=== PATIENT | female | born 1935 | race Hispanic/Latino ===

== ENCOUNTER → 2016-08-27 | Outpatient (CLI) | payer MEDICAID ==
[~2016-08-27] MED LIST: ACYC30OI TP; AML5T; ASP325TEC PO; ASP81CT PO; CEFD300C3 PO; CLCX100C; CLCX200C; CLPD75T PO; FRS325T; FURO20TA4 PO; HYDR-3812 PO; LISI10TA PO; METO50TA7 PO; MTP25TSR; NF-ESOM40C; POTA10CA43 PO; PROP1TAB77; SIMV40TA2; SIMV40TA4 PO; SOLIFENACIN; TRAM50TA2 PO; VALA10004 PO
--- OUTSIDE RECORDS SUMMARY | 2016-08-27 06:00 | XMS REPORT | CCD ---
Author Author STEVIE JACOB Unknown Address [address] [facility] [address] [place], [place] [id number] Care Team Providers Care Instructional Design Consultant Name Role Phone MATTEO VALENZUELA, M Attphys F., SAIRA NASST G., JAYSON NASST S., BENOIT NASST S., TAY NASST B., RICARDO NASST L., H NASST S., CRYSTAL NASST V., A NASST K., Donal NASST D., S NASST B., PIPPA NASST Vital Signs Vital Sign Value Unit Date/Time Recent/Initial? Weight Measured 160 lbs 04/06/2016 11:05 Initial VS Height 64 in 04/06/2016 11:05 Initial VS BMI (Body Mass Index) 27.46 kg/m^2 04/06/2016 11:05 Initial VS BSA (Body Surface Area) 1.81 m^2 04/06/2016 11:05 Initial VS BP Systolic 147 mmHg 04/06/2016 11:05 Initial VS BP Diastolic 71 mmHg 04/06/2016 11:05 Initial VS Respiratory Rate 20 bpm 04/06/2016 11:05 Initial VS Heart Rate 68 bpm 04/06/2016 11:05 Initial VS O2 % BldC Oximetry 100 % 04/06/2016 11:05 Initial VS Body Temperature 96.4 degrees 04/14/2016 15:05 Initial VS Body Temperature 96 degrees 04/16/2016 11:00 Most Recent VS BP Systolic 150 mmHg 04/16/2016 14:48 Most Recent VS BP Diastolic 78 mmHg 04/16/2016 14:48 Most Recent VS Respiratory Rate 16 bpm 04/16/2016 14:48 Most Recent VS Heart Rate 54 bpm 04/16/2016 14:48 Most Recent VS O2 % BldC Oximetry 100 % 04/16/2016 14:48 Most Recent VS Allergies Allergy Code Allergy Type Reaction Status No Known Drug Allergies 0 No known drug allergies Active Procedures Procedure Code Procedure Type Date Replacement of Right Knee Joint with Synthetic Substitute, Cemented, Open [id number] ICD-10 PCS 04/14/2016 PT GROUP THERAPY 097618047 SNOMED CT 04/16/2016 PT GAIT TRAINING/STAIRS EA [address] 04/16 PT GROUP THERAPY 502928343 SNOMED CT 04/15/2016 PT EVALUATION 102961289 SNOMED CT 04/15/2016 PT GROUP THERAPY 225858538 SNOMED CT 04/15/2016 OT ADL TRAINING/POSITIONING EA 15MIN 513593530 SNOMED CT 04/15/2016 OT EVALUATION 547342456 SNOMED CT 04/15/2016 KNEE 1V OR [address]V 052527[address] SN[address] 04/14/[address]GLOBIN [address]C 27[address]195 SNOM[address] CT 04/16/2016 .BB COMPATIBILITY 816043857 SNOMED CT 04/16/2016 .BB COMPATIBILITY 784606904 SNOMED CT 04/16/2016 BEDSIDE GLUCOSE 93522279 SNOMED CT 04/15/2016 BASIC METABOLIC PANEL 725607089 SNOMED CT 04/16/2016 BASIC METABOLIC PANEL 817612592 SNOMED CT 04/15/2016 CBC W/ AUTO DIFF (RFLX MAN DIFF IF IND) 7255766 SNOMED CT 04/16/2016 CBC W/ AUTO DIFF (RFLX MAN DIFF IF IND) 8474509 SNOMED CT 04/15/2016 BEDSIDE GLUCOSE 62593420 SNOMED CT 04/14/2016 INCENTIVE SPIROMETRY EA [address] .BB COMPAT GEL CHARGE ONLY 893476541 SNOMED CT 04/16/2016 .BB COMPAT EXM CHARGE ONLY 839091470 SNOMED CT 2015 .BB PRC 361748605 SNOMED CT 04/16/2016 .BB COMPAT EXM CHARGE ONLY 710081272 SNOMED CT 2015 .BB PRC 703931527 SNOMED CT 04/16/2016 ^CBC W/AUTO DIFF 0704759 SNOMED CT 04/16/2016 ^CBC W/AUTO DIFF 1782248 SNOMED CT 04/15/2016 BAN AERO ECLIPSE TREATMENT 88698970 SNOMED CT 04/16/2016 BAN AERO ECLIPSE TREATMENT 00205243 SNOMED CT 04/16/2016 BAN AERO ECLIPSE TREATMENT 40004517 SNOMED CT 04/15/2016 BAN AERO ECLIPSE TREATMENT 74871627 SNOMED CT 04/15/2016 BAN AERO ECLIPSE TREATMENT 68242683 SNOMED CT 04/14/2016 BAN AERO ECLIPSE TREATMENT 96724192 SNOMED CT 04/14/2016 OXYGEN/HOUR 423717774 SNOMED CT 04/14/2016 History of Immunizations Immunization Code Date influenza, unspecified formulation 88 04/18/2015 pneumococcal, unspecified formulation 109 04/18/2015 influenza, injectable, quadrivalent, preservative free 150 2015 Problems Problem Code Start Date Resolved Date Status Primary osteoarthritis of right knee 224815339 Active Post op pain 034916517 04/14/2016 Active Status post knee replacement 0259824297440 04/14/2016 Active Results BASIC METABOLIC PANEL - Collect Date/Time: 04/16/2016 06:05 Test Name Code Test Result Test Units Test Ref Range GLUCOSE 2345-7 102 MG/DL L=70 H=100 SODIUM 2951-2 136 MEQ/L L=135 H=148 POTASSIUM 2823-3 4.7 MEQ/L L=3.5 H=5.3 CHLORIDE 2075-0 106 MEQ/L L=96 H=110 CO2 2028-9 24 MEQ/L L=22 H=29 BUN 3094-0 27 MG/DL L=8 H=22 CREATININE 2160-0 1.2 MG/DL L=0.6 H=1.6 CALCIUM 24835-4 8.8 MG/DL L=8.2 H=10.6 AGE 80 yrs GFR NonAA 43 GFR AA 52 eGFR 43 mL/min/1.7 eGFR AA* 52 mL/min/1.7 BASIC METABOLIC PANEL - Collect Date/Time: 04/15/2016 06:10 Test Name Code Test Result Test Units Test Ref Range GLUCOSE 2345-7 166 MG/DL L=70 H=100 SODIUM 2951-2 136 MEQ/L L=135 H=148 POTASSIUM 2823-3 4.3 MEQ/L L=3.5 H=5.3 CHLORIDE 2075-0 105 MEQ/L L=96 H=110 CO2 2028-9 23 MEQ/L L=22 H=29 BUN 3094-0 14 MG/DL L=8 H=22 CREATININE 2160-0 1.0 MG/DL L=0.6 H=1.6 CALCIUM 54519-3 8.7 MG/DL L=8.2 H=10.6 AGE 80 yrs GFR NonAA 53 GFR AA 64 eGFR 53 mL/min/1.7 eGFR AA* >60 N/A BEDSIDE GLUCOSE - Collect Date/Time: 04/15/2016 20:58 Test Name Code Test Result Test Units Test Ref Range GLUCOSE POCT 182 MG/DL L=70 H=100 BEDSIDE GLUCOSE - Collect Date/Time: 04/14/2016 10:46 Test Name Code Test Result Test Units Test Ref Range GLUCOSE POCT 108 MG/DL L=70 H=100 CBC W/ AUTO DIFF (RFLX MAN DIFF IF IND) - Collect Date/Time: 04/16/2016 06:05 Test Name Code Test Result Test Units Test Ref Range WBC 25520-3 9.6 TH/CMM L=4.5 H=10.8 RBC 789-8 2.57 ML/CMM L=4.20 H=5.40 HGB 718-7 7.7 G/DL L=12.0 H=16.0 HCT 4544-3 24.6 % L=37.0 H=47.0 MCV 96 FL L=81 H=99 MCH 30.0 PG L=27.0 H=33.0 MCHC 31.3 G/DL L=31.0 H=36.0 RDW SD 48 FL L=36 H=50 RDW CV 13.6 % L=0.0 H=14.8 MPV 10.2 FL L=9.3 H=12.5 PLT 777-3 118 TH/CMM L=130 H=440 NRBC# 0.00 TH/CMM L=0.00 H=0.00 NRBC% 0.0 /100WBC L=0.0 H=2.0 %NEUT 79.9 % %LYMP 11.1 % %MONO 5.6 % %EOS 2.8 % %BASO 0.3 % #NEUT 7.64 TH/CMM L=2.10 H=8.20 #LYMP 1.06 TH/CMM L=0.90 H=5.20 #MONO 0.54 TH/CMM L=0.16 H=1.00 #EOS 0.27 TH/CMM L=0.00 H=0.80 #BASO 0.03 TH/CMM L=0.00 H=0.20 MANUAL DIFF NOT IND N/A CBC W/ AUTO DIFF (RFLX MAN DIFF IF IND) - Collect Date/Time: 04/15/2016 06:10 Test Name Code Test Result Test Units Test Ref Range WBC 53174-6 12.6 TH/CMM L=4.5 H=10.8 RBC 789-8 2.91 ML/CMM L=4.20 H=5.40 HGB 718-7 8.9 G/DL L=12.0 H=16.0 HCT 4544-3 28.3 % L=37.0 H=47.0 MCV 97 FL L=81 H=99 MCH 30.6 PG L=27.0 H=33.0 MCHC 31.4 G/DL L=31.0 H=36.0 RDW SD 48 FL L=36 H=50 RDW CV 13.3 % L=0.0 H=14.8 MPV 9.7 FL L=9.3 H=12.5 PLT 777-3 151 TH/CMM L=130 H=440 NRBC# 0.00 TH/CMM L=0.00 H=0.00 NRBC% 0.0 /100WBC L=0.0 H=2.0 %NEUT 86.3 % %LYMP 8.7 % %MONO 4.5 % %EOS 0.0 % %BASO 0.1 % #NEUT 10.90 TH/CMM L=2.10 H=8.20 #LYMP 1.10 TH/CMM L=0.90 H=5.20 #MONO 0.57 TH/CMM L=0.16 H=1.00 #EOS 0.00 TH/CMM L=0.00 H=0.80 #BASO 0.01 TH/CMM L=0.00 H=0.20 MANUAL DIFF NOT IND N/A .BB COMPATIBILITY - Collect Date/Time: 04/16/2016 07:59 Test Name Code Test Result Test Units Test Ref Range Cross Match Result Compatible N/A Unit Blood Type O Pos N/A Unit Number [id number] RBC -1 LR N/A Status Information Ready N/A Product Identification Red Blood Cells N/A .BB COMPATIBILITY - Collect Date/Time: 04/16/2016 07:51 Test Name Code Test Result Test Units Test Ref Range Cross Match Result Compatible N/A Unit Blood Type O Pos N/A Unit Number [id number] RBC -1 LR N/A Status Information Ready N/A Product Identification Red Blood Cells N/A HEMOGLOBIN A1C - Collect Date/Time: 04/16/2016 06:05 Test Name Code Test Result Test Units Test Ref Range HGB A1C 90657-9 5.6 % L=4.0 H=6.4 Est Avg Glucose 78935-1 114.0 mg/dL Active Medications Medications Administered During Visit Medication Dose Units Frequency Route Date/ Time of Last Dose DUONEB [IPRATROPIUM/ALBUTEROL] 0.5/3 MG 1 UD TID (RT ONLY ) INHALE 04/16/2016 14:00 NS 1000 ML IV [PREDEFINED] (7983) CONT IV 04/14/2016 17:30 CEFAZOLIN [ANCEF] 2 GM IV PREMIX BAG Q6H 04/14/2016 21:28 TRANEXAMIC ACID 1000MG/100ML [PREDEFINED X1 04/14/2016 16:20 ASPIRIN ENTERIC COATED TAB : 325MG 325 MG BID PO 04/16/2016 08:55 VITAMIN (LH SUB FOR ALL MULTIVITAMINS) 1 TAB DAILY PO 04/16/2016 08:55 DOCUSATE SODIUM 100 MG [COLACE] CAPSULE 100 MG BID PO 04/16/2016 08:55 PANTOPRAZOLE [PROTONIX] TABLET : 40 MG 40 MG DAILY PO 04/16/2016 08:55 OFIRMEV [ACETAMINOPHEN] 10MG/ML 100ML VL Q6H 04/16/2016 04:48 KETOROLAC (TORADOL) VIAL: 30 MG/ML 1 ML 30 MG Q6H IVP 04/16/2016 11:27 OXYCODONE 5 MG IMMEDIATE RELEASE TAB 1 TAB PRN PO 04/16/2016 08:11 LISINOPRIL 10MG TAB 10 MG DAILY PO 2015 08:55 CLOPIDOGREL [PLAVIX] TABLET: 75 MG 75 MG DAILY PO 04/15/2016 08:09 SIMVASTATIN [ZOCOR] TABLET: 20 MG 40 MG HS PO 04/15/2016 20:08 CEFAZOLIN [ANCEF] 2 GM IV PREMIX BAG Q6H 04/15/2016 01:59 CEFAZOLIN [ANCEF] 2 GM IV PREMIX BAG X1 04/15/2016 08:11 EPOETIN GURU 40,000 UNIT VIAL 67926 UNITS DAILY SUB Q 04/15/2016 16:16 FLUARIX (INFLUENZA) VACCINE: 0.5ML SYR 0.5 EA X1 IM 04/15/2016 16:16 FUROSEMIDE (LASIX): 20 MG/2 ML INJ 20 MG X1 IVP 04/16/2016 11:27 Encounters Encounter Diagnosis Diagnosis Code Start Date Unilateral primary osteoarthritis, right knee [id number] 04/14/2016 Social History Smoking Status Code Start Date End Date Never smoker [id number] Patient Decision Aids Patient Decision Aid Joint Replacement Surgery Narcotic Pain Management Non-pharmacological Pain Management Therapies for Adults PATIENT PORTAL ACCESS Pain Management After Surgery Pain Management After Surgery Discharge Instructions You were admitted to [facility] on 04/14/2016 10:12 with a principal diagnosis of Unilateral primary osteoarthritis, right knee You had the following procedures done: Replacement of Right Knee Joint with Synthetic Substitute, Cemented, Open You had the following tests done: .BB COMPATIBILITY .BB COMPATIBILITY BASIC METABOLIC PANEL BASIC METABOLIC PANEL BEDSIDE GLUCOSE BEDSIDE GLUCOSE CBC W/ AUTO DIFF ( RFLX MAN DIFF IF IND) CBC W/ AUTO DIFF (RFLX MAN DIFF IF IND) HEMOGLOBIN A1C You were discharged from [facility] on 04/16/2016 16:25 Should you have any questions prior to discharge, please contact a member of your healthcare team. If you have left the hospital and have any questions, please contact your primary care physician. PATIENT PORTAL/OTHER INSTRUCTIONS: Assisted on to Patient Portal. HOME DIET: Regular. ACTIVITY INSTRUCTIONS(list limitations): Activity as Tolerated , User walker when wallking. SPECIAL INSTRUCTIONS: Apply Ice to right knee for 20 minutes., continue home exercise program. May rinse incision off in shower, but do not soak. SCRIPTS WRITTEN BY DOCTOR GIVEN TO PATIENT? Physical Therapy, Aspirin 325mg, Oxycodone 5mg. PERSONAL ITEMS RETURNED: Yes. INSTRUCTIONS GIVEN AND DISCHARGE TO: Daughter VOICES UNDERSTANDING OF INSTRUCTIONS: Yes. INSTRUCTIONS GIVEN BY (TYPE IN NAME AND DATE) Ricardo Cornell RN 04/16/16 PRIMARY CARE PHYSICIAN OR PRACTITIONER: Jovany Noriega MD, [phone]. FOLLOW UP CARE - SEE YOUR PHYSICIAN: Dr Noriega 04/27/16 at 1140am FOLLOW-UP OUTPATIENT SERVICES: Physical Therapy, [facility] 8.15am CONDITION AT DISMISSAL Stable. HOME MEDICATION INSTRUCTIONS: Recommend Miralax or stool softener while on pain meds CHIEF COMPLAINT: RT KNEE PAIN Chief Complaint and Reason For Visit Chief Complaint Date of Onset ORT TOTAL KNEE RIGHT Function Status Unknown or Not Available. Plan of Care Unknown or Not Available. Referral/Transition of Care Unknown or Not Available.
== END ==
LOC: PREOP 05:56
PROVIDERS: ATTEND Surgery
DX: Z01.818 Encounter for other preprocedural examination (principal); R13.10 Dysphagia, unspecified; R19.5 Other fecal abnormalities

== ENCOUNTER → 2017-11-02 | Outpatient (CLI) | payer MEDICAID ==
[~2017-11-02] MED LIST changes: +ACHD5005 PO; +APIX5TAB PO; +ASPI-983 PO; +CALC-6 PO; +FURO40TA4 PO; -HYDR-3812 PO; +IBUP-30 PO; +LISI10TA2 PO; +METO100T12 PO; +NITR-65 PO; +NITR100C10 PO; +PHEN-640 PO; +PHEN-827 PO; +REGADENOSON 0.4 MG/5 ML SYR (LEXISCAN) IV ONE
[2017-11-02] MEDS: CATHETER FLUSH 10 ML SYR IV PRN ×2 (11:44→13:01)
[2017-11-02 12:48] VITALS: BP 127/82
--- NOTE | 2017-11-02 17:21 | STRESS TEST ---
DATE OF SERVICE: 11/02/2017 RESTING AND POST REGADENOSON TECHNETIUM-99M TETROFOSMIN SPECT CT IMAGING ORDERING PHYSICIAN: Barbara Hernandez APRN. PRIMARY PHYSICIAN: Dr. Alvarez. CLINICAL DIAGNOSIS: Coronary artery disease. Baseline images were carried out after injection of 10.36 mCi of technetium-99m tetrofosmin. This was followed by 0.4 mg regadenoson and 29.6 mCi of technetium-99m tetrofosmin for stress imaging. The electrocardiogram showed atrial fibrillation throughout the study. Ventricular rate was somewhat rapid and averaging around 100 and 105 beats per minute. The patient tolerated the procedure well and did not report any significant symptoms. Review of images at rest and following stress indicates a lateral perfusion defect that is predominantly fixed. Gated images show lateral wall akinesis. Left ventricular ejection fraction is calculated to be 42%. Left ventricular end diastolic volume is 94 mL. TID is absent (1.01). CONCLUSIONS: 1. Lateral wall myocardial infarction with a small amount of hill-infarct ischemia. 2. Lateral wall akinesis. 3. Impairment of global left ventricular systolic function with an ejection fraction of 42%. Job ID: [id number] DocumentID: [id number] Dictated Date: 11/02/2017 17:03:47 Associate Genetics Professor Date: 11/02/2017 17:21:03 Dictated By: SAHIL HAWLEY MD, MA, FACP, FACC,
== END ==
LOC: CARD 10:08
PROVIDERS: ATTEND Nurse Practitioner Family
DX: I48.0 Paroxysmal atrial fibrillation (principal); I25.10 Atherosclerotic heart disease of native coronary artery without angina pectoris; R06.09 Other forms of dyspnea; I10 Essential (primary) hypertension; E78.5 Hyperlipidemia, unspecified
CPT/HCPCS: 78452; 93017

== ENCOUNTER → 2018-02-01 | Outpatient (CLI) | payer MEDICAID ==
[~2018-02-01] MED LIST changes: -REGADENOSON 0.4 MG/5 ML SYR (LEXISCAN) IV ONE
== END ==
LOC: PREOP 05:39
PROVIDERS: ATTEND Urology
DX: Z01.818 Encounter for other preprocedural examination (principal)

== ENCOUNTER 2018-02-08 06:03 | Day surgery (SDC) | payer MEDICAID ==
[~2018-02-08] VITALS: Ht 165.1 cm; Wt 72.1 kg
[~2018-02-08 06:03] MED LIST changes: -APIX5TAB PO; -ASPI-983 PO; -CALC-6 PO; -FURO40TA4 PO; -IBUP-30 PO; -LISI10TA2 PO; -METO100T12 PO; -NITR-65 PO; -NITR100C10 PO; -PHEN-640 PO; -PHEN-827 PO
[2018-02-08 06:35] VITALS: BP 107/92
[2018-02-08] MEDS ORDERED: SEVOFLURANE (ULTANE) 15 ML INHAL SOLN ONE (06:55)
[2018-02-08] MEDS ORDERED: DEXAMETHASONE 10 MG/ML (DECADRON) 1 ML VIAL ONE (06:55)
[2018-02-08] MEDS ORDERED: LIDOCAINE PF 2% 5 ML (XYLOCAINE) VIAL ONE (06:55)
[2018-02-08] MEDS ORDERED: ONDANSETRON 4 MG/2 ML (SDV) Z0FRAN ONE (06:55)
[2018-02-08] MEDS ORDERED: proPOfol 200 MG/20 ML (DIPRIVAN) VIAL IV ONE (06:55)
[2018-02-08] MEDS ORDERED: fentaNYL INJECTION 100 MCG/2 ML AMP ONE (06:56)
[2018-02-08] MEDS ORDERED: MIDAZOLAM 2 MG/2 ML (VERSED) VIAL ONE (06:56)
--- NOTE | 2018-02-08 07:00 | Progress Note-Pre Operative ---
Pre-Operative Progress Note H&P Reviewed The H&P was reviewed, patient examined and no changes noted. Date Seen by Provider: Feb 08, 2018 Time Seen by Provider: 07:00 Date H&P Reviewed: Feb 08, 2018 Time H&P Reviewed: 07:00 Pre-Operative Diagnosis: MIXED INCONTINENCE, OAB AND ISD SIM EISENBERG MD Feb 08, 2018 7:00 am
--- NOTE | 2018-02-08 07:01 | Progress Note-Post Operative ---
Post-Operative Progess Note Surgeon (s)/Representative Personal Service (s) Surgeon SIM EISENBERG MD Representative Personal Service: N/A Pre-Operative Diagnosis MIXED INCONTINENCE, OAB AND ISD Post-Operative Diagnosis SAME Procedure & Operative Findings Date of Procedure 02/08/18 Procedure Performed/Findings MACROPLASTIQUE IMPLANT Anesthesia Type GENERAL Estimated Blood Loss Estimated blood loss (mL): NEGLIGIBLE Specimens/Packing Specimens Removed N/A Packing: N/A SIM EISENBERG MD Feb 08, 2018 7:01 am
--- NOTE | 2018-02-08 07:03 | Discharge Inst-Urology ---
Discharge Inst-Urology Discharge Medications New, Converted, or Re-newed RX: RX on Chart Patient Instructions/Follow Up Plan Please make appointment to been seen in office in 4 weeks. In 48 hours, if no bleeding, resume ASA and Plavix Showers, no bath Keep bowels soft and moving Increase oral fluids for 48 hours and then as needed. Diet and Activity as tolerated. If questions or concerns contact your physician Or seek help at emergency department. SIM EISENBERG MD Feb 08, 2018 7:03 am
[2018-02-08] MEDS ORDERED: LACTATED RINGERS 1,000 ML IV PRN (07:07)
[2018-02-08] MEDS ORDERED: NS (IVPB) 50 ML ONE (07:15)
[2018-02-08] MEDS ORDERED: cefTRIAXone 1 GM (ROCEPHIN) VIAL ONE (07:15)
[2018-02-08] MEDS ORDERED: cefTRIAXone 1 GM/NS 50 ML IVPB IV ONE ×2 (07:30)
[2018-02-08] MEDS ORDERED: PHENYLEPHRINE 100 MCG/ML 10 ML (ANESTHESIA) SYR ONE (07:36)
[2018-02-08] MEDS ORDERED: PHEN-640 PO (08:12)
[2018-02-08] MEDS ORDERED: NITR-65 PO (08:12)
[2018-02-08 08:30] VITALS: BP 104/72
[2018-02-08 09:00] VITALS: BP 113/81
[2018-02-08 09:20] VITALS: BP 113/74
[2018-02-08 09:30] VITALS: BP 113/74
--- NOTE | 2018-02-08 11:22 | Anesthesia-General Post-Op ---
General Patient Condition Mental Status/LOC: Same as Preop Cardiovascular: Satisfactory Nausea/Vomiting: Absent Respiratory: Satisfactory Pain: Controlled Complications: Absent Post Op Complications Complications None Follow Up Care/Instructions Patient Instructions None needed. Anesthesia/Patient Condition Patient Condition Patient is doing well, no complaints, stable vital signs, no apparent adverse anesthesia problems. No complications reported per nursing. MARY JAMES CRNA Feb 08, 2018 11:22
--- NOTE | 2018-02-08 13:38 | OPERATIVE REPORT ---
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 OPERATION PERFORMED: Cystoscopy with Macroplastique implant. SURGEON: Zion Eisenberg MD. ANESTHESIA: General. COMPLICATIONS: None. DESCRIPTION OF PROCEDURE: Under satisfactory general anesthesia, the patient in lithotomy position, genitalia were prepped and draped in the usual sterile fashion. Cystoscope was introduced in the bladder. Macroplastique implant was injected first at the 6 o'clock position, a full syringe using the described technique. Then, half a syringe at each of the 2 o'clock and 10 o'clock position. There was good coaptation of the mid urethra and the negative Valsalva manual maneuver. I emptied the bladder with the cystoscope, removed it. The patient tolerated the procedure and anesthesia well and was sent to the recovery room in stable condition. ESTIMATED BLOOD LOSS: Negligible. If this procedure fails, then her only alternative would be a sling. Job ID: [id number] DocumentID: [id number] Dictated Date: 02/08/2018 07:55:50 Post Graduate Intern Date: 02/08/2018 13:37:13 Dictated By: ZION EISENBERG MD
[2018-02-13] MEDS ORDERED: TRAM50TA2 PO ×2 (11:02→11:05)
== END 2018-02-08 09:48 | disposition home or self-care (01) ==
LOC: SDC 06:03
PROVIDERS: ATTEND Urology
DX: N36.42 Intrinsic sphincter deficiency (ISD) (principal); N39.46 Mixed incontinence; N32.81 Overactive bladder; I25.10 Atherosclerotic heart disease of native coronary artery without angina pectoris; I48.91 Unspecified atrial fibrillation; Z79.02 Long term (current) use of antithrombotics/antiplatelets; Z79.82 Long term (current) use of aspirin
CPT/HCPCS: 87081

== ENCOUNTER 2018-02-11 08:20 | Inpatient (IN) | payer MEDICAID ==
[~2018-02-11] VITALS: Ht 157.5 cm; Wt 72.1 kg
[~2018-02-11 08:20] MED LIST changes: +NITR-65 PO; +PHEN-640 PO
[2018-02-11] MEDS ORDERED: ONDANSETRON 4 MG/2 ML (SDV) Z0FRAN IVP ONE (09:00)
[2018-02-11 09:02] LABS: BASOPHILS % (AUTO) 0 % (0-10); EOSINOPHILS % (AUTO) 0 % (0-10); HEMATOCRIT 36 % (35-52); HEMOGLOBIN 11.5 G/DL (11.5-16.0); LYMPHOCYTES # (AUTO) 1.3 X 10^3 (1.0-4.0); LYMPHOCYTES % (AUTO) 19 % (12-44); MEAN CORPUSCULAR HEMOGLOBIN 31 PG (25-34); MEAN CORPUSCULAR HGB CONC 32 G/DL (32-36); MEAN CORPUSCULAR VOLUME 95 FL (80-99); MEAN PLATELET VOLUME 11.5 FL (7.4-10.4); MONOCYTES # (AUTO) 0.5 X 10^3 (0.0-1.0); MONOCYTES % (AUTO) 7 % (0-12); NEUTROPHILS # (AUTO) 5.3 X 10^3 (1.8-7.8); NEUTROPHILS % (AUTO) 74 % (42-75); PLATELET COUNT 124 10^3/uL (130-400); RED BLOOD COUNT 3.75 10^6/uL (4.35-5.85); WHITE BLOOD COUNT 7.1 10^3/uL (4.3-11.0)
[2018-02-11 09:09] LABS: INR 1.5 (0.8-1.4)
[2018-02-11 09:15] LABS: ALANINE AMINOTRANSFERASE 35 U/L (0-55); ALBUMIN 3.4 GM/DL (3.2-4.5); ALKALINE PHOSPHATASE 71 U/L (40-136); BILIRUBIN,TOTAL 1.3 MG/DL (0.1-1.0); BUN/CREATININE RATIO 18; CALCIUM 9.5 MG/DL (8.5-10.1); CARBON DIOXIDE 23 MMOL/L (21-32); CHLORIDE 100 MMOL/L (98-107); CREATININE SERUM 1.25 MG/DL (0.60-1.30); GFR ESTIMATED 41; GLUCOSE 178 MG/DL (70-105); LIPASE 8 U/L (8-78); MAGNESIUM 1.9 MG/DL (1.8-2.4); POTASSIUM 4.6 MMOL/L (3.6-5.0); SODIUM 131 MMOL/L (135-145); TOTAL PROTEIN 6.7 GM/DL (6.4-8.2)
[2018-02-11 09:22] LABS: MYOGLOBIN SERUM 80.3 NG/ML (10.0-92.0)
[2018-02-11] MEDS ORDERED: NS 250 ML (IVPB) BAG IV ONE (10:15)
[2018-02-11] MEDS ORDERED: IOHEXOL 350 MG/ML 100 ML (OMNIPAQUE 350) VIAL IV ONE (10:15)
--- NOTE | 2018-02-11 10:26 | Diagnostic Imaging Report ---
INDICATION: Shortness of air COMPARISON: 07/04/2016 FINDINGS: Single frontal view of the chest demonstrates moderate to marked enlargement of the cardiac silhouette. Pulmonary vasculature is within normal limits. The lungs are well aerated and clear. No large pleural effusion or pneumothorax is seen. The visualized osseous structures show no acute abnormalities. IMPRESSION: 1. Moderate to marked prominence of the cardiac silhouette. Findings could be on the basis of interval progression of cardiomegaly. Underlying pericardial effusion, however, should also be considered. 2. No evidence of failure or focal infiltrate. Dictated by: Dictated on workstation # [id number]
[2018-02-11] MEDS ORDERED: RECEIVED CONTRAST (Hold Metformin) IV SCH (10:30)
--- NOTE | 2018-02-11 11:21 | Diagnostic Imaging Report ---
PROCEDURE: CT abdomen and pelvis with contrast. TECHNIQUE: Multiple contiguous axial images were obtained through the abdomen and pelvis after administration of intravenous contrast. INDICATION: Recent bladder surgery. Now with abdominal pain and nausea. Shortness of air. COMPARISON: 02/03/2011 FINDINGS: The included portions of the lung bases show moderate cardiomegaly. Additionally, there is calcified coronary atherosclerosis. Partially visualized small effusion is noted on the left. Mild to moderate effusion is also noted on the right. CT ABDOMEN: There is significant gallbladder wall thickening. Debris is noted within the lumen of the gallbladder. Additionally, there is small amount of free fluid within the right upper abdominal quadrant. Findings are concerning for acute cholecystitis. Benign-appearing bilateral renal cysts are noted. Otherwise, the kidneys, adrenal glands, spleen, and pancreas have a normal appearance. Note is made of reflux of contrast into the hepatic veins suggestive of right heart disorder. Otherwise, liver is unremarkable as well. Small bowel loops are nondistended. Normal appendix is identified. There is colonic diverticulosis, but no CT evidence of acute diverticulitis. No abnormal mesenteric or retroperitoneal adenopathy is seen. There is diffuse calcified aortic and arterial atherosclerosis. 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 Osseous structures show no acute abnormalities. CT PELVIS: Urinary bladder is grossly unremarkable. Small amount of free fluid is also noted within the pelvis. There is no loculated air-fluid collection or free air. Metallic foreign body is noted within the uterus. No abnormal lymph nodes are identified. Bony structures show no acute abnormalities. IMPRESSION: 1. CT findings concerning for acute cholecystitis as described above. May want to consider further characterization with dedicated right upper abdominal quadrant sonogram or HIDA scan. 2. Small amount of free fluid within the abdomen and pelvis, but no loculated air-fluid collection. 3. Colonic diverticulosis, but no CT evidence of acute diverticulitis. 4. Cardiomegaly with reflux of contrast into the hepatic veins suggestive of right heart failure. 5. Significant calcified aortic and coronary atherosclerosis. 6. Bilateral pleural effusions, right greater than left. 7. Metallic foreign body centrally within the uterus. Patient reportedly has clinical history of indwelling IUD. Dictated by: Dictated on workstation # [id number]
--- NOTE | 2018-02-11 13:04 | Diagnostic Imaging Report ---
PROCEDURE: US Gallbladder. TECHNIQUE: Multiple real-time grayscale images were obtained over the right upper quadrant in various projections. INDICATION: Right upper quadrant pain. COMPARISON: Exam interpreted in correlation with CT performed earlier this same date. FINDINGS: There is markedly irregular presumed edematous thickening of the gallbladder with perihepatic and pericholecystic fluid. Gallbladder wall thickening measures at least 14 mm. There is ectasia of the extrahepatic common duct measuring 8 mm. Its distal portion is obscured by gas. No intrahepatic biliary dilatation. The pancreas is largely obscured from visualization. The unobstructed right kidney contains a 4.3 cm simple-appearing cyst. IMPRESSION: No visualized shadowing or echogenic stones, however the gallbladder is markedly edematous with perihepatic and pericholecystic free fluid and mild dilatation of the common bile duct. Cholecystitis is suspected. Cystic duct patency could be confirmed or refuted with nuclear medicine hepatobiliary scanning, if clinically indicated. Benign right renal cyst. No hydronephrosis or obscuration of the pancreas. No demonstrated loculated fluid collection and no appreciable abnormal dilatation of the intrahepatic bile ducts. Dictated by: Dictated on workstation # [id number]
--- NOTE | 2018-02-11 14:11 | ED General ---
General Chief Complaint: Respiratory Problems Stated Complaint: SOB Nursing Triage Note: PT TO ROOM#9 VIA WC BY ED STAFF. FAMILY AT SIDE. A&OX4. PT SPEAKS PALAU[place] AND UNDERSTANDS PARTIAL YORUBA. [facility] INTERPRETING INFORMATION. CO SOA ON EXERTION AND EPIGASTRIC ABD PAIN THAT BEGAN YESTERDAY. REPORTS BLADDER SURGERY PERFORMED ON WEDNESDAY BY PT ALSO CO N/V THAT BEGAN YESTERDAY. DENIES CHEST PAIN. DENIES DIZZINESS. DENIES INJURY. Nursing Sepsis Screen: No Definite Risk Source of Information: Patient Exam Limitations: No Limitations History of Present Illness Date Seen by Provider: Feb 11, 2018 Time Seen by Provider: 08:40 Initial Comments This 82-year-old woman presents to the emergency room with complaints of shortness of breath on exertion, nausea, and epigastric pain. She had a cystoscopy with macroplastique implant performed by Dr. Dee on February 08. Patient presently takes Eliquis for atrial fibrillation. Her last dose was yesterday. Patient speaks Armenian and understands some Arabic. 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 Allergies and Home Medications Allergies Coded Allergies: Van Known Allergies (Verified Allergy, Unknown, 02/07/07) Home Medications Acyclovir 30 Gm Oint, 30 GM TP Q4H Prescribed by: RONNA MAYORGA on 07/04/162307 Cefdinir 300 Mg Capsule, 300 MG PO BID Prescribed by: RONNA MAYORGA on 07/04/162307 Hydrocodone Bit/Acetaminophen 1 Each Tablet, 1 EACH PO Q4H Prescribed by: RONNA MAYORGA on 07/04/162307 Lisinopril 10 Mg Tablet, 10 MG PO DAILY, (Reported) Nitrofurantoin Monohyd/M-Cryst 100 Mg Capsule, 1 TAB PO BID WITH MEALS Prescribed by: ISAIAH ENRIQUEZ on 02/08/18811 Phenazopyridine HCl 200 Mg Tablet, 1 TAB PO TID Prescribed by: ISAIAH ENRIQUEZ on 02/08/18811 Simvastatin 40 Mg Tablet, 40 MG PO HS, (Reported) Valacyclovir HCl 1,000 Mg Tablet, 1,000 MG PO TID Prescribed by: RONNA MAYORGA on 07/04/162307 Patient Home Medication List Home Medication List Reviewed: Yes Review of Systems Constitutional: no symptoms reported EENTM: no symptoms reported Respiratory: see HPI Cardiovascular: see HPI Gastrointestinal: see HPI, nausea Genitourinary: see HPI : No Musculoskeletal: no symptoms reported Skin: no symptoms reported Psychiatric/Neurological: No Symptoms Reported Hematologic/Lymphatic: See HPI (anticoagulated) Past Sbiasgx-Vmudei-Zgeuak Hx Patient Social History Alcohol Use: Denies Use Recreational Drug Use: No Smoking Status: Never a Smoker 2nd Hand Smoke Exposure: No Recent Foreign Travel: No Contact w/Someone Who Travel: No Recent Infectious Disease Expo: No Recent Hopitalizations: No Physical Abuse: No Sexual Abuse: No Seasonal Allergies Seasonal Allergies: No Past Medical History Surgeries: Yes Bladder Surgery (Cystoscopy with Macroplastique implant), Cardiac, Coronary Stent, Eye Surgery, Orthopedic, Pacemaker Respiratory: No Cardiac: Yes (DVT LEFT LEG 2007) Atrial Fibrillation, Coronary Artery Disease, Deep Vein Thrombosis, High Cholesterol, Hypertension Neurological: Yes (NEUROPATHY RIGHT FOOT POST ANKLE SURGERY) Neuropathy 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 Sexually Transmitted Disease: No Gastrointestinal: No Musculoskeletal: Yes (RIGHT ANKLE; BILATERAL KNEE REPLACEMENTS) Degenerate Disk Disease, Arthritis, Chronic Back Pain Endocrine: Yes (INSULIN RESISTANCE; OBESITY) HEENT: Yes Cataract Cancer: No Psychosocial: No Nursing Suicide Risk Score: 0 Integumentary: Yes (ABSCESS; CELLULLITIS) Blood Disorders: Yes (ANEMIA) Physical Exam Vital Signs Vital Signs - First Documented 02/11/18 08:23 Temp 96.0 Pulse 97 Resp 18 B/P (MAP) 109/81 (90) Pulse Ox 96 O2 Delivery Room Air Capillary Refill : Less Than 3 Seconds Height, Weight, BMI Height: 5'2.00" Weight: 159lbs. 0.9oz. [id number]; 26.5 BMI Method:Stated General Appearance: No Apparent Distress, WD/WN HEENT: PERRL/EOMI, Normal ENT Inspection Neck: Normal Inspection Respiratory: Lungs Clear, Normal Breath Sounds, No Accessory Muscle Use, No Respiratory Distress Cardiovascular: No Edema, No Murmur, Irregularly Irregular Gastrointestinal: Normal Bowel Sounds, Soft, Tenderness (epigastrium) Extremity: Normal Capillary Refill, Normal Inspection, No Pedal Edema, Other ( dusky-appearing toes with normal capillary refill) Neurologic/Psychiatric: Alert, Oriented x3, No Motor/Sensory Deficits, Normal Mood/Affect, garment folder II-XII Norm as Tested Skin: Normal Color, Warm/Dry Progress/Results/Core Measures Suspected Sepsis Recent Fever Within 48 Hours: No Infection Criteria Present: None New/Unexplained Altered Menta: No Sepsis Screen: No Definite Risk SIRS Temperature:96.0 Pulse: 97 Respiratory Rate: 18 Laboratory Tests 02/11/18 08:46: White Blood Count 7.1 Blood Pressure 109 /81 Mean: 90 Laboratory Tests 02/11/18 08:46: Creatinine 1.25, INR Comment 1.5H, Platelet Count 124L, Total Bilirubin 1.3H Results/Orders Lab Results Laboratory Tests Test 02/11/18 08:46 Range/Units White Blood Count 7.1 4.3-11.0 10^3/uL Red Blood Count 3.75 L 4.35-5.85 10^6/uL Hemoglobin 11.5 11.5-16.0 G/DL Hematocrit 36 35-52 % Mean Corpuscular Volume 95 80-99 FL Mean Corpuscular Hemoglobin 31 25-34 PG Mean Corpuscular Hemoglobin Concent 32 32-36 G/DL Red Cell Distribution Width 14.0 10.0-14.5 % Platelet Count 124 L 130-400 10^3/uL Mean Platelet Volume 11.5 H 7.4-10.4 FL Neutrophils (%) (Auto) 74 42-75 % Lymphocytes (%) (Auto) 19 12-44 % Monocytes (%) (Auto) 7 0-12 % Eosinophils (%) (Auto) 0 0-10 % Basophils (%) (Auto) 0 0-10 % Neutrophils # (Auto) 5.3 1.8-7.8 X 10^3 Lymphocytes # (Auto) 1.3 1.0-4.0 X 10^3 Monocytes # (Auto) 0.5 0.0-1.0 X 10^3 Eosinophils # (Auto) 0.0 0.0-0.3 10^3/uL Basophils # (Auto) 0.0 0.0-0.1 10^3/uL Prothrombin Time 18.0 H 12.2-14.7 SEC INR Comment 1.5 H 0.8-1.4 Activated Partial Thromboplast Time 38 H 24-35 SEC Sodium Level 131 L 135-145 MMOL/L Potassium Level 4.6 3.6-5.0 MMOL/L Chloride Level 100 98-107 MMOL/L Carbon Dioxide Level 23 21-32 MMOL/L Anion Gap 8 5-14 MMOL/L Blood Urea Nitrogen 22 H 7-18 MG/DL Creatinine 1.25 0.60-1.30 MG/DL Estimat Glomerular Filtration Rate 41 BUN/Creatinine Ratio 18 Glucose Level 178 H 70-105 MG/DL Calcium Level 9.5 8.5-10.1 MG/DL Magnesium Level 1.9 1.8-2.4 MG/DL Total Bilirubin 1.3 H 0.1-1.0 MG/DL Aspartate Amino Transf (AST/SGOT) 58 H 5-34 U/L Alanine Aminotransferase (ALT/SGPT) 35 0-55 U/L Alkaline Phosphatase 71 40-136 U/L Myoglobin 80.3 10.0-92.0 NG/ML Troponin I < 0.30 <0.30 NG/ML B-Type Natriuretic Peptide 2611.0 H <100.0 PG/ML Total Protein 6.7 6.4-8.2 GM/DL Albumin 3.4 3.2-4.5 GM/DL Lipase 8 8-78 U/L My Orders Orders - BRITTA OBREGON MD Cbc With Automated Diff (02/11/18 08:55) Magnesium (02/11/18 08:55) Chest 1 View, Ap/Pa Only (02/11/18 08:55) Ekg Tracing (02/11/18 08:55) Cardiac Profile 1 (02/11/18 08:55) Comprehensive Metabolic Panel (02/11/18 08:55) Myoglobin Serum (02/11/18 08:55) Protime With Inr (02/11/18 08:55) Partial Thromboplastin Time (02/11/18 08:55) O2 (02/11/18 08:55) Monitor-Rhythm Ecg Trace Only (02/11/18 08:55) Lipid Panel (02/12/18 06:00) Saline Lock/Iv-Start (02/11/18 08:55) Lipase (02/11/18 08:55) BNP (02/11/18 08:55) Ondansetron Injection (Zofran Injectio (02/11/18 09:00) Ct Abdomen/Pelvis W (02/11/18 09:40) Iohexol Injection (Omnipaque 350 Mg/Ml 1 (02/11/18 10:15) Ns (Ivpb) (Sodium Chloride 0.9%) (02/11/18 10:15) Pharmacy Communication (Pharmacy Communi (02/11/18 10:08) Us Gallbladder 8[address] (02/11/18 11:48) Piperacillin/Tazobactam (Zosyn Vial) (02/11/18 14:15) Medications Given in ED Current Medications Medications Dose Ordered Sig/Phan Route Start Time Stop Time Status Last Admin Dose Admin Iohexol 50 ml ONCE ONCE IV 02/11/18 10:15 02/11/18 10:16 DC 02/11/18 10:25 50 ML Ondansetron HCl 8 mg ONCE ONCE IVP 02/11/18 09:00 02/11/18 09:01 DC 02/11/18 10:07 8 MG Piperacillin Sod/ Tazobactam Sod 3.375 gm/Dextrose 100 ml @ 200 mls/hr ONCE ONCE IV 02/11/18 14:15 02/11/18 14:44 DC 02/11/18 14:34 200 MLS/HR Sodium Chloride 250 ml ONCE ONCE IV 02/11/18 10:15 02/11/18 10:16 DC 02/11/18 10:25 80 ML Vital Signs/I&O 02/11/18 08:23 Temp 96.0 Pulse 97 Resp 18 B/P (MAP) 109/81 (90) Pulse Ox 96 O2 Delivery Room Air Capillary Refill : Less Than 3 Seconds Blood Pressure Mean: 90 ECG Initial ECG Impression Date: Feb 11, 2018 Initial ECG Impression Time: 09:08 Initial ECG Rate: 92 Initial ECG Rhythm: A Fib/Flutter Comment Atrial fibrillation with no ST elevation or depression. Rate controlled. Diagnostic Imaging Diagonstic Imaging: Xray Plain Films/CT/US/NM/MRI: chest Comments Chest x-ray viewed by me and report reviewed. See report below: NAME: [facility] REC#: [id number] PT STATUS: REG ER : 1935 PHYSICIAN: BRITTA OBREGON MD ADMIT DATE: 02/11/18/ER Draft Date of Exam:02/11/18 CHEST 1 VIEW, AP/PA ONLY INDICATION: Shortness of air COMPARISON: 07/04/2016 FINDINGS: Single frontal view of the chest demonstrates moderate to marked enlargement of the cardiac silhouette. Pulmonary vasculature is within normal limits. The lungs are well aerated and clear. No large pleural effusion or pneumothorax is seen. The visualized osseous structures show no acute abnormalities. IMPRESSION: 1. Moderate to marked prominence of the cardiac silhouette. Findings could be on the basis of interval progression of cardiomegaly. Underlying pericardial effusion, however, should also be considered. 2. No evidence of failure or focal infiltrate. Dictated on workstation # [id number] Dict: 02/11/18 1020 Trans: 02/11/18 1026 ANNEMARIE [id number] Interpreted by: KALE CASTANO MD Diagonstic Imaging: CT Plain Films/CT/US/NM/MRI: abdomen, pelvis Comments NAME: [facility] REC#: [id number] PT STATUS: REG ER : 1935 PHYSICIAN: BRITTA OBREGON MD ADMIT DATE: 02/11/18/ER Draft Date of Exam:02/11/18 CT ABDOMEN/PELVIS W PROCEDURE: CT abdomen and pelvis with contrast. TECHNIQUE: Multiple contiguous axial images were obtained through the abdomen and pelvis after administration of intravenous contrast. INDICATION: Recent bladder surgery. Now with abdominal pain and nausea. Shortness of air. COMPARISON: 02/03/2011 FINDINGS: The included portions of the lung bases show moderate cardiomegaly. Additionally, there is calcified coronary atherosclerosis. Partially visualized small effusion is noted on the left. Mild to moderate effusion is also noted on the right. CT ABDOMEN: There is significant gallbladder wall thickening. Debris is noted within the lumen of the gallbladder. Additionally, there is small amount of free fluid within the right upper abdominal quadrant. Findings are concerning for acute cholecystitis. Benign-appearing bilateral renal cysts are noted. Otherwise, the kidneys, adrenal glands, spleen, and pancreas have a normal appearance. Note is made of reflux of contrast into the hepatic veins suggestive of right heart disorder. Otherwise, liver is unremarkable as well. Small bowel loops are nondistended. Normal appendix is identified. There is colonic diverticulosis, but no CT evidence of acute diverticulitis. No abnormal mesenteric or retroperitoneal adenopathy is seen. There is diffuse calcified aortic and arterial atherosclerosis. 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 Osseous structures show no acute abnormalities. CT PELVIS: Urinary bladder is grossly unremarkable. Small amount of free fluid is also noted within the pelvis. There is no loculated air-fluid collection or free air. Metallic foreign body is noted within the uterus. No abnormal lymph nodes are identified. Bony structures show no acute abnormalities. IMPRESSION: 1. CT findings concerning for acute cholecystitis as described above. May want to consider further characterization with dedicated right upper abdominal quadrant sonogram or HIDA scan. 2. Small amount of free fluid within the abdomen and pelvis, but no loculated air-fluid collection. 3. Colonic diverticulosis, but no CT evidence of acute diverticulitis. 4. Cardiomegaly with reflux of contrast into the hepatic veins suggestive of right heart failure. 5. Significant calcified aortic and coronary atherosclerosis. 6. Bilateral pleural effusions, right greater than left. 7. Metallic foreign body centrally within the uterus. Patient reportedly has clinical history of indwelling IUD. Dictated on workstation # [id number] Dict: 02/11/18 1107 Trans: 02/11/18 1121 [id number] Interpreted by: KALE CASTANO MD Reviewed: Reviewed by Me Diagonstic Imaging: Ultrasound Plain Films/CT/US/NM/MRI: abdomen Comments NAME: [facility] REC#: [id number] PT STATUS: REG ER : 1935 PHYSICIAN: BRITTA OBREGON MD ADMIT DATE: 02/11/18/ER Draft Date of Exam:02/11/18 US GALLBLADDER [id number] PROCEDURE: US Gallbladder. TECHNIQUE: Multiple real-time grayscale images were obtained over the right upper quadrant in various projections. INDICATION: Right upper quadrant pain. COMPARISON: Exam interpreted in correlation with CT performed earlier this same date. FINDINGS: There is markedly irregular presumed edematous thickening of the gallbladder with perihepatic and pericholecystic fluid. Gallbladder wall thickening measures at least 14 mm. There is ectasia of the extrahepatic common duct measuring 8 mm. Its distal portion is obscured by gas. No intrahepatic biliary dilatation. The pancreas is largely obscured from visualization. The unobstructed right kidney contains a 4.3 cm simple-appearing cyst. IMPRESSION: No visualized shadowing or echogenic stones, however the gallbladder is markedly edematous with perihepatic and pericholecystic free fluid and mild dilatation of the common bile duct. Cholecystitis is suspected. Cystic duct patency could be confirmed or refuted with nuclear medicine hepatobiliary scanning, if clinically indicated. Benign right renal cyst. No hydronephrosis or obscuration of the pancreas. No demonstrated loculated fluid collection and no appreciable abnormal dilatation of the intrahepatic bile ducts. Dictated on workstation # [id number] Dict: 02/11/18 1247 Trans: 02/11/18 1303 [id number] Interpreted by: ESTHER MÉNDEZ Reviewed: Reviewed by Me Departure Communication (Admissions) Time/Spoke to Admitting Phy: 13:[address] Dawson. He requests patient be admitted and anticoagulation held in preparation for surgery. He requested antibiotics be initiated. Zosyn was selected for initial antibiotic therapy. Time/Spoke to Consulting Phy: 13:45 Dr. Motley Family Conversation Dr. Motley graciously accepts consult. Impression Primary Impression: Acute cholecystitis Additional Impressions: Atrial fibrillation Qualified Codes: I48.91 - Unspecified atrial fibrillation Shortness of breath Disposition: ADMITTED INPATIENT Condition: Improved Admissions Decision to Admit Reason: Admit from ER (General) Decision to Admit/Date: Feb 11, 2018 Time/Decision to Admit Time: 13:45 Departure-Patient Inst. Referrals: RONNA UMNOZ MD (PCP/Family) Primary Care Physician BRITTA OBREGON MD Feb 11, 2018 14:11
[2018-02-11] MEDS ORDERED: PIPERACILLIN/TAZOBACTAM 3.375 GM in D5W 100 ML IVPB 100 ML IV ONE (14:15)
[2018-02-11] MEDS ORDERED: NS IV 1000 ML 1,000 ML IV SCH (15:30)
[2018-02-11] MEDS ORDERED: ONDANSETRON 4 MG/2 ML (SDV) Z0FRAN IV PRN (15:30)
[2018-02-11] MEDS ORDERED: fentaNYL INJECTION 100 MCG/2 ML AMP IV PRN (15:30)
[2018-02-11] MEDS ORDERED: METO100T12 PO (16:05)
[2018-02-11] MEDS ORDERED: FURO40TA4 PO (16:05)
[2018-02-11] MEDS ORDERED: LISI10TA2 PO (16:05)
[2018-02-11] MEDS ORDERED: ASPI-983 PO (16:05)
[2018-02-11] MEDS ORDERED: APIX5TAB PO (16:05)
[2018-02-11] MEDS ORDERED: SIMV40TA4 PO (16:05)
[2018-02-11] MEDS ORDERED: PHEN-827 PO (16:05)
[2018-02-11] MEDS ORDERED: NITR100C10 PO (16:05)
[2018-02-11] MEDS ORDERED: CALC-6 PO (16:06)
[2018-02-11] MEDS ORDERED: IBUP-30 PO (16:06)
[2018-02-11] MEDS ORDERED: FUROSEMIDE 40 MG/4 ML INJ (LASIX) IVP NR (16:15)
--- NOTE | 2018-02-11 17:41 | Consultation ---
History of Present Illness History of Present Illness Patient Consulted On(kurt/time) 02/11/18 17:37 Date Seen by Provider: Feb 11, 2018 Time Seen by Provider: 17:37 Reason for Visit: Shortness of breath History of Present Illness This lady presented to the emergency room with shortness of breath leading to the revelation of acute cholecystitis based on a CT scan, followed by formal gallbladder ultrasound. She has multiple comorbidities including coronary artery disease, cardiac failure and atrial fibrillation. Allergies and Home Medications Allergies Coded Allergies: NKANo Known Allergies (Verified Allergy, Unknown, 02/07/07) Home Medications Apixaban 5 Mg Tablet, 5 MG PO BID, (Reported) Aspirin 81 Mg Tablet.dr, 81 MG PO DAILY, (Reported) Calcium Carbonate/Vitamin D3 1 Each Tablet, 1 TAB PO DAILY, (Reported) Furosemide 40 Mg Tablet, 40 MG PO DAILY, (Reported) Ibuprofen 200 Mg Tablet, 200-400 MG PO TID PRN for PAIN-MILD, (Reported) Lisinopril 10 Mg Tablet, 10 MG PO DAILY, (Reported) Metoprolol Tartrate 100 Mg Tablet, 100 MG PO BID, (Reported) Nitrofurantoin Monohyd/M-Cryst 100 Mg Capsule, 100 MG PO BID, (Reported) 7 DAY THERAPY FILLED 02-08-18 Phenazopyridine HCl 200 Mg Tablet, 200 MG PO TID PRN for URINARY PAIN, (Reported ) #15 FILLED 02-08-18 Simvastatin 40 Mg Tablet, 40 MG PO HS, (Reported) Patient Home Medication List Home Medication List Reviewed: Yes Past Oifspot-Dismuk-Gzgmkf Hx Patient Social History Alcohol Use: Denies Use Recreational Drug Use: No Smoking Status: Never a Smoker 2nd Hand Smoke Exposure: No Recent Foreign Travel: No Contact w/Someone Who Travel: No Recent Infectious Disease Expo: No Recent Hopitalizations: No Physical Abuse: No Sexual Abuse: No Seasonal Allergies Seasonal Allergies: No Past Medical History Surgeries: Yes Bladder Surgery (Cystoscopy with Macroplastique implant), Cardiac, Coronary Stent, Eye Surgery, Orthopedic, Pacemaker Respiratory: No Cardiac: Yes (DVT LEFT LEG 2007) Atrial Fibrillation, Coronary Artery Disease, Deep Vein Thrombosis, High Cholesterol, Hypertension Neurological: Yes (NEUROPATHY RIGHT FOOT POST ANKLE SURGERY) Neuropathy 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 Sexually Transmitted Disease: No Genitourinary: No Gastrointestinal: No Musculoskeletal: Yes (RIGHT ANKLE; BILATERAL KNEE REPLACEMENTS) Degenerate Disk Disease, Arthritis, Chronic Back Pain Endocrine: No HEENT: Yes Cataract Cancer: No Psychosocial: No Nursing Suicide Risk Score: 0 Integumentary: Yes Blood Disorders: Yes (ANEMIA) Review of Systems-General Constitutional: malaise, weakness EENTM: no symptoms reported Respiratory: short of breath Cardiovascular: see HPI Gastrointestinal: see HPI Genitourinary: no symptoms reported Musculoskeletal: no symptoms reported Skin: no symptoms reported Psychiatric/Neurological: No Symptoms Reported Physical Exam-General Problems Physical Exam Vital Signs Vital Signs - First Documented 02/11/18 08:23 Temp 96.0 Pulse 97 Resp 18 B/P (MAP) 109/81 (90) Pulse Ox 96 O2 Delivery Room Air Capillary Refill : Less Than 3 Seconds General Appearance: no apparent distress Neck: full range of motion Respiratory: lungs clear Cardiovascular: irregularly irregular Gastrointestinal: non tender, soft Neurologic/Psychiatric: alert, oriented x 3 Skin: warm/dry Comments Lady with acute, acalculous cholecystitis. Elevated bilirubin. Sludge in the gallbladder with choledocholithiasis to be considered. Due to Eliquis therapy, reasonable to withhold for 48 hours and proceed with cholecystectomy. Cholangiogram would be attempted and if choledocholithiasis is confirmed, she will require postoperative ERCP. Operative details have been reviewed thoroughly with the help of her daughter for interpretation and all her questions have been answered. Assessment/Plan Assessment/Plan Admission Diagnosis/Plan Acute cholecystitis. Coronary artery disease. Cardiac failure. Atrial fibrillation. Admission Status: Inpatient Order (span 2 midnights) Clinical Quality Measures DVT/VTE Risk/Contraindication: Risk Factor Score Per Nursin RFS Level Per Nursing on Admit: 2=Moderate MESFIN MANCINI MD Feb 11, 2018 5:41 pm
[2018-02-11] MEDS ORDERED: metroNIDAZOLE 500MG/100ML IVPB 100 ML IV NR (17:45)
[2018-02-11] MEDS ORDERED: ceFAZolin INJECTION 1,000 MG in NS (IVPB) 50 ML IV NR (17:45)
--- NOTE | 2018-02-11 18:00 | Consultation-Cardiology ---
HPI-Cardiology Cardiology Consultation: Date of Consultation 02/11/18 Date of Admission Attending Physician Donaldo Dawson MD Admitting Physician Ligia Alvarez MD Consulting Physician Leland MIGUEL MD HPI: Time Seen by Provider: 17:00 Chief Complaint: Shortness of breath. This is a 82-year-old lady who follows with Dr. Flowers. She has history of atrial fibrillation. She also has history of stents in 2017. Recently her Plavix was discontinued and she was started on Eliquis. She also has history of chronic kidney disease. She presented with shortness of breath. She was found to have significant gallbladder disease and is going to undergo gallbladder surgery. Review of Systems-Cardiology Review of Systems Constitutional: As described under HPI; No As described under HPI, No no symptoms reported, No chills, No fever, No lightheadedness Eyes: No As described under HPI, No no symptoms reported, No blindness, No blurred vision, No contact lenses, No drainage, No decreased acuity, No foreign body sensation, No pain, No vision change Ears/Nose/Throat: No As described under HPI, No no symptoms reported, No chronic hearing loss, No ear discharge, No ear pain, No nasal drainage, No ulcerations Respiratory: No no symptoms reported; As described under HPI; No As described under HPI, No cough, No orthopnea, No shortness of breath, No SOB with excertion Cardiovascular: No no symptoms reported; As described under HPI; No As described under HPI; chest pain; No edema, No irregular heart rate, No lightheadedness, No palpitations Gastrointestinal: No no symptoms reported, No As described under HPI, No abdomen distended, No abdominal pain, No blood streaked bowels, No constipation , No diarrhea, No nausea, No vomiting, No stool coloration changes Genitourinary: No As described under HPI, No burning, No dysuria, No discharge , No frequency, No flank pain, No hematuria, No urgency : No Musculoskeletal: No no symptoms reported, No As describe under HPI, No back pain, No gout, No joint pain, No joint swelling, No muscle pain, No muscle stiffness, No neck pain, No other Skin: No no symptoms reported, No As described under HPI, No change in color, No change in hair/nails, No dryness, No lesions, No lumps, No rash, No other, No skin related problems, No ulcerations, No rash on exposed areas, No ulcerations on exposed areas Psychiatric/Neurological: No anxiety, No depression, No seizure, No focal weakness, No syncope Hematologic: No bleeding abnormalities CNM-Gwlrzf-Olwkzn Hx Patient Social History Alcohol Use: Denies Use Recreational Drug Use: No Smoking Status: Never a Smoker 2nd Hand Smoke Exposure: No Recent Foreign Travel: No Recent Infectious Disease Expo: No Hospitalization with Isolation: Denies Physical Abuse Screen: No Sexual Abuse: No Past Medical History PMH As described under Assessment. Allergies and Home Medications Allergies Coded Allergies: NKANo Known Allergies (Verified Allergy, Unknown, 02/07/07) Home Medications Apixaban 5 Mg Tablet, 5 MG PO BID, (Reported) Aspirin 81 Mg Tablet.dr, 81 MG PO DAILY, (Reported) Calcium Carbonate/Vitamin D3 1 Each Tablet, 1 TAB PO DAILY, (Reported) Furosemide 40 Mg Tablet, 40 MG PO DAILY, (Reported) Ibuprofen 200 Mg Tablet, 200-400 MG PO TID PRN for PAIN-MILD, (Reported) Lisinopril 10 Mg Tablet, 10 MG PO DAILY, (Reported) Metoprolol Tartrate 100 Mg Tablet, 100 MG PO BID, (Reported) Nitrofurantoin Monohyd/M-Cryst 100 Mg Capsule, 100 MG PO BID, (Reported) 7 DAY THERAPY FILLED 02-08-18 Phenazopyridine HCl 200 Mg Tablet, 200 MG PO TID PRN for URINARY PAIN, (Reported ) #15 FILLED 02-08-18 Simvastatin 40 Mg Tablet, 40 MG PO HS, (Reported) Patient Home Medication List Home Medication List Reviewed: Yes Physical Exam-Cardiology Physical Exam Vital Signs/I&O 02/12/18 02/12/18 02/12/18 02/12/18 03:48 07:00 07:57 12:00 Temp 97.5 97.0 97.0 Pulse 78 71 95 76 Resp 18 18 16 B/P (MAP) 96/61 (73) 117/74 (88) 92/61 (71) Pulse Ox 94 95 97 O2 Delivery Room Air Room Air Room Air 02/12/18 13:00 Pulse 70 02/12/18 00:00 Intake Total 390 ml Output Total 700 ml Balance -310 ml Capillary Refill : Less Than 3 Seconds Constitutional: No appears stated age; AAO x 3; No apparent distress, No PERRL , No well-developed, No well-nourished, No other HEENT: No PERRL, No normal ENT inspection, No TMs normal, No pharynx normal, No scleral icterus (R), No scleral icterus (L), No pale conjunctivae (R), No pale conjunctivae (L), No photophobia, No TM abnormal (R), No TM abnormal (L), No pharyngeal erythema, No tonsillar exudate, No other, No discharge, No EOMI, No hearing is well preserved, No hard of hearing, No oral hygience is good, No ulceration, No xanthelasmas are seen Neck: No non-tender, No full range of motion, No supple, No normal inspection, No carotid bruit, No limited range of motion, No lymphadenopathy (R), No lymphadenopathy (L), No tender lateral, No tender midline, No thyromegaly, No other, No carotid pulses are 2 + bilaterally, No with good upstrokes Respiratory: chest is bilaterally symmetric, lungs clear to auscultation Cardiovascular: No extra beats, No parasternal heave is noted, No JVD, No edema , No bradycardia, No tachycardia, No point of maximal impulse, No cardiac thrills are palpable; S1 and S2; No gallop/S3, No gallop/S4, No diastolic murmur , No systolic murmur, No friction rub, No click, No other Gastrointestinal: No tender, No soft, No round, No distended, No pulsatile mass , No organomegaly, No guarding, No rebound, No tenderness, No hernia, No mass, No audible bowel sounds, No abnormal bowel sounds, No abdominal bruits, No spleenomegaly, No other Rectal: deferred Extremities: No normal range of motion, No non-tender, No normal inspection, No pedal edema, No calf tenderness, No normal capillary refill, No pelvis stable , No calf tenderness, No inflammation, No pedal edema, No slow capillary refill , No swelling, No other, No abrasion, No clubbing, No cyanosis, No ecchymosis, No laceration, No no lower extremity edema bilateral, No significant edema, No tenderness, No wound Neurologic/Psychiatric: no motor/sensory deficits, alert, normal mood/affect, oriented x 3 Skin: No normal color, No warm/dry, No cyanosis, No cool, No diaphoresis, No damp, No ecchymosis, No jaundice, No mottled, No pallor, No rash, No tattoos/ piercings, No ulcerations, No rash on exposed areas, No ulcerations on exposed areas, No other Data Review Labs Laboratory Tests 02/11/18 16:27: Troponin I < 0.30 02/12/18 07:14: White Blood Count 4.9, Red Blood Count 3.25L, Hemoglobin 10.4L, Hematocrit 31L, Mean Corpuscular Volume 94, Mean Corpuscular Hemoglobin 32, Mean Corpuscular Hemoglobin Concent 34, Red Cell Distribution Width 13.8, Platelet Count 103L, Mean Platelet Volume 11.3H, Neutrophils (%) (Auto) 56, Lymphocytes (%) (Auto) 30 , Monocytes (%) (Auto) 11, Eosinophils (%) (Auto) 2, Basophils (%) (Auto) 1, Neutrophils # (Auto) 2.8, Lymphocytes # (Auto) 1.5, Monocytes # (Auto) 0.6, Eosinophils # (Auto) 0.1, Basophils # (Auto) 0.0, Sodium Level 134L, Potassium Level 3.5L, Chloride Level 100, Carbon Dioxide Level 25, Anion Gap 9, Blood Urea Nitrogen 31H, Creatinine 1.56H, Estimat Glomerular Filtration Rate 32, BUN/ Creatinine Ratio 20, Glucose Level 117H, Calcium Level 8.9, Total Bilirubin 0.9 , Aspartate Amino Transf (AST/SGOT) 45H, Alanine Aminotransferase (ALT/SGPT) 34 , Alkaline Phosphatase 60, Total Protein 5.5L, Albumin 3.1L, Triglycerides Level 64, Cholesterol Level 128, LDL Cholesterol Direct 82, VLDL Cholesterol 13 , HDL Cholesterol 32L A/P-Cardiology Assessment/Admission Diagnosis Shortness of breath, Preoperative cardiovascular risk assessment, Atrial fibrillation, History of PCI, Mild acute on chronic systolic congestive heart failure, Chronic kidney disease Plan Shortness of breath, euvolemic. Continue Lasix. Echocardiogram shows moderate LV dysfunction. Preoperative cardiovascular risk assessment, patient is considered at moderate risk for major adverse perioperative cardiac events undergoing a moderate risk surgery. Atrial fibrillation, Eliquis for 48 hours. Restart after surgery. History of PCI, Mild acute on chronic systolic congestive heart failure, continue Lasix. No florid congestive heart failure on examination. Chronic kidney disease, likely require renal follow-up as an outpatient. Thank you for your consultation. Please call me if you have any questions. Harvey Miguel MD, FACP, FACC, FSCAI, FHRS, CCDS Interventional Cardiology Cardiac Electrophysiology Vascular Medicine and Endovascular Interventions Clinical Quality Measures DVT/VTE Risk/Contraindication: Risk Factor Score Per Nursin RFS Level Per Nursing on Admit: 2=Moderate Leland MIGUEL MD Feb 11, 2018 18:00
[2018-02-11] MEDS: PIPERACILLIN/TAZO 3.375 GM/D5W 100 ML IV SCH ×2 (20:14)
[2018-02-11 20:30] VITALS: BP 129/75
[2018-02-11 23:43] VITALS: BP 110/68
[2018-02-12] MEDS: NS IV 1000 ML 1,000 ML IV SCH ×2 (00:22→13:25)
[2018-02-12 03:48] VITALS: BP 96/61
[2018-02-12] MEDS: PIPERACILLIN/TAZO 3.375 GM/D5W 100 ML IV SCH ×6 (05:07→20:48)
[2018-02-12 07:43] LABS: BASOPHILS % (AUTO) 1 % (0-10); EOSINOPHILS # (AUTO) 0.1 10^3/uL (0.0-0.3); EOSINOPHILS % (AUTO) 2 % (0-10); HEMATOCRIT 31 % (35-52); HEMOGLOBIN 10.4 G/DL (11.5-16.0); LYMPHOCYTES # (AUTO) 1.5 X 10^3 (1.0-4.0); LYMPHOCYTES % (AUTO) 30 % (12-44); MEAN CORPUSCULAR HEMOGLOBIN 32 PG (25-34); MEAN CORPUSCULAR HGB CONC 34 G/DL (32-36); MEAN CORPUSCULAR VOLUME 94 FL (80-99); MEAN PLATELET VOLUME 11.3 FL (7.4-10.4); MONOCYTES # (AUTO) 0.6 X 10^3 (0.0-1.0); MONOCYTES % (AUTO) 11 % (0-12); NEUTROPHILS # (AUTO) 2.8 X 10^3 (1.8-7.8); NEUTROPHILS % (AUTO) 56 % (42-75); PLATELET COUNT 103 10^3/uL (130-400); RED BLOOD COUNT 3.25 10^6/uL (4.35-5.85); RED CELL DISTRIBUTION WIDTH 13.8 % (10.0-14.5); WHITE BLOOD COUNT 4.9 10^3/uL (4.3-11.0)
[2018-02-12 07:57] VITALS: BP 117/74
[2018-02-12 08:03] LABS: ALBUMIN 3.1 GM/DL (3.2-4.5); BILIRUBIN,TOTAL 0.9 MG/DL (0.1-1.0); CALCIUM 8.9 MG/DL (8.5-10.1); CREATININE SERUM 1.56 MG/DL (0.60-1.30); POTASSIUM 3.5 MMOL/L (3.6-5.0); TOTAL PROTEIN 5.5 GM/DL (6.4-8.2)
[2018-02-12 08:17] LABS: CHOLESTEROL 128 MG/DL (< 200); HDL CHOLESTEROL 32 MG/DL (40-60); TRIGLYCERIDES 64 MG/DL (<150); VLDL CHOLESTEROL 13 MG/DL (5-40)
[2018-02-12] MEDS: FUROSEMIDE 40 MG (LASIX) TAB PO SCH (09:42)
[2018-02-12] MEDS: meTOprolol TARTRATE 50 MG (LOPRESSOR) TAB PO SCH ×2 (09:42→20:47)
[2018-02-12] MEDS: lisINopril 10 MG (PRINIVIL) TABLET PO SCH (09:42)
[2018-02-12 12:00] VITALS: BP 92/61
--- NOTE | 2018-02-12 12:39 | Progress Note-Pre Operative ---
Pre-Operative Progress Note H&P Reviewed The H&P was reviewed, patient examined and no changes noted. Date Seen by Provider: Feb 11, 2018 Time Seen by Provider: 17:20 Date H&P Reviewed: Feb 12, 2018 Time H&P Reviewed: 12:39 Pre-Operative Diagnosis: Acute cholecystitis MESFIN MANCINI MD Feb 12, 2018 12:39 pm
--- NOTE | 2018-02-12 12:40 | Progress Note (SOAP) ---
Subjective Date Seen by Provider: Feb 12, 2018 Time Seen by Provider: 12:39 Subjective/Events-last exam Shortness of breath improved. No specific symptoms. Hypokalemia Review of Systems General: No Chills, No Night Sweats, No Fatigue, No Malaise HEENT: No Head Aches, No Eye Pain, No Ear Pain, No Dysphasia, No Sinus Congestion, No Post Nasal Drip, No Sore Throat Pulmonary: No Dyspnea, No Cough, No Pleuritic Chest Pain Cardiovascular: No: Chest Pain, Palpitations, Orthopnea, Paroxysmal Noc. Dyspnea, Edema, Lt Headedness Gastrointestinal: No: Nausea, Vomiting, Abdominal Pain, Diarrhea, Constipation , Melena, Hematochezia Genitourinary: No Dysuria, No Frequency, No Incontinence, No Hematuria, No Retention Musculoskeletal: No: other, neck pain, shoulder pain, arm pain, back pain, hand pain, leg pain, foot pain Neurological: No: Weakness, Numbness, Incoordination, Change in speech, Confusion, Seizures, Other Objective Exam Vital Signs Date Time Temp Pulse Resp B/P (MAP) Pulse Ox O2 Delivery O2 Flow Rate FiO2 02/12/18 12:00 97.0 76 16 92/61 (71) 97 Room Air 02/12/18 07:57 97.0 95 18 117/74 (88) 95 Room Air 02/12/18 07:00 71 02/12/18 03:48 97.5 78 18 96/61 (73) 94 Room Air 02/12/18 01:00 69 02/11/18 23:43 98.2 53 16 110/68 (82) 97 Room Air 02/11/18 20:30 97.5 76 16 129/75 (93) 92 Room Air 02/11/18 19:00 67 02/11/18 15:50 98.1 77 15 122/82 95 Room Air 02/11/18 15:10 95 Room Air I & O 02/12/18 07:00 Intake Total 640 ml Output Total 700 ml Balance -60 ml Capillary Refill : Less Than 3 Seconds General Appearance: No Apparent Distress HEENT: Normal ENT Inspection Neck: Normal Inspection Respiratory: Lungs Clear Cardiovascular: Irregularly Irregular Gastrointestinal: non tender, soft Neurologic/Psychiatric: Alert, Oriented x3 Skin: Warm/Dry Results Lab Laboratory Tests 02/11/18 16:27: Troponin I < 0.30 7/28/18 07:14: White Blood Count 4.9, Red Blood Count 3.25L, Hemoglobin 10.4L, Hematocrit 31L, Mean Corpuscular Volume 94, Mean Corpuscular Hemoglobin 32, Mean Corpuscular Hemoglobin Concent 34, Red Cell Distribution Width 13.8, Platelet Count 103L, Mean Platelet Volume 11.3H, Neutrophils (%) (Auto) 56, Lymphocytes (%) (Auto) 30 , Monocytes (%) (Auto) 11, Eosinophils (%) (Auto) 2, Basophils (%) (Auto) 1, Neutrophils # (Auto) 2.8, Lymphocytes # (Auto) 1.5, Monocytes # (Auto) 0.6, Eosinophils # (Auto) 0.1, Basophils # (Auto) 0.0, Sodium Level 134L, Potassium Level 3.5L, Chloride Level 100, Carbon Dioxide Level 25, Anion Gap 9, Blood Urea Nitrogen 31H, Creatinine 1.56H, Estimat Glomerular Filtration Rate 32, BUN/ Creatinine Ratio 20, Glucose Level 117H, Calcium Level 8.9, Total Bilirubin 0.9 , Aspartate Amino Transf (AST/SGOT) 45H, Alanine Aminotransferase (ALT/SGPT) 34 , Alkaline Phosphatase 60, Total Protein 5.5L, Albumin 3.1L, Triglycerides Level 64, Cholesterol Level 128, LDL Cholesterol Direct 82, VLDL Cholesterol 13 , HDL Cholesterol 32L Assessment/Plan Assessment/Plan Assess & Plan/Chief Complaint Acute cholecystitis. Coronary artery disease. Cardiac failure. Atrial fibrillation. Acute cystitis. Coronary artery disease. Atrial fibrillation. 4 surgery tomorrow Final Diagnosis Acute cholecystitis. Coronary artery disease. Atrial fibrillation. Clinical Quality Measures DVT/VTE Risk/Contraindication: Risk Factor Score Per Nursin RFS Level Per Nursing on Admit: 2=Moderate MESFIN MANCINI MD Feb 12, 2018 12:40 pm
[2018-02-12] MEDS ORDERED: KCL 20 MEQ TAB (K-DUR) PO NR (12:45)
--- NOTE | 2018-02-12 14:31 | Cardiology Progress Note ---
Cardiology SOAP Progress Note Subjective: No significant cardiac complaints. When I examined her she was lying comfortably in bed sleeping. Objective: I&O/Vital Signs 02/12/18 02/12/18 02/12/18 02/12/18 03:48 07:00 07:57 12:00 Temp 97.5 97.0 97.0 Pulse 78 71 95 76 Resp 18 18 16 B/P (MAP) 96/61 (73) 117/74 (88) 92/61 (71) Pulse Ox 94 95 97 O2 Delivery Room Air Room Air Room Air 02/12/18 13:00 Pulse 70 02/12/18 00:00 Intake Total 390 ml Output Total 700 ml Balance -310 ml Weight (Pounds): 159 Weight (Ounces): 0.0 Weight (Calculated Kilograms): [id number] Constitutional: No appears stated age; AAO x 3; No apparent distress, No PERRL , No well-developed, No well-nourished, No other Respiratory: chest is bilaterally symmetric, lungs clear to auscultation Cardiovascular: No extra beats, No parasternal heave is noted, No JVD, No edema , No bradycardia, No tachycardia, No point of maximal impulse, No cardiac thrills are palpable; S1 and S2; No gallop/S3, No gallop/S4, No diastolic murmur , No systolic murmur, No friction rub, No click, No other Gastrointestional: No tender, No soft, No round, No distended, No pulsatile mass, No organomegaly, No guarding, No rebound, No tenderness, No hernia, No mass, No audible bowel sounds, No abnormal bowel sounds, No abdominal bruits, No spleenomegaly, No other Extremities: No normal range of motion, No non-tender, No normal inspection, No pedal edema, No calf tenderness, No normal capillary refill, No pelvis stable , No calf tenderness, No inflammation, No pedal edema, No slow capillary refill , No swelling, No other, No abrasion, No clubbing, No cyanosis, No ecchymosis, No laceration, No no lower extremity edema bilateral, No significant edema, No tenderness, No wound Neurologic/Psychiatric: no motor/sensory deficits, alert, normal mood/affect, oriented x 3 Skin: No normal color, No warm/dry, No cyanosis, No cool, No diaphoresis, No damp, No ecchymosis, No jaundice, No mottled, No pallor, No rash, No tattoos/ piercings, No ulcerations, No rash on exposed areas, No ulcerations on exposed areas, No other Results/Procedures: Labs Laboratory Tests 02/11/18 16:27: Troponin I < 0.30 02/12/18 07:14: White Blood Count 4.9, Red Blood Count 3.25L, Hemoglobin 10.4L, Hematocrit 31L, Mean Corpuscular Volume 94, Mean Corpuscular Hemoglobin 32, Mean Corpuscular Hemoglobin Concent 34, Red Cell Distribution Width 13.8, Platelet Count 103L, Mean Platelet Volume 11.3H, Neutrophils (%) (Auto) 56, Lymphocytes (%) (Auto) 30 , Monocytes (%) (Auto) 11, Eosinophils (%) (Auto) 2, Basophils (%) (Auto) 1, Neutrophils # (Auto) 2.8, Lymphocytes # (Auto) 1.5, Monocytes # (Auto) 0.6, Eosinophils # (Auto) 0.1, Basophils # (Auto) 0.0, Sodium Level 134L, Potassium Level 3.5L, Chloride Level 100, Carbon Dioxide Level 25, Anion Gap 9, Blood Urea Nitrogen 31H, Creatinine 1.56H, Estimat Glomerular Filtration Rate 32, BUN/ Creatinine Ratio 20, Glucose Level 117H, Calcium Level 8.9, Total Bilirubin 0.9 , Aspartate Amino Transf (AST/SGOT) 45H, Alanine Aminotransferase (ALT/SGPT) 34 , Alkaline Phosphatase 60, Total Protein 5.5L, Albumin 3.1L, Triglycerides Level 64, Cholesterol Level 128, LDL Cholesterol Direct 82, VLDL Cholesterol 13 , HDL Cholesterol 32L A/P: Assessment/Dx: Shortness of breath, Preoperative cardiovascular risk assessment, Atrial fibrillation, History of PCI, Mild acute on chronic systolic congestive heart failure, Chronic kidney disease Plan: Shortness of breath, euvolemic. Continue Lasix. Echocardiogram shows moderate LV dysfunction. Preoperative cardiovascular risk assessment, patient is considered at moderate risk for major adverse perioperative cardiac events undergoing a moderate risk surgery. Atrial fibrillation, Hold Eliquis. Restart after surgery. History of PCI, Mild acute on chronic systolic congestive heart failure, continue Lasix. No florid congestive heart failure on examination. Chronic kidney disease, likely require renal follow-up as an outpatient. Moderate to severe mitral regurgitation. Thank you for your consultation. Please call me if you have any questions. Harvey Motley MD, FACP, FACC, FSCAI, FHRS, CCDS Interventional Cardiology Cardiac Electrophysiology Vascular Medicine and Endovascular Interventions Leland MOTLEY MD Feb 12, 2018 14:31
[2018-02-12 16:00] VITALS: BP 100/58
[2018-02-12 20:01] VITALS: BP 113/68
[2018-02-12] MEDS: SIMvastatin 40 MG (ZOCOR) TAB PO SCH (20:47)
[2018-02-13] VITALS: BP 101/58
[2018-02-13] MEDS: NS IV 1000 ML 1,000 ML IV SCH ×2 (00:06→16:22)
[2018-02-13 04:25] VITALS: BP 118/59
[2018-02-13] MEDS: PIPERACILLIN/TAZO 3.375 GM/D5W 100 ML IV SCH ×2 (05:11)
[2018-02-13 08:00] VITALS: BP 112/74
[2018-02-13] MEDS ORDERED: LACTATED RINGERS 1,000 ML IV PRN (08:00)
[2018-02-13] MEDS ORDERED: fentaNYL INJECTION 100 MCG/2 ML AMP ONE (08:12)
[2018-02-13] MEDS ORDERED: LIDOCAINE PF 2% 5 ML (XYLOCAINE) VIAL ONE (08:12)
[2018-02-13] MEDS ORDERED: proPOfol 200 MG/20 ML (DIPRIVAN) VIAL IV ONE (08:12)
[2018-02-13] MEDS ORDERED: DEXAMETHASONE 10 MG/ML (DECADRON) 1 ML VIAL ONE (08:12)
[2018-02-13] MEDS ORDERED: ONDANSETRON 4 MG/2 ML (SDV) Z0FRAN ONE (08:12)
[2018-02-13] MEDS ORDERED: MIDAZOLAM 2 MG/2 ML (VERSED) VIAL ONE (08:13)
[2018-02-13] MEDS ORDERED: ROCURONIUM 10 MG/ML 5 ML SYRINGE IV ONE (08:13)
[2018-02-13] MEDS: meTOprolol TARTRATE 50 MG (LOPRESSOR) TAB PO SCH ×2 (08:24→20:41)
[2018-02-13] MEDS: lisINopril 10 MG (PRINIVIL) TABLET PO SCH (08:25)
[2018-02-13] MEDS ORDERED: BUP/EPI 0.5% 1:200,000 (SENSORCAINE) 30 ML VIAL ONE (08:33)
[2018-02-13] MEDS ORDERED: NS (IVPB) 50 ML ONE (08:46)
[2018-02-13] MEDS ORDERED: metroNIDAZOLE 500MG/100ML IVPB 100 ML ONE (08:46)
[2018-02-13] MEDS ORDERED: ceFAZolin 1,000 MG (ANCEF) VIAL ONE (08:46)
[2018-02-13] MEDS: FUROSEMIDE 40 MG (LASIX) TAB PO SCH (09:00)
[2018-02-13] MEDS ORDERED: SEVOFLURANE (ULTANE) 15 ML INHAL SOLN ONE ×2 (10:05→10:10)
[2018-02-13] MEDS ORDERED: NEOSTIGMINE 1 MG/ML 5 ML SYRINGE ONE (10:05)
[2018-02-13] MEDS ORDERED: GLYCOPYRROLATE 0.2 MG/ML (ROBINUL) 2 ML VIAL ONE (10:05)
[2018-02-13] MEDS ORDERED: HYDROmorphone 1 MG/ML (DILAUDID) 1 ML SYRINGE ONE (10:07)
--- NOTE | 2018-02-13 10:25 | Diagnostic Imaging Report ---
EXAM: FLUOROSCOPY INDICATION: LAP JUSTINE WITH POSSIBLE GRAMS COMPARISON: CT abdomen and pelvis with IV contrast 02/11/2018. FINDINGS/IMPRESSION: Single intraoperative fluoroscopic image demonstrates moderately dilated common bile duct without filling defects. No intrahepatic biliary ductal dilatation is seen. Fluoroscopy time 23.8 seconds. Dictated by: Dictated on workstation # [id number]
[2018-02-13] MEDS ORDERED: HYDROcodone/APAP 5 MG/325 MG (LORTAB) TAB PO NR (10:30)
[2018-02-13] MEDS: fentaNYL INJECTION 100 MCG/2 ML AMP IVP PRN ×2 (10:44→10:55)
[2018-02-13] MEDS ORDERED: ONDANSETRON 4 MG/2 ML (SDV) Z0FRAN IVP PRN (10:45)
[2018-02-13] MEDS ORDERED: HYDROmorphone 1 MG/ML (DILAUDID) 1 ML SYRINGE IV PRN (10:45)
[2018-02-13] MEDS ORDERED: TRAM50TA2 PO ×2 (11:02→11:05)
--- NOTE | 2018-02-13 11:03 | Discharge Inst-Simple/Standard ---
Discharge Inst-Standard Discharge Medications New, Converted or Re-Newed RX: RX on Chart Patient Instructions/Follow Up Plan of Care/Instructions/FU: Band-Aids off. Incentive spirometry. Follow-up in 3 weeks Activity as Tolerated: Yes Discharge Diet: No Restrictions Planned Outpatient Orders/Ref. Pneu Vac Indicated: Yes MESFIN MANCINI MD Feb 13, 2018 11:03 am
--- NOTE | 2018-02-13 11:11 | Operative Report ---
Operative Report Date of Procedure/Surgery Feb 13, 2018 Surgeon (s) MESFIN MANCINI MD Senior Industrial Engineer (s): N/A Post-Operative Diagnosis Acute cholecystitis. Dilated common bile duct with no filling defects. No obstruction Procedure Performed Laparoscopic cholecystectomy Intraoperative cholangiogram Description of Procedure Anesthesia Type: General Estimated blood loss (mL): Minimal Specimen(s) collected/removed Gallbladder Description of the Procedure Indication for the procedure: This lady has been admitted with acute cholecystitis and elevated bilirubin. She was offered laparoscopic cholecystectomy with cholangiogram. Should stones be found in the common bile duct, the requirement for postoperative ERCP was highlighted. With regard to the procedure itself, complications of wound infection, increased bleeding due to anticoagulant therapy, bile leak and cardiorespiratory dysfunction were discussed with her and her family. Informed consent was obtained. Description of the procedure: She was placed supine on the operative table and general anesthesia induced. A gram of Ancef and 500 mg of Flagyl were administered intravenously as prophylaxis against sequential compression devices were placed around her legs, to minimize the risk of venous thrombosis. Abdomen was prepared and draped in the usual sterile manner. A supraumbilical incision was made and the linea alba incised vertically. A Nuno cannula was placed and carbon dioxide insufflated, to an intra-abdominal pressure of 15 mmHg. Anatomy was visualized using the conventional, 30 laparoscope. Gallbladder was rather elongated and acutely inflamed. Under direct view, I placed a 5 mm trocar over the epigastric region, followed by 2 additional 5 mm trocars along the right side of the abdomen. The patient was then turned into reverse Trendelenburg position. The fundus of the gallbladder was retracted cephalad and the infundibulum grasped with another pair of forceps. Peritoneum overlying Calot's triangle was incised using the Harmonic scalpel, delineating the cystic duct and the artery. Cholangiogram was obtained using taut catheter. It revealed a dilated common bile duct with no filling defects within it. The contrast flowed easily into the duodenum. The catheter was then removed and the cystic duct controlled using a Ligaclip, reinforced with a PDS Endoloop. Cystic artery was then divided between ligaclips. Cholecystectomy was completed using the Harmonic scalpel. Intra-abdominal pressure was reduced to 11 mmHg, looking for any bleeding from the gallbladder fossa that wasn't any. It was then placed in an Endo Catch bag and removed via the supraumbilical trocar site. The linea alba was closed using #1 Vicryl and skin using 4-0 Vicryl, in a subcuticular fashion. 0.5 percent Marcaine with epinephrine was infiltrated along the incisions, both preemptively and at the conclusion of the operation. She tolerated the procedure well, was extubated in the operating room and taken to the recovery room in a stable condition. Findings of the Procedure See op report Allergies and Home Medications Allergies Coded Allergies: NKANo Known Allergies (Verified Allergy, Unknown, 02/07/07) Home Medications Apixaban 5 Mg Tablet, 5 MG PO BID, (Reported) Aspirin 81 Mg Tablet.dr, 81 MG PO DAILY, (Reported) Calcium Carbonate/Vitamin D3 1 Each Tablet, 1 TAB PO DAILY, (Reported) Furosemide 40 Mg Tablet, 40 MG PO DAILY, (Reported) Ibuprofen 200 Mg Tablet, 200-400 MG PO TID PRN for PAIN-MILD, (Reported) Lisinopril 10 Mg Tablet, 10 MG PO DAILY, (Reported) Metoprolol Tartrate 100 Mg Tablet, 100 MG PO BID, (Reported) Nitrofurantoin Monohyd/M-Cryst 100 Mg Capsule, 100 MG PO BID, (Reported) 7 DAY THERAPY FILLED 02-08-18 Phenazopyridine HCl 200 Mg Tablet, 200 MG PO TID PRN for URINARY PAIN, (Reported ) #15 FILLED 18 Simvastatin 40 Mg Tablet, 40 MG PO HS, (Reported) Tramadol HCl 50 Mg Tablet, 50 MG PO Q12H PRN for ABDOMINAL PAIN Prescribed by: MESFIN MANCINI on 02/13/18 1105 Patient Home Medication List Home Medication List Reviewed: Yes MESFIN MANCINI MD Feb 13, 2018 11:11 am
[2018-02-13 11:32] VITALS: BP 124/83
--- NOTE | 2018-02-13 13:05 | History & Physical-Hospitalist ---
History of Present Illness HPI/Chief Complaint Pt is an 82yoF with a PMH of HTN, CAD, CKD, and a-fib who presented to the ER for SOb and was found to have acute cholecystitis. She was originally admitted to surgical service but due to complex medical history Dr Dawson requested transfer to medical service. At time of my exam she has already undergone lap cholecystectomy and denies any complaints. She states her SOB is completely resolved and she is not having any abdominal discomfort. She has been sleeping soundly since her surgery. Pt is able to answer most questions but daughter is at bedside to assist. Source: patient, family Exam Limitations: language barrier Date Seen 02/13/18 Time Seen by Provider: 13:00 Attending Physician Donaldo Dawson MD PCP Ligia Alvarez MD Referring Physician Date of Admission Feb 11, 2018 at 2:18 pm Home Medications & Allergies Home Medications Reviewed patient Home Medication Reconciliation performed by pharmacy medication reconciliations industrial engineering technician and/or nursing. Patients Allergies have been reviewed. Allergies Allergies Coded Allergies NKANo Known Allergies (Verified Allergy, Unknown, 02/07/07) Past Unaqvlh-Goheji-Wrzeyz Hx Past Med/Social Hx: Reviewed and Corrections made Patient Social History Alcohol Use: Denies Use Recreational Drug Use: No Smoking Status: Never a Smoker 2nd Hand Smoke Exposure: No Physical Abuse Screen: No Sexual Abuse: No Recent Foreign Travel: No Contact w/other who traveled: No Recent Hopitalizations: No Recent Infectious Disease Expo: No Seasonal Allergies Seasonal Allergies: No Past Medical History Surgeries: Bladder Surgery (Cystoscopy with Macroplastique implant), Cardiac, Coronary Stent, Eye Surgery, Orthopedic, Pacemaker Cardiac: Atrial Fibrillation, Coronary Artery Disease, Deep Vein Thrombosis ( lower extremity 2007), High Cholesterol, Hypertension Neurological: Neuropathy Reproductive: No Sexually Transmitted Disease: No Menopausal Genitourinary: Renal Failure (CKD) Musculoskeletal: Degenerate Disk Disease, Arthritis, Chronic Back Pain HEENT: Cataract History of Blood Disorders: Yes (ANEMIA) Family History No Pertinent Family Hx Review of Systems ROS-Unable to Obtain: limited by language barrier Constitutional: no symptoms reported EENTM: no symptoms reported Respiratory: no symptoms reported; No short of breath Cardiovascular: no symptoms reported Gastrointestinal: no symptoms reported; No abdominal pain, No nausea Genitourinary: no symptoms reported Musculoskeletal: no symptoms reported Skin: no symptoms reported Psychiatric/Neurological: No Symptoms Reported Physical Exam Physical Exam Vital Signs Vital Signs - First Documented 02/11/18 08:23 Temp 96.0 Pulse 97 Resp 18 B/P (MAP) 109/81 (90) Pulse Ox 96 O2 Delivery Room Air Capillary Refill : Less Than 3 Seconds Height, Weight, BMI Height: 5'2.00" Weight: 159lbs. 0.0oz. [id number]; 29.1 BMI Method:Stated General Appearance: No Apparent Distress, WD/WN HEENT: PERRL/EOMI, Moist Mucous Membranes Neck: Non Tender, Supple Respiratory: Lungs Clear, No Respiratory Distress Cardiovascular: Regular Rate, Rhythm, No Murmur Gastrointestinal: Soft, Abnormal Bowel Sounds (quiet), Tenderness ( appropriately so) Extremity: Normal Capillary Refill, No Calf Tenderness Neurologic/Psychiatric: Alert, Oriented x3, Normal Mood/Affect Skin: Normal Color, Warm/Dry Results Results/Procedures Labs Laboratory Tests 02/12/18 07:14 Patient resulted labs reviewed. Imaging: Reviewed Imaging Report Assessment/Plan Admission Diagnosis Acute cholecystitis Admission Status: Inpatient Order (span 2 midnights) Reason for Inpatient Admission: medical optimization prior to OR Diagnosis/Problems Diagnosis/Problems (1) Acute cholecystitis Status: Acute Assessment & Plan: POD #0 Continue current pain regimen Management per Dr Dawson Discussed with him and barring any complications will likely be able to DC tomorrow (2) History of DVT (deep vein thrombosis) Assessment & Plan: High risk for DVT postoperatively Discussed with Dr Dawson- can start Lovenox this evening (3) CKD (chronic kidney disease) Status: Chronic Assessment & Plan: Trend Slightly up from baseline Qualifiers: Chronic kidney disease stage: stage 3 (moderate) Qualified Codes: N18.3 - Chronic kidney disease, stage 3 (moderate) (4) Atrial fibrillation Status: Acute Assessment & Plan: On xarelto as an outpatient- held for surgery Continue Metoprolol Qualifiers: Atrial fibrillation type: unspecified Qualified Codes: I48.91 - Unspecified atrial fibrillation Clinical Quality Measures DVT/VTE Risk/Contraindication: Risk Factor Score Per Nursin RFS Level Per Nursing on Admit: 2=Moderate IGNACIA BOYCE MD Feb 13, 2018 1:05 pm
--- NOTE | 2018-02-13 13:26 | Cardiology Progress Note ---
Cardiology SOAP Progress Note Subjective: Post gallbladder surgery. No complains. Objective: I&O/Vital Signs 02/13/18 02/13/18 02/13/18 04:25 08:00 11:32 Temp 97.5 97.8 96.8 Pulse 76 82 72 Resp 16 18 20 B/P (MAP) 118/59 (78) 112/74 (87) 124/83 (97) Pulse Ox 97 96 97 O2 Delivery Room Air Room Air Room Air 02/13/18 00:00 Intake Total 1040 ml Balance 1040 ml Weight (Pounds): 159 Weight (Ounces): 0.0 Weight (Calculated Kilograms): [id number] Constitutional: No appears stated age; AAO x 3; No apparent distress, No PERRL , No well-developed, No well-nourished, No other Respiratory: chest is bilaterally symmetric, lungs clear to auscultation Cardiovascular: No extra beats, No parasternal heave is noted, No JVD, No edema , No bradycardia, No tachycardia, No point of maximal impulse, No cardiac thrills are palpable; S1 and S2; No gallop/S3, No gallop/S4, No diastolic murmur , No systolic murmur, No friction rub, No click, No other Gastrointestional: No tender, No soft, No round, No distended, No pulsatile mass, No organomegaly, No guarding, No rebound, No tenderness, No hernia, No mass, No audible bowel sounds, No abnormal bowel sounds, No abdominal bruits, No spleenomegaly, No other Extremities: No normal range of motion, No non-tender, No normal inspection, No pedal edema, No calf tenderness, No normal capillary refill, No pelvis stable , No calf tenderness, No inflammation, No pedal edema, No slow capillary refill , No swelling, No other, No abrasion, No clubbing, No cyanosis, No ecchymosis, No laceration, No no lower extremity edema bilateral, No significant edema, No tenderness, No wound Neurologic/Psychiatric: no motor/sensory deficits, alert, normal mood/affect, oriented x 3 Skin: No normal color, No warm/dry, No cyanosis, No cool, No diaphoresis, No damp, No ecchymosis, No jaundice, No mottled, No pallor, No rash, No tattoos/ piercings, No ulcerations, No rash on exposed areas, No ulcerations on exposed areas, No other A/P: Assessment/Dx: Shortness of breath, Atrial fibrillation, History of PCI, Mild acute on chronic systolic congestive heart failure, Chronic kidney disease Plan: Shortness of breath, euvolemic. Continue Lasix. Echocardiogram shows moderate LV dysfunction. Atrial fibrillation, restart Eliquis. History of PCI, Mild acute on chronic systolic congestive heart failure, continue Lasix. No florid congestive heart failure on examination. Chronic kidney disease, likely require renal follow-up as an outpatient. Moderate to severe mitral regurgitation. Thank you for your consultation. Please call me if you have any questions. Harvey Motley MD, FACP, FACC, FSCAI, FHRS, CCDS Interventional Cardiology Cardiac Electrophysiology Vascular Medicine and Endovascular Interventions Leland MOTLEY MD Feb 13, 2018 1:26 pm
[2018-02-13 15:28] VITALS: BP 125/64
[2018-02-13 19:05] VITALS: BP 129/63
[2018-02-13] MEDS: SIMvastatin 40 MG (ZOCOR) TAB PO SCH (20:41)
[2018-02-13] MEDS ORDERED: ENOXAPARIN 30 MG/0.3 ML (LOVENOX) SYR SC SCH (22:00)
[2018-02-14 00:49] VITALS: BP 128/76
[2018-02-14 04:00] VITALS: BP 122/69
[2018-02-14 05:16] LABS: BASOPHILS % (AUTO) 0 % (0-10); EOSINOPHILS % (AUTO) 0 % (0-10); HEMATOCRIT 31 % (35-52); HEMOGLOBIN 10.4 G/DL (11.5-16.0); LYMPHOCYTES % (AUTO) 12 % (12-44); MEAN CORPUSCULAR HEMOGLOBIN 32 PG (25-34); MEAN CORPUSCULAR HGB CONC 33 G/DL (32-36); MEAN CORPUSCULAR VOLUME 95 FL (80-99); MEAN PLATELET VOLUME 10.6 FL (7.4-10.4); MONOCYTES # (AUTO) 0.5 X 10^3 (0.0-1.0); MONOCYTES % (AUTO) 6 % (0-12); NEUTROPHILS # (AUTO) 7.3 X 10^3 (1.8-7.8); NEUTROPHILS % (AUTO) 83 % (42-75); PLATELET COUNT 137 10^3/uL (130-400); RED BLOOD COUNT 3.27 10^6/uL (4.35-5.85); RED CELL DISTRIBUTION WIDTH 13.9 % (10.0-14.5); WHITE BLOOD COUNT 8.8 10^3/uL (4.3-11.0)
[2018-02-14 05:37] LABS: CALCIUM 8.9 MG/DL (8.5-10.1); CREATININE SERUM 1.28 MG/DL (0.60-1.30)
[2018-02-14 08:03] VITALS: BP 124/81
[2018-02-14] MEDS ORDERED: ACETAMINOPHEN 325 MG TABLET PO PRN (09:30)
[2018-02-14] MEDS: meTOprolol TARTRATE 50 MG (LOPRESSOR) TAB PO SCH (09:41)
[2018-02-14] MEDS: lisINopril 10 MG (PRINIVIL) TABLET PO SCH (09:43)
[2018-02-14] MEDS: FUROSEMIDE 40 MG (LASIX) TAB PO SCH (09:43)
[2018-02-14 10:55] VITALS: BP 124/81
--- NOTE | 2018-02-14 13:07 | Anesthesia-General Post-Op ---
General Patient Condition Mental Status/LOC: Same as Preop Cardiovascular: Satisfactory Nausea/Vomiting: Absent Respiratory: Satisfactory Pain: Controlled Complications: Absent Post Op Complications Complications None Follow Up Care/Instructions Patient Instructions None needed. Anesthesia/Patient Condition Patient Condition Patient is doing well, no complaints, stable vital signs, no apparent adverse anesthesia problems. No complications reported per nursing. BART SON CRNA Feb 14, 2018 13:07
--- NOTE | 2018-02-14 13:51 | Cardiology Progress Note ---
Cardiology SOAP Progress Note Subjective: No cardiac complaints. Objective: I&O/Vital Signs 02/14/18 02/14/18 02/14/18 04:00 07:00 08:03 Temp 97.7 97.7 Pulse 65 71 84 Resp 16 16 B/P (MAP) 122/69 (86) 124/81 (95) Pulse Ox 94 99 O2 Delivery Room Air Room Air 02/14/18 00:00 Intake Total 2410 ml Output Total 400 ml Balance 2010 ml Weight (Pounds): 159 Weight (Ounces): 0.0 Weight (Calculated Kilograms): 72.648864 Constitutional: No appears stated age; AAO x 3; No apparent distress, No PERRL , No well-developed, No well-nourished, No other Respiratory: chest is bilaterally symmetric, lungs clear to auscultation Cardiovascular: No extra beats, No parasternal heave is noted, No JVD, No edema , No bradycardia, No tachycardia, No point of maximal impulse, No cardiac thrills are palpable; S1 and S2; No gallop/S3, No gallop/S4, No diastolic murmur , No systolic murmur, No friction rub, No click, No other Gastrointestional: No tender, No soft, No round, No distended, No pulsatile mass, No organomegaly, No guarding, No rebound, No tenderness, No hernia, No mass, No audible bowel sounds, No abnormal bowel sounds, No abdominal bruits, No spleenomegaly, No other Extremities: No normal range of motion, No non-tender, No normal inspection; pedal edema; No calf tenderness, No normal capillary refill, No pelvis stable, No calf tenderness, No inflammation, No pedal edema, No slow capillary refill, No swelling, No other, No abrasion, No clubbing, No cyanosis, No ecchymosis, No laceration, No no lower extremity edema bilateral, No significant edema, No tenderness, No wound Neurologic/Psychiatric: no motor/sensory deficits, alert, normal mood/affect, oriented x 3 Skin: No normal color, No warm/dry, No cyanosis, No cool, No diaphoresis, No damp, No ecchymosis, No jaundice, No mottled, No pallor, No rash, No tattoos/ piercings, No ulcerations, No rash on exposed areas, No ulcerations on exposed areas, No other Results/Procedures: Labs Laboratory Tests 02/14/18 04:40: White Blood Count 8.8, Red Blood Count 3.27L, Hemoglobin 10.4L, Hematocrit 31L, Mean Corpuscular Volume 95, Mean Corpuscular Hemoglobin 32, Mean Corpuscular Hemoglobin Concent 33, Red Cell Distribution Width 13.9, Platelet Count 137, Mean Platelet Volume 10.6H, Neutrophils (%) (Auto) 83H, Lymphocytes (%) (Auto) 12, Monocytes (%) (Auto) 6, Eosinophils (%) (Auto) 0, Basophils (%) (Auto) 0, Neutrophils # (Auto) 7.3, Lymphocytes # (Auto) 1.0, Monocytes # (Auto) 0.5, Eosinophils # (Auto) 0.0, Basophils # (Auto) 0.0, Sodium Level 134L, Potassium Level 4.0, Chloride Level 102, Carbon Dioxide Level 23, Anion Gap 9, Blood Urea Nitrogen 26H, Creatinine 1.28, Estimat Glomerular Filtration Rate 40, BUN/ Creatinine Ratio 20, Glucose Level 169H, Calcium Level 8.9 A/P: Assessment/Dx: Shortness of breath, Atrial fibrillation, History of PCI, Mild acute on chronic systolic congestive heart failure, Chronic kidney disease Plan: Shortness of breath, euvolemic. Continue Lasix. Echocardiogram shows moderate LV dysfunction. Atrial fibrillation, restart Eliquis. History of PCI, Mild acute on chronic systolic congestive heart failure, continue Lasix. No florid congestive heart failure on examination. Chronic kidney disease, likely require renal follow-up as an outpatient. Moderate to severe mitral regurgitation. Follow-up with Dr. Flowers as an outpatient. Thank you for your consultation. Please call me if you have any questions. Harvey Motley MD, FACP, FACC, FSCAI, FHRS, CCDS Interventional Cardiology Cardiac Electrophysiology Vascular Medicine and Endovascular Interventions Leland MOTLEY MD Feb 14, 2018 1:51 pm
--- NOTE | 2018-03-04 13:14 | Discharge Summary ---
Diagnosis/Chief Complaint Date of Admission Feb 11, 2018 at 14:18 Date of Discharge Feb 14, 2018 at 10:55 Discharge Date: Feb 14, 2018 Discharge Time: 1000 Admission Diagnosis Admission Diagnosis Acute cholecystitis Discharge Diagnosis Same Reason Hospital Visit This lady presented to the emergency room with shortness of breath leading to the revelation of acute cholecystitis based on a CT scan, followed by formal gallbladder ultrasound. She has multiple comorbidities including coronary artery disease, cardiac failure and atrial fibrillation. Discharge Summary Procedures Laparoscopic cholecystectomy with cholangiogram. Dilated common bile duct with no stones discovered. Consultations Cardiology Discharge Physical Examination Allergies: Coded Allergies: NKANo Known Allergies (Verified Allergy, Unknown, 02/07/07) Hospital Course Labs (last 24 hrs) Laboratory Tests 02/11/18 08:46: White Blood Count 7.1, Red Blood Count 3.75L, Hemoglobin 11.5, Hematocrit 36, Mean Corpuscular Volume 95, Mean Corpuscular Hemoglobin 31, Mean Corpuscular Hemoglobin Concent 32, Red Cell Distribution Width 14.0, Platelet Count 124L, Mean Platelet Volume 11.5H, Neutrophils (%) (Auto) 74, Lymphocytes (%) (Auto) 19 , Monocytes (%) (Auto) 7, Eosinophils (%) (Auto) 0, Basophils (%) (Auto) 0, Neutrophils # (Auto) 5.3, Lymphocytes # (Auto) 1.3, Monocytes # (Auto) 0.5, Eosinophils # (Auto) 0.0, Basophils # (Auto) 0.0, Prothrombin Time 18.0H, INR Comment 1.5H, Activated Partial Thromboplast Time 38H, Sodium Level 131L, Potassium Level 4.6, Chloride Level 100, Carbon Dioxide Level 23, Anion Gap 8, Blood Urea Nitrogen 22H, Creatinine 1.25, Estimat Glomerular Filtration Rate 41 , BUN/Creatinine Ratio 18, Glucose Level 178H, Calcium Level 9.5, Magnesium Level 1.9, Total Bilirubin 1.3H, Aspartate Amino Transf (AST/SGOT) 58H, Alanine Aminotransferase (ALT/SGPT) 35, Alkaline Phosphatase 71, Myoglobin 80.3, Troponin I < 0.30, B-Type Natriuretic Peptide 2611.0H, Total Protein 6.7, Albumin 3.4, Lipase 8 02/11/18 16:27: Troponin I < 0.30 02/12/18 07:14: White Blood Count 4.9, Red Blood Count 3.25L, Hemoglobin 10.4L, Hematocrit 31L, Mean Corpuscular Volume 94, Mean Corpuscular Hemoglobin 32, Mean Corpuscular Hemoglobin Concent 34, Red Cell Distribution Width 13.8, Platelet Count 103L, Mean Platelet Volume 11.3H, Neutrophils (%) (Auto) 56, Lymphocytes (%) (Auto) 30 , Monocytes (%) (Auto) 11, Eosinophils (%) (Auto) 2, Basophils (%) (Auto) 1, Neutrophils # (Auto) 2.8, Lymphocytes # (Auto) 1.5, Monocytes # (Auto) 0.6, Eosinophils # (Auto) 0.1, Basophils # (Auto) 0.0, Sodium Level 134L, Potassium Level 3.5L, Chloride Level 100, Carbon Dioxide Level 25, Anion Gap 9, Blood Urea Nitrogen 31H, Creatinine 1.56H, Estimat Glomerular Filtration Rate 32, BUN/ Creatinine Ratio 20, Glucose Level 117H, Calcium Level 8.9, Total Bilirubin 0.9 , Aspartate Amino Transf (AST/SGOT) 45H, Alanine Aminotransferase (ALT/SGPT) 34 , Alkaline Phosphatase 60, Total Protein 5.5L, Albumin 3.1L, Triglycerides Level 64, Cholesterol Level 128, LDL Cholesterol Direct 82, VLDL Cholesterol 13 , HDL Cholesterol 32L 02/14/18 04:40: White Blood Count 8.8, Red Blood Count 3.27L, Hemoglobin 10.4L, Hematocrit 31L, Mean Corpuscular Volume 95, Mean Corpuscular Hemoglobin 32, Mean Corpuscular Hemoglobin Concent 33, Red Cell Distribution Width 13.9, Platelet Count 137, Mean Platelet Volume 10.6H, Neutrophils (%) (Auto) 83H, Lymphocytes (%) (Auto) 12, Monocytes (%) (Auto) 6, Eosinophils (%) (Auto) 0, Basophils (%) (Auto) 0, Neutrophils # (Auto) 7.3, Lymphocytes # (Auto) 1.0, Monocytes # (Auto) 0.5, Eosinophils # (Auto) 0.0, Basophils # (Auto) 0.0, Sodium Level 134L, Potassium Level 4.0, Chloride Level 102, Carbon Dioxide Level 23, Anion Gap 9, Blood Urea Nitrogen 26H, Creatinine 1.28, Estimat Glomerular Filtration Rate 40, BUN/ Creatinine Ratio 20, Glucose Level 169H, Calcium Level 8.9 Pending Labs Laboratory Tests 02/11/18 08:46: White Blood Count 7.1, Red Blood Count 3.75, Hemoglobin 11.5, Hematocrit 36, Mean Corpuscular Volume 95, Mean Corpuscular Hemoglobin 31, Mean Corpuscular Hemoglobin Concent 32, Red Cell Distribution Width 14.0, Platelet Count 124, Mean Platelet Volume 11.5, Neutrophils (%) (Auto) 74, Lymphocytes (%) (Auto) 19 , Monocytes (%) (Auto) 7, Eosinophils (%) (Auto) 0, Basophils (%) (Auto) 0, Neutrophils # (Auto) 5.3, Lymphocytes # (Auto) 1.3, Monocytes # (Auto) 0.5, Eosinophils # (Auto) 0.0, Basophils # (Auto) 0.0, Prothrombin Time 18.0, INR Comment 1.5, Activated Partial Thromboplast Time 38, Sodium Level 131, Potassium Level 4.6, Chloride Level 100, Carbon Dioxide Level 23, Anion Gap 8, Blood Urea Nitrogen 22, Creatinine 1.25, Estimat Glomerular Filtration Rate 41, BUN/Creatinine Ratio 18, Glucose Level 178, Calcium Level 9.5, Magnesium Level 1.9, Total Bilirubin 1.3, Aspartate Amino Transf (AST/SGOT) 58, Alanine Aminotransferase (ALT/SGPT) 35, Alkaline Phosphatase 71, Myoglobin 80.3, Troponin I < 0.30, B-Type Natriuretic Peptide 2611.0, Total Protein 6.7, Albumin 3.4, Lipase 8 02/11/18 16:27: Troponin I < 0.30 02/12/18 07:14: White Blood Count 4.9, Red Blood Count 3.25, Hemoglobin 10.4, Hematocrit 31, Mean Corpuscular Volume 94, Mean Corpuscular Hemoglobin 32, Mean Corpuscular Hemoglobin Concent 34, Red Cell Distribution Width 13.8, Platelet Count 103, Mean Platelet Volume 11.3, Neutrophils (%) (Auto) 56, Lymphocytes (%) (Auto) 30 , Monocytes (%) (Auto) 11, Eosinophils (%) (Auto) 2, Basophils (%) (Auto) 1, Neutrophils # (Auto) 2.8, Lymphocytes # (Auto) 1.5, Monocytes # (Auto) 0.6, Eosinophils # (Auto) 0.1, Basophils # (Auto) 0.0, Sodium Level 134, Potassium Level 3.5, Chloride Level 100, Carbon Dioxide Level 25, Anion Gap 9, Blood Urea Nitrogen 31, Creatinine 1.56, Estimat Glomerular Filtration Rate 32, BUN/ Creatinine Ratio 20, Glucose Level 117, Calcium Level 8.9, Total Bilirubin 0.9, Aspartate Amino Transf (AST/SGOT) 45, Alanine Aminotransferase (ALT/SGPT) 34, Alkaline Phosphatase 60, Total Protein 5.5, Albumin 3.1, Triglycerides Level 64 , Cholesterol Level 128, LDL Cholesterol Direct 82, VLDL Cholesterol 13, HDL Cholesterol 32 02/14/18 04:40: White Blood Count 8.8, Red Blood Count 3.27, Hemoglobin 10.4, Hematocrit 31, Mean Corpuscular Volume 95, Mean Corpuscular Hemoglobin 32, Mean Corpuscular Hemoglobin Concent 33, Red Cell Distribution Width 13.9, Platelet Count 137, Mean Platelet Volume 10.6, Neutrophils (%) (Auto) 83, Lymphocytes (%) (Auto) 12 , Monocytes (%) (Auto) 6, Eosinophils (%) (Auto) 0, Basophils (%) (Auto) 0, Neutrophils # (Auto) 7.3, Lymphocytes # (Auto) 1.0, Monocytes # (Auto) 0.5, Eosinophils # (Auto) 0.0, Basophils # (Auto) 0.0, Sodium Level 134, Potassium Level 4.0, Chloride Level 102, Carbon Dioxide Level 23, Anion Gap 9, Blood Urea Nitrogen 26, Creatinine 1.28, Estimat Glomerular Filtration Rate 40, BUN/ Creatinine Ratio 20, Glucose Level 169, Calcium Level 8.9 Discussion & Recommendations Uneventful postoperative recovery and her shortness of breath resolved. She has been given instructions regarding wound care with arrangements for a follow- up in 2 weeks. Discharge Home Medications: Active Scripts Active Tramadol HCl 50 Mg Tablet 50 Mg PO Q12H PRN Reported Calcium 600 + Vit D 200 Tablet (Calcium Carbonate/Vitamin D3) 1 Each Tablet 1 Tab PO DAILY Furosemide 40 Mg Tablet 40 Mg PO DAILY Aspirin EC (Aspirin) 81 Mg Tablet.dr 81 Mg PO DAILY Metoprolol Tartrate 100 Mg Tablet 100 Mg PO BID Nitrofurantoin [place]-Mcr 100 mg (Nitrofurantoin Monohyd/M-Cryst) 100 Mg Capsule 100 Mg PO BID 7 Days 7 DAY THERAPY FILLED 02-08-18 Phenazopyridine HCl 200 Mg Tablet 200 Mg PO TID PRN #15 FILLED 02-08-18 Eliquis (Apixaban) 5 Mg Tablet 5 Mg PO BID Lisinopril 10 Mg Tablet 10 Mg PO DAILY Simvastatin 40 Mg Tablet 40 Mg PO HS Instructions to patient/family Please see electronic discharge instructions given to patient. Clinical Quality Measures DVT/VTE Risk/Contraindication: Risk Factor Score Per Nursin RFS Level Per Nursing on Admit: 2=Moderate MESFIN MANCINI MD Mar 04, 2018 13:14
== END 2018-02-14 10:55 | disposition home or self-care (01) | DRG 417 ==
LOC: EDUNIT# 08:20 → ER 08:22 → 4TH 14:18 → 3RD 15:05 → 4TH 15:05
PROVIDERS: ADMIT Family Medicine; ATTEND Surgery
PROC: BF101ZZ Fluoroscopy of Bile Ducts using Low Osmolar Contrast (ICD-10-PCS; 2018-02-13)
PROC: 0FT44ZZ Resection of Gallbladder, Percutaneous Endoscopic Approach (ICD-10-PCS; principal; 2018-02-13 09:08)
DX: K81.0 Acute cholecystitis (principal); I13.0 Hypertensive heart and chronic kidney disease with heart failure and stage 1 through stage 4 chronic kidney disease, or unspecified chronic kidney disease; I50.23 Acute on chronic systolic (congestive) heart failure; N18.3 Chronic kidney disease, stage 3 (moderate); I48.91 Unspecified atrial fibrillation; I25.10 Atherosclerotic heart disease of native coronary artery without angina pectoris; I34.0 Nonrheumatic mitral (valve) insufficiency; E78.00 Pure hypercholesterolemia, unspecified; M19.91 Primary osteoarthritis, unspecified site; M54.9 Dorsalgia, unspecified; E87.6 Hypokalemia; G62.9 Polyneuropathy, unspecified; E88.81 Metabolic syndrome and other insulin resistance; Y84.8 Other medical procedures as the cause of abnormal reaction of the patient, or of later complication, without mention of misadventure at the time of the procedure; Z96.653 Presence of artificial knee joint, bilateral; Z79.01 Long term (current) use of anticoagulants; Z86.718 Personal history of other venous thrombosis and embolism; Z95.5 Presence of coronary angioplasty implant and graft; Z95.0 Presence of cardiac pacemaker; Z98.890 Other specified postprocedural states
CPT/HCPCS: 36415; 71045; 74177; 76705; 80048; 80053; 80061; 83690; 83735; 83874; 83880; 84484; 85025; 85610; 85730; 93005; 93041; 93306; 94664; 96365; 96375

== ENCOUNTER 2018-05-24 07:01 | Day surgery (SDC) | payer MEDICAID ==
[2018-05-24] VITALS (14 sets, daily range): BP systolic 106–132; BP diastolic 57–99
[~2018-05-24] VITALS: Ht 149.9 cm; Wt 69.4 kg
[~2018-05-24 07:01] MED LIST changes: +APIX5TAB PO; +ASPI-983 PO; +CALC-6 PO; +FURO40TA4 PO; +IBUP-30 PO; +LISI10TA2 PO; +METO100T12 PO; +NITR100C10 PO; +PHEN-827 PO
[2018-05-24] MEDS ORDERED: NS IV 1000 ML 1,000 ML ONE (07:07)
[2018-05-24] MEDS ORDERED: HEParin (CATH LAB) 2,000 ML IV ONE (07:07)
[2018-05-24] MEDS ORDERED: LIDOCAINE 1% INJ 20 ML 20 ML VIAL ONE (07:07)
[2018-05-24] MEDS ORDERED: NS IV 1000 ML 1,000 ML IV SCH (07:15)
[2018-05-24] MEDS ORDERED: fentaNYL INJECTION 100 MCG/2 ML AMP ONE (07:25)
[2018-05-24] MEDS ORDERED: HEParin 1000 UNIT/ML (10ML VIAL) FOR BOLUS ONE (07:25)
[2018-05-24] MEDS ORDERED: MIDAZOLAM 5 MG/5 ML (VERSED) VIAL ONE (07:25)
[2018-05-24 07:28] LABS: HEMOGLOBIN 11.7 G/DL (11.5-16.0); MEAN PLATELET VOLUME 9.9 FL (7.4-10.4); RED BLOOD COUNT 3.7 10^6/uL (4.35-5.85); RED CELL DISTRIBUTION WIDTH 13.5 % (10.0-14.5); WHITE BLOOD COUNT 7.4 10^3/uL (4.3-11.0)
[2018-05-24 07:43] LABS: PROTHROMBIN TIME PATIENT 13.6 SEC (12.2-14.7)
[2018-05-24 07:48] LABS: ALBUMIN 3.9 GM/DL (3.2-4.5); BILIRUBIN,TOTAL 0.5 MG/DL (0.1-1.0); CALCIUM 9.7 MG/DL (8.5-10.1); CREATININE SERUM 1.49 MG/DL (0.60-1.30); POTASSIUM 3.4 MMOL/L (3.6-5.0); TOTAL PROTEIN 7.8 GM/DL (6.4-8.2)
[2018-05-24] MEDS ORDERED: EPTIFIBATIDE DRIP 100 ML IV ONE (09:14)
[2018-05-24] MEDS ORDERED: EPTIFIBATIDE BOLUS 20 ML IV ONE (09:14)
[2018-05-24] MEDS ORDERED: NITRO DRIP 25000 MCG/D5W 250 ML IV ONE (09:14)
[2018-05-24] MEDS ORDERED: CLOPIDOGREL 300 MG (PLAVIX) TABLET PO ONE (09:52)
--- NOTE | 2018-05-24 10:28 | Cardiac Procedure Note-CS/ASA ---
Pre-Procedure Note Pre-Op Procedure Note H&P Reviewed The H&P was reviewed, patient examined and no changes noted. Date H&P Reviewed: May 24, 2018 Time H&P Reviewed: 08:30 Conscious Sedation Pre-Proced Time 08:30 ASA Score 3 For ASA 3 and 4: Consider anesthesia and medical clearance. Also, for patients with a history of failed moderate sedation consider anesthesia. Airway Lungs Heart ASA score ASA 1: a normal healthy patient ASA 2: a patient with a mild systemic disease (mid diabetes, controlled hypertension, obesity ASA 3: a patient with a severe systemic disease that limits activity (angina , COPD, prior Myocardial infarction) ASA 4: a patient with an incapacitating disease that is a constant threat to life (CHF, renal failure) ASA 5: a moribund patient not expected to survive 24 hrs. (ruptured aneurysm) ASA 6: a declared brain patient whose organs are being harvested. For emergent operations, add the letter E after the classification Mallampati Classification Grade 2 Sedation Plan Analgesia, Amnesia, Plan communicated to team members, Discussed options with patient/fam, Discussed risks with patient/fam The patient is an appropriate candidate to undergo the planned procedure, sedation, and anesthesia. The patient immediately re-assessed prior to indication. SAHIL HAWLEY MD FACP FAC CCDS May 24, 2018 10:28
[2018-05-24] MEDS ORDERED: meTOproloL SUCCINATE 50 MG (TOPROL XL) TAB PO NR (10:45)
[2018-05-24] MEDS ORDERED: ACETAMINOPHEN 325 MG TABLET PO PRN (10:45)
[2018-05-24] MEDS ORDERED: PATIENT MAY USE OWN MEDS, ALL PO SCH (10:45)
[2018-05-24] MEDS: NS IV 1000 ML 1,000 ML IV SCH ×2 (11:09→20:34)
--- NOTE | 2018-05-24 12:48 | CARDIAC CATHETERIZATION ---
DATE OF SERVICE: 05/24/2018 CARDIAC CATHETERIZATION AND CORONARY INTERVENTION REPORT HISTORY: The patient is an 82-year-old lady with known coronary artery disease who has been experiencing progressive exertional shortness of breath, consistent with an angina equivalent. Because of progressive symptoms, cardiac catheterization was carried out today after having obtained an informed consent for cardiac catheterization and possible Ad hoc coronary intervention. The procedure, risks, benefits, potential complications, alternatives were explained to her in detail, including the additional risk of contrast nephropathy, given her baseline renal insufficiency. She provided informed consent. Vigorous perioperative hydration was carried out before, during, and after the procedure. PROCEDURE: She was brought to the cardiac catheterization laboratory. Right groin was prepared and draped in the usual sterile fashion. Lidocaine 1% with local anesthesia. Modified Seldinger technique was used to advance a 5-Lithuanian sheath in the right femoral artery. Catheter exchanges were carried out over an exchange length wire. We used 5-Lithuanian JR4 catheter for right coronary angiography and 5-Lithuanian JL3.5 catheter for left coronary angiography. We used a pigtail catheter for left heart catheterization. Left heart catheterization was performed with a pigtail following coronary intervention that is described below. We did not perform left ventricular angiography. This was to conserve contrast, given the patient's renal insufficiency. PERCUTANEOUS INTERVENTION TO THE LEFT ANTERIOR DESCENDING ARTERY: Following completion of the diagnostic coronary angiography, we carried out percutaneous intervention to the mid right coronary artery, which was exhibiting 90% stenosis, proximal to the proximal edge of the standard portion of this artery. We exchanged the sheath over a wire for a 6-Lithuanian sheath. We used a 6-Lithuanian JL3.5 guide catheter to engage the left coronary artery. We advanced a choice extra support wire across the lesion and the tip was placed in the distal vessel. We advanced a Xience Laverne 2.5 x 8 mm stent to the stenosis and this was carefully positioned to cover the entire lesion and the stent was deployed at 16 atmospheres. Subsequent angiography revealed 0% residual stenosis at the previous site with 90% stenosis in the mid left anterior descending artery. The patient tolerated the procedure well. Angioplasty equipment was removed. Angiography of the right femoral artery was carried out through the sheath. Mynx was used to achieve hemostasis. She tolerated the procedure well. HEMODYNAMICS: Left ventricular end-diastolic pressure following coronary angiography was 21 mmHg. There was no significant pressure gradient on pullback across the aortic valve. Ascending aortic pressure was 123/67 with a mean of 87 mmHg. CORONARY ANGIOGRAPHY: Diffuse coronary calcification and moderate diffuse coronary plaque is seen involving the entire extent of all coronary vessels. Left main coronary artery has approximately 40% to 50% proximal and mid vessel stenoses. The left circumflex artery has approximately 60% ostial stenosis. The first obtuse marginal branch exhibits a widely patent stent in its proximal portion and the stent is known to be Promus 2.5 x 16 mm stent. The left anterior descending artery exhibited 90% mid vessel stenosis to which successful stenting was carried out with the Xience Laverne 2.5 x 8 mm stent today. The mid to distal left anterior descending artery exhibits a long stented segment, which is widely patent. These are known to be overlapping Taxus stents (2.75 x 20, 2.5 x 24, and 2.5 x 12, proximal to distal). The right coronary artery is dominant. It has a 70 to 80% proximal vessel stenoses that were not intervened on today. CONCLUSIONS: 1. Coronary artery disease as detailed above. A 90% mid vessel stenosis of the left anterior descending artery was stented with Xience Laverne 2.5 x 8 mm stent. The mid left anterior descending artery has patent Taxus stents (2.75 x 20, 2.5 x 24, 2.5 x 12, proximal to distal). The left circumflex artery has 60% ostial stenosis and its first obtuse marginal branch has a widely patent stent known to be Promus 2.5 x 16 mm. The right coronary artery has 70% to 80% proximal stenosis. Right coronary artery is dominant. 2. Elevated left ventricular end-diastolic pressure. DISCUSSION AND RECOMMENDATIONS: We intervened on the most prominent lesion today. She would probably need right coronary artery stenting, as well. We will do this at a later date. This is to allow her renal function to recover after today's contrast load. Job ID: [id number] DocumentID: [id number] Dictated Date: 05/24/2018 10:44:12 [employer] Date: 05/24/2018 12:47:42 Dictated By: SAHIL HAWLEY MD, MA, FACP, FACC, MTDD
[2018-05-24] MEDS: APIXABAN 2.5 MG (ELIQUIS) TABLET PO SCH (20:17)
[2018-05-24] MEDS ORDERED: ATORVASTATIN 40 MG (LIPITOR) TABLET PO SCH (21:00)
[2018-05-25] VITALS: BP 119/77
[2018-05-25 04:00] VITALS: BP_SYST 117; BP_SYST 132; BP_DIAS 69; BP_DIAS 83
[2018-05-25 04:54] LABS: HEMOGLOBIN 10.5 G/DL (11.5-16.0); MEAN PLATELET VOLUME 10.1 FL (7.4-10.4); RED BLOOD COUNT 3.41 10^6/uL (4.35-5.85); WHITE BLOOD COUNT 6.9 10^3/uL (4.3-11.0)
[2018-05-25 05:10] LABS: CALCIUM 9.3 MG/DL (8.5-10.1); CREATININE SERUM 1.07 MG/DL (0.60-1.30); POTASSIUM 3.5 MMOL/L (3.6-5.0)
[2018-05-25] MEDS: NS IV 1000 ML 1,000 ML IV SCH (07:55)
--- NOTE | 2018-05-25 07:57 | Progress Note-Cardiology ---
Cardiology SOAP Progress Note Subjective: In bed. Family x 1 at the bedside. She reports she did not sleep well last noc. C/O mod right groin pain. Feels her breathing is better. No c/o CP or palpitations. Objective: I&O/Vital Signs 05/25/18 05/25/18 05/25/18 05/25/18 00:00 00:00 01:00 04:00 Temp 97.6 97.9 Pulse 91 89 80 90 Resp 18 17 16 B/P (MAP) 119/77 (91) 119/77 (91) 132/83 (99) Pulse Ox 97 96 O2 Delivery Room Air Room Air Room Air 05/25/18 05/25/18 05/25/18 07:00 08:00 08:00 Temp 97.0 Pulse 77 Pulse Ox 98 O2 Delivery Room Air 05/25/18 00:00 Intake Total 1390 ml Balance 1390 ml Weight (Pounds): 153 Weight (Ounces): 0.0 Weight (Calculated Kilograms): 69.495317 Side: right Groin site without hematoma: No Condition: DP/PT pulses palpable, extremity w/d/p Bruising: moderated bruising Constitutional: AAO x 3, well-developed, well-nourished Respiratory: No accessory muscle use, No respiratory distress; chest expansion is symmetric, chest is bilaterally symmetric, lungs clear to auscultation Cardiovascular: irregularly irregular; No JVD; S1 and S2 Gastrointestional: No tender; soft, audible bowel sounds Extremities: no lower extremity edema bilateral Neurologic/Psychiatric: grossly intact Skin: No rash, No ulcerations Results/Procedures: Labs Laboratory Tests 05/25/18 04:20: White Blood Count 6.9, Red Blood Count 3.41L, Hemoglobin 10.5L, Hematocrit 33L, Mean Corpuscular Volume 97, Mean Corpuscular Hemoglobin 31, Mean Corpuscular Hemoglobin Concent 32, Red Cell Distribution Width 14.0, Platelet Count 150, Mean Platelet Volume 10.1, Sodium Level 139, Potassium Level 3.5L, Chloride Level 105, Carbon Dioxide Level 26, Anion Gap 8, Blood Urea Nitrogen 26H, Creatinine 1.07, Estimat Glomerular Filtration Rate 49, BUN/Creatinine Ratio 24 , Glucose Level 114H, Calcium Level 9.3 Procedures S/P cardiac cath with intervention. Please refer to Dr. Flowers's cardiac cath report of 05-25-18 for details. A/P: Assessment: Coronary artery disease - Cardiac cath of 05-24-18 showed a 90% mid vessel stenosis of the left anterior descending artery was stented with Xience Laverne 2.5 x 8 mm stent. The mid left anterior descending artery has patent Taxus stents (2.75 x 20, 2.5 x 24, 2.5 x 12, proximal to distal). The left circumflex artery has 60% ostial stenosis and its first obtuse marginal branch has a widely patent stent known to be Promus 2.5 x 16 mm. The right coronary artery has 70% to 80% proximal stenosis. Right coronary artery is dominant. Elevated left ventricular end-diastolic pressure. Mod right groin hematoma - post cardiac cath. No pseudoaneurysm on groin u/s today Chronic systolic/diastolic CHF - clinically compensated A-fib/flutter - first seen on EKG tracings at time of MPI on November 02, 2017 24 Hour Holter of October 2017 showed atrial fib throughout the study with aver HR of 100 bpm. PVC's vs aberrantly conducted beats: isolated, coupled and runs up to 4 beats at rates up to approx 150 bpm. No signif bradycardia MPI of November 02, 2017 showed lateral wall myocardial infarction with a small amt of hill-infarct ischemia. Lateral wall akinesis. LVEF 42%. Med management Echocardiogram of October 2017 showed concentric hypertrophy. LVEF 50-55%. Hypokinesis of the lateral myocardium. The LA is mod to severly dilated. Mod calcified mitral valve annulus with mod regurg. Mild to mod TR. PASP approx 40 -45mmHg History of infra-mammary herpes zoster in the past. She is currently not experiencing any symptoms from it. Degenerative joint disease. Hyperlipidemia being treated with simvastatin and followed by her PCP History of urinary incontinence, which has been followed by Dr. Dee. Carotid u/s of April 2018 showed approx 40% R ICA stenosis and approx 50% L ICA stenosis Plan: Right groin site hematoma with reported discomfort - groin u/s today to eval Likely discharge home today if groin u/s is ok Cr improved following pre and post procedure hydration Continue current medication regimen including Plavix and Eliquis - no ASA since this will increase her risk of bleeding F/U appt in one week Physician Assessment Physician Assessment Shortness of breath improved. No cp or palp or syncope Lungs: fair bilat air entry, prolonged exp phase Cor: reg Ext: no c/c/e. Mod bruising at site access in the R groin A&R * As documented in our note above that I updated (italics) and as noted below * I discussed in detail with her her CV issues and the procedures and interventions undertaken * Rationale, pros and cons of meds reviewed and questions answered * Compliance with meds advised * Outpt f/u advised JESSICA ONEIL LOAN OPERATIONS MANAGER May 25, 2018 07:57 SAHIL FLOWERS MD FACP FAC CCDS May 25, 2018 09:48
[2018-05-25] MEDS ORDERED: ATOR40TA PO (08:36)
[2018-05-25] MEDS ORDERED: CLOP75TA28 PO (08:36)
[2018-05-25] MEDS ORDERED: APIX2.5T PO (08:57)
--- NOTE | 2018-05-25 08:58 | Discharge Inst-Cardiology ---
Discharge Inst-Cardiac Discharge Medications New Medications: Apixaban (Eliquis) 2.5 Mg Tablet 2.5 MG PO BID, #60 TAB 5 Refills Atorvastatin Calcium (Lipitor) 40 Mg Tablet 40 MG PO HS, #30 TAB 5 Refills Clopidogrel Bisulfate (Clopidogrel) 75 Mg Tablet 75 MG PO DAILY, #30 TAB 5 Refills Continued Medications: Furosemide (Furosemide) 40 Mg Tablet 40 MG PO DAILY, TAB Lisinopril (Lisinopril) 10 Mg Tablet 10 MG PO DAILY, TAB Discontinued Medications: Apixaban (Eliquis) 5 Mg Tablet 5 MG PO BID, TAB Aspirin (Aspirin EC) 81 Mg Tablet. 81 MG PO DAILY, TAB New, Converted or Re-Newed RX: Transmitted to Pharmacy Patient Instructions Patient Instructions: Please schedule follow up appointment to see Dr. Flowers in one week Orders-Post D/C & Referrals Pneu Vac Indicated: Yes JESSICA ONEIL May 25, 2018 08:57
[2018-05-25] MEDS ORDERED: ASPIRIN 81 MG CHEW (CHILDREN'S ASA) PO SCH (09:00)
[2018-05-25] MEDS ORDERED: meTOproloL SUCCINATE 50 MG (TOPROL XL) TAB PO SCH (09:00)
[2018-05-25] MEDS ORDERED: CLOPIDOGREL 75 MG (PLAVIX) TABLET PO SCH (09:00)
--- NOTE | 2018-05-25 09:48 | Diagnostic Imaging Report ---
INDICATION: Status post cardiac cath with pain in the right groin as well as hematoma. FINDINGS: Sonographic interrogation of the groin was performed. There is a small hematoma in the right groin measuring 2.0 x 0.7 cm. No pseudoaneurysm is identified. The common femoral artery and vein are patent. No AV fistula is identified. IMPRESSION: Small right right groin hematoma. There is no evidence of pseudoaneurysm or AV fistula. Dictated by: Dictated on workstation # [id number]
[2018-05-25 10:00] VITALS: BP 117/94
[2018-05-25] MEDS: APIXABAN 2.5 MG (ELIQUIS) TABLET PO SCH (10:26)
[2018-05-25 11:00] VITALS: BP 117/94
== END 2018-05-25 11:50 | disposition home or self-care (01) ==
LOC: CATH 07:01 → ICU 10:10 → CATH 05-25 11:50
PROVIDERS: ATTEND Internal Medicine Cardiovascular Disease
DX: I25.10 Atherosclerotic heart disease of native coronary artery without angina pectoris (principal); I11.0 Hypertensive heart disease with heart failure; I50.40 Unspecified combined systolic (congestive) and diastolic (congestive) heart failure; E78.5 Hyperlipidemia, unspecified; I48.0 Paroxysmal atrial fibrillation; I65.23 Occlusion and stenosis of bilateral carotid arteries; Z79.01 Long term (current) use of anticoagulants; Z79.82 Long term (current) use of aspirin; Z79.899 Other long term (current) drug therapy
CPT/HCPCS: 36415; 80048; 80053; 80061; 85027; 85610; 85730; 87081; 93005; 93458; 93926

== ENCOUNTER 2018-06-21 07:08 | Day surgery (SDC) | payer MEDICAID ==
[~2018-06-21] VITALS: Ht 149.9 cm; Wt 69.4 kg
[2018-06-21] VITALS (18 sets, daily range): BP systolic 104–134; BP diastolic 6–105
[~2018-06-21 07:08] MED LIST changes: +APIX2.5T PO; +ATOR40TA PO; +CLOP75TA28 PO
[2018-06-21] MEDS ORDERED: LIDOCAINE 1% INJ 20 ML 20 ML VIAL ONE (07:09)
[2018-06-21] MEDS ORDERED: HEParin (CATH LAB) 2,000 ML IV ONE (07:09)
[2018-06-21] MEDS ORDERED: NS IV 1000 ML 1,000 ML ONE (07:09)
--- OUTSIDE RECORDS SUMMARY | 2018-06-21 07:13 | XMS REPORT ---
Author Author CHARO MULLIGAN Organization [facility] Address [address] [place] [address] Care Team Providers Care Die Maintenance Technician Name Role Phone HECTOR MULLIGANTA Unavailable PROBLEMS Unknown Problems ALLERGIES No Known Allergies ENCOUNTERS Encounter Location Date Diagnosis [facility] [id number] [place] [phone] Apr, Impacted cerumen of left ear H61.22 ; Encounter for immunization Z23 and History of myopia Z86.69 [facility] [address] [id number] Dec, Dental examination V72.2 [facility] [id number] [place] [id number] Dec, Dental examination V72.2 [facility] [id number] [place] [id number] Dec, Dental examination V72.2 IMMUNIZATIONS Vaccine Route Administration Date Status FLULAVAL QUAD 0.5ML (6 MO & UP) 2018 IM Intramuscular May 18, 2018 Administered SOCIAL HISTORY Never Assessed REASON FOR VISIT Establish Care David Ruffin MA, Patient is on some medications but is unsure of the names and dosages., Verified medication list with Kody at [facility] in [place]- Jeremiah Quevedo RN PLAN OF CARE Activity Details Follow Up 3 months or as indicated by lab Reason:CHM VITAL SIGNS Weight 157.7 lbs 2018-05-18 Temperature 97.3 degrees Fahrenheit 2018-05-18 Heart Rate 63 bpm 2018-05-18 Respiratory Rate 18 2018-05-18 Blood pressure systolic 118 mmHg 2018-05-18 Blood pressure diastolic 60 mmHg 2018-05-18 MEDICATIONS Medication Instructions Dosage Frequency Start Date End Date Duration Status Tramadol HCl 50 MG Orally every 6 hrs 1 tablet as needed 6h Active Metoprolol Tartrate 100 MG Orally Twice a day 1 tablet with food 12h 30 day(s) Active Simvastatin 40 MG Orally Once a day 1 tablet in the evening 24h 30 day(s) Active Eliquis 5 mg Orally 2 times a day 1 tablet 12h Active Furosemide 40 MG Orally Once a day 1 tablet 24h 30 day(s) Active Lisinopril 10 MG Orally Once a day 1 tablet 24h 30 day(s) Active RESULTS No Results PROCEDURES Procedure Date Ordered Result Body Site FLULAVAL QUAD 0.5ML (6 MO AND UP) 2017May 18, 2018 SINGLE IMMUNIZATION ADMIN May 18, 2018 INSTRUCTIONS MEDICATIONS ADMINISTERED No Known Medications MEDICAL (GENERAL) HISTORY Type Description Date Medical History Hypertension Surgical History knee surgery 2009 Surgical History has had 3 stents placed 2006 Surgical History cataract surgery 2007 Surgical History gall bladder removed 2018 Hospitalization History surgery
--- OUTSIDE RECORDS SUMMARY | 2018-06-21 07:15 | XMS REPORT | Continuity of Care Document ---
Author Author [facility] Address Unknown Phone Unavailable Allergies Active Description Code Type Severity Reaction Onset Reported/Identified Relationship to Patient Clinical Status Yes NKANo Known Allergies NKA Miscellaneous Allergy Unknown N/A 02/07/2007 Medications There is no data. Problems Date Dx Coded Attending Type Code Diagnosis Diagnosed By MATTEO VALENZUELA, SUSI Ha Ot Z47.1 AFTERCARE FOLLOWING JOINT REPLACEMENT GILES MATTEO VALENZUELA, SUSI Ha Ot Z96.651 PRESENCE OF RIGHT ARTIFICIAL KNEE JOINT 09/06/2009 Ot 401.9 09/06/2009 Ot V43.65 09/06/2009 Ot V45.82 09/06/2009 Ot V54.81 09/06/2009 Ot V57.1 02/05/2010 Ot 599.82 02/05/2010 Ot 625.6 02/04/2011 Ot 272.4 HYPERLIPIDEMIA NEC/NOS 02/04/2011 Ot 414.01 CORONARY ATHEROSCLEROSIS OF [place] CORON 02/04/2011 Ot 416.8 CHR PULMON HEART DIS NEC 02/04/2011 Ot 424.0 MITRAL VALVE DISORDER 02/04/2011 Ot 428.1 LEFT HEART FAILURE 02/04/2011 Ot 715.90 OSTEOARTHROS NOS-UNSPEC 02/04/2011 Ot 786.09 RESPIRATORY ABNORM NEC 02/04/2011 Ot 788.30 UNSPECIFIED URINARY INCONTINENCE 02/04/2011 Ot V45.82 PERCUTANEOUS TRANSLUM CORON ANGIOPLASTY 02/04/2011 Ot V58.63 LONG-TERM( CURRENT)USE OF ANTIPLATELET/AN 02/04/2011 Ot V58.69 OTH MED,LT, CURRENT USE 11/01/2012 Ot 272.4 HYPERLIPIDEMIA NEC/NOS 11/01/2012 Ot 414.01 CORONARY ATHEROSCLEROSIS OF [place] CORON 11/01/2012 Ot 414.4 CORONARY ATHEROSCLEROSIS DUE TO [place] 11/01/2012 Ot 416.8 CHR PULMON HEART DIS NEC 11/01/2012 Ot 424.0 MITRAL VALVE DISORDER 11/01/2012 Ot 715.90 OSTEOARTHROS NOS-UNSPEC 11/01/2012 Ot 788.30 UNSPECIFIED URINARY INCONTINENCE 11/01/2012 Ot 794.30 ABN CARDIOVASC STUDY NOS 11/01/2012 Ot V45.82 PERCUTANEOUS TRANSLUM CORON ANGIOPLASTY 11/01/2012 Ot V58.63 LONG-TERM( CURRENT)USE OF ANTIPLATELET/AN 11/01/2012 Ot V58.66 LONG-TERM ( CURRENT) USE OF ASPIRIN 11/01/2012 Ot V58.69 OTH MED,LT, CURRENT USE 12/03/2014 Ot 719.01 12/03/2014 Ot 727.61 12/03/2014 Ot 272.4 12/03/2014 Ot 410.50 12/03/2014 Ot 414.01 12/03/2014 Ot V58.69 12/03/2014 Ot 429.3 12/03/2014 Ot 599.82 12/03/2014 Ot 791.9 12/03/2014 Ot V58.63 12/03/2014 Ot V58.66 12/03/2014 Ot V72.63 12/03/2014 Ot V72.81 12/03/2014 Ot V74.8 12/03/2014 Ot 401.9 12/03/2014 Ot 433.10 12/03/2014 Ot 429.3 12/03/2014 Ot 562.10 12/03/2014 Ot 599.70 12/03/2014 Ot 753.10 12/03/2014 Ot 410.50 12/03/2014 Ot 414.01 12/03/2014 Ot 429.3 12/03/2014 Ot V45.82 12/06/2014 Ot 719.01 12/06/2014 Ot 727.61 12/06/2014 Ot 272.4 12/06/2014 Ot 410.50 12/06/2014 Ot 414.01 12/06/2014 Ot V58.69 12/06/2014 Ot 429.3 12/06/2014 Ot 599.82 12/06/2014 Ot 791.9 12/06/2014 Ot V58.63 12/06/2014 Ot V58.66 12/06/2014 Ot V72.63 12/06/2014 Ot V72.81 12/06/2014 Ot V74.8 12/06/2014 Ot 401.9 12/06/2014 Ot 433.10 12/06/2014 Ot 429.3 12/06/2014 Ot 562.10 12/06/2014 Ot 599.70 12/06/2014 Ot 753.10 12/06/2014 Ot 410.50 12/06/2014 Ot 414.01 12/06/2014 Ot 429.3 12/06/2014 Ot V45.82 12/11/2014 Ot 719.01 12/11/2014 Ot 727.61 12/11/2014 Ot 272.4 12/11/2014 Ot 410.50 12/11/2014 Ot 414.01 12/11/2014 Ot V58.69 12/11/2014 Ot 429.3 12/11/2014 Ot 599.82 12/11/2014 Ot 791.9 12/11/2014 Ot V58.63 12/11/2014 Ot V58.66 12/11/2014 Ot V72.63 12/11/2014 Ot V72.81 12/11/2014 Ot V74.8 12/11/2014 Ot 401.9 12/11/2014 Ot 433.10 12/11/2014 Ot 429.3 12/11/2014 Ot 562.10 12/11/2014 Ot 599.70 12/11/2014 Ot 753.10 12/11/2014 Ot 410.50 12/11/2014 Ot 414.01 12/11/2014 Ot 429.3 12/11/2014 Ot V45.82 12/11/2014 BAIMA, JESSICA L KNITTING MACHINE MECHANIC Ot 272.4 12/11/2014 BAIMA, JESSICA L KNITTING MACHINE MECHANIC Ot 401.9 12/11/2014 BAIMA, JESSICA L KNITTING MACHINE MECHANIC Ot 414.9 12/11/2014 BAIMA, JESSICA L KNITTING MACHINE MECHANIC Ot 782.3 12/14/2014 BAIMA, JESSICA L KNITTING MACHINE MECHANIC Ot 272.4 12/14/2014 BAIMA, JESSICA L KNITTING MACHINE MECHANIC Ot 401.9 12/14/2014 BAIMA, JESSICA L KNITTING MACHINE MECHANIC Ot 414.9 12/14/2014 BAIMA, JESSICA L KNITTING MACHINE MECHANIC Ot 782.3 12/19/2014 BAIMA, JESSICA L KNITTING MACHINE MECHANIC Ot 272.4 12/19/2014 BAIMA, JESSICA L KNITTING MACHINE MECHANIC Ot 401.9 12/19/2014 BAIMA, JESSICA L KNITTING MACHINE MECHANIC Ot 414.9 12/19/2014 BAIMA, JESSICA L KNITTING MACHINE MECHANIC Ot 782.3 01/07/2015 BAIMA, JESSICA L KNITTING MACHINE MECHANIC Ot 272.4 01/07/2015 BAIMA, JESSICA L KNITTING MACHINE MECHANIC Ot 401.9 01/07/2015 BAIMA, JESSICA L KNITTING MACHINE MECHANIC Ot 414.9 01/07/2015 BAIMA, JESSICA L KNITTING MACHINE MECHANIC Ot 782.3 01/10/2015 BAIMA, JESSICA L KNITTING MACHINE MECHANIC Ot 272.4 01/10/2015 BAIMA, JESSICA L KNITTING MACHINE MECHANIC Ot 401.9 01/10/2015 BAIMA, JESSICA L KNITTING MACHINE MECHANIC Ot 414.9 01/10/2015 BAIMA, JESSICA L KNITTING MACHINE MECHANIC Ot 782.3 02/17/2016 Ot 272.4 02/17/2016 Ot 285.9 02/17/2016 Ot 414.00 04/16/2016 Ot 429.3 CARDIOMEGALY 04/16/2016 Ot 562.10 DIVERTICULOSIS COLON (W/O MENT OF HEMORR 04/16/2016 Ot 599.70 HEMATURIA, UNSPECIFIED 04/16/2016 Ot 753.10 CYSTIC KIDNEY DISEASE, UNSPECIFIED 04/16/2016 Ot 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,OTH LATERAL WALL,EPIS 04/16/2016 Ot 414.01 CORONARY ATHEROSCLEROSIS OF [place] CORON 04/16/2016 Ot 429.3 CARDIOMEGALY 04/16/2016 Ot V45.82 PERCUTANEOUS TRANSLUM CORON ANGIOPLASTY 04/16/2016 BAIMA, JESSICA L KNITTING MACHINE MECHANIC Ot 272.4 HYPERLIPIDEMIA NEC/NOS 04/16/2016 BAIMA, JESSICA L KNITTING MACHINE MECHANIC Ot 401.9 HYPERTENSION NOS 04/16/2016 BAIMA, JESSICA L KNITTING MACHINE MECHANIC Ot 414.9 CHR ISCHEMIC HRT DIS NOS 04/16/2016 BAIMA, JESSICA L KNITTING MACHINE MECHANIC Ot 782.3 EDEMA 04/16/2016 BAIMA, JESSICA L KNITTING MACHINE MECHANIC Ot 272.4 HYPERLIPIDEMIA NEC/NOS 04/16/2016 BAIMA, JESSICA L KNITTING MACHINE MECHANIC Ot 401.9 HYPERTENSION NOS 04/16/2016 BAIMA, JESSICA L KNITTING MACHINE MECHANIC Ot 414.9 CHR ISCHEMIC HRT DIS NOS 04/16/2016 BAIMA, JESSICA L KNITTING MACHINE MECHANIC Ot 782.3 EDEMA 04/16/2016 BAIMA, JESSICA L KNITTING MACHINE MECHANIC Ot 272.4 HYPERLIPIDEMIA NEC/NOS 04/16/2016 BAIMA, JESSICA L KNITTING MACHINE MECHANIC Ot 401.9 HYPERTENSION NOS 04/16/2016 BAIMA, JESSICA L KNITTING MACHINE MECHANIC Ot 414.9 CHR ISCHEMIC HRT DIS NOS 04/16/2016 BAIMA, JESSICA L KNITTING MACHINE MECHANIC Ot 782.3 EDEMA 05/12/2016 MATTEO VALENZUELA, SUSI Ha Ot Z47.1 AFTERCARE FOLLOWING JOINT REPLACEMENT GILES 05/12/2016 MATTEO VALENZUELA, SUSI Ha Ot Z96.651 PRESENCE OF RIGHT ARTIFICIAL KNEE JOINT 06/01/2016 MATTEO VALENZUELA, SUSI Ha Ot Z47.1 AFTERCARE FOLLOWING JOINT REPLACEMENT GILES 06/01/2016 MATTEO VALENZUELA, SUSI Ha Ot Z96.651 PRESENCE OF RIGHT ARTIFICIAL KNEE JOINT 06/01/2016 MATTEO VALENZUELA, SUSI Ha Ot Z47.1 AFTERCARE FOLLOWING JOINT REPLACEMENT GILES 06/01/2016 MATTEO VALENZUELA, SUSI Ha Ot Z96.651 PRESENCE OF RIGHT ARTIFICIAL KNEE JOINT 06/04/2016 MATTEO VALENZUELA, SUSI Ha Ot Z47.1 AFTERCARE FOLLOWING JOINT REPLACEMENT GILES 06/04/2016 MATTEO VALENZUELA, SUSI Ha Ot Z96.651 PRESENCE OF RIGHT ARTIFICIAL KNEE JOINT 06/09/2016 Ot 429.3 CARDIOMEGALY 06/09/2016 Ot 562.10 DIVERTICULOSIS COLON (W/O MENT OF HEMORR 06/09/2016 Ot 599.70 HEMATURIA, UNSPECIFIED 06/09/2016 Ot 753.10 CYSTIC KIDNEY DISEASE, UNSPECIFIED 06/09/2016 Ot 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,OTH LATERAL WALL,EPIS 06/09/2016 Ot 414.01 CORONARY ATHEROSCLEROSIS OF [place] CORON 06/09/2016 Ot 429.3 CARDIOMEGALY 06/09/2016 Ot V45.82 PERCUTANEOUS TRANSLUM CORON ANGIOPLASTY 06/09/2016 MACKMA, JESSICA L KNITTING MACHINE MECHANIC Ot 272.4 HYPERLIPIDEMIA NEC/NOS 06/09/2016 BAIMA, JESSICA L KNITTING MACHINE MECHANIC Ot 401.9 HYPERTENSION NOS 06/09/2016 BAIMA, JESSICA L KNITTING MACHINE MECHANIC Ot 414.9 CHR ISCHEMIC HRT DIS NOS 06/09/2016 BAIMA, JESSICA L KNITTING MACHINE MECHANIC Ot 782.3 EDEMA 06/09/2016 BAIMA, JESSICA L KNITTING MACHINE MECHANIC Ot 272.4 HYPERLIPIDEMIA NEC/NOS 06/09/2016 BAIMA, JESSICA L KNITTING MACHINE MECHANIC Ot 401.9 HYPERTENSION NOS 06/09/2016 BAIMA, JESSICA L KNITTING MACHINE MECHANIC Ot 414.9 CHR ISCHEMIC HRT DIS NOS 06/09/2016 BAIMA, JESSICA L KNITTING MACHINE MECHANIC Ot 782.3 EDEMA 06/09/2016 BAIMA, JESSICA L KNITTING MACHINE MECHANIC Ot 272.4 HYPERLIPIDEMIA NEC/NOS 06/09/2016 BAIMA, JESSICA L KNITTING MACHINE MECHANIC Ot 401.9 HYPERTENSION NOS 06/09/2016 BAIMA, JESSICA L KNITTING MACHINE MECHANIC Ot 414.9 CHR ISCHEMIC HRT DIS NOS 06/09/2016 BAIMA, JESSICA L KNITTING MACHINE MECHANIC Ot 782.3 EDEMA 06/09/2016 MATTEO VALENZUELA, SUSI Ha Ot Z47.1 AFTERCARE FOLLOWING JOINT REPLACEMENT GILES 06/09/2016 MATTEO VALENZUELA, SUSI Ha Ot Z96.651 PRESENCE OF RIGHT ARTIFICIAL KNEE JOINT 06/10/2016 MATTEO VALENZUELA, SUSI Ha Ot Z47.1 AFTERCARE FOLLOWING JOINT REPLACEMENT GILES 06/10/2016 MATTEO VALENZUELA, SUSI Ha Ot Z96.651 PRESENCE OF RIGHT ARTIFICIAL KNEE JOINT 06/18/2016 Ot 272.4 06/18/2016 Ot 401.9 06/18/2016 Ot 414.01 06/18/2016 Ot 715.90 06/18/2016 Ot V17.3 06/18/2016 Ot V58.69 06/18/2016 Ot V72.83 07/04/2016 Ot 429.3 CARDIOMEGALY 07/04/2016 Ot 562.10 DIVERTICULOSIS COLON (W/O MENT OF HEMORR 07/04/2016 Ot 599.70 HEMATURIA, UNSPECIFIED 07/04/2016 Ot 753.10 CYSTIC KIDNEY DISEASE, UNSPECIFIED 07/04/2016 Ot 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,OTH LATERAL WALL,EPIS 07/04/2016 Ot 414.01 CORONARY ATHEROSCLEROSIS OF [place] CORON 07/04/2016 Ot 429.3 CARDIOMEGALY 07/04/2016 Ot V45.82 PERCUTANEOUS TRANSLUM CORON ANGIOPLASTY 07/04/2016 BAIMA, JESSICA L KNITTING MACHINE MECHANIC Ot 272.4 HYPERLIPIDEMIA NEC/NOS 07/04/2016 BAIMA, JESSICA L KNITTING MACHINE MECHANIC Ot 401.9 HYPERTENSION NOS 07/04/2016 BAIMA, JESSICA L KNITTING MACHINE MECHANIC Ot 414.9 CHR ISCHEMIC HRT DIS NOS 07/04/2016 BAIMA, JESSICA L KNITTING MACHINE MECHANIC Ot 782.3 EDEMA 07/04/2016 BAIMA, JESSICA L KNITTING MACHINE MECHANIC Ot 272.4 HYPERLIPIDEMIA NEC/NOS 07/04/2016 BAIMA, JESSICA L KNITTING MACHINE MECHANIC Ot 401.9 HYPERTENSION NOS 07/04/2016 JESSICA ONEIL L KNITTING MACHINE MECHANIC Ot 414.9 CHR ISCHEMIC HRT DIS NOS 07/04/2016 JESSICA ONEIL L KNITTING MACHINE MECHANIC Ot 782.3 EDEMA 07/04/2016 BAIJESSICA MÁRQUEZ L KNITTING MACHINE MECHANIC Ot 272.4 HYPERLIPIDEMIA NEC/NOS 07/04/2016 BAIWILLI, JESSICA L KNITTING MACHINE MECHANIC Ot 401.9 HYPERTENSION NOS 07/04/2016 BAILAURO MÁRQUEZHER L KNITTING MACHINE MECHANIC Ot 414.9 CHR ISCHEMIC HRT DIS NOS 07/04/2016 JESSICA ONEIL L KNITTING MACHINE MECHANIC Ot 782.3 EDEMA 07/05/2016 MUKESH BEAUCHAMP RONNA David Ot B02.9 ZOSTER WITHOUT COMPLICATIONS 07/05/2016 MUKESH RONNA David Ot H92.02 OTALGIA, LEFT EAR 07/05/2016 MUKESH BEAUCHAMP RONNA K Ot I10 ESSENTIAL (PRIMARY) HYPERTENSION 07/05/2016 MUKESH BEAUCHAMP RONNA K Ot J40 BRONCHITIS, NOT SPECIFIED ACUTE OR CH 07/05/2016 RONNA MAYORGA DO Ot R63.4 ABNORMAL WEIGHT LOSS 07/05/2016 MUKESH BEAUCHAMP RONNA David Ot Z79.02 RETIREMENT (CURRENT) USE OF ANTITHROMBOTI 07/05/2016 MUKESH BEAUCHAMP RONNA K Ot Z79.82 RETIREMENT (CURRENT) USE OF ASPIRIN 07/05/2016 RONNA MAYORGA DO Ot Z79.899 OTHER PROJECTS MANAGER (CURRENT) DRUG THERAPY 07/05/2016 RONNA MAYORGA DO Ot Z95.5 PRESENCE OF CORONARY ANGIOPLASTY IMPLANT 08/28/2016 BHARTI BLACKWELL DO Ot R13.10 DYSPHAGIA, UNSPECIFIED 08/28/2016 BHARTI BLACKWELL DO Ot R19.5 OTHER FECAL ABNORMALITIES 08/28/2016 BHARTI BLACKWELL DO Ot Z01.818 ENCOUNTER FOR OTHER PREPROCEDURAL EXAMIN 11/02/2017 Ot 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,OTH LATERAL WALL,EPIS 11/02/2017 Ot 414.01 CORONARY ATHEROSCLEROSIS OF [place] CORON 11/02/2017 Ot 429.3 CARDIOMEGALY 11/02/2017 Ot V45.82 PERCUTANEOUS TRANSLUM CORON ANGIOPLASTY 11/02/2017 THADJESSICA L KNITTING MACHINE MECHANIC Ot 272.4 HYPERLIPIDEMIA NEC/NOS 11/02/2017 BAIWILLI, JESSICA L KNITTING MACHINE MECHANIC Ot 401.9 HYPERTENSION NOS 11/02/2017 BAIMA, JESSICA L KNITTING MACHINE MECHANIC Ot 414.9 CHR ISCHEMIC HRT DIS NOS 11/02/2017 BAIMA, JESSICA L KNITTING MACHINE MECHANIC Ot 782.3 EDEMA 11/02/2017 BAIMA, JESSICA L KNITTING MACHINE MECHANIC Ot 272.4 HYPERLIPIDEMIA NEC/NOS 11/02/2017 BAIMA, JESSICA L KNITTING MACHINE MECHANIC Ot 401.9 HYPERTENSION NOS 11/02/2017 BAIMA, JESSICA L KNITTING MACHINE MECHANIC Ot 414.9 CHR ISCHEMIC HRT DIS NOS 11/02/2017 BAIMA, JESSICA L KNITTING MACHINE MECHANIC Ot 782.3 EDEMA 11/02/2017 BAIMA, JESSICA L KNITTING MACHINE MECHANIC Ot 272.4 HYPERLIPIDEMIA NEC/NOS 11/02/2017 BAIMA, JESSICA L KNITTING MACHINE MECHANIC Ot 401.9 HYPERTENSION NOS 11/02/2017 BAIMA, JESSICA L KNITTING MACHINE MECHANIC Ot 414.9 CHR ISCHEMIC HRT DIS NOS 11/02/2017 BAIMA, JESSICA L KNITTING MACHINE MECHANIC Ot 782.3 EDEMA 11/02/2017 BHARTI BLACKWELL DO Ot R13.10 DYSPHAGIA, UNSPECIFIED 11/02/2017 BHARTI BLACKWELL DO Ot R19.5 OTHER FECAL ABNORMALITIES 11/02/2017 BLACKWELLBHARTI FU DO Ot Z01.818 ENCOUNTER FOR OTHER PREPROCEDURAL EXAMIN 11/03/2017 BAIMA, JESSICA L KNITTING MACHINE MECHANIC Ot E78.5 HYPERLIPIDEMIA, UNSPECIFIED 11/03/2017 BAIMA, JESSICA L KNITTING MACHINE MECHANIC Ot I10 ESSENTIAL (PRIMARY) HYPERTENSION 11/03/2017 BAIMA, JESSICA L KNITTING MACHINE MECHANIC Ot I25.10 ATHSCL HEART DISEASE OF [place] CORONARY 11/03/2017 BAIMA, JESSICA L KNITTING MACHINE MECHANIC Ot I48.0 PAROXYSMAL ATRIAL FIBRILLATION 11/03/2017 BAIMA, JESSICA L KNITTING MACHINE MECHANIC Ot R06.09 OTHER FORMS OF DYSPNEA 11/18/2017 BAIMA, JESSICA L KNITTING MACHINE MECHANIC Ot E78.5 HYPERLIPIDEMIA, UNSPECIFIED 11/18/2017 BAIMA, JESSICA L KNITTING MACHINE MECHANIC Ot I10 ESSENTIAL (PRIMARY) HYPERTENSION 11/18/2017 BAIMA, JESSICA L KNITTING MACHINE MECHANIC Ot I25.10 ATHSCL HEART DISEASE OF [place] CORONARY 11/18/2017 BAIMA, JESSICA L KNITTING MACHINE MECHANIC Ot I48.0 PAROXYSMAL ATRIAL FIBRILLATION 11/18/2017 BAIMA, JESSICA L KNITTING MACHINE MECHANIC Ot R06.09 OTHER FORMS OF DYSPNEA 01/24/2018 Ot 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,OTH LATERAL WALL,EPIS 01/24/2018 Ot 414.01 CORONARY ATHEROSCLEROSIS OF [place] CORON 01/24/2018 Ot 429.3 CARDIOMEGALY 01/24/2018 Ot V45.82 PERCUTANEOUS TRANSLUM CORON ANGIOPLASTY 01/24/2018 BAIMA, JESSICA L KNITTING MACHINE MECHANIC Ot 272.4 HYPERLIPIDEMIA NEC/NOS 01/24/2018 BAIMA, JESSICA L KNITTING MACHINE MECHANIC Ot 401.9 HYPERTENSION NOS 01/24/2018 BAIMA, JESSICA L KNITTING MACHINE MECHANIC Ot 414.9 CHR ISCHEMIC HRT DIS NOS 01/24/2018 BAIMA, JESSICA L KNITTING MACHINE MECHANIC Ot 782.3 EDEMA 01/24/2018 BAIMA, JESSICA L KNITTING MACHINE MECHANIC Ot 272.4 HYPERLIPIDEMIA NEC/NOS 01/24/2018 BAIMA, JESSICA L KNITTING MACHINE MECHANIC Ot 401.9 HYPERTENSION NOS 01/24/2018 BAIMA, JESSICA L KNITTING MACHINE MECHANIC Ot 414.9 CHR ISCHEMIC HRT DIS NOS 01/24/2018 BAIMA, JESSICA L KNITTING MACHINE MECHANIC Ot 782.3 EDEMA 01/24/2018 BAIMA, JESSICA L KNITTING MACHINE MECHANIC Ot 272.4 HYPERLIPIDEMIA NEC/NOS 01/24/2018 BAIMA, JESSICA L KNITTING MACHINE MECHANIC Ot 401.9 HYPERTENSION NOS 01/24/2018 BAIMA, JESSICA L KNITTING MACHINE MECHANIC Ot 414.9 CHR ISCHEMIC HRT DIS NOS 01/24/2018 BAIMA, JESSICA L KNITTING MACHINE MECHANIC Ot 782.3 EDEMA 01/24/2018 BHARTI BLACKWELL DO Ot R13.10 DYSPHAGIA, UNSPECIFIED 01/24/2018 BHARTI BLACKWELL DO Ot R19.5 OTHER FECAL ABNORMALITIES 01/24/2018 BHARTI BLACKWELL DO Ot Z01.818 ENCOUNTER FOR OTHER PREPROCEDURAL EXAMIN 01/24/2018 BAIMA, JESSICA L KNITTING MACHINE MECHANIC Ot E78.5 HYPERLIPIDEMIA, UNSPECIFIED 01/24/2018 BAIMA, JESSICA L KNITTING MACHINE MECHANIC Ot I10 ESSENTIAL (PRIMARY) HYPERTENSION 01/24/2018 BAIMA, JESSICA L KNITTING MACHINE MECHANIC Ot I25.10 ATHSCL HEART DISEASE OF [place] CORONARY 01/24/2018 BAIMA, JESSICA L KNITTING MACHINE MECHANIC Ot I48.0 PAROXYSMAL ATRIAL FIBRILLATION 01/24/2018 BAIMA, JESSICA L KNITTING MACHINE MECHANIC Ot R06.09 OTHER FORMS OF DYSPNEA 02/02/2018 SIM EISENBERG MD Ot Z01.818 ENCOUNTER FOR OTHER PREPROCEDURAL EXAMIN 02/08/2018 Ot 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,OTH LATERAL WALL,EPIS 02/08/2018 Ot 414.01 CORONARY ATHEROSCLEROSIS OF [place] CORON 02/08/2018 Ot 429.3 CARDIOMEGALY 02/08/2018 Ot V45.82 PERCUTANEOUS TRANSLUM CORON ANGIOPLASTY 02/08/2018 BAIMA, JESSICA L KNITTING MACHINE MECHANIC Ot 272.4 HYPERLIPIDEMIA NEC/NOS 02/08/2018 BAIMA, JESSICA L KNITTING MACHINE MECHANIC Ot 401.9 HYPERTENSION NOS 02/08/2018 BAIMA, JESSICA L KNITTING MACHINE MECHANIC Ot 414.9 CHR ISCHEMIC HRT DIS NOS 02/08/2018 BAIMA, JESSICA L KNITTING MACHINE MECHANIC Ot 782.3 EDEMA 02/08/2018 BAIMA, JESSICA L KNITTING MACHINE MECHANIC Ot 272.4 HYPERLIPIDEMIA NEC/NOS 02/08/2018 BAIMA, JESSICA L KNITTING MACHINE MECHANIC Ot 401.9 HYPERTENSION NOS 02/08/2018 BAIMA, JESSICA L KNITTING MACHINE MECHANIC Ot 414.9 CHR ISCHEMIC HRT DIS NOS 02/08/2018 BAIMA, JESSICA L KNITTING MACHINE MECHANIC Ot 782.3 EDEMA 02/08/2018 BAIMA, JESSICA L KNITTING MACHINE MECHANIC Ot 272.4 HYPERLIPIDEMIA NEC/NOS 02/08/2018 BAIMA, JESSICA L KNITTING MACHINE MECHANIC Ot 401.9 HYPERTENSION NOS 02/08/2018 BAIMA, JESSICA L KNITTING MACHINE MECHANIC Ot 414.9 CHR ISCHEMIC HRT DIS NOS 02/08/2018 BAIMA, JESSICA L KNITTING MACHINE MECHANIC Ot 782.3 EDEMA 02/08/2018 BHARTI BLACKWELL DO Ot R13.10 DYSPHAGIA, UNSPECIFIED 02/08/2018 BHARTI BLACKWELL DO Ot R19.5 OTHER FECAL ABNORMALITIES 02/08/2018 BHARTI BLACKWELL DO Ot Z01.818 ENCOUNTER FOR OTHER PREPROCEDURAL EXAMIN 02/08/2018 BAIMA, JESSICA L KNITTING MACHINE MECHANIC Ot E78.5 HYPERLIPIDEMIA, UNSPECIFIED 02/08/2018 BAIMA, JESSICA L KNITTING MACHINE MECHANIC Ot I10 ESSENTIAL (PRIMARY) HYPERTENSION 02/08/2018 BAIMA, JESSICA L KNITTING MACHINE MECHANIC Ot I25.10 ATHSCL HEART DISEASE OF [place] CORONARY 02/08/2018 BAIMA, JESSICA L KNITTING MACHINE MECHANIC Ot I48.0 PAROXYSMAL ATRIAL FIBRILLATION 02/08/2018 BAIMA, JESSICA L KNITTING MACHINE MECHANIC Ot R06.09 OTHER FORMS OF DYSPNEA 02/08/2018 FANIA VALENZUELA, SIM Galloway Ot Z01.818 ENCOUNTER FOR OTHER PREPROCEDURAL EXAMIN 02/08/2018 FAINA VALENZUELA, SIM Galloway Ot I25.10 ATHSCL HEART DISEASE OF [place] CORONARY 02/08/2018 SIM EISENBERG MD Ot I48.91 UNSPECIFIED ATRIAL FIBRILLATION 02/08/2018 SIM EISENBERG MD, Ot N32.81 OVERACTIVE BLADDER 02/08/2018 FAINA VALENZUELA, SIM Galloway Ot N36.42 INTRINSIC SPHINCTER DEFICIENCY (ISD) 02/08/2018 FAINA VALENZUELA, SIM Galloway Ot 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 02/08/2018 FAINA VALENZUELA, SIM Galloway Ot Z79.02 RETIREMENT (CURRENT) USE OF ANTITHROMBOTI 02/08/2018 SIM EISENBERG MD, Ot Z79.82 RETIREMENT (CURRENT) USE OF ASPIRIN 02/09/2018 SIM EISENBERG MD, Ot I25.10 ATHSCL HEART DISEASE OF [place] CORONARY 02/09/2018 SIM EISENBERG MD Ot I48.91 UNSPECIFIED ATRIAL FIBRILLATION 02/09/2018 SIM EISENBERG MD, Ot N32.81 OVERACTIVE BLADDER 02/09/2018 SIM EISENBERG MD, Ot N36.42 INTRINSIC SPHINCTER DEFICIENCY (ISD) 02/09/2018 SIM EISENBERG MD, Ot 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 02/09/2018 SIM EISENBERG MD, Ot Z79.02 RETIREMENT (CURRENT) USE OF ANTITHROMBOTI 02/09/2018 SIM EISENBERG MD, Ot Z79.82 PROJECTS MANAGER (CURRENT) USE OF ASPIRIN 02/14/2018 LIVE VALENZUELA, MESFIN Ha Ot E78.00 PURE HYPERCHOLESTEROLEMIA, UNSPECIFIED 02/14/2018 LIVE VALENZUELA, MESFIN Ha Ot E87.6 HYPOKALEMIA 02/14/2018 MESFIN MANCNII MD Ot E88.81 METABOLIC SYNDROME 02/14/2018 LIVE VALENZUELA, MESFIN Ha Ot G62.9 POLYNEUROPATHY, UNSPECIFIED 02/14/2018 LIVE VALENZUELA, MESFIN Ha Ot I13.0 HYP HRT CHR KDNY DIS W HRT FAIL AND ST 02/14/2018 LIVE VALENZUELA, MESFIN Ha Ot I25.10 ATHSCL HEART DISEASE OF [place] CORONARY 02/14/2018 MANCINI MD, MSEFIN M Ot I34.0 NONRHEUMATIC MITRAL (VALVE) INSUFFICIENC 02/14/2018 MESFIN MANCINI MD Ot I48.91 UNSPECIFIED ATRIAL FIBRILLATION 02/14/2018 MESFIN MANCINI MD Ot I50.23 ACUTE ON CHRONIC SYSTOLIC (CONGESTIVE) H 02/14/2018 MESFIN MANCINI MD Ot K81.0 ACUTE CHOLECYSTITIS 02/14/2018 MESFIN MANCINI MD Ot M19.91 PRIMARY OSTEOARTHRITIS, UNSPECIFIED SITE 02/14/2018 MESFIN MANCINI MD Ot M54.9 DORSALGIA, UNSPECIFIED 02/14/2018 MESFIN MANCINI MD Ot N18.3 CHRONIC KIDNEY DISEASE, STAGE 3 (MODERAT 02/14/2018 MESFIN MANCINI MD Ot N30.00 ACUTE CYSTITIS WITHOUT HEMATURIA 02/14/2018 MESFIN MANCINI MD Ot Y84.8 OT MEDICAL PROCEDURES CAUSE ABN REACT/C 02/14/2018 MESFIN MANCINI MD Ot Z79.01 PROJECTS MANAGER (CURRENT) USE OF ANTICOAGULANT 02/14/2018 MESFIN MANCINI MD Ot Z86.718 PERSONAL HISTORY OF OTHER VENOUS THROMBO 02/14/2018 MESFIN MANCINI MD Ot Z95.0 PRESENCE OF CARDIAC PACEMAKER 02/14/2018 MESFIN MANCINI MD Ot Z95.5 PRESENCE OF CORONARY ANGIOPLASTY IMPLANT 02/14/2018 MESFIN MANCINI MD Ot Z96.653 PRESENCE OF ARTIFICIAL KNEE JOINT, BILAT 02/14/2018 MESFIN MANCINI MD Ot Z98.890 OTHER SPECIFIED POSTPROCEDURAL STATES 05/24/2018 BAIMA, JESSICA L KNITTING MACHINE MECHANIC Ot 272.4 HYPERLIPIDEMIA NEC/NOS 05/24/2018 BAIMA, JESSICA L KNITTING MACHINE MECHANIC Ot 401.9 HYPERTENSION NOS 05/24/2018 BAIMA, JESSICA L KNITTING MACHINE MECHANIC Ot 414.9 CHR ISCHEMIC HRT DIS NOS 05/24/2018 BAIMA, JESSICA L KNITTING MACHINE MECHANIC Ot 782.3 EDEMA 05/24/2018 BAIMA, JESSICA L KNITTING MACHINE MECHANIC Ot 272.4 HYPERLIPIDEMIA NEC/NOS 05/24/2018 BAIMA, JESSICA L KNITTING MACHINE MECHANIC Ot 401.9 HYPERTENSION NOS 05/24/2018 BAIMA, JESSICA L KNITTING MACHINE MECHANIC Ot 414.9 CHR ISCHEMIC HRT DIS NOS 05/24/2018 BAIMA, JESSICA L KNITTING MACHINE MECHANIC Ot 782.3 EDEMA 05/24/2018 JESSICA ONEIL KNITTING MACHINE MECHANIC Ot 272.4 HYPERLIPIDEMIA NEC/NOS 05/24/2018 JESSICA ONEIL KNITTING MACHINE MECHANIC Ot 401.9 HYPERTENSION NOS 05/24/2018 JESSICA ONEIL KNITTING MACHINE MECHANIC Ot 414.9 CHR ISCHEMIC HRT DIS NOS 05/24/2018 JESSICA ONEIL KNITTING MACHINE MECHANIC Ot 782.3 EDEMA 05/24/2018 BLACKWELL DO, BHARTI D Ot R13.10 DYSPHAGIA, UNSPECIFIED 05/24/2018 BLACKWELL DO, BHARTI D Ot R19.5 OTHER FECAL ABNORMALITIES 05/24/2018 BROXTON DO, BHARTI D Ot Z01.818 ENCOUNTER FOR OTHER PREPROCEDURAL EXAMIN 05/24/2018 JESSICA ONEIL KNITTING MACHINE MECHANIC Ot E78.5 HYPERLIPIDEMIA, UNSPECIFIED 05/24/2018 JESSICA ONEIL KNITTING MACHINE MECHANIC Ot I10 ESSENTIAL (PRIMARY) HYPERTENSION 05/24/2018 JESSICA ONEIL KNITTING MACHINE MECHANIC Ot I25.10 ATHSCL HEART DISEASE OF [place] CORONARY 05/24/2018 JESSICA ONEIL KNITTING MACHINE MECHANIC Ot I48.0 PAROXYSMAL ATRIAL FIBRILLATION 05/24/2018 JESSICA ONEIL KNITTING MACHINE MECHANIC Ot R06.09 OTHER FORMS OF DYSPNEA 05/24/2018 FAINA VALENZUELA, SIM Galloway Ot Z01.818 ENCOUNTER FOR OTHER PREPROCEDURAL EXAMIN 05/25/2018 MARLEEN VALENZUELA FACC, SAHIL FACP CCDS Ot E78.5 HYPERLIPIDEMIA, UNSPECIFIED 05/25/2018 MARLEEN VALENZUELA FACC, SAHIL FACP CCDS Ot I11.0 HYPERTENSIVE HEART DISEASE WITH HEART FA 05/25/2018 MARLEEN VALENZUELA FACC, SAHIL FACP CCDS Ot I25.10 ATHSCL HEART DISEASE OF [place] CORONARY 05/25/2018 MARLEEN VALENZUELA FACC, SAHIL FACP CCDS Ot I48.0 PAROXYSMAL ATRIAL FIBRILLATION 05/25/2018 MARLEEN VALENZUELA FACC, SAHIL FACP CCDS Ot I50.40 UNSP COMBINED SYSTOLIC AND DIASTOLIC (CO 05/25/2018 MARLEEN VALENZUELA FACC, SAHIL FACP CCDS Ot I65.23 OCCLUSION AND STENOSIS OF [place] 05/25/2018 MARLEEN VALENZUELA FACC, SAHIL FACP CCDS Ot Z79.01 RETIREMENT (CURRENT) USE OF ANTICOAGULANT 05/25/2018 MARLEEN MD FACC, ALI FACP CCDS Ot Z79.82 RETIREMENT (CURRENT) USE OF ASPIRIN 05/25/2018 MARLEEN CHEC, ALI FACP CCDS Ot Z79.899 OTHER RETIREMENT (CURRENT) DRUG THERAPY 05/25/2018 MARLEEN VALENZUELA FACC, ALI FACP CCDS Ot E78.5 HYPERLIPIDEMIA, UNSPECIFIED 05/25/2018 MARLEEN VALENZUELA FACC, ALI FACP CCDS Ot I11.0 HYPERTENSIVE HEART DISEASE WITH HEART FA 05/25/2018 MARLEEN VALENZUELA FACC, ALI FACP CCDS Ot I25.10 ATHSCL HEART DISEASE OF [place] CORONARY 05/25/2018 MARLEEN VALENZUELA FACC, ALI FACP CCDS Ot I48.0 PAROXYSMAL ATRIAL FIBRILLATION 05/25/2018 MARLEEN CHEC, ALI FACP CCDS Ot I50.40 UNSP COMBINED SYSTOLIC AND DIASTOLIC ([place] 05/25/2018 MARLEEN VALENZUELA FACC, ALI FACP CCDS Ot I65.23 OCCLUSION AND STENOSIS OF [place] 05/25/2018 MARLEEN VALENZUELA FACC, ALI FACP CCDS Ot Z79.01 RETIREMENT (CURRENT) USE OF ANTICOAGULANT 05/25/2018 MARLEEN VALENZUELA FACC, ALI FACP CCDS Ot Z79.82 PROJECTS MANAGER (CURRENT) USE OF ASPIRIN 05/25/2018 MARLEEN VALENZUELA FACC, ALI FACP CCDS Ot Z79.899 OTHER RETIREMENT (CURRENT) DRUG THERAPY 05/31/2018 MARLEEN VALENZUELA FACC, ALI FACP CCDS Ot E78.5 HYPERLIPIDEMIA, UNSPECIFIED 05/31/2018 MARLEEN CHEC, ALI FACP CCDS Ot I11.0 HYPERTENSIVE HEART DISEASE WITH HEART FA 05/31/2018 MARLEEN VALENZUELA FACC, ALI FACP CCDS Ot I25.10 ATHSCL HEART DISEASE OF [place] CORONARY 05/31/2018 MARLEEN CHEC, ALI FACP CCDS Ot I48.0 PAROXYSMAL ATRIAL FIBRILLATION 05/31/2018 MARLEEN CHEC, ALI FACP CCDS Ot I50.40 UNSP COMBINED SYSTOLIC AND DIASTOLIC ([place] 05/31/2018 MARLEEN VALENZUELA FACC, ALI FACP CCDS Ot I65.23 OCCLUSION AND STENOSIS OF BILATERAL TANNER 05/31/2018 MARLEEN VALENZUELA FACC, ALI FACP CCDS Ot Z79.01 PROJECTS MANAGER (CURRENT) USE OF ANTICOAGULANT 05/31/2018 MARLEEN CHEC, ALI FACP CCDS Ot Z79.82 PROJECTS MANAGER (CURRENT) USE OF ASPIRIN 05/31/2018 MARLEEN VALENZUELA [facility] CCDS Ot Z79.899 OTHER PROJECTS MANAGER (CURRENT) DRUG THERAPY Procedures Code Description Performed By Performed On [id number] RESECTION OF GALLBLADDER, PERCUTANEOUS E 02/13/2018 [id number] RADIOGRAPHY OF GALLBLADDER BILE DUCT U 02/13/2018 [id number] FLUOROSCOPY OF BILE DUCTS USING LOW OSMO 02/13/2018 Results Test Result Range Complete blood count (CBC) with automated white blood cell (WBC) differential - 07/04/16 21:48 Blood leukocytes automated count (number/volume) 8.8 10*3/uL 4.3-11.0 Blood erythrocytes automated count (number/volume) 3.65 10*6/uL 4.35-5.85 Venous blood hemoglobin measurement (mass/volume) 10.5 g/dL 11.5-16.0 Blood hematocrit (volume fraction) 33 % 35-52 Automated erythrocyte mean corpuscular volume 91 [foz_us] 80-99 Automated erythrocyte mean corpuscular hemoglobin (mass per erythrocyte) 29 pg 25-34 Automated erythrocyte mean corpuscular hemoglobin concentration measurement ( mass/volume) 32 g/dL 32-36 Automated erythrocyte distribution width ratio 14.7 % 10.0-14.5 Automated blood platelet count (count/volume) 124 10*3/uL 130-400 Automated blood platelet mean volume measurement 10.2 [foz_us] 7.4-10.4 Automated blood neutrophils/100 leukocytes 85 % 42-75 Automated blood lymphocytes/100 leukocytes 11 % 12-44 Blood monocytes/100 leukocytes 4 % 0-12 Automated blood eosinophils/100 leukocytes 1 % 0-10 Automated blood basophils/100 leukocytes 0 % 0-10 Blood neutrophils automated count (number/volume) 7.4 10*3 1.8-7.8 Blood lymphocytes automated count (number/volume) 1.0 10*3 1.0-4.0 Blood monocytes automated count (number/volume) 0.4 10*3 0.0-1.0 Automated eosinophil count 0.1 10*3/uL 0.0-0.3 Automated blood basophil count (count/volume) 0.0 10*3/uL 0.0-0.1 Comprehensive metabolic panel - 07/04/16 21:48 Serum or plasma sodium measurement (moles/volume) 132 mmol/L 135-145 Serum or plasma potassium measurement (moles/volume) 4.2 mmol/L 3.6-5.0 Serum or plasma chloride measurement (moles/volume) 101 mmol/L 98-107 Carbon dioxide 22 mmol/L 21-32 Serum or plasma anion gap determination (moles/volume) 9 mmol/L 5-14 Serum or plasma urea nitrogen measurement (mass/volume) 24 mg/dL 7-18 Serum or plasma creatinine measurement (mass/volume) 1.15 mg/dL 0.60-1.30 Serum or plasma urea nitrogen/creatinine mass ratio 21 NRG Serum or plasma creatinine measurement with calculation of estimated glomerular filtration rate 45 NRG Serum or plasma glucose measurement (mass/volume) 134 mg/dL 70-105 Serum or plasma calcium measurement (mass/volume) 8.8 mg/dL 8.5-10.1 Serum or plasma total bilirubin measurement (mass/volume) 0.4 mg/dL 0.1-1.0 Serum or plasma alkaline phosphatase measurement (enzymatic activity/volume) 71 U/L 40-136 Serum or plasma aspartate aminotransferase measurement (enzymatic activity/ volume) 31 U/L 5-34 Serum or plasma alanine aminotransferase measurement (enzymatic activity/volume ) 12 U/L 0-55 Serum or plasma protein measurement (mass/volume) 7.3 g/dL 6.4-8.2 Serum or plasma albumin measurement (mass/volume) 3.8 g/dL 3.2-4.5 Magnesium - 07/04/16 21:48 Magnesium 1.9 mg/dL 1.8-2.4 Serum or plasma troponin i.cardiac measurement (mass/volume) - 07/04/16 21:48 Serum or plasma troponin i.cardiac measurement (mass/volume) < ng/ mL <0.30 Serum or plasma lithium measurement (moles/volume) - 07/04/16 21:48 BNP level 172.1 pg/mL <100.0 PT panel in platelet poor plasma by coagulation assay - 07/04/16 21:48 Prothrombin time (PT) in platelet poor plasma by coagulation assay 11.5 s 12.2-14.7 INR in platelet poor plasma or blood by coagulation assay 0.9 0.8-1.4 Activated partial thromboplastin time (aPTT) in platelet poor plasma bycoagulation assay - 07/04/16 21:48 Activated partial thromboplastin time (aPTT) in platelet poor plasma bycoagulation assay 32 s 24-35 Complete urinalysis with reflex to culture - 07/04/16 21:52 Urine color determination YELLOW NRG Urine clarity determination SLIGHTLY CLOUDY NRG Urine pH measurement by test strip 6 5-9 Specific gravity of urine by test strip 1.015 1.016- 1.022 Urine protein assay by test strip, semi-quantitative 2+ NEGATIVE Urine glucose detection by automated test strip NEGATIVE NEGATIVE Erythrocytes detection in urine sediment by light microscopy 5+ NEGATIVE Urine ketones detection by automated test strip NEGATIVE NEGATIVE Urine nitrite detection by test strip NEGATIVE NEGATIVE Urine total bilirubin detection by test strip NEGATIVE NEGATIVE Urine urobilinogen measurement by automated test strip (mass/volume) NORMAL NORMAL Urine leukocyte esterase detection by dipstick NEGATIVE NEGATIVE Automated urine sediment erythrocyte count by microscopy (number/high power field) [HPF] NRG Automated urine sediment leukocyte count by microscopy (number/high power field ) [HPF] NRG Bacteria detection in urine sediment by light microscopy NEGATIVE NRG Squamous epithelial cells detection in urine sediment by light microscopy 0-2 NRG Crystals detection in urine sediment by light microscopy NONE NRG Casts detection in urine sediment by light microscopy NONE NRG Mucus detection in urine sediment by light microscopy NEGATIVE NRG Complete urinalysis with reflex to culture NO NRG Influenza virus A and B antigen detection - 07/04/16 21:52 FLU RESULT NEGATIVE FOR INFLUENZA A AND B ANTIGENS BY IA NRG Methicillin resistant Staphylococcus aureus (MRSA) screening culture - 06:20 Methicillin resistant Staphylococcus aureus (MRSA) screening culture NEG NRG Complete blood count (CBC) with automated white blood cell (WBC) differential - 02/11/18 08:46 Blood leukocytes automated count (number/volume) 7.1 10*3/uL 4.3-11.0 Blood erythrocytes automated count (number/volume) 3.75 10*6/uL 4.35-5.85 Venous blood hemoglobin measurement (mass/volume) 11.5 g/dL 11.5-16.0 Blood hematocrit (volume fraction) 36 % 35-52 Automated erythrocyte mean corpuscular volume 95 [foz_us] 80-99 Automated erythrocyte mean corpuscular hemoglobin (mass per erythrocyte) 31 pg 25-34 Automated erythrocyte mean corpuscular hemoglobin concentration measurement ( mass/volume) 32 g/dL 32-36 Automated erythrocyte distribution width ratio 14.0 % 10.0-14.5 Automated blood platelet count (count/volume) 124 10*3/uL 130-400 Automated blood platelet mean volume measurement 11.5 [foz_us] 7.4-10.4 Automated blood neutrophils/100 leukocytes 74 % 42-75 Automated blood lymphocytes/100 leukocytes 19 % 12-44 Blood monocytes/100 leukocytes 7 % 0-12 Automated blood eosinophils/100 leukocytes 0 % 0-10 Automated blood basophils/100 leukocytes 0 % 0-10 Blood neutrophils automated count (number/volume) 5.3 10*3 1.8-7.8 Blood lymphocytes automated count (number/volume) 1.3 10*3 1.0-4.0 Blood monocytes automated count (number/volume) 0.5 10*3 0.0-1.0 Automated eosinophil count 0.0 10*3/uL 0.0-0.3 Automated blood basophil count (count/volume) 0.0 10*3/uL 0.0-0.1 PT panel in platelet poor plasma by coagulation assay - 02/11/18 08:46 Prothrombin time (PT) in platelet poor plasma by coagulation assay 18.0 s 12.2-14.7 INR in platelet poor plasma or blood by coagulation assay 1.5 0.8-1.4 Activated partial thromboplastin time (aPTT) in platelet poor plasma bycoagulation assay - 02/11/18 08:46 Activated partial thromboplastin time (aPTT) in platelet poor plasma bycoagulation assay 38 s 24-35 Comprehensive metabolic panel - 02/11/18 08:46 Serum or plasma sodium measurement (moles/volume) 131 mmol/L 135-145 Serum or plasma potassium measurement (moles/volume) 4.6 mmol/L 3.6-5.0 Serum or plasma chloride measurement (moles/volume) 100 mmol/L 98-107 Carbon dioxide 23 mmol/L 21-32 Serum or plasma anion gap determination (moles/volume) 8 mmol/L 5-14 Serum or plasma urea nitrogen measurement (mass/volume) 22 mg/dL 7-18 Serum or plasma creatinine measurement (mass/volume) 1.25 mg/dL 0.60-1.30 Serum or plasma urea nitrogen/creatinine mass ratio 18 NRG Serum or plasma creatinine measurement with calculation of estimated glomerular filtration rate 41 NRG Serum or plasma glucose measurement (mass/volume) 178 mg/dL 70-105 Serum or plasma calcium measurement (mass/volume) 9.5 mg/dL 8.5-10.1 Serum or plasma total bilirubin measurement (mass/volume) 1.3 mg/dL 0.1-1.0 Serum or plasma alkaline phosphatase measurement (enzymatic activity/volume) 71 U/L 40-136 Serum or plasma aspartate aminotransferase measurement (enzymatic activity/ volume) 58 U/L 5-34 Serum or plasma alanine aminotransferase measurement (enzymatic activity/volume ) 35 U/L 0-55 Serum or plasma protein measurement (mass/volume) 6.7 g/dL 6.4-8.2 Serum or plasma albumin measurement (mass/volume) 3.4 g/dL 3.2-4.5 Magnesium - 02/11/18 08:46 Magnesium 1.9 mg/dL 1.8-2.4 Serum or plasma troponin i.cardiac measurement (mass/volume) - 02/11/18 08:46 Serum or plasma troponin i.cardiac measurement (mass/volume) < ng/ mL <0.30 Myoglobin, serum - 02/11/18 08:46 Myoglobin, serum 80.3 ng/mL 10.0-92.0 Lipase - 02/11/18 08:46 Lipase 8 U/L 8-78 Serum or plasma lithium measurement (moles/volume) - 02/11/18 08:46 BNP level 2611.0 pg/mL <100.0 Serum or plasma troponin i.cardiac measurement (mass/volume) - 02/11/18 16:27 Serum or plasma troponin i.cardiac measurement (mass/volume) < ng/ mL <0.30 Complete blood count (CBC) with automated white blood cell (WBC) differential - 02/12/18 07:14 Blood leukocytes automated count (number/volume) 4.9 10*3/uL 4.3-11.0 Blood erythrocytes automated count (number/volume) 3.25 10*6/uL 4.35-5.85 Venous blood hemoglobin measurement (mass/volume) 10.4 g/dL 11.5-16.0 Blood hematocrit (volume fraction) 31 % 35-52 Automated erythrocyte mean corpuscular volume 94 [foz_us] 80-99 Automated erythrocyte mean corpuscular hemoglobin (mass per erythrocyte) 32 pg 25-34 Automated erythrocyte mean corpuscular hemoglobin concentration measurement ( mass/volume) 34 g/dL 32-36 Automated erythrocyte distribution width ratio 13.8 % 10.0-14.5 Automated blood platelet count (count/volume) 103 10*3/uL 130-400 Automated blood platelet mean volume measurement 11.3 [foz_us] 7.4-10.4 Automated blood neutrophils/100 leukocytes 56 % 42-75 Automated blood lymphocytes/100 leukocytes 30 % 12-44 Blood monocytes/100 leukocytes 11 % 0-12 Automated blood eosinophils/100 leukocytes 2 % 0-10 Automated blood basophils/100 leukocytes 1 % 0-10 Blood neutrophils automated count (number/volume) 2.8 10*3 1.8-7.8 Blood lymphocytes automated count (number/volume) 1.5 10*3 1.0-4.0 Blood monocytes automated count (number/volume) 0.6 10*3 0.0-1.0 Automated eosinophil count 0.1 10*3/uL 0.0-0.3 Automated blood basophil count (count/volume) 0.0 10*3/uL 0.0-0.1 Comprehensive metabolic panel - 02/12/18 07:14 Serum or plasma sodium measurement (moles/volume) 134 mmol/L 135-145 Serum or plasma potassium measurement (moles/volume) 3.5 mmol/L 3.6-5.0 Serum or plasma chloride measurement (moles/volume) 100 mmol/L 98-107 Carbon dioxide 25 mmol/L 21-32 Serum or plasma anion gap determination (moles/volume) 9 mmol/L 5-14 Serum or plasma urea nitrogen measurement (mass/volume) 31 mg/dL 7-18 Serum or plasma creatinine measurement (mass/volume) 1.56 mg/dL 0.60-1.30 Serum or plasma urea nitrogen/creatinine mass ratio 20 NRG Serum or plasma creatinine measurement with calculation of estimated glomerular filtration rate 32 NRG Serum or plasma glucose measurement (mass/volume) 117 mg/dL 70-105 Serum or plasma calcium measurement (mass/volume) 8.9 mg/dL 8.5-10.1 Serum or plasma total bilirubin measurement (mass/volume) 0.9 mg/dL 0.1-1.0 Serum or plasma alkaline phosphatase measurement (enzymatic activity/volume) 60 U/L 40-136 Serum or plasma aspartate aminotransferase measurement (enzymatic activity/ volume) 45 U/L 5-34 Serum or plasma alanine aminotransferase measurement (enzymatic activity/volume ) 34 U/L 0-55 Serum or plasma protein measurement (mass/volume) 5.5 g/dL 6.4-8.2 Serum or plasma albumin measurement (mass/volume) 3.1 g/dL 3.2-4.5 Lipid 1996 panel - 02/12/18 07:14 Serum or plasma triglyceride measurement (mass/volume) 64 mg/dL <150 Serum or plasma cholesterol measurement (mass/volume) 128 mg/dL < 200 Serum or plasma cholesterol in HDL measurement (mass/volume) 32 mg/ dL 40-60 Cholesterol in LDL [mass/volume] in serum or plasma by direct assay 82 mg/dL 1-129 Serum or plasma cholesterol in VLDL measurement (mass/volume) 13 mg/ dL 5-40 Complete blood count (CBC) with automated white blood cell (WBC) differential - 02/14/18 04:40 Blood leukocytes automated count (number/volume) 8.8 10*3/uL 4.3-11.0 Blood erythrocytes automated count (number/volume) 3.27 10*6/uL 4.35-5.85 Venous blood hemoglobin measurement (mass/volume) 10.4 g/dL 11.5-16.0 Blood hematocrit (volume fraction) 31 % 35-52 Automated erythrocyte mean corpuscular volume 95 [foz_us] 80-99 Automated erythrocyte mean corpuscular hemoglobin (mass per erythrocyte) 32 pg 25-34 Automated erythrocyte mean corpuscular hemoglobin concentration measurement ( mass/volume) 33 g/dL 32-36 Automated erythrocyte distribution width ratio 13.9 % 10.0-14.5 Automated blood platelet count (count/volume) 137 10*3/uL 130-400 Automated blood platelet mean volume measurement 10.6 [foz_us] 7.4-10.4 Automated blood neutrophils/100 leukocytes 83 % 42-75 Automated blood lymphocytes/100 leukocytes 12 % 12-44 Blood monocytes/100 leukocytes 6 % 0-12 Automated blood eosinophils/100 leukocytes 0 % 0-10 Automated blood basophils/100 leukocytes 0 % 0-10 Blood neutrophils automated count (number/volume) 7.3 10*3 1.8-7.8 Blood lymphocytes automated count (number/volume) 1.0 10*3 1.0-4.0 Blood monocytes automated count (number/volume) 0.5 10*3 0.0-1.0 Automated eosinophil count 0.0 10*3/uL 0.0-0.3 Automated blood basophil count (count/volume) 0.0 10*3/uL 0.0-0.1 Whole blood basic metabolic panel - 02/14/18 04:40 Serum or plasma sodium measurement (moles/volume) 134 mmol/L 135-145 Serum or plasma potassium measurement (moles/volume) 4.0 mmol/L 3.6-5.0 Serum or plasma chloride measurement (moles/volume) 102 mmol/L 98-107 Carbon dioxide 23 mmol/L 21-32 Serum or plasma anion gap determination (moles/volume) 9 mmol/L 5-14 Serum or plasma urea nitrogen measurement (mass/volume) 26 mg/dL 7-18 Serum or plasma creatinine measurement (mass/volume) 1.28 mg/dL 0.60-1.30 Serum or plasma urea nitrogen/creatinine mass ratio 20 NRG Serum or plasma creatinine measurement with calculation of estimated glomerular filtration rate 40 NRG Serum or plasma glucose measurement (mass/volume) 169 mg/dL 70-105 Serum or plasma calcium measurement (mass/volume) 8.9 mg/dL 8.5-10.1 Automated blood complete blood count (hemogram) panel - 05/24/18 07:18 Blood leukocytes automated count (number/volume) 7.4 10*3/uL 4.3-11.0 Blood erythrocytes automated count (number/volume) 3.70 10*6/uL 4.35-5.85 Venous blood hemoglobin measurement (mass/volume) 11.7 g/dL 11.5-16.0 Blood hematocrit (volume fraction) 36 % 35-52 Automated erythrocyte mean corpuscular volume 98 [foz_us] 80-99 Automated erythrocyte mean corpuscular hemoglobin (mass per erythrocyte) 32 pg 25-34 Automated erythrocyte mean corpuscular hemoglobin concentration measurement ( mass/volume) 32 g/dL 32-36 Automated erythrocyte distribution width ratio 13.5 % 10.0-14.5 Automated blood platelet count (count/volume) 165 10*3/uL 130-400 Automated blood platelet mean volume measurement 9.9 [foz_us] 7.4-10.4 PT panel in platelet poor plasma by coagulation assay - 05/24/18 07:18 Prothrombin time (PT) in platelet poor plasma by coagulation assay 13.6 s 12.2-14.7 INR in platelet poor plasma or blood by coagulation assay 1.0 0.8-1.4 Activated partial thromboplastin time (aPTT) in platelet poor plasma bycoagulation assay - 05/24/18 07:18 Activated partial thromboplastin time (aPTT) in platelet poor plasma bycoagulation assay 34 s 24-35 Comprehensive metabolic panel - 05/24/18 07:18 Serum or plasma sodium measurement (moles/volume) 138 mmol/L 135-145 Serum or plasma potassium measurement (moles/volume) 3.4 mmol/L 3.6-5.0 Serum or plasma chloride measurement (moles/volume) 100 mmol/L 98-107 Carbon dioxide 25 mmol/L 21-32 Serum or plasma anion gap determination (moles/volume) 13 mmol/L 5-14 Serum or plasma urea nitrogen measurement (mass/volume) 35 mg/dL 7-18 Serum or plasma creatinine measurement (mass/volume) 1.49 mg/dL 0.60-1.30 Serum or plasma urea nitrogen/creatinine mass ratio 23 NRG Serum or plasma creatinine measurement with calculation of estimated glomerular filtration rate 33 NRG Serum or plasma glucose measurement (mass/volume) 136 mg/dL 70-105 Serum or plasma calcium measurement (mass/volume) 9.7 mg/dL 8.5-10.1 Serum or plasma total bilirubin measurement (mass/volume) 0.5 mg/dL 0.1-1.0 Serum or plasma alkaline phosphatase measurement (enzymatic activity/volume) 75 U/L 40-136 Serum or plasma aspartate aminotransferase measurement (enzymatic activity/ volume) 22 U/L 5-34 Serum or plasma alanine aminotransferase measurement (enzymatic activity/volume ) 11 U/L 0-55 Serum or plasma protein measurement (mass/volume) 7.8 g/dL 6.4-8.2 Serum or plasma albumin measurement (mass/volume) 3.9 g/dL 3.2-4.5 CALCIUM CORRECTED 9.8 mg/dL 8.5-10.1 Lipid 1996 panel - 05/24/18 07:18 Serum or plasma triglyceride measurement (mass/volume) 91 mg/dL <150 Serum or plasma cholesterol measurement (mass/volume) 135 mg/dL < 200 Serum or plasma cholesterol in HDL measurement (mass/volume) 43 mg/ dL 40-60 Cholesterol in LDL [mass/volume] in serum or plasma by direct assay 80 mg/dL 1-129 Serum or plasma cholesterol in VLDL measurement (mass/volume) 18 mg/ dL 5-40 Methicillin resistant Staphylococcus aureus (MRSA) screening culture - 07:18 Methicillin resistant Staphylococcus aureus (MRSA) screening culture NEG NRG Automated blood complete blood count (hemogram) panel - 05/25/18 04:20 Blood leukocytes automated count (number/volume) 6.9 10*3/uL 4.3-11.0 Blood erythrocytes automated count (number/volume) 3.41 10*6/uL 4.35-5.85 Venous blood hemoglobin measurement (mass/volume) 10.5 g/dL 11.5-16.0 Blood hematocrit (volume fraction) 33 % 35-52 Automated erythrocyte mean corpuscular volume 97 [foz_us] 80-99 Automated erythrocyte mean corpuscular hemoglobin (mass per erythrocyte) 31 pg 25-34 Automated erythrocyte mean corpuscular hemoglobin concentration measurement ( mass/volume) 32 g/dL 32-36 Automated erythrocyte distribution width ratio 14.0 % 10.0-14.5 Automated blood platelet count (count/volume) 150 10*3/uL 130-400 Automated blood platelet mean volume measurement 10.1 [foz_us] 7.4-10.4 Whole blood basic metabolic panel - 05/25/18 04:20 Serum or plasma sodium measurement (moles/volume) 139 mmol/L 135-145 Serum or plasma potassium measurement (moles/volume) 3.5 mmol/L 3.6-5.0 Serum or plasma chloride measurement (moles/volume) 105 mmol/L 98-107 Carbon dioxide 26 mmol/L 21-32 Serum or plasma anion gap determination (moles/volume) 8 mmol/L 5-14 Serum or plasma urea nitrogen measurement (mass/volume) 26 mg/dL 7-18 Serum or plasma creatinine measurement (mass/volume) 1.07 mg/dL 0.60-1.30 Serum or plasma urea nitrogen/creatinine mass ratio 24 NRG Serum or plasma creatinine measurement with calculation of estimated glomerular filtration rate 49 NRG Serum or plasma glucose measurement (mass/volume) 114 mg/dL 70-105 Serum or plasma calcium measurement (mass/volume) 9.3 mg/dL 8.5-10.1 Encounters ACCT No. Visit Date/Time Discharge Status Pt. Type Provider Facility Loc./Unit Complaint [id number] 04/30/2016 11:39:18 04/30/2016 23:59:59 CLS Outpatient Escobar Jon [id number] 07/10/2013 15:30:15 Document Registration [id number] 05/24/2018 07:01:00 05/25/2018 11:50:00 DIS Outpatient MARLEEN VALENZUELA FACC, SAHIL MEADE CCDS [facility] CATH SOB,CAD,AFIB, HYPERLIPIDEMIA [id number] 02/11/2018 14:18:00 02/14/2018 10:55:00 DIS Inpatient LIVE VALENZUELA, MESFIN Ha [facility] 4TH ACUTE CHOLECYSTITIS,AFIB, SOA [id number] 02/08/2018 06:03:00 02/08/2018 09:48:00 DIS Outpatient SIM EISENBERG MD [facility] SDC MIXED INCONTINENCE [id number] 02/01/2018 05:39:00 02/01/2018 23:59:59 CLS Outpatient SIM EISENBERG MD [facility] PREOP MIXED INCONTINENCE [id number] 11/02/2017 10:08:00 11/02/2017 23:59:59 CLS Outpatient JESSICA ONEIL [facility] CARD I25.10 CAD [id number] 10/06/2017 13:00:00 10/06/2017 23:59:59 CLS Preadmit JESSICA ONEIL [employer] [facility] CARD I25.10 CAD [id number] 08/27/2016 05:56:00 08/27/2016 23:59:59 CLS Outpatient BHARTI BLACKWELL DO [facility] PREOP DYSPHAGIA;CHANGE IN BOWEL HABITS [id number] 07/04/2016 21:20:00 07/05/2016 00:08:00 DIS Emergency RONNA MAYORGA DO [facility] ER L EAR PAIN, HIP PAIN, SOA [id number] 06/10/2016 09:28:00 06/10/2016 09:59:00 DIS Outpatient MATTEO VALENZUELA, SUSI Ha [facility] REHAB S/P R TKR [id number] 12/13/2014 07:58:00 12/13/2014 23:59:59 CLS Outpatient BAIMA, JESSICA L [employer] [facility] CARD CAD,HTN,HLP [id number] 12/11/2014 09:10:00 12/11/2014 23:59:59 CLS Outpatient BAIMA, JESSICA L [employer] [facility] CARD CAD, [id number] 12/06/2014 08:36:00 12/06/2014 23:59:59 CLS Outpatient BAIMA, JESSICA L [employer] [facility] CARD CAD,HTN,HLP [id number] 06/21/2018 09:00:00 SANGEETHA HAWLEY MD FACC, SAHIL MEADE CCDS [facility] CATH CAD,ANGINA,SOB,FATIGUE, HYPERLIPEMIA [id number] 12/03/2014 10:05:00 Document Registration [id number] 11/01/2012 12:39:00 Document Registration [id number] 10/20/2012 08:26:00 Document Registration [id number] 02/03/2011 14:01:00 Document Registration [id number] 02/03/2011 09:12:00 Document Registration [id number] 04/17/2010 10:16:00 Document Registration [id number] 02/03/2010 08:37:00 Document Registration [id number] 01/16/2010 10:46:00 Document Registration [id number] 12/02/2009 16:02:00 Document Registration [id number] 09/06/2009 11:04:00 Document Registration [id number] 01/16/2008 09:09:00 Document Registration [id number] 01/09/2008 12:07:00 Document Registration
[2018-06-21] MEDS: NS IV 1000 ML 1,000 ML IV SCH ×3 (07:35→21:15)
[2018-06-21 07:41] LABS: HEMOGLOBIN 11.2 G/DL (11.5-16.0); MEAN PLATELET VOLUME 10.8 FL (7.4-10.4); RED BLOOD COUNT 3.53 10^6/uL (4.35-5.85); RED CELL DISTRIBUTION WIDTH 14.5 % (10.0-14.5); WHITE BLOOD COUNT 6.2 10^3/uL (4.3-11.0)
[2018-06-21 07:50] LABS: INR 1.1 (0.8-1.4); PROTHROMBIN TIME PATIENT 14.6 SEC (12.2-14.7)
[2018-06-21 07:51] LABS: ALBUMIN 3.8 GM/DL (3.2-4.5); BILIRUBIN,TOTAL 1.2 MG/DL (0.1-1.0); CALCIUM 9.4 MG/DL (8.5-10.1); CREATININE SERUM 1.3 MG/DL (0.60-1.30); TOTAL PROTEIN 7.6 GM/DL (6.4-8.2)
[2018-06-21] MEDS ORDERED: fentaNYL INJECTION 100 MCG/2 ML AMP ONE (08:33)
[2018-06-21] MEDS ORDERED: MIDAZOLAM 5 MG/5 ML (VERSED) VIAL ONE (08:33)
--- NOTE | 2018-06-21 08:49 | Cardiac Procedure Note-CS/ASA ---
Pre-Procedure Note Pre-Op Procedure Note H&P Reviewed The H&P was reviewed, patient examined and no changes noted. Date H&P Reviewed: Jun 21, 2018 Time H&P Reviewed: 08:49 Conscious Sedation Pre-Proced Time 08:49 ASA Score 3 For ASA 3 and 4: Consider anesthesia and medical clearance. Also, for patients with a history of failed moderate sedation consider anesthesia. Airway Lungs Heart ASA score ASA 1: a normal healthy patient ASA 2: a patient with a mild systemic disease (mid diabetes, controlled hypertension, obesity ASA 3: a patient with a severe systemic disease that limits activity (angina , COPD, prior Myocardial infarction) ASA 4: a patient with an incapacitating disease that is a constant threat to life (CHF, renal failure) ASA 5: a moribund patient not expected to survive 24 hrs. (ruptured aneurysm) ASA 6: a declared brain patient whose organs are being harvested. For emergent operations, add the letter E after the classification Mallampati Classification Grade 2 Sedation Plan Analgesia, Amnesia, Plan communicated to team members, Discussed options with patient/fam, Discussed risks with patient/fam The patient is an appropriate candidate to undergo the planned procedure, sedation, and anesthesia. The patient immediately re-assessed prior to indication. SAHIL HAWLEY MD FACP FAC CCDS Jun 21, 2018 08:49
[2018-06-21] MEDS ORDERED: NITRO DRIP 25000 MCG/D5W 0 ML IV ONE (08:59)
[2018-06-21] MEDS ORDERED: HEParin 1000 UNIT/ML (10ML VIAL) FOR BOLUS ONE (08:59)
[2018-06-21] MEDS ORDERED: CLOPIDOGREL 75 MG (PLAVIX) TABLET ONE (09:40)
[2018-06-21] MEDS ORDERED: ASPIRIN 81 MG CHEW (CHILDREN'S ASA) ONE (09:40)
[2018-06-21] MEDS ORDERED: ACETAMINOPHEN 325 MG TABLET PO PRN (10:00)
[2018-06-21] MEDS ORDERED: PATIENT MAY USE OWN MEDS, ALL PO SCH (10:00)
[2018-06-21] MEDS ORDERED: METO-461 PO (13:21)
--- NOTE | 2018-06-21 14:07 | CARDIAC CATHETERIZATION ---
DATE OF SERVICE: 06/21/2018 CARDIAC CATHETERIZATION AND CORONARY INTERVENTION REPORT INDICATIONS: The patient is an 82-year-old lady with known coronary artery disease and symptoms of exertional shortness of breath consistent with angina equivalent. On 05/24/2018, she underwent stenting of the mid left anterior descending artery. She had other lesions noted at that time as well. Today, due to continuing symptoms, she comes in for repeat coronary angiography and consideration of further coronary intervention as needed. DESCRIPTION OF PROCEDURE: She was brought to the cardiac catheterization laboratory in a fasting state. Right groin was prepared and draped in the usual sterile fashion. Lidocaine 1% was used for local anesthesia. Modified Seldinger technique was used to advance a 5-German sheath in right femoral artery. We used 5-German JR4 catheter for right coronary angiography and 5-German JL3.5 catheter for left coronary angiography. Angiography of the right femoral artery had been carried out at the time of sheath insertion. Following completion of the diagnostic coronary angiography, we carried out percutaneous intervention of the right coronary artery that is described below. PERCUTANEOUS INTERVENTION TO THE RIGHT CORONARY ARTERY: We exchanged the sheath over a wire for a 6-German sheath. We used a 6-German JR4 guide catheter with side holes. We advanced a BMW wire across the 80% lesion in the proximal right coronary artery and the tip was placed in a distal posterolateral branch. We tried to advance a stent, but we were unable to do so because of marked proximal coronary calcification. We carried out balloon angioplasty at the site of the most severe stenosis with Emerge 3.0 x 12 mm balloon. This improved the stenosis from 80% to approximately 60%. We again try to advance a long stent, but we were unable to do so. We advanced a ChoICE extra support wire to be used as the cammy wire and started to advance a long stent again over the BMW wire, but we were unable to do so. We removed the stent and stented the most significant portion of the stenosis with the Xience Laverne distal 3.5 x 15 mm stent that was deployed at `18 atmospheres. This reduced the 80% stenosis in the proximal right coronary artery to 0% residual. Distally, there is up to 50% stenoses in the right coronary artery. There is diffuse moderate disease and calcification of the right coronary artery. We were able to remove the cammy wire without any difficulty. Repeat angiography following removal of the cammy wire does not indicate any change in coronary status and flow throughout the vessel remains good. Angioplasty equipment was then removed. Mynx was used to achieve hemostasis. She tolerated the procedure well. CORONARY ANGIOGRAPHY: There is diffuse coronary calcification involving all coronary vessels. The right coronary artery is dominant and has 80% proximal stenosis and multiple up to 50% stenosis in its mid and distal portion. There is diffuse calcification of the right coronary artery. There is diffuse calcification of the left coronary system. Left main coronary artery does not exhibit significant obstructive disease. The mid left anterior descending artery is fairly extensively stented and the stented segments are patent without significant restenosis. The left circumflex artery has diffuse moderate disease. Following intervention to the proximal right coronary artery (deployment of Xience Laverne 2.5 x 15 mm stent). There is no significant residual stenosis in the proximal right coronary artery. CONCLUSIONS: Coronary artery disease primarily consisting of 80% proximal stenosis of the right coronary artery to which successful stenting was carried out with Xience Laverne 3.5 x 16 mm stent. The left anterior descending artery has patent stents that are known to be Taxus 2.75 x 20, 2.5 x 24, 2.5 x 12, and Xience Laverne 2.5 x 8 mm stents (proximal to distal). These stents have been previously placed. The left circumflex artery has moderate diffuse disease and has a patent stent in its obtuse marginal branch that is known to be Promus 2.5 x 16 mm. DISCUSSION AND RECOMMENDATIONS: We are continuing her previous cardiac regimen, including antiplatelet therapy. Risk factor modification has been reviewed. She is being hospitalized for overnight observation. Job ID: [id number] DocumentID: [id number] Dictated Date: 06/21/2018 09:51:12 Hydraulic Engineer Date: 06/21/2018 14:06:27 Dictated By: SAHIL HAWLEY MD, MA, FACP, FACC,
[2018-06-21] MEDS: APIXABAN 2.5 MG (ELIQUIS) TABLET PO SCH (20:55)
[2018-06-21] MEDS: METOPROLOL TARTRATE 100 MG TAB PO SCH (20:55)
[2018-06-21] MEDS ORDERED: ATORVASTATIN 40 MG (LIPITOR) TABLET PO SCH (21:00)
[2018-06-21] MEDS ORDERED: METOPROLOL TARTRATE 100 MG PO SCH (21:00)
[2018-06-22 03:30] VITALS: BP 104/58
[2018-06-22 03:50] LABS: HEMOGLOBIN 9.6 G/DL (11.5-16.0); MEAN PLATELET VOLUME 10.9 FL (7.4-10.4); RED BLOOD COUNT 3.06 10^6/uL (4.35-5.85); RED CELL DISTRIBUTION WIDTH 14.5 % (10.0-14.5); WHITE BLOOD COUNT 5.6 10^3/uL (4.3-11.0)
[2018-06-22 04:08] LABS: CALCIUM 8.7 MG/DL (8.5-10.1); CREATININE SERUM 1.03 MG/DL (0.60-1.30); POTASSIUM 4.3 MMOL/L (3.6-5.0)
--- NOTE | 2018-06-22 08:00 | Progress Note-Cardiology ---
Cardiology SOAP Progress Note Objective: I&O/Vital Signs Weight (Pounds): 153 Weight (Ounces): 0.0 Weight (Calculated Kilograms): 69.764964 Results/Procedures: Labs Microbiology 06/21/18 MRSA Screen - Final, Complete MRSA not isolated A/P: Assessment: Coronary artery disease primarily consisting of 80% proximal stenosis of the right coronary artery to which successful stenting was carried out with Xience Laverne 3.5 x 16 mm stent. The left anterior descending artery has patent stents that are known to be Taxus 2.75 x 20, 2.5 x 24, 2.5 x 12, and Xience Laverne 2.5 x 8 mm stents (proximal to distal). These stents have been previously placed. The left circumflex artery has moderate diffuse disease and has a patent stent in its obtuse marginal branch that is known to be Promus 2.5 x 16 mm. Per cardiac cath of 06-21-18 Chronic systolic/diastolic CHF - clinically compensated A-fib/flutter - first seen on EKG tracings at time of MPI on November 02, 2017 24 Hour Holter of October 2017 showed atrial fib throughout the study with aver HR of 100 bpm. PVC's vs aberrantly conducted beats: isolated, coupled and runs up to 4 beats at rates up to approx 150 bpm. No signif bradycardia MPI of November 02, 2017 showed lateral wall myocardial infarction with a small amt of hill-infarct ischemia. Lateral wall akinesis. LVEF 42%. Med management at that time Echocardiogram of October 2017 showed concentric hypertrophy. LVEF 50-55%. Hypokinesis of the lateral myocardium. The LA is mod to severly dilated. Mod calcified mitral valve annulus with mod regurg. Mild to mod TR. PASP approx 40 -45mmHg History of infra-mammary herpes zoster in the past. She is currently not experiencing any symptoms from it. Degenerative joint disease. Hyperlipidemia being treated with simvastatin and followed by her PCP History of urinary incontinence, which has been followed by Dr. Dee. JESSICA ONEIL Jun 22, 2018 08:00
[2018-06-22] MEDS: METOPROLOL TARTRATE 100 MG TAB PO SCH (08:36)
[2018-06-22] MEDS: APIXABAN 2.5 MG (ELIQUIS) TABLET PO SCH (08:37)
[2018-06-22 09:00] VITALS: BP 124/84
[2018-06-22] MEDS ORDERED: CLOPIDOGREL 75 MG (PLAVIX) TABLET PO SCH (09:00)
[2018-06-22] MEDS ORDERED: FUROSEMIDE 40 MG (LASIX) TAB PO SCH (09:00)
[2018-06-22] MEDS ORDERED: ASPIRIN 81 MG CHEW (CHILDREN'S ASA) PO SCH (09:00)
--- NOTE | 2018-06-22 09:00 | Discharge Inst-Cardiology ---
Discharge Inst-Cardiac Discharge Medications Continued Medications: Apixaban (Eliquis) 2.5 Mg Tablet 2.5 MG PO BID, #60 TAB 5 Refills Atorvastatin Calcium (Lipitor) 40 Mg Tablet 40 MG PO HS, #30 TAB 5 Refills Clopidogrel Bisulfate (Clopidogrel) 75 Mg Tablet 75 MG PO DAILY, #30 TAB 5 Refills Furosemide (Furosemide) 40 Mg Tablet 40 MG PO DAILY, TAB Metoprolol Tartrate (Lopressor) 100 Mg Tablet 100 MG PO BID, TAB Patient Instructions Patient Instructions: Please schedule follow up appointment to see Dr. Flowers in 2 weeks Please have lab drawn on Wednesday, 2017: CBC Orders-Post D/C & Referrals Pneu Vac Indicated: Yes JESSICA ONEIL Jun 22, 2018 09:00
--- NOTE | 2018-06-22 11:59 | Progress Note-Cardiology ---
Cardiology SOAP Progress Note Subjective: No cp or palp or syncope or shortness of breath or groin discomfort. Wishes to go home Objective: I&O/Vital Signs 06/22/18 06/22/18 06/22/18 06/22/18 01:00 03:30 07:00 08:15 Temp 98.4 Pulse 83 84 82 Resp 18 B/P (MAP) 104/58 (73) Pulse Ox 97 99 O2 Delivery Room Air Room Air 06/22/18 06/22/18 06/22/18 08:49 09:00 10:45 Pulse 78 Resp 15 B/P (MAP) 124/84 (97) O2 Delivery Nasal Cannula Room Air O2 Flow Rate 2.00 06/22/18 00:00 Intake Total 2300 ml Balance 2300 ml Weight (Pounds): 153 Weight (Ounces): 0.0 Weight (Calculated Kilograms): 69.831071 Condition: DP/PT pulses palpable Bruising: moderated bruising Constitutional: AAO x 3, well-developed, well-nourished Respiratory: lungs clear to percussion, lungs clear to auscultation Cardiovascular: irregularly irregular, S1 and S2, systolic murmur (2/6 JUSTINO at card base) Gastrointestional: No tender, No guarding, No rebound; audible bowel sounds Extremities: No clubbing, No cyanosis, No significant edema Neurologic/Psychiatric: oriented x 3, grossly intact, power is 5/5 both on sides Skin: No rash on exposed areas, No ulcerations on exposed areas Results/Procedures: Labs Laboratory Tests 06/22/18 03:20: White Blood Count 5.6, Red Blood Count 3.06L, Hemoglobin 9.6L, Hematocrit 31L, Mean Corpuscular Volume 100H, Mean Corpuscular Hemoglobin 31, Mean Corpuscular Hemoglobin Concent 32, Red Cell Distribution Width 14.5, Platelet Count 127L, Mean Platelet Volume 10.9H, Sodium Level 139, Potassium Level 4.3, Chloride Level 111H, Carbon Dioxide Level 21, Anion Gap 7, Blood Urea Nitrogen 32H, Creatinine 1.03, Estimat Glomerular Filtration Rate 51, BUN/Creatinine Ratio 31 , Glucose Level 110H, Calcium Level 8.7 Laboratory Tests 06/21/18 07:25 06/22/18 03:20 A/P: Assessment: CAD. Last card cath on 06-21-18: 80% proximal stenosis of the right coronary artery to which successful stenting was carried out with Xience Laverne 3.5 x 16 mm stent. The left anterior descending artery had previously placed patent stents that are known to be Taxus 2.75 x 20, 2.5 x 24, 2.5 x 12, and Xience Laverne 2.5 x 8 mm stents (proximal to distal). The left circumflex artery had moderate diffuse disease and had a patent stent in its obtuse marginal branch that is known to be Promus 2.5 x 16 mm Chronic systolic/diastolic CHF - clinically compensated A-fib/flutter - first seen on EKG tracings at time of MPI on November 02, 2017 24 Hour Holter of October 2017 showed atrial fib throughout the study with aver HR of 100 bpm. PVC's vs aberrantly conducted beats: isolated, coupled and runs up to 4 beats at rates up to approx 150 bpm. No signif bradycardia MPI of November 02, 2017 showed lateral wall myocardial infarction with a small amt of hill-infarct ischemia. Lateral wall akinesis. LVEF 42%. Med management at that time Echocardiogram of October 2017 showed concentric hypertrophy. LVEF 50-55%. Hypokinesis of the lateral myocardium. The LA is mod to severly dilated. Mod calcified mitral valve annulus with mod regurg. Mild to mod TR. PASP approx 40 -45mmHg History of infra-mammary herpes zoster in the past. She is currently not experiencing any symptoms from it. Degenerative joint disease. Hyperlipidemia being treated with simvastatin and followed by her PCP History of urinary incontinence, which has been followed by Dr. Dee. Plan: * I discussed in detail her cor anatomy, interventions undertaken, and future treatment plan with her and her family, and answered questions * We discussed the pros and cons of current meds and advised compliance * Close outpatient f/u is advised for now SAHIL HAWLEY MD FACP [facility] Jun 22, 2018 11:59
== END 2018-06-22 10:45 | disposition home or self-care (01) ==
LOC: CATH 07:08 → ICU 10:00 → CATH 06-22 10:45
PROVIDERS: ATTEND Internal Medicine Cardiovascular Disease
DX: I25.10 Atherosclerotic heart disease of native coronary artery without angina pectoris (principal); I11.0 Hypertensive heart disease with heart failure; I50.42 Chronic combined systolic (congestive) and diastolic (congestive) heart failure; I48.91 Unspecified atrial fibrillation; I48.92 Unspecified atrial flutter; I08.1 Rheumatic disorders of both mitral and tricuspid valves; E78.5 Hyperlipidemia, unspecified; M19.91 Primary osteoarthritis, unspecified site; R32 Unspecified urinary incontinence; E66.9 Obesity, unspecified; Z68.30 Body mass index [BMI] 30.0-30.9, adult; Z95.5 Presence of coronary angioplasty implant and graft; Z79.01 Long term (current) use of anticoagulants; Z79.899 Other long term (current) drug therapy; Z91.14 Patient's other noncompliance with medication regimen
CPT/HCPCS: 36415; 80048; 80053; 85027; 85610; 85730; 87081; 93005; 93454

== ENCOUNTER 2018-10-08 02:47 | Inpatient (IN) | payer MEDICAID ==
[~2018-10-08] VITALS: Ht 162.6 cm; Wt 71.3 kg
[2018-10-08] VITALS (15 sets, daily range): BP systolic 103–151; BP diastolic 64–102
[~2018-10-08 02:47] MED LIST changes: +METO-461 PO
[2018-10-08 04:00] LABS: BASOPHILS % (AUTO) 1 % (0-10); EOSINOPHILS # (AUTO) 0.1 10^3/uL (0.0-0.3); EOSINOPHILS % (AUTO) 2 % (0-10); HEMATOCRIT 32 % (35-52); HEMOGLOBIN 10.4 G/DL (11.5-16.0); LYMPHOCYTES # (AUTO) 1.2 X 10^3 (1.0-4.0); LYMPHOCYTES % (AUTO) 17 % (12-44); MEAN CORPUSCULAR HEMOGLOBIN 31 PG (25-34); MEAN CORPUSCULAR HGB CONC 32 G/DL (32-36); MEAN CORPUSCULAR VOLUME 96 FL (80-99); MEAN PLATELET VOLUME 10.8 FL (7.4-10.4); MONOCYTES # (AUTO) 0.6 X 10^3 (0.0-1.0); MONOCYTES % (AUTO) 8 % (0-12); NEUTROPHILS # (AUTO) 5.2 X 10^3 (1.8-7.8); NEUTROPHILS % (AUTO) 73 % (42-75); PLATELET COUNT 151 10^3/uL (130-400); RED CELL DISTRIBUTION WIDTH 13.5 % (10.0-14.5); WHITE BLOOD COUNT 7.2 10^3/uL (4.3-11.0)
[2018-10-08 04:13] LABS: BILIRUBIN,URINE NEGATIVE (NEGATIVE); CLARITY,URINE SLIGHTLY CLOUDY; COLOR,URINE YELLOW; GLUCOSE, URINE (UA) NEGATIVE (NEGATIVE); KETONES,URINE NEGATIVE (NEGATIVE); LEUKOCYTE ESTERASE ,URINE 3+ (NEGATIVE); NITRITE,URINE POSITIVE (NEGATIVE); PH,URINE 5 (5-9); PROTEIN,URINE 2+ (NEGATIVE); UROBILINOGEN,URINE NORMAL (NORMAL)
[2018-10-08 04:17] LABS: INR 1.3 (0.8-1.4); PROTHROMBIN TIME PATIENT 16.7 SEC (12.2-14.7)
[2018-10-08 04:23] LABS: ALANINE AMINOTRANSFERASE 45 U/L (0-55); ALBUMIN 3.4 GM/DL (3.2-4.5); ALKALINE PHOSPHATASE 100 U/L (40-136); BILIRUBIN,TOTAL 1.5 MG/DL (0.1-1.0); BUN/CREATININE RATIO 23; CALCIUM 8.9 MG/DL (8.5-10.1); CARBON DIOXIDE 22 MMOL/L (21-32); CHLORIDE 99 MMOL/L (98-107); CREATININE SERUM 1.37 MG/DL (0.60-1.30); GFR ESTIMATED 37; GLUCOSE 132 MG/DL (70-105); MAGNESIUM 1.9 MG/DL (1.8-2.4); POTASSIUM 4.2 MMOL/L (3.6-5.0); SODIUM 129 MMOL/L (135-145); TOTAL PROTEIN 6.9 GM/DL (6.4-8.2)
[2018-10-08 04:23] LABS: BACTERIA,URINE LARGE /HPF; RBC,URINE 25-50 /HPF; WBC,URINE 25-50 /HPF
[2018-10-08] MEDS ORDERED: cefTRIAXone FOR IV USE 1,000 MG in WATER (STERILE) FOR INJECTION 10 ML IV ONE (05:00)
[2018-10-08] MEDS ORDERED: methylPREDNISolone 125 MG (Solu-MEDROL) VIAL IVP ONE (05:00)
[2018-10-08] MEDS ORDERED: FUROSEMIDE 40 MG/4 ML INJ (LASIX) IVP ONE ×2 (05:00→05:30)
[2018-10-08] MEDS ORDERED: cefTRIAXone 1,000 MG IV (ROCEPHIN) VIAL ONE (05:09)
[2018-10-08] MEDS ORDERED: WATER (STERILE) FOR INJECTION 10 ML ONE (05:10)
--- NOTE | 2018-10-08 05:36 | ED Respiratory ---
General Chief Complaint: Respiratory Problems Stated Complaint: SOB Nursing Triage Note: PT TO ROOM #7 VIA ED W/C BY ED STAFF. A&OX4. C/O SOB AND COUGH FOR APPROX X2 WKS. REPORTS TO BE COUGHING UP GREEN/WHITE PHLEGM. DENIES RECENT FEVER. DENIES PAIN. PT SPEAKS LIMITED ITALIAN. DAUGHTER @ TRANSLATING. INITIAL O2 SAT 98% VIA RA. 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 DAUGHTERS ARE INTERPRETERS BUT ARE ALSO VERY POOR AND LIMITED HISTORIANS. ) History of Present Illness Date Seen by Provider: Oct 08, 2018 Time Seen by Provider: 03:20 Initial Comments PT ARRIVES VIA POV FROM HOME, WITH DAUGHTERS PT HAS HAD PRODUCTIVE COUGH WITH GREEN SPUTUM FOR 3-4 WEEKS PT HAS BEEN SHORT OF BREATH FOR 3-4 WEEKS, STATES SHE FEELS LIKE SHE CAN'T TAKE DEEP ENOUGH BREATH NO FEVER NO CHEST PAIN NO SWELLING IN LEGS/ FEET OR PAIN IN CALVES NO KNOWN SICK CONTACTS. HAS NOT TAKEN ANYTHING FOR SYMPTOMS PT HAS HISTORY OF CHF AND CHRONIC DYSPNEA ON EXERTION, AND RAN OUT OF LASIX TODAY--HAS REFILLS, BUT SIMPLY DID NOT PICK THE MEDICATION UP FROM THE PHARMACY PT HAS HISTORY OF CAD WITH CARDIAC CATHS AND STENTS X 5 PER OLD RECORDS. MOST RECENTLY, SHE HAD CARDIAC CATHS 05/24/19 WITH STENT X 1 AND 06/21/19 WITH ANGIOPLASTY AND STENT X 1. DAUGHTERS ARE UNAWARE IF PT HAS HISTORY OF ATRIAL FIBRILLATION OR IRREGULAR HEART BEAT, AND ARE UNAWARE IF SHE TAKES ANY KIND OF BLOOD THINNERS. DO NOT KNOW ANY OF PT'S MEDICATIONS. PT IS ON PLAVIX AND ELIQUIS, WELL METOPROLOL. SYMPTOMS ARE NO DIFFERENT TONIGHT IN ANY WAY HAS NOT SOUGHT CARE AT ANY TIME FOR THIS PCP: RACHAEL-CROW AND ALSO SEES DR. MUNOZ Allergies and Home Medications Allergies Coded Allergies: YENANo Known Allergies (Verified Allergy, Unknown, 02/07/07) Home Medications Apixaban 2.5 Mg Tablet, 2.5 MG PO BID Prescribed by: JESSICA ONEIL on 05/25/18 0857 Atorvastatin Calcium 40 Mg Tablet, 40 MG PO HS Prescribed by: JESSICA ONEIL on 05/25/18 0836 Clopidogrel Bisulfate 75 Mg Tablet, 75 MG PO DAILY Prescribed by: JESSICA ONEIL on 05/25/18 0836 Furosemide 40 Mg Tablet, 40 MG PO DAILY, (Reported) Metoprolol Tartrate 100 Mg Tablet, 100 MG PO BID, (Reported) Patient Home Medication List Home Medication List Reviewed: Yes Review of Systems Review of Systems Constitutional: other (PT UNABLE TO GIVE ANY SIGNIFICA) Respiratory: see HPI, cough, short of breath Past Sdqherm-Gzskmo-Xqofif Hx Patient Social History Alcohol Use: Denies Use Recreational Drug Use: No Smoking Status: Never a Smoker 2nd Hand Smoke Exposure: No Recent Foreign Travel: No Contact w/Someone Who Travel: No Recent Infectious Disease Expo: No Recent Hopitalizations: No Immunizations Up To Date Date of Influenza Vaccine: May 18, 2018 Seasonal Allergies Seasonal Allergies: No Past Medical History Surgeries: Yes (CARDIAC CATHS WITH STENTS X 5 + ANGIOPLASTIES; RIGHT ANKLE SURGERY; BILATERAL KNEE REPLACEMENT; RIGHT WRIST I&D OF ABSCESS; BILATERAL CATARACT SURGERY; CYSTOSCOPY WITH COAPTITE IMPLANTS FOR MACRINA;) Bladder Surgery, Cardiac, Coronary Stent, Eye Surgery, Gallbladder, Orthopedic Respiratory: No (CHRONIC DYSPNEA ON EXERTION) Cardiac: Yes (DVT LEFT LEG 2007; CARDIAC CATHS--STENTS X 5 + ANGIOPLASTY--CATH 05/24/18--STENT X 1, CATH 06/21/18 -ANGIOPLASTY + STENT X 1 ) Atrial Fibrillation, Coronary Artery Disease, Deep Vein Thrombosis, High Cholesterol, Hypertension Neurological: Yes (NEUROPATHY RIGHT FOOT POST ANKLE SURGERY) Neuropathy Reproductive Disorders: No 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: Menopausal Sexually Transmitted Disease: No Genitourinary: Yes (INCONTINENCE) Renal Failure Gastrointestinal: Yes (S/P JUSTINE) Gall Bladder Disease Musculoskeletal: Yes (RIGHT ANKLE; BILATERAL KNEE REPLACEMENTS) Degenerate Disk Disease, Arthritis, Chronic Back Pain Endocrine: Yes (INSULIN RESISTANCE; OBESITY) HEENT: Yes (S/P SURGERY) Cataract Cancer: No Psychosocial: No Integumentary: Yes (ABSCESS I&D; CELLULITIS) Blood Disorders: Yes (ANEMIA) Family Medical History No Pertinent Family Hx Physical Exam Vital Signs - First Documented 10/08/18 03:10 Temp 96.5 Pulse 79 Resp 19 B/P (MAP) 111/88 (96) Pulse Ox 98 O2 Delivery Room Air Capillary Refill : Less Than 3 Seconds Height: 5'4.00" Weight: 150lbs. 0.0oz. 68.007099av; 30.9 BMI Method:Stated General Appearance: WD/WN, no apparent distress, other (NO COUGH OR DYSPNEA NOTED ) HEENT: PERRL/EOMI, other (POOR DENTITION) Neck: non-tender, full range of motion, supple, normal inspection Respiratory: no respiratory distress, no accessory muscle use, decreased breath sounds (IN BASES); No rales, No rhonchi, No wheezing Cardiovascular: no JVD, systolic murmur (3/6), irregularly irregular Gastrointestinal: normal bowel sounds, non tender, soft, no organomegaly, no pulsatile mass Extremities: normal range of motion, normal inspection, no pedal edema, no calf tenderness, normal capillary refill Neurologic/Psychiatric: supervisor plating and point assembly II-XII nml as tested, no motor/sensory deficits, alert, normal mood/affect Skin: normal color, warm/dry; No rash Focused Exam Lactate Level 10/08/18 03:49: Lactic Acid Level 0.88 Lactic Acid Level Laboratory Tests Test 10/08/18 03:49 Lactic Acid Level 0.88 MMOL/L (0.50-2.00) Progress/Results/Core Measures Suspected Sepsis Recent Fever Within 48 Hours: No Infection Criteria Present: Suspected New Infection New/Unexplained Altered Menta: No Sepsis Screen: No Definite Risk SIRS Temperature:96.5 Pulse: 79 Respiratory Rate: 19 Laboratory Tests 10/08/18 03:49: White Blood Count 7.2 Blood Pressure 111 /88 Mean: 96 10/08/18 03:49: Lactic Acid Level 0.88 Laboratory Tests 10/08/18 03:49: Creatinine 1.37H, INR Comment 1.3, Platelet Count 151, Total Bilirubin 1.5H Results/Orders Lab Results Laboratory Tests Test 10/08/18 03:49 10/08/18 04:04 Range/Units White Blood Count 7.2 4.3-11.0 10^3/uL Red Blood Count 3.37 L 4.35-5.85 10^6/uL Hemoglobin 10.4 L 11.5-16.0 G/DL Hematocrit 32 L 35-52 % Mean Corpuscular Volume 96 80-99 FL Mean Corpuscular Hemoglobin 31 25-34 PG Mean Corpuscular Hemoglobin Concent 32 32-36 G/DL Red Cell Distribution Width 13.5 10.0-14.5 % Platelet Count 151 130-400 10^3/uL Mean Platelet Volume 10.8 H 7.4-10.4 FL Neutrophils (%) (Auto) 73 42-75 % Lymphocytes (%) (Auto) 17 12-44 % Monocytes (%) (Auto) 8 0-12 % Eosinophils (%) (Auto) 2 0-10 % Basophils (%) (Auto) 1 0-10 % Neutrophils # (Auto) 5.2 1.8-7.8 X 10^3 Lymphocytes # (Auto) 1.2 1.0-4.0 X 10^3 Monocytes # (Auto) 0.6 0.0-1.0 X 10^3 Eosinophils # (Auto) 0.1 0.0-0.3 10^3/uL Basophils # (Auto) 0.0 0.0-0.1 10^3/uL Prothrombin Time 16.7 H 12.2-14.7 SEC INR Comment 1.3 0.8-1.4 Activated Partial Thromboplast Time 43 H 24-35 SEC Sodium Level 129 L 135-145 MMOL/L Potassium Level 4.2 3.6-5.0 MMOL/L Chloride Level 99 98-107 MMOL/L Carbon Dioxide Level 22 21-32 MMOL/L Anion Gap 8 5-14 MMOL/L Blood Urea Nitrogen 31 H 7-18 MG/DL Creatinine 1.37 H 0.60-1.30 MG/DL Estimat Glomerular Filtration Rate 37 BUN/Creatinine Ratio 23 Glucose Level 132 H 70-105 MG/DL Lactic Acid Level 0.88 0.50-2.00 MMOL/L Calcium Level 8.9 8.5-10.1 MG/DL Corrected Calcium 9.4 8.5-10.1 MG/DL Magnesium Level 1.9 1.8-2.4 MG/DL Total Bilirubin 1.5 H 0.1-1.0 MG/DL Aspartate Amino Transf (AST/SGOT) 57 H 5-34 U/L Alanine Aminotransferase (ALT/SGPT) 45 0-55 U/L Alkaline Phosphatase 100 40-136 U/L Troponin I < 0.028 <0.028 NG/ML B-Type Natriuretic Peptide 2377.0 H <100.0 PG/ML Total Protein 6.9 6.4-8.2 GM/DL Albumin 3.4 3.2-4.5 GM/DL Urine Color YELLOW Urine Clarity SLIGHTLY CLOUDY Urine pH 5 5-9 Urine Specific [place] 1.015 L 1.016-1.022 Urine Protein 2+ H NEGATIVE Urine Glucose (UA) NEGATIVE NEGATIVE Urine Ketones NEGATIVE NEGATIVE Urine Nitrite POSITIVE H NEGATIVE Urine Bilirubin NEGATIVE NEGATIVE Urine Urobilinogen NORMAL NORMAL MG/DL Urine Leukocyte Esterase 3+ H NEGATIVE Urine RBC (Auto) 5+ H NEGATIVE Urine RBC 25-50 H /HPF Urine WBC 25-50 H /HPF Urine Squamous Epithelial Cells 2-5 /HPF Urine Crystals NONE /LPF Urine Bacteria LARGE H /HPF Urine Casts PRESENT /LPF Urine Hyaline Casts 10-25 H /LPF Urine Mucus NEGATIVE /LPF Urine Culture Indicated YES Micro Results Microbiology 10/08/18 Influenza Types A,B Antigen (LETICIA) - Final, Complete My Orders Orders - RONNA MAYORGA DO Chest 1 View, Ap/Pa Only (10/08/18 03:26) BNP (10/08/18 03:26) Cbc With Automated Diff (10/08/18 03:26) Comprehensive Metabolic Panel (10/08/18 03:26) Lactic Acid Analyzer (10/08/18 03:26) Magnesium (10/08/18 03:26) Protime With Inr (10/08/18 03:26) Partial Thromboplastin Time (10/08/18 03:26) Troponin I (10/08/18 03:26) Ua Culture If Indicated (10/08/18 03:26) Blood Culture (10/08/18 03:26) Influenza A And B Antigens (10/08/18 03:26) Sputum Culture (10/08/18 03:26) Saline Lock/Iv-Start (10/08/18 03:26) Ekg Tracing (10/08/18 03:26) Monitor-Rhythm Ecg Trace Only (10/08/18 03:26) Straight Cath For Spec.-Adult (10/08/18 03:26) Urine Culture (10/08/18 04:04) Furosemide Injection (Lasix Injection) (10/08/18 05:00) Methylprednisolone Sod Succ (Solu-Medrol (10/08/18 05:00) Ceftriaxone For Iv Use (Rocephin For I (10/08/18 05:00) Ceftriaxone For Iv Use (Rocephin For I (10/08/18 05:09) Water (Sterile) For Injection (Sterile W (10/08/18 05:10) Furosemide Injection (Lasix Injection) (10/08/18 05:30) Medications Given in ED Current Medications Medications Dose Ordered Sig/Phan Route Start Time Stop Time Status Last Admin Dose Admin Furosemide 40 mg ONCE ONCE IVP 10/08/18 05:00 10/08/18 05:09 DC 10/08/18 05:19 40 MG Methylprednisolone Sodium Succinate 125 mg ONCE ONCE IVP 10/08/18 05:00 10/08/18 05:09 DC 10/08/18 05:19 125 MG Vital Signs/I&O 10/08/18 03:10 Temp 96.5 Pulse 79 Resp 19 B/P (MAP) 111/88 (96) Pulse Ox 98 O2 Delivery Room Air Capillary Refill : Less Than 3 Seconds Blood Pressure Mean: 96 Progress Note : Progress Note EXPLAINED TO PT AND 2 DAUGHTERS, PT'S TEST RESULTS AND TREATMENTS AND NEED FOR ADMIT DESPITE TRYING TO EXPLAIN IN THE SIMPLEST OF TERMS, DAUGHTERS DO NOT KNOW DIFFERENCE BETWEEN LUNGS AND LIVER AND ASKED WHERE THE LUNGS WERE AND THEN WHERE THE LIVER WAS IN THE BODY, NOR DO THEY SEEM TO KNOW WHAT THEIR FUNCTIONS ARE. THEY WERE UNAWARE THAT PT HAD STENTS PLACED RECENTLY WELL, AND DID NOT KNOW THEY WERE IN THE HEART. NO COUGH OR EVIDENCE OF DYSPNEA DURING ER STAY O2 SATS 92-97% ON ROOM AIR DURING ER STAY ECG Initial ECG Impression Date: Oct 08, 2018 Initial ECG Impression Time: 03:56 Initial ECG Rate: 81 Initial ECG Rhythm: A Fib/Flutter Initial ECG Impression: Atrial Fibrillation Diagnostic Imaging Comments CXR--CARDIOMEGALY, BIBASILAR INFILTRATES/ ATELECTASIS, MILD CHF--PENDING RADIOLOGIST REVIEW Reviewed: Reviewed by Ms Departure Communication (Admissions) [id number]--SPOKE WITH DR. GRAY, WRAP KNITTING MACHINE OPERATOR FOR [facility], ACCEPTS PT FOR ADMIT Impression Primary Impression: CHF (congestive heart failure) Additional Impressions: BRONCHITIS/POSSIBLE PNEUMONIA Chronic renal insufficiency Hyponatremia UTI (urinary tract infection) Chronic atrial fibrillation Disposition: ADMITTED INPATIENT Condition: Stable Admissions Decision to Admit Reason: Admit from ER (General) Decision to Admit/Date: Oct 08, 2018 Time/Decision to Admit Time: 05:15 Departure-Patient Inst. Ref[facility]: [facility] [place]) Primary Care Physician CHARO MULLIGAN APRN (Family) Primary Care Physician RONNA MAYORGA DO Oct 08, 2018 05:36
--- NOTE | 2018-10-08 06:15 | Diagnostic Imaging Report ---
INDICATION: CHF, shortness of breath COMPARISON: 02/11/2018 FINDINGS: Single view of the chest demonstrates stable cardiac enlargement without overt pulmonary edema. There is no pneumothorax or large effusion. Osseous structures are age-appropriate. IMPRESSION: Cardiac enlargement without pulmonary edema or infiltrate Dictated by: Dictated on workstation # [id number]
--- NOTE | 2018-10-08 06:57 | Pulmonary Consultation ---
History of Present Illness History of Present Illness Date of Consultation 10/08/18 06:52 Time Seen by Provider: 06:52 Date of Admission History of Present Illness 83yo with hx of CAD, previous cath with 5 stents presented to ED secondary to 3- 4wks of progressive green sputum production and SOB. Denies fever, CP, and LE edema. Allergies and Home Medications Allergies Coded Allergies: NKANo Known Allergies (Verified Allergy, Unknown, 02/07/07) Home Medications Apixaban 2.5 Mg Tablet, 2.5 MG PO BID Prescribed by: JESSICA ONEIL on 05/25/18 0857 Atorvastatin Calcium 40 Mg Tablet, 40 MG PO HS Prescribed by: JESSICA ONEIL on 05/25/18 0836 Clopidogrel Bisulfate 75 Mg Tablet, 75 MG PO DAILY Prescribed by: JESSICA ONEIL on 05/25/18 0836 Furosemide 40 Mg Tablet, 40 MG PO DAILY, (Reported) Metoprolol Tartrate 100 Mg Tablet, 100 MG PO BID, (Reported) Past Fxybszr-Alrmcq-Xmikak Hx Patient Social History Alcohol Use: Denies Use Recreational Drug Use: No Smoking Status: Never a Smoker 2nd Hand Smoke Exposure: No Recent Foreign Travel: No Contact w/Someone Who Travel: No Recent Infectious Disease Expo: No Recent Hopitalizations: No Immunizations Up To Date Date of Influenza Vaccine: May 18, 2018 Seasonal Allergies Seasonal Allergies: No Past Medical History Surgeries: Yes (CARDIAC CATHS WITH STENTS X 5 + ANGIOPLASTIES; RIGHT ANKLE SURGERY; BILATERAL KNEE REPLACEMENT; RIGHT WRIST I&D OF ABSCESS; BILATERAL CATARACT SURGERY; CYSTOSCOPY WITH COAPTITE IMPLANTS FOR MACRINA;) Bladder Surgery, Cardiac, Coronary Stent, Eye Surgery, Gallbladder, Orthopedic Respiratory: No (CHRONIC DYSPNEA ON EXERTION) Cardiac: Yes (DVT LEFT LEG 2007; CARDIAC CATHS--STENTS X 5 + ANGIOPLASTY--CATH 05/24/18--STENT X 1, CATH 06/21/18 -ANGIOPLASTY + STENT X 1 ) Atrial Fibrillation, Coronary Artery Disease, Deep Vein Thrombosis, High Cholesterol, Hypertension Neurological: Yes (NEUROPATHY RIGHT FOOT POST ANKLE SURGERY) Neuropathy Reproductive Disorders: No GLASS SANDER BELT History: Menopausal Sexually Transmitted Disease: No Genitourinary: Yes (INCONTINENCE) Renal Failure Gastrointestinal: Yes (S/P JUSTINE) Gall Bladder Disease Musculoskeletal: Yes (RIGHT ANKLE; BILATERAL KNEE REPLACEMENTS) Degenerate Disk Disease, Arthritis, Chronic Back Pain Endocrine: Yes (INSULIN RESISTANCE; OBESITY) HEENT: Yes (S/P SURGERY) Cataract Cancer: No Psychosocial: No Integumentary: Yes (ABSCESS I&D; CELLULITIS) Blood Disorders: Yes (ANEMIA) Family Medical History No Pertinent Family Hx Review of Systems Time Seen by Provider: 07:27 Constitutional: Weakness, Malaise; No: Fever, Chills, Sweats, Other Eyes: No: Pain, Vision change, Conjunctivae inflammation, Eyelid inflammation, Other, Redness ENT: Nose congestion; No: Ear pain, Ear discharge, Nose pain, Nose discharge, Mouth pain, Mouth swelling, Throat pain, Throat swelling, Other Respiratory: Cough, Shortness of breath, Sputum; No: Wheezing, Hemoptysis Cardiovascular: No: Chest Pain, Palpitations, Orthopnea, Paroxysmal Noc. Dyspnea, Edema, Lt Headedness, Other Gastrointestinal: No: Nausea, Vomiting, Abdominal Pain, Diarrhea, Constipation , Melena, Hematochezia, Other Skin: No: Rash, Lesions, Jaundice, Bruising, Other Sepsis Event Evaluation Height, Weight, BMI Height: 5'4.00" Weight: 150lbs. 0.0oz. 68.759649do; 30.9 BMI Method:Stated Exam Exam Vital Signs Date Time Temp Pulse Resp B/P (MAP) Pulse Ox O2 Delivery O2 Flow Rate FiO2 10/08/18 03:10 96.5 79 19 111/88 (96) 98 Room Air I & O 10/08/18 07:00 Intake Total 10 ml Balance 10 ml Height & Weight Height: 5'4.00" Weight: 150lbs. 0.0oz. 68.919572ab; 30.9 BMI Method:Stated General Appearance: No Apparent Distress, WD/WN HEENT: PERRL/EOMI Respiratory: Lungs Clear, No Accessory Muscle Use, No Respiratory Distress; No Respiratory Distress, No Rhonci, No Wheezing Cardiovascular: Irregularly Irregular Capillary Refill: Less Than 3 Seconds Gastrointestinal: normal bowel sounds, non tender, soft, no organomegaly, no pulsatile mass Extremity: Normal Capillary Refill Neurologic/Psychiatric: Alert, Oriented x3 Skin: Normal Color, Warm/Dry Lymphatic: No Adenopathy Results Lab Laboratory Tests 10/08/18 03:49 Assessment/Plan Assessment/Plan SOB -- Doubt PNA-- No leukocytosis, no infiltrate on CXR, and no fever - Pt does have green sputum production-probably secondary to sinus drainage vs bronchitis -Check sputum culture, start Singulair -D/C abx -Monitor -Pt is on ROOM AIR Sp02 is 95% -Will do ambulatory desat test prior to discharge Acute bronchitis -Change Solumedrol to prednisone taper -Start SVNS Hx of CAD and CHF hx of 5 stents placed -- Denies CP -Troponin is negative -Continue home meds -Monitor Acute renal failure -Will start IVF NS at 50cc/hr -Hold lasix secondary to renal function chronic Afib - controlled -Monitor resume home meds -She is not requiring any IV drips Anemia -Monitor -Check occult stools I do not see any reason for pt to be in ICU. I am going to transfer pt to 4th floor with tele and restart home meds except lasix. Pt could probably be discharged tomorrow if renal function is improved. NNEKA SAN DO Oct 08, 2018 06:57
[2018-10-08] MEDS ORDERED: BENZONATATE 100 MG (TESSALON) CAPSULE PO PRN (07:15)
[2018-10-08] MEDS ORDERED: AZITHROMYCIN 500 MG/NS 250 ML IVPB IV NR ×2 (07:30)
--- NOTE | 2018-10-08 08:48 | Consultation-Cardiology ---
HPI-Cardiology Cardiology Consultation Date of Consultation 10/08/18 Date of Admission Time Seen by Provider: 08:43 Indication: shortness of breath HPI 83 years old lady with history of coronary artery disease, congestive heart failure and chronic atrial fibrillation, was having increasing shortness of breath for the past few days until last night, her dyspnea became worse she was unable to lay down flat. She has been having cough. Denied any fever or chills. No chest pain. No syncope or near syncopal episode, noted to be in pulmonary edema and decompensated heart failure. She is in chronic atrial fibrillation. Home Medications & Allergies Allergies: Coded Allergies: NKANo Known Allergies (Verified Allergy, Unknown, 02/07/07) Home Medication List Reviewed: Yes IOH-Jdoysj-Eszqij Hx Patient Social History Employed/Student: retired Alcohol Use: Denies Use Recreational Drug Use: No Smoking Status: Never a Smoker 2nd Hand Smoke Exposure: No Recent Foreign Travel: No Recent Infectious Disease Expo: No Recent Hopitalizations: No Immunizations Up To Date Date of Influenza Vaccine: May 18, 2018 Past Medical History discussed below Family Medical History Significant Family History: No Pertinent Family Hx Family Medical Hx noncontributory to her current condition Review of Systems Constitutional: see HPI; No chills, No diaphoresis, No dizziness, No fever; malaise; No weakness, No weight gain, No weight loss, No other EENTM: see HPI, no symptoms reported Respiratory: see HPI, cough, dyspnea on exertion; No hemoptysis; orthopnea; No phlegm; short of breath; No stridor, No wheezing, No other Cardiovascular: see HPI; No chest pain, No edema, No Hx of Intervention, No palpitations, No syncope, No vascular heart diseas, No other Gastrointestinal: no symptoms reported, see HPI Genitourinary: no symptoms reported, see HPI Musculoskeletal: no symptoms reported, see HPI Skin: no symptoms reported, see HPI Psychiatric/Neurological: No Symptoms Reported, See HPI Reviewed Test Results Reviewed Test Results Lab Laboratory Tests Test 10/08/18 03:49 10/08/18 04:04 Range/Units White Blood Count 7.2 4.3-11.0 10^3/uL Red Blood Count 3.37 L 4.35-5.85 10^6/uL Hemoglobin 10.4 L 11.5-16.0 G/DL Hematocrit 32 L 35-52 % Mean Corpuscular Volume 96 80-99 FL Mean Corpuscular Hemoglobin 31 25-34 PG Mean Corpuscular Hemoglobin Concent 32 32-36 G/DL Red Cell Distribution Width 13.5 10.0-14.5 % Platelet Count 151 130-400 10^3/uL Mean Platelet Volume 10.8 H 7.4-10.4 FL Neutrophils (%) (Auto) 73 42-75 % Lymphocytes (%) (Auto) 17 12-44 % Monocytes (%) (Auto) 8 0-12 % Eosinophils (%) (Auto) 2 0-10 % Basophils (%) (Auto) 1 0-10 % Neutrophils # (Auto) 5.2 1.8-7.8 X 10^3 Lymphocytes # (Auto) 1.2 1.0-4.0 X 10^3 Monocytes # (Auto) 0.6 0.0-1.0 X 10^3 Eosinophils # (Auto) 0.1 0.0-0.3 10^3/uL Basophils # (Auto) 0.0 0.0-0.1 10^3/uL Prothrombin Time 16.7 H 12.2-14.7 SEC INR Comment 1.3 0.8-1.4 Activated Partial Thromboplast Time 43 H 24-35 SEC Sodium Level 129 L 135-145 MMOL/L Potassium Level 4.2 3.6-5.0 MMOL/L Chloride Level 99 98-107 MMOL/L Carbon Dioxide Level 22 21-32 MMOL/L Anion Gap 8 5-14 MMOL/L Blood Urea Nitrogen 31 H 7-18 MG/DL Creatinine 1.37 H 0.60-1.30 MG/DL Estimat Glomerular Filtration Rate 37 BUN/Creatinine Ratio 23 Glucose Level 132 H 70-105 MG/DL Lactic Acid Level 0.88 0.50-2.00 MMOL/L Calcium Level 8.9 8.5-10.1 MG/DL Corrected Calcium 9.4 8.5-10.1 MG/DL Magnesium Level 1.9 1.8-2.4 MG/DL Total Bilirubin 1.5 H 0.1-1.0 MG/DL Aspartate Amino Transf (AST/SGOT) 57 H 5-34 U/L Alanine Aminotransferase (ALT/SGPT) 45 0-55 U/L Alkaline Phosphatase 100 40-136 U/L Troponin I < 0.028 <0.028 NG/ML B-Type Natriuretic Peptide 2377.0 H <100.0 PG/ML Total Protein 6.9 6.4-8.2 GM/DL Albumin 3.4 3.2-4.5 GM/DL Urine Color YELLOW Urine Clarity SLIGHTLY CLOUDY Urine pH 5 5-9 Urine Specific [place] 1.015 L 1.016-1.022 Urine Protein 2+ H NEGATIVE Urine Glucose (UA) NEGATIVE NEGATIVE Urine Ketones NEGATIVE NEGATIVE Urine Nitrite POSITIVE H NEGATIVE Urine Bilirubin NEGATIVE NEGATIVE Urine Urobilinogen NORMAL NORMAL MG/DL Urine Leukocyte Esterase 3+ H NEGATIVE Urine RBC (Auto) 5+ H NEGATIVE Urine RBC 25-50 H /HPF Urine WBC 25-50 H /HPF Urine Squamous Epithelial Cells 2-5 /HPF Urine Crystals NONE /LPF Urine Bacteria LARGE H /HPF Urine Casts PRESENT /LPF Urine Hyaline Casts 10-25 H /LPF Urine Mucus NEGATIVE /LPF Urine Culture Indicated YES Physical Exam Vital Signs Vital Signs - First Documented 10/08/18 03:10 Temp 96.5 Pulse 79 Resp 19 B/P (MAP) 111/88 (96) Pulse Ox 98 O2 Delivery Room Air Capillary Refill : Less Than 3 Seconds Height, Weight, BMI Height: 5'4.00" Weight: 158lbs. 8.0oz. 71.087360mv; 27.2 BMI Method:Stated General Appearance: No Apparent Distress, WD/WN Eyes: Bilateral Eye Normal Inspection, Bilateral Eye PERRL, Bilateral Eye EOMI HEENT: PERRL/EOMI, TMs Normal, Normal ENT Inspection, Pharynx Normal Neck: Full Range of Motion, Normal Inspection, Non Tender, Supple, Carotid Bruit Respiratory: Chest Non Tender, Lungs Clear, Normal Breath Sounds, No Accessory Muscle Use, No Respiratory Distress Cardiovascular: No Edema, No Gallop, No JVD, Normal Peripheral Pulses, Systolic Murmur, Irregularly Irregular Gastrointestinal: Normal Bowel Sounds, No Organomegaly, No Pulsatile Mass, Non Tender, Soft Back: Normal Inspection, No CVA Tenderness, No Vertebral Tenderness Extremity: Normal Capillary Refill, Normal Inspection, Normal Range of Motion, Non Tender, No Calf Tenderness, No Pedal Edema Neurologic/Psychiatric: Alert, Oriented x3, No Motor/Sensory Deficits, Normal Mood/Affect Skin: Normal Color, Warm/Dry Lymphatic: No Adenopathy A/P-Cardiology Admission Diagnosis Congestive heart failure, acute on chronic left ventricular systolic dysfunction Chronic atrial fibrillation Coronary artery disease Acute bronchitis Assessment/Plan Congestive heart failure, acute decompensated left ventricular systolic dysfunction, last echocardiogram from October 2017 showed ejection fraction 50-55 percent with moderately to severely dilated left atrium moderate mitral regurgitation, [id number] TR and pulmonary hypertension, I will repeat 2- D echocardiogram, responded well to Lasix, diuresed about 2 L this morning, I will continue with Lasix and monitor electrolytes closely Chronic persistent atrial fibrillation, maintained on Eliquis, rate is controlled. Shortness of breath, cough, could be a combination of congestive heart failure and bronchitis, receiving antibiotic and managed by Dr. Cisneros Coronary artery disease, Last card cath on 06-21-18: 80% proximal stenosis of the right coronary artery to which successful stenting was carried out with Xience Laverne 3.5 x 16 mm stent. The left anterior descending artery had previously placed patent stents that are known to be Taxus 2.75 x 20, 2.5 x 24, 2.5 x 12, and Xience Laverne 2.5 x 8 mm stents (proximal to distal). The left circumflex artery had moderate diffuse disease and had a patent stent in its obtuse marginal branch that is known to be Promus 2.5 x 16 mm MPI of November 02, 2017 showed lateral wall myocardial infarction with a small amt of hill-infarct ischemia. Lateral wall akinesis. LVEF 42%. Med management at that time Echocardiogram of October 2017 showed concentric hypertrophy. LVEF 50-55%. Hypokinesis of the lateral myocardium. The LA is mod to severly dilated. Mod calcified mitral valve annulus with mod regurg. Mild to mod TR. PASP approx 40 -45mmHg Hypertension, controlled on current medication, continue to monitor History of infra-mammary herpes zoster in the past. She is currently not experiencing any symptoms from it. Degenerative joint disease. Hyperlipidemia being treated with simvastatin and followed by her PCP History of urinary incontinence, which has been followed by Dr. Dee. NIMESH BERMUDEZ MD Oct 08, 2018 08:48
[2018-10-08] MEDS ORDERED: AZITHROMYCIN INJECTION 500 MG in NS (IVPB) 250 ML IV SCH (09:00)
[2018-10-08] MEDS: predniSONE 10 MG TAB PO SCH (09:17)
[2018-10-08] MEDS: CLOPIDOGREL 75 MG (PLAVIX) TABLET PO SCH (09:17)
[2018-10-08] MEDS: meTOprolol TARTRATE 50 MG (LOPRESSOR) TAB PO SCH ×2 (09:17→21:09)
[2018-10-08] MEDS: APIXABAN 2.5 MG (ELIQUIS) TABLET PO SCH ×2 (09:17→21:09)
[2018-10-08] MEDS: NS IV 1000 ML 1,000 ML IV SCH ×2 (09:18→21:43)
--- NOTE | 2018-10-08 09:52 | History & Physicial (CHS) ---
HPI History of Present Illness: 83-year-old female admitted through emergency department during the morning of October 08, 2018 after apparently having difficulty breathing when lying down. She speaks [facility] language and her granddaughter is here to interpret. Patient has not been running any fevers. She does have a cough. Her history is significant for chronic atrial fibrillation. Her granddaughter reports she also has issues with urinary tract infections and urinary incontinence but she is not a surgical candidate due to her heart condition. Source: family Exam Limitations: clinical condition Date seen by provider: Oct 08, 2018 Time Seen by Provider: 06:55 Attending Physician Rodney Gray MD PCP Center/[facility] Consult Date of Admission Oct 08, 2018 at 05:15 Home Medications Home Medications Reviewed patient Home Medication Reconciliation performed by pharmacy medication reconciliations physical science technician and/or nursing. Patients Allergies have been reviewed. Allergies Coded Allergies: NKANo Known Allergies (Verified Allergy, Unknown, 02/07/07) PGM-Zwdemg-Yxazov Hx Patient Social History Employed/Student: retired Alcohol Use: Denies Use Recreational Drug Use: No Smoking Status: Never a Smoker 2nd Hand Smoke Exposure: No Recent Foreign Travel: No Contact w/other who traveled: No Recent Hopitalizations: No Recent Infectious Disease Expo: No Immunizations Up To Date Date of Influenza Vaccine: May 18, 2018 Family Medical History Significant Family History: No Pertinent Family Hx Review of Systems ([facility]) Constitutional: see HPI Reviewed Test Results Reviewed Test Results Lab Laboratory Tests Test 10/08/18 03:49 10/08/18 04:04 10/08/18 09:04 Range/Units White Blood Count 7.2 4.3-11.0 10^3/uL Red Blood Count 3.37 L 4.35-5.85 10^6/uL Hemoglobin 10.4 L 11.5-16.0 G/DL Hematocrit 32 L 35-52 % Mean Corpuscular Volume 96 80-99 FL Mean Corpuscular Hemoglobin 31 25-34 PG Mean Corpuscular Hemoglobin Concent 32 32-36 G/DL Red Cell Distribution Width 13.5 10.0-14.5 % Platelet Count 151 130-400 10^3/uL Mean Platelet Volume 10.8 H 7.4-10.4 FL Neutrophils (%) (Auto) 73 42-75 % Lymphocytes (%) (Auto) 17 12-44 % Monocytes (%) (Auto) 8 0-12 % Eosinophils (%) (Auto) 2 0-10 % Basophils (%) (Auto) 1 0-10 % Neutrophils # (Auto) 5.2 1.8-7.8 X 10^3 Lymphocytes # (Auto) 1.2 1.0-4.0 X 10^3 Monocytes # (Auto) 0.6 0.0-1.0 X 10^3 Eosinophils # (Auto) 0.1 0.0-0.3 10^3/uL Basophils # (Auto) 0.0 0.0-0.1 10^3/uL Prothrombin Time 16.7 H 12.2-14.7 SEC INR Comment 1.3 0.8-1.4 Activated Partial Thromboplast Time 43 H 24-35 SEC Sodium Level 129 L 135-145 MMOL/L Potassium Level 4.2 3.6-5.0 MMOL/L Chloride Level 99 98-107 MMOL/L Carbon Dioxide Level 22 21-32 MMOL/L Anion Gap 8 5-14 MMOL/L Blood Urea Nitrogen 31 H 7-18 MG/DL Creatinine 1.37 H 0.60-1.30 MG/DL Estimat Glomerular Filtration Rate 37 BUN/Creatinine Ratio 23 Glucose Level 132 H 70-105 MG/DL Lactic Acid Level 0.88 0.50-2.00 MMOL/L Calcium Level 8.9 8.5-10.1 MG/DL Corrected Calcium 9.4 8.5-10.1 MG/DL Magnesium Level 1.9 1.8-2.4 MG/DL Total Bilirubin 1.5 H 0.1-1.0 MG/DL Aspartate Amino Transf (AST/SGOT) 57 H 5-34 U/L Alanine Aminotransferase (ALT/SGPT) 45 0-55 U/L Alkaline Phosphatase 100 40-136 U/L Troponin I < 0.028 < 0.028 <0.028 NG/ML B-Type Natriuretic Peptide 2377.0 H <100.0 PG/ML Total Protein 6.9 6.4-8.2 GM/DL Albumin 3.4 3.2-4.5 GM/DL Urine Color YELLOW Urine Clarity SLIGHTLY CLOUDY Urine pH 5 5-9 Urine Specific [place] 1.015 L 1.016-1.022 Urine Protein 2+ H NEGATIVE Urine Glucose (UA) NEGATIVE NEGATIVE Urine Ketones NEGATIVE NEGATIVE Urine Nitrite POSITIVE H NEGATIVE Urine Bilirubin NEGATIVE NEGATIVE Urine Urobilinogen NORMAL NORMAL MG/DL Urine Leukocyte Esterase 3+ H NEGATIVE Urine RBC (Auto) 5+ H NEGATIVE Urine RBC 25-50 H /HPF Urine WBC 25-50 H /HPF Urine Squamous Epithelial Cells 2-5 /HPF Urine Crystals NONE /LPF Urine Bacteria LARGE H /HPF Urine Casts PRESENT /LPF Urine Hyaline Casts 10-25 H /LPF Urine Mucus NEGATIVE /LPF Urine Culture Indicated YES Radiology NAME: IN[facility]ORRES [facility] REC#: [id number] PT STATUS: ADM IN : 1935 PHYSICIAN: RONNA MAYORGA DO ADMIT DATE: 10/08/18/ICU Signed Date of Exam: 10/08/18 CHEST 1 VIEW, AP/PA ONLY INDICATION: CHF, shortness of breath COMPARISON: 02/11/2018 FINDINGS: Single view of the chest demonstrates stable cardiac enlargement without overt pulmonary edema. There is no pneumothorax or large effusion. Osseous structures are age-appropriate. IMPRESSION: Cardiac enlargement without pulmonary edema or infiltrate Dictated by: Dictated on workstation # [id number] Dict: 10/08/18 0609 Trans: 10/08/18 0851 Interpreted by: RODNEY RYAN Electronically signed by: RODNEY RYAN 10/08/18 0851 Physical Exam-([facility]C) Physical Exam Vital Signs VS - Last 72 Hours, by Label 10/08/18 10/08/18 10/08/18 10/08/18 03:10 06:45 07:00 07:00 Temp 96.5 96.9 Pulse 79 90 90 Resp 19 17 B/P (MAP) 111/88 (96) 127/99 (108) Pulse Ox 98 98 94 O2 Delivery Room Air Room Air Nasal Cannula O2 Flow Rate 2.00 10/08/18 10/08/18 10/08/18 10/08/18 07:15 07:30 07:45 08:00 Pulse 84 86 90 78 Resp 29 24 13 14 B/P (MAP) 140/90 (107) 134/98 (110) 143/102 (116) Pulse Ox 92 94 96 96 O2 Delivery Room Air Room Air Room Air Room Air 3/10/08/18 10/08/18 10/08/18 08:00 09:00 09:00 10:00 Pulse 90 82 Resp 18 25 B/P (MAP) 128/91 (103) 107/74 (85) Pulse Ox 96 99 91 O2 Delivery Nasal Cannula Room Air Room Air O2 Flow Rate 2.00 2.00 10/08/18 10/08/18 10/08/18 10/08/18 11:00 12:00 12:00 12:38 Temp 98.3 Pulse 84 80 B/P (MAP) 124/90 (101) 124/78 (93) Pulse Ox 99 O2 Delivery Room Air Room Air O2 Flow Rate 2.00 10/08/18 10/08/18 10/08/18 10/08/18 13:00 13:00 14:00 15:00 Pulse 94 80 66 74 Resp 37 20 16 B/P (MAP) 125/88 (100) 131/97 (108) 141/93 (109) Pulse Ox 100 100 O2 Delivery Room Air Room Air Room Air 10/08/18 10/08/18 10/08/18 10/08/18 16:00 16:00 16:16 16:24 Temp 97.8 Pulse 85 Resp 18 B/P (MAP) 151/97 (115) Pulse Ox 99 94 O2 Delivery Room Air Nasal Cannula O2 Flow Rate 2.00 2.00 10/08/18 10/08/18 10/08/18 10/08/18 17:00 18:00 19:00 20:00 Pulse 88 85 95 87 Resp 24 10 16 B/P (MAP) 148/100 (116) 134/78 (96) 107/78 (88) Pulse Ox 90 96 100 O2 Delivery Room Air Room Air Room Air 10/08/18 10/08/18 10/09/18 10/09/18 20:01 21:40 00:11 01:00 Temp 98.0 98.2 Pulse 81 81 90 Resp 18 20 B/P (MAP) 103/64 (77) 109/67 (81) Pulse Ox 99 96 94 O2 Delivery Nasal Cannula Room Air Room Air O2 Flow Rate 2.00 10/09/18 10/09/18 10/09/18 04:15 07:00 08:00 Temp 98.4 97.3 Pulse 90 89 90 Resp 18 18 B/P (MAP) 112/71 (85) 139/67 (91) Pulse Ox 96 92 O2 Delivery Room Air Room Air Capillary Refill : Less Than 3 Seconds General Appearance: no apparent distress (Now that she has been diuresed) Eyes: Bilateral Eye Normal Inspection Neck: supple, normal inspection Respiratory: lungs clear Cardiovascular: irregularly irregular (With controlled rate at 80) Gastrointestinal: soft Rectal: deferred Assessment/Plan Assessment/Plan Admission Dx 1. Congestive heart failure 2. Bronchitis possible early infiltrates but not evident by chest x-ray 3. Chronic atrial fibrillation 4. Hyponatremia 5. Chronic renal insufficiency Admission Status: Inpatient Order (span 2 midnights) Reason for Inpatient Admission: She is admitted in the ICU for further diuresis. Dr. Cisneros consultation. She is also placed on Zithromax to cover for bronchitis. Assessment & Plan 1. Congestive heart failure -IV Lasix has been initiated in ED 2. Bronchitis possible early infiltrates but not evident by chest x-ray -ED has already started Zithromax 3. Chronic atrial fibrillation -She does take Eliquis and will be maintained 4. Hyponatremia -Monitor electrolytes 5. Chronic renal insufficiency -Monitor creatinine RODNEY GRAY MD Oct 08, 2018 09:52
--- NOTE | 2018-10-08 10:20 | Diagnostic Imaging Report ---
INDICATION: Pneumonia COMPARISON: 10/08/2018 FINDINGS: Single view of the chest demonstrate cardiac enlargement without overt pulmonary edema. Lungs remain clear. There is no pneumothorax, effusion or infiltrate. Osseous structures normal. IMPRESSION: Stable cardiac enlargement without pulmonary edema or infiltrate Dictated by: Dictated on workstation # [id number]
[2018-10-08] MEDS ORDERED: methylPREDNISolone 125 MG (Solu-MEDROL) VIAL IVP SCH (11:00)
[2018-10-08] MEDS ORDERED: FLU QUADRIvalent (5+ YOA) 2018-2019 (AFLURIA) 0.5 ML IM ONE (11:15)
[2018-10-08] MEDS ORDERED: FUROSEMIDE 40 MG/4 ML INJ (LASIX) IV SCH (13:00)
[2018-10-08] MEDS: FUROSEMIDE 40 MG/4 ML INJ (LASIX) IVP SCH (16:38)
[2018-10-08] MEDS: RT-ALBUTEROL/IPRATROPIUM 3 ML (DUONEB) VIAL INH SCH (20:01)
[2018-10-08] MEDS: MONTELUKAST 10 MG (SINGULAIR) TAB PO SCH (21:09)
--- NOTE | 2018-10-08 21:40 | NUR ---
PT. TRANSFERRED DOWN FORM ICU VIA CART. VITAL SIGNS TAKEN. WILL CONTINUE TO MONITOR.
[2018-10-09] VITALS (7 sets, daily range): BP systolic 101–139; BP diastolic 65–76
[2018-10-09] MEDS ORDERED: WATER (STERILE) FOR INJECTION 10 ML ONE (04:43)
[2018-10-09] MEDS ORDERED: cefTRIAXone 1,000 MG IV (ROCEPHIN) VIAL ONE (04:43)
[2018-10-09] MEDS: cefTRIAXone 1,000 MG/SWFI 10 ML IV PUSH IV SCH ×2 (04:47)
[2018-10-09 04:57] LABS: HEMOGLOBIN 10.7 G/DL (11.5-16.0); MEAN PLATELET VOLUME 10.6 FL (7.4-10.4); RED CELL DISTRIBUTION WIDTH 13.9 % (10.0-14.5); WHITE BLOOD COUNT 11.3 10^3/uL (4.3-11.0)
[2018-10-09] MEDS ORDERED: cefTRIAXone FOR IV USE 1,000 MG in WATER (STERILE) FOR INJECTION 10 ML IV SCH (05:00)
[2018-10-09 05:25] LABS: ALBUMIN 3.3 GM/DL (3.2-4.5); BILIRUBIN,TOTAL 0.6 MG/DL (0.1-1.0); CALCIUM 8.7 MG/DL (8.5-10.1); CREATININE SERUM 1.37 MG/DL (0.60-1.30); POTASSIUM 3.6 MMOL/L (3.6-5.0); TOTAL PROTEIN 6.9 GM/DL (6.4-8.2)
[2018-10-09] MEDS: FUROSEMIDE 40 MG/4 ML INJ (LASIX) IVP SCH ×2 (06:16→17:55)
[2018-10-09] MEDS: APIXABAN 2.5 MG (ELIQUIS) TABLET PO SCH ×2 (08:24→20:00)
[2018-10-09] MEDS: AZITHROMYCIN 250 MG TAB (ZITHROMAX) PO SCH (08:24)
[2018-10-09] MEDS: predniSONE 10 MG TAB PO SCH (08:24)
[2018-10-09] MEDS: meTOprolol TARTRATE 50 MG (LOPRESSOR) TAB PO SCH ×2 (08:25→20:00)
[2018-10-09] MEDS: CLOPIDOGREL 75 MG (PLAVIX) TABLET PO SCH (08:25)
[2018-10-09] MEDS ORDERED: AZITHROMYCIN 250 MG TAB (ZITHROMAX) PO SCH (09:00)
--- NOTE | 2018-10-09 09:30 | Progress Note (SOAP) ---
Subjective Subjective/Events-last exam Patient resting comfortably this morning. I spoke with her granddaughter who did not voice any concerns. She does state she was eating a little bit last night. She is not with any pain. Review of Systems Date Seen by Provider: Oct 09, 2018 Time Seen by Provider: 08:05 Focused Exam Lactate Level 10/08/18 03:49: Lactic Acid Level 0.88 Objective Exam Last Set of Vital Signs Vital Signs Date Time Temp Pulse Resp B/P (MAP) Pulse Ox O2 Delivery O2 Flow Rate FiO2 10/09/18 08:00 97.3 90 18 139/67 (91) 92 Room Air 10/08/18 20:01 2.00 Capillary Refill : Less Than 3 SecondsLess Than 3 Seconds I&O Intake and Output 10/09/18 00:00 Intake Total 2030 ml Output Total 3725 ml Balance -1695 ml Intake Oral 770 ml IV Total 1260 ml Output Urine Total 3725 ml Daily Weight Change No General: No Acute Distress Lungs: Clear to Auscultation (But distant due to poor inspiration) Heart: Regular Rate Abdomen: Soft Extremities: No Edema Results/Procedures Lab Laboratory Tests 10/09/18 04:45: White Blood Count 11.3H, Red Blood Count 3.42L, Hemoglobin 10.7L, Hematocrit 33L , Mean Corpuscular Volume 95, Mean Corpuscular Hemoglobin 31, Mean Corpuscular Hemoglobin Concent 33, Red Cell Distribution Width 13.9, Platelet Count 164, Mean Platelet Volume 10.6H, Sodium Level 134L, Potassium Level 3.6, Chloride Level 98, Carbon Dioxide Level 26, Anion Gap 10, Blood Urea Nitrogen 37H, Creatinine 1.37H, Estimat Glomerular Filtration Rate 37, BUN/Creatinine Ratio 27 , Glucose Level 214H, Calcium Level 8.7, Corrected Calcium 9.3, Magnesium Level 2.0, Total Bilirubin 0.6, Aspartate Amino Transf (AST/SGOT) 32, Alanine Aminotransferase (ALT/SGPT) 38, Alkaline Phosphatase 101, B-Type Natriuretic Peptide 1122.3H, Total Protein 6.9, Albumin 3.3 Microbiology 10/08/18 Blood Culture - Preliminary, Resulted No growth 10/08/18 Influenza Types A,B Antigen (LETICIA) - Final, Complete Radiology NAME: MATTHEW TORRESTERRANCE Ha [facility] REC#: [id number] PT STATUS: ADM IN : 1935 PHYSICIAN: RONNA MAYORGA DO ADMIT DATE: 10/08/18/ICU Signed Date of Exam: 10/08/18 CHEST 1 VIEW, AP/PA ONLY INDICATION: CHF, shortness of breath COMPARISON: 02/11/2018 FINDINGS: Single view of the chest demonstrates stable cardiac enlargement without overt pulmonary edema. There is no pneumothorax or large effusion. Osseous structures are age-appropriate. IMPRESSION: Cardiac enlargement without pulmonary edema or infiltrate Dictated by: Dictated on workstation # [id number] Dict: 10/08/18 0609 Trans: 10/08/18 0851 Interpreted by: RODNEY RYAN Electronically signed by: RODNEY RYAN 10/08/18 0851 Assessment/Plan Assessment/Plan Assessment & Plan 1. Congestive heart failure -IV Lasix has been initiated in ED 10/09 -BNP has improved to 1122 -She continues to diurese with Lasix 40 mg IV twice daily -Monitor creatinine closely as it is 1.37 this morning 2. Bronchitis possible early infiltrates but not evident by chest x-ray -ED has already started Zithromax 10/09 -Day number 2 ceftriaxone 3. Chronic atrial fibrillation -She does take Eliquis and will be maintained 4. Hyponatremia -Monitor electrolytes 5. Chronic renal insufficiency -Monitor creatinine Clinical Quality Measures DVT/VTE Risk/Contraindication: Risk Factor Score Per Nursin RFS Level Per Nursing on Admit: 2=Moderate RODNEY GRAY MD Oct 09, 2018 09:30
--- NOTE | 2018-10-09 09:59 | Cardiology Progress Note ---
Subjective Date Seen by Provider: Oct 09, 2018 Time Seen by Provider: 09:58 Subjective/Events-last exam patient is laying down in bed, feeling better. Breathing better. Review of Systems General: No Chills, No Night Sweats, No Fatigue, No Malaise, No Appetite, No Other HEENT: No Head Aches, No Visual Changes, No Eye Pain, No Ear Pain, No Dysphasia , No Sinus Congestion, No Post Nasal Drip, No Sore Throat, No Other Pulmonary: No Dyspnea, No Cough, No Pleuritic Chest Pain, No Other Cardiovascular: No: Chest Pain, Palpitations, Orthopnea, Paroxysmal Noc. Dyspnea, Edema, Lt Headedness, Other Focused Exam Lactate Level 10/08/18 03:49: Lactic Acid Level 0.88 Objective-Cardiology Exam Last Set of Vital Signs Vital Signs 10/08/18 10/09/18 20:01 08:00 Temp 97.3 Pulse 90 Resp 18 B/P (MAP) 139/67 (91) Pulse Ox 92 O2 Delivery Room Air O2 Flow Rate 2.00 Capillary Refill : Less Than 3 SecondsLess Than 3 Seconds I&O Intake and Output 10/09/18 00:00 Intake Total 2030 ml Output Total 3725 ml Balance -1695 ml Intake Oral 770 ml IV Total 1260 ml Output Urine Total 3725 ml Daily Weight Change No General: No Acute Distress HEENT: Atraumatic, PERRLA Neck: Supple, No JVD, No Thyromegaly Lungs: Clear to Auscultation (But distant due to poor inspiration) Heart: Regular Rate, Normal S1, Normal S2 Abdomen: Soft Extremities: No Edema Skin: No Rashes, No Breakdown, No Significant Lesion Neuro: Normal Speech, Normal Tone, Sensation Intact Psych/Mental Status: Mental Status NL, Mood NL Results Lab Laboratory Tests 10/09/18 04:45 A/P-Cardiology Admission Diagnosis Congestive heart failure, acute on chronic left ventricular systolic dysfunction Chronic atrial fibrillation Coronary artery disease Acute bronchitis Assessment/Plan Congestive heart failure, acute decompensated left ventricular systolic dysfunction, last echocardiogram from October 2017 showed ejection fraction 50-55 percent with moderately to severely dilated left atrium moderate mitral regurgitation, [id number] TR and pulmonary hypertension, continue with IV Lasix and monitor Chronic persistent atrial fibrillation, maintained on Eliquis, rate is controlled. Shortness of breath, cough, could be a combination of congestive heart failure and bronchitis, receiving antibiotic and managed by Dr. Cisneros Coronary artery disease, Last card cath on 06-21-18: 80% proximal stenosis of the right coronary artery to which successful stenting was carried out with Xience Laverne 3.5 x 16 mm stent. The left anterior descending artery had previously placed patent stents that are known to be Taxus 2.75 x 20, 2.5 x 24, 2.5 x 12, and Xience Laverne 2.5 x 8 mm stents (proximal to distal). The left circumflex artery had moderate diffuse disease and had a patent stent in its obtuse marginal branch that is known to be Promus 2.5 x 16 mm, management followed by Dr. Flowers MPI of November 02, 2017 showed lateral wall myocardial infarction with a small amt of hill-infarct ischemia. Lateral wall akinesis. LVEF 42%. Med management at that time Echocardiogram of October 2017 showed concentric hypertrophy. LVEF 50-55%. Hypokinesis of the lateral myocardium. The LA is mod to severly dilated. Mod calcified mitral valve annulus with mod regurg. Mild to mod TR. PASP approx 40 -45mmHg Hypertension, controlled on current medication, continue to monitor History of infra-mammary herpes zoster in the past. She is currently not experiencing any symptoms from it. Degenerative joint disease. Hyperlipidemia being treated with simvastatin and followed by her PCP History of urinary incontinence, which has been followed by Dr. Dee. Clinical Quality Measures DVT/VTE Risk/Contraindication: Risk Factor Score Per Nursin RFS Level Per Nursing on Admit: 2=Moderate NIMESH BERMUDEZ MD Oct 09, 2018 09:59
[2018-10-09] MEDS: RT-ALBUTEROL/IPRATROPIUM 3 ML (DUONEB) VIAL INH SCH ×4 (10:38→19:03)
--- NOTE | 2018-10-09 11:06 | Pulmonary Progress Note ---
Subjective Time Seen by a Provider: 11:06 Subjective/Events-last exam No complications noted. Sepsis Event Evaluation Height, Weight, BMI Height: 5'4.00" Weight: 154lbs. 8.0oz. [id number]; 27.2 BMI Method:Stated Focused Exam Lactate Level 10/08/18 03:49: Lactic Acid Level 0.88 Exam Exam Vital Signs Date Time Temp Pulse Resp B/P (MAP) Pulse Ox O2 Delivery O2 Flow Rate FiO2 10/09/18 10:45 94 Room Air 10/09/18 08:00 Room Air 10/09/18 08:00 97.3 90 18 139/67 (91) 92 Room Air 10/09/18 07:00 89 10/09/18 04:15 98.4 90 18 112/71 (85) 96 Room Air 10/09/18 01:00 90 10/09/18 00:11 98.2 81 20 109/67 (81) 94 Room Air 10/08/18 21:40 98.0 81 18 103/64 (77) 96 Room Air 10/08/18 20:01 99 Nasal Cannula 2.00 10/08/18 20:00 87 16 107/78 (88) 100 Room Air 10/08/18 19:00 95 10/08/18 18:00 85 10 134/78 (96) 96 Room Air 10/08/18 17:00 88 24 148/100 (116) 90 Room Air 10/08/18 16:24 97.8 10/08/18 16:16 Nasal Cannula 2.00 10/08/18 16:00 85 18 151/97 (115) 94 Room Air 10/08/18 16:00 99 2.00 10/08/18 15:00 74 16 141/93 (109) 100 Room Air 10/08/18 14:00 66 20 131/97 (108) 100 Room Air 10/08/18 13:00 80 37 125/88 (100) Room Air 10/08/18 13:00 94 10/08/18 12:38 98.3 10/08/18 12:00 80 124/78 (93) Room Air 10/08/18 12:00 99 2.00 I & O 10/09/18 07:00 Intake Total 2030 ml Output Total 3725 ml Balance -1695 ml Height & Weight Height: 5'4.00" Weight: 154lbs. 8.0oz. 69.806365wc; 27.2 BMI Method:Stated General Appearance: No Apparent Distress, WD/WN HEENT: PERRL/EOMI, TMs Normal, Normal ENT Inspection, Pharynx Normal Neck: Full Range of Motion, Normal Inspection, Non Tender, Supple, Carotid Bruit Respiratory: Chest Non Tender, Lungs Clear, Normal Breath Sounds, No Accessory Muscle Use, No Respiratory Distress Cardiovascular: No Edema, No Gallop, No JVD, Normal Peripheral Pulses, Systolic Murmur, Irregularly Irregular Capillary Refill: Less Than 3 Seconds Gastrointestinal: soft Extremity: Normal Capillary Refill, Normal Inspection, Normal Range of Motion, Non Tender, No Calf Tenderness, No Pedal Edema Neurologic/Psychiatric: Alert, Oriented x3, No Motor/Sensory Deficits, Normal Mood/Affect Skin: Normal Color, Warm/Dry Lymphatic: No Adenopathy Results Lab Laboratory Tests 10/08/18 03:49 10/09/18 04:45 Assessment/Plan Assessment/Plan SOB -- Doubt PNA-- No leukocytosis, no infiltrate on CXR, and no fever - Pt does have green sputum production-probably secondary to sinus drainage vs bronchitis -Check sputum culture Singulair -Monitor -Pt is on ROOM AIR Sp02 is 95% Acute bronchitis - prednisone taper - SVNS Hx of CAD and CHF hx of 5 stents placed -- Denies CP -Troponin is negative -Continue home meds -Monitor Acute renal failure -Hold lasix secondary to renal function chronic Afib - controlled -Monitor resume home meds -She is not requiring any IV drips Anemia -Monitor -Check occult stools PT is doing well from pulmonary standpoint. I am going to sign off please call with any questions or concerns. NNEKA SAN DO Oct 09, 2018 11:06
[2018-10-09] MEDS: NS IV 1000 ML 1,000 ML IV SCH (17:55)
[2018-10-09] MEDS: MONTELUKAST 10 MG (SINGULAIR) TAB PO SCH (20:00)
[2018-10-10 04:59] VITALS: BP 123/65
[2018-10-10] MEDS ORDERED: WATER (STERILE) FOR INJECTION 10 ML ONE (05:28)
[2018-10-10] MEDS ORDERED: cefTRIAXone 1,000 MG IV (ROCEPHIN) VIAL ONE (05:28)
[2018-10-10] MEDS: cefTRIAXone 1,000 MG/SWFI 10 ML IV PUSH IV SCH ×2 (05:34)
[2018-10-10] MEDS: FUROSEMIDE 40 MG/4 ML INJ (LASIX) IVP SCH ×2 (05:34→17:30)
[2018-10-10 05:36] LABS: BASOPHILS % (AUTO) 0 % (0-10); EOSINOPHILS % (AUTO) 0 % (0-10); HEMATOCRIT 33 % (35-52); HEMOGLOBIN 10.5 G/DL (11.5-16.0); LYMPHOCYTES # (AUTO) 1.1 X 10^3 (1.0-4.0); LYMPHOCYTES % (AUTO) 8 % (12-44); MEAN CORPUSCULAR HEMOGLOBIN 31 PG (25-34); MEAN CORPUSCULAR HGB CONC 32 G/DL (32-36); MEAN CORPUSCULAR VOLUME 97 FL (80-99); MEAN PLATELET VOLUME 10.9 FL (7.4-10.4); MONOCYTES # (AUTO) 0.8 X 10^3 (0.0-1.0); MONOCYTES % (AUTO) 6 % (0-12); NEUTROPHILS # (AUTO) 11.8 X 10^3 (1.8-7.8); NEUTROPHILS % (AUTO) 86 % (42-75); PLATELET COUNT 177 10^3/uL (130-400); WHITE BLOOD COUNT 13.7 10^3/uL (4.3-11.0)
[2018-10-10 06:04] LABS: CALCIUM 8.7 MG/DL (8.5-10.1); CREATININE SERUM 1.2 MG/DL (0.60-1.30)
[2018-10-10] MEDS: RT-ALBUTEROL/IPRATROPIUM 3 ML (DUONEB) VIAL INH SCH ×4 (07:50→19:23)
[2018-10-10 08:00] VITALS: BP 110/66
[2018-10-10] MEDS: predniSONE 10 MG TAB PO SCH (08:59)
[2018-10-10] MEDS: meTOprolol TARTRATE 50 MG (LOPRESSOR) TAB PO SCH ×2 (08:59→21:30)
[2018-10-10] MEDS: APIXABAN 2.5 MG (ELIQUIS) TABLET PO SCH ×2 (09:00→21:30)
[2018-10-10] MEDS: AZITHROMYCIN 250 MG TAB (ZITHROMAX) PO SCH (09:00)
--- NOTE | 2018-10-10 09:13 | Progress Note-Cardiology ---
Cardiology SOAP Progress Note Subjective: Weak, tired Shortness of breath modestly improved No cp or palp or syncope Objective: I&O/Vital Signs 10/09/18 10/10/18 10/10/18 10/10/18 23:16 01:00 04:59 07:00 Temp 98.4 96.2 Pulse 105 114 109 80 Resp 20 18 B/P (MAP) 120/76 (91) 123/65 (84) Pulse Ox 96 97 O2 Delivery Room Air Room Air 10/10/18 00:00 Intake Total 1150 ml Output Total 1125 ml Balance 25 ml Weight (Pounds): 156 Weight (Ounces): 3.2 Weight (Calculated Kilograms): 70.731027 Constitutional: AAO x 3, well-developed, well-nourished Respiratory: No accessory muscle use; other (Fair to good bilat air entry, diminished at the bases) Cardiovascular: irregularly irregular, S1 and S2, systolic murmur (soft JUSTINO at card base) Gastrointestional: No tender; soft; No guarding; audible bowel sounds Extremities: No clubbing, No cyanosis, No significant edema Neurologic/Psychiatric: oriented x 3, grossly intact, power is 5/5 both on sides Skin: No rash on exposed areas, No ulcerations on exposed areas Results/Procedures: Labs Laboratory Tests 10/10/18 05:25: White Blood Count 13.7H, Red Blood Count 3.40L, Hemoglobin 10.5L, Hematocrit 33L , Mean Corpuscular Volume 97, Mean Corpuscular Hemoglobin 31, Mean Corpuscular Hemoglobin Concent 32, Red Cell Distribution Width 14.0, Platelet Count 177, Mean Platelet Volume 10.9H, Neutrophils (%) (Auto) 86H, Lymphocytes (%) (Auto) 8L, Monocytes (%) (Auto) 6, Eosinophils (%) (Auto) 0, Basophils (%) (Auto) 0, Neutrophils # (Auto) 11.8H, Lymphocytes # (Auto) 1.1, Monocytes # (Auto) 0.8, Eosinophils # (Auto) 0.0, Basophils # (Auto) 0.0, Sodium Level 139, Potassium Level 4.0, Chloride Level 101, Carbon Dioxide Level 25, Anion Gap 13, Blood Urea Nitrogen 34H, Creatinine 1.20, Estimat Glomerular Filtration Rate 43, BUN/ Creatinine Ratio 28, Glucose Level 206H, Calcium Level 8.7 Microbiology 10/08/18 Blood Culture - Preliminary, Resulted No growth 10/08/18 MRSA Screen - Final, Complete MRSA not isolated 10/08/18 Urine Culture - Final, Complete Escherichia coli Laboratory Tests 10/09/18 04:45 10/10/18 05:25 A/P: Assessment: Multifactorial shortness of breath (see below) Ac on chronic diastolic CHF, last echo of October 2017 showed ejection fraction 50 -55 percent with moderately to severely dilated left atrium moderate mitral regurgitation, [id number] TR and PASP 40-45 mmHg Chronic persistent atrial fibrillation, rate is controlled, stroke prophylaxis with apixaban Shortness of breath, cough, could be a combination of congestive heart failure and bronchitis, receiving antibiotic and managed by Dr. Cisneros Coronary artery disease, Last card cath on 06-21-18: 80% proximal stenosis of the RCA successfully stented with Xience Laverne 3.5 x 16 mm stent. LAD had previously placed patent stents that are known to be Taxus 2.75 x 20, 2.5 x 24, 2.5 x 12, and Xience Laverne 2.5 x 8 mm stents (proximal to distal). LCX had moderate diffuse disease and had a patent stent in its obtuse marginal branch that is known to be Promus 2.5 x 16 mm MPI of November 02, 2017 showed lateral wall myocardial infarction with a small amt of hill-infarct ischemia. Lateral wall akinesis. LVEF 42% Hypertension History of infra-mammary herpes zoster in the past. She is currently not experiencing any symptoms from it. Degenerative joint disease. Hyperlipidemia being treated with simvastatin and followed by her PCP History of urinary incontinence, which has been followed by Dr. Dee Hyperglycemia vs DM II, managed by the Med Svce Plan: * Continue current regimen * Monitor closely, including labs * I reviewed the records of this hospitalization SAHIL HAWLEY MD FACP [facility] CCDS Oct 10, 2018 09:13
[2018-10-10] MEDS ORDERED: KCL 10 MEQ TAB (MICRO K) PO ONE ×2 (09:15→12:48)
[2018-10-10] MEDS: CLOPIDOGREL 75 MG (PLAVIX) TABLET PO SCH (09:16)
--- NOTE | 2018-10-10 09:59 | Progress Note-Hospitalist ---
Subjective HPI/CC On Admission Date Seen by Provider: Oct 10, 2018 Time Seen by Provider: 09:45 Subjective/Events-last exam Pt doing well Difficult communicating since she speaks a foreign language Dr. Albert note reviewed Will order PT and OT along with BM treatment Daughter at bedside Daughter reports she does not move around much at home but is ad-mickie Will evaluate the next step in her care since she is an advanced age individual with CHF and pneumonia and A-fib Review of Systems General: Fatigue Focused Exam Lactate Level 10/08/18 03:49: Lactic Acid Level 0.88 Objective Exam Vital Signs Vital Signs Date Time Temp Pulse Resp B/P (MAP) Pulse Ox O2 Delivery O2 Flow Rate FiO2 10/10/18 19:30 97.2 88 16 120/83 (95) 96 Room Air 10/08/18 20:01 2.00 Capillary Refill : Less Than 3 SecondsLess Than 3 Seconds General Appearance: No Apparent Distress, WD/WN HEENT: PERRL/EOMI, TMs Normal, Normal ENT Inspection, Pharynx Normal Neck: Full Range of Motion, Normal Inspection, Non Tender, Supple, Carotid Bruit Respiratory: Chest Non Tender, Lungs Clear, Normal Breath Sounds, No Accessory Muscle Use, No Respiratory Distress Cardiovascular: No Edema, No Gallop, No JVD, Normal Peripheral Pulses, Systolic Murmur, Irregularly Irregular Gastrointestinal: Normal Bowel Sounds, No Organomegaly, No Pulsatile Mass, Non Tender, Soft Back: Normal Inspection, No CVA Tenderness, No Vertebral Tenderness Extremity: Normal Capillary Refill, Normal Inspection, Normal Range of Motion, Non Tender, No Calf Tenderness, No Pedal Edema Neurologic/Psychiatric: Alert, Oriented x3, No Motor/Sensory Deficits, Normal Mood/Affect Skin: Normal Color, Warm/Dry Lymphatic: No Adenopathy Results/Procedures Lab Laboratory Tests 10/10/18 05:25 Patient resulted labs reviewed. Assessment/Plan Assessment and Plan Assess & Plan/Chief Complaint Assessment: Pneumonia CHF AF Advanced age Plan: Monitor labs PT/OT BM treatment Diagnosis/Problems Diagnosis/Problems (1) Debility Status: Acute (2) CHF (congestive heart failure) Status: Acute Qualifiers: Heart failure type: unspecified Heart failure chronicity: unspecified Qualified Codes: I50.9 - Heart failure, unspecified (3) Chronic atrial fibrillation Status: Chronic (4) Chronic renal insufficiency Status: Chronic Qualifiers: Chronic kidney disease stage: stage 3 (moderate) Qualified Codes: N18.3 - Chronic kidney disease, stage 3 (moderate) (5) UTI (urinary tract infection) Status: Acute Qualifiers: Urinary tract infection type: acute cystitis Hematuria presence: without hematuria Qualified Codes: N30.00 - Acute cystitis without hematuria (6) Hyponatremia Status: Acute (7) Anemia Status: Chronic Qualifiers: Anemia type: unspecified type Qualified Codes: D64.9 - Anemia, unspecified (8) HLD (hyperlipidemia) Status: Chronic Qualifiers: Hyperlipidemia type: mixed hyperlipidemia Qualified Codes: E78.2 - Mixed hyperlipidemia (9) HTN (hypertension) Status: Chronic Qualifiers: Hypertension type: essential hypertension Qualified Codes: I10 - Essential (primary) hypertension (10) Hyperlipidemia Status: Chronic Qualifiers: Hyperlipidemia type: mixed hyperlipidemia Qualified Codes: E78.2 - Mixed hyperlipidemia (11) Pneumonia Status: Acute Qualifiers: Pneumonia type: due to unspecified organism Laterality: unspecified laterality Lung location: unspecified part of lung Qualified Codes: J18.9 - Pneumonia, unspecified organism Clinical Quality Measures DVT/VTE Risk/Contraindication: Risk Factor Score Per Nursin RFS Level Per Nursing on Admit: 2=Moderate HUSAM JIMÉNEZ DO Oct 10, 2018 09:59
--- NOTE | 2018-10-10 11:39 | Physical Therapy Evaluation ---
PT Evaluation-General Medical Diagnosis Admission Date Oct 08, 2018 at 05:15 Medical Diagnosis: weakness Onset Date: Oct 08, 2018 Therapy Diagnosis Therapy Diagnosis: impaired mobility, strength, endurance Height/Weight Height (Feet): 5 Height (Inches): 4.00 Weight (Pounds): 156 Weight (Ounces): 3.2 Precautions Precautions/Isolations: Standard Precautions Referral Physician: Carole Cota DO Reason for Referral: Evaluation/Treatment Medical History Additional Medical History Past Medical History Surgeries: Yes (CARDIAC CATHS WITH STENTS X 5 + ANGIOPLASTIES; RIGHT ANKLE SURGERY; BILATERAL KNEE REPLACEMENT; RIGHT WRIST I&D OF ABSCESS; BILATERAL CATARACT SURGERY; CYSTOSCOPY WITH COAPTITE IMPLANTS FOR MACRINA;) Bladder Surgery, Cardiac, Coronary Stent, Eye Surgery, Gallbladder, Orthopedic Respiratory: No (CHRONIC DYSPNEA ON EXERTION) Cardiac: Yes (DVT LEFT LEG 2007; CARDIAC CATHS--STENTS X 5 + ANGIOPLASTY--CATH 05/24/18--STENT X 1, CATH 06/21/18 -ANGIOPLASTY + STENT X 1 ) Atrial Fibrillation, Coronary Artery Disease, Deep Vein Thrombosis, High Cholesterol, Hypertension Neurological: Yes (NEUROPATHY RIGHT FOOT POST ANKLE SURGERY) Neuropathy Reproductive Disorders: No 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 Sexually Transmitted Disease: No Genitourinary: Yes (INCONTINENCE) Renal Failure Gastrointestinal: Yes (S/P JUSTINE) Gall Bladder Disease Musculoskeletal: Yes (RIGHT ANKLE; BILATERAL KNEE REPLACEMENTS) Degenerate Disk Disease, Arthritis, Chronic Back Pain Endocrine: Yes (INSULIN RESISTANCE; OBESITY) HEENT: Yes (S/P SURGERY) Cataract Cancer: No Psychosocial: No Integumentary: Yes (ABSCESS I&D; CELLULITIS) Blood Disorders: Yes (ANEMIA) Current History patient went to the ER with difficulty breathing when laying down Reviewed History: Yes Social History Home: Single Level Current Living Status: Children Entry Into Home: Stairs With Railing PT Steps Into Home: 4 Prior/Core FIM Prior Level of Function Therapy Code Descriptions/Definitions Functional [place] Measure: 0=Not Assessed/NA 4=Minimal Assistance 1=Total Assistance 5=Supervision or Setup 2=Maximal Assistance 6=Modified [place] 3=Moderate Assistance 7=Complete [place] Therapy Quality Codes: 6 Independent with activity with or without an assistive device 5 Patient requires set up or clean up by helper. Patient completes activity by themselves 4 Supervision or touching assist (CGA). Wendell provide cues , steadying assist 3 The helper provides less than half the effort to complete the activity 2 The helper provides more than half the effort to complete the activity 1 Dependent. The helper does all the effort to complete an activity 7 Patient refused to complete or attempt activity 9 The patient did not perform the activity before the current illness or injury 88 Not attempted due to Medical conditions or safety concerns Functional Abilities and Goals: Independent: Patient completed the activities by him/herself, with or without an assistive device, with no assistance from a helper. Needed Some Help: Patient needed partial assistance from another person to complete activities. Dependent: A helper completed the activities for the patient. Unknown: Not Applicable: Bed Mobility: 7 Transfers (B,C,W/C) (FIM): 7 Gait: 7 Stairs: 7 Indoor Mobility (Ambulation): Independent Stairs: Independent PT Evaluation-Current Subjective Patient in bed pre tx, agrees to PT, has no complaints of pain. Patient speaks very little djiboutian, she has a family member to translate. Pt/Family Goals to be independent at home Objective Patient Orientation: Person, Unable to Assess Attachments: Olmos Catheter, IV ROM/Strength ROM Lower Extremities WNL Strength Lower Extremities 4/5 gross bilateral lower extremities Neuromuscular (Tone, Coordination, Reflexes) NT Sensory Hearing: Functional Sensation Right Lower Extremit: Impaired Sensation Left Lower Extremity: Intact Sensation Lower Extremities Patient seems to have had a surgery on her right foot and states that it is always numb. Transfers Therapy Code Descriptions/Definitions Functional [place] Measure: 0=Not Assessed/NA 4=Minimal Assistance 1=Total Assistance 5=Supervision or Setup 2=Maximal Assistance 6=Modified [place] 3=Moderate Assistance 7=Complete [place] Transfers (B, C, W/C) (FIM): 4 Scootin Rollin Supine to/from Sit: 5 Sit to/from Stand: 4 Slight dizziness immediately upon sitting from laying down, recovers quickly. Gait Mode of Locomotion: Walk Anticipated Mode of Locomotion: Walk Gait (FIM): 4 Distance: 200' Gait Level of Assist: 4 Gait Persons Needed: 1 Gait Assistive Device: FWW Comments/Gait Description Patient ambulates slowly and has some unsteadiness but no LOB enough to need assist from therapist other than CGA. Balance Sitting Static: Normal Sitting Dynamic: Normal Standing Static: Good Standing Dynamic: Fair Assessment/Needs Patient has impaired mobility, strength, endurance. She is slightly unsteady with ambulation, needs somebody with her. Rehab Potential: Fair PT Short Term Goals Short Term Goals Time Frame: Oct 17, 2018 Transfers (B,C,W/C) (FIM): 6 Gait (FIM): 5 Gait Distance Comment: 250' Gait Level of Assist: 5 Gait Assistive Device: FWW PT Plan Problem List Problem List: Activity Tolerance, Functional Strength, Safety, Balance, Gait, Transfer Treatment/Plan Treatment Plan: Continue Plan of Care Treatment Plan: Education, Functional Activity Rosana, Functional Strength, Gait , Safety, Therapeutic Exercise, Transfers Treatment Duration: Oct 17, 2018 Frequency: 6 times per week Estimated Hrs Per Day: .25 hour per day (15-30') Patient and/or Family Agrees t: Yes Safety Risks/Education Patient Education: Gait Training, Transfer Techniques, Correct Positioning, Safety Issues Teaching Recipient: Patient Teaching Methods: Demonstration, Discussion Response to Teaching: Reinforcement Needed Discharge Recommendations Plan Patient will perform bed mobility and transfer training, balance and endurance training, functional strengthening, stair training, gait training, and education , to improve functional mobility and independence at home. Therapy D/C Recommendations: Home w/ Family Support Time/GCodes Time In: 1110 Time Out: 1130 Total Billed Treatment Time: 20 Total Billed Treatment 1 visit EVM 20' YAN BLACKWOOD PT Oct 10, 2018 11:39
[2018-10-10] MEDS ORDERED: METO100T12 PO (11:56)
[2018-10-10] MEDS ORDERED: FURO20TA4 PO (11:56)
[2018-10-10] MEDS ORDERED: ATOR40TA70 PO (11:56)
[2018-10-10] MEDS ORDERED: CLOP75TA69 PO (11:56)
[2018-10-10] MEDS ORDERED: APIX2.5T PO (11:56)
[2018-10-10 12:00] VITALS: BP 110/56
[2018-10-10] MEDS: SENNA W/DOCUSATE (SENOKOT S) TABLET PO SCH ×2 (12:52→21:30)
[2018-10-10] MEDS: LACTULOSE SYRUP 10GM/15ML (ENULOSE) 30ML UDC PO SCH ×2 (12:53→21:31)
[2018-10-10] MEDS: NS IV 1000 ML 1,000 ML IV SCH (14:10)
[2018-10-10] MEDS ORDERED: ACET-2267 PO (14:49)
--- NOTE | 2018-10-10 14:50 | NUR ---
PATIENT HAD HER BOTTLES IN THE ROOM WITH HER AND VERIFIED HOW SHE TAKES THEM. I ALSO CALLED [facility] TO VERIFY WHAT HAS BEEN FILLED RECENTLY. [facility] FILLED: 10-07-18 LASIX 20MG 2 DAILY #60 10-06-18 LOPRESSOR TARTRATE 100MG BID #180 10-06-18 PLAVIX 75MG DAILY #30 10-06-18 ELIQUIS 2.5MG BID #60 09-02-18 LIPITOR 40MG HS #90 SHE STATES SHE TAKES TYLENOL OTC PRN WELL.
--- NOTE | 2018-10-10 15:03 | Occupational Therapy Eval ---
OT Evaluation-General/PLF Medical Diagnosis Admission Date Oct 08, 2018 at 05:15 Medical Diagnosis: CHF cardiac enlargement Onset Date: Oct 08, 2018 Therapy Diagnosis Therapy Diagnosis: Weakness Height/Weight Height (Feet): 5 Height (Inches): 4.00 Weight (Pounds): 156 Weight (Ounces): 3.2 Precautions Precautions/Isolations: Standard Precautions Safety Interventions: None Weight Bear Status Weight Bearing Restriction: Weight Bearing/Tolerated Referral Physician: Carole Cota DO Referral Reason: Activity Tolerance, Self Care, Evaluation/Treatment, Strengthening/ROM Medical History Pertinent Medical History: Atrial Fib Additional Medical History UTI Current History Pt. began having difficulty breathing with lying down. Lives with daughter. Pt. is able to speak some Dominican, but daughter and granddaughter interpret for him. Reviewed History: Yes Social History Home: Single Level Current Living Status: Children Entry Into Home: Stairs With Railing Steps Into Home: 4 ADL-Prior Level of Function Therapy Code Descriptions/Definitions Functional [place] Measure: 0=Not Assessed/NA 4=Minimal Assistance 1=Total Assistance 5=Supervision or Setup 2=Maximal Assistance 6=Modified [place] 3=Moderate Assistance 7=Complete [place] Therapy Quality Codes: 6 Independent with activity with or without an assistive device 5 Patient requires set up or clean up by helper. Patient completes activity by themselves 4 Supervision or touching assist (CGA). [place] provide cues , steadying assist 3 The helper provides less than half the effort to complete the activity 2 The helper provides more than half the effort to complete the activity 1 Dependent. The helper does all the effort to complete an activity 7 Patient refused to complete or attempt activity 9 The patient did not perform the activity before the current illness or injury 88 Not attempted due to Medical conditions or safety concerns Functional Abilities and Goals: Independent: Patient completed the activities by him/herself, with or without an assistive device, with no assistance from a helper. Needed Some Help: Patient needed partial assistance from another person to complete activities. Dependent: A helper completed the activities for the patient. Unknown: Not Applicable: ADL PLOF Comments Pt. is independent with daily skills. Family drives for her and does her shopping. Self Care: Independent Functional Cognition: Independent DME/Equipment: Bath Chair, Tub/Shower Drive Self: No OT Current Status Subjective No pain reported. Appearance Pt. asleep when OT came into room. Spoke with daughter before waking pt. up. Pt. is agreeable to talk with OT/daughter. Pt. very pleasant. Mental Status/Objective Patient Orientation: Person, Place ADL-Treatment Therapy Code Descriptions/Definitions Functional [place] Measure: 0=Not Assessed/NA 4=Minimal Assistance 1=Total Assistance 5=Supervision or Setup 2=Maximal Assistance 6=Modified [place] 3=Moderate Assistance 7=Complete [place] Therapy Quality Codes: 6 Independent with activity with or without an assistive device 5 Patient requires set up or clean up by helper. Patient completes activity by themselves 4 Supervision or touching assist (CGA). [place] provide cues , steadying assist 3 The helper provides less than half the effort to complete the activity 2 The helper provides more than half the effort to complete the activity 1 Dependent. The helper does all the effort to complete an activity 7 Patient refused to complete or attempt activity 9 The patient did not perform the activity before the current illness or injury 88 Not attempted due to Medical conditions or safety concerns Eating (FIM): 6 Lower Body Dressing (FIM): 5 Transfers (B, C, W/C) (FIM): 6 Other Treatments Pt. woke up and transferred to side of bed with Mod I. Stood with Mod I. Practiced socks with SBA. Noted lunch on tray table. Pt. agrees to eat. Pt. able to set up her own tray with no difficulty. OT offered to assist pt. with shower. Pt. states that she does not like showers, but is laughing. Declines showering or dressing today. OT will check back on her in a.m. Daughter states that pt. would like to wait until she gets home to shower. States that pt. has been taking self to bathroom. States that she has a very supportive family and that they do a lot for her, including driving her around, shopping, etc... All needs are met in room. Education OT Patient Education: Correct positioning, Modified ADL techniques, Progress toward Goal/Update tx plan, Purpose of tx/functional activities, Reviewed precautions, Rehab process, Transfer techniques Teaching Recipient: Patient, Family Teaching Methods: Demonstration, Discussion Response to Teaching: Verbalize Understanding, Return Demonstration OT Short Term Goals Short Term Goals Transfers (B,C,W/C) (FIM): 6 1=Demonstrate adherence to instructed precautions during ADL tasks. 2=Patient will verbalize/demonstrate understanding of assistive devices/ modifications for ADL. 3=Patient will improve strength/tolerance for activity to enable patient to perform ADL's. OT Doll Wigs Hackler Goals Doll Wigs Hackler Goals Time Frame: Oct 11, 2018 Eating (FIM): 6 Grooming(FIM): 6 Bathing(FIM): 5 Upper Body Dressing(FIM): 6 Lower Body Dressing(FIM): 6 Toileting(FIM): 6 Transfers (B,C,W/C) (FIM): 6 Shower Transfer(FIM): 5 Additional Goals: 1-Demonstrate ADL Tasks, 2-Verbalize Understanding, 3- ImproveStrength/[place] 1=Demonstrate adherence to instructed precautions during ADL tasks. 2=Patient will verbalize/demonstrate understanding of assistive devices/ modifications for ADL. 3=Patient will improve strength/tolerance for activity to enable patient to perform ADL's. OT Education/Plan Problem List/Assessment Assessment: Decreased Activ Tolerance Discharge Recommendations Plan/Recommendations: Continue POC Therapy D/C Recommendations: Home w/ Family Support Treatment Plan/Plan of Care Treatment,Training & Education: Yes Patient would benefit from OT for education, treatment and training to promote independence in ADL's, mobility, safety and/or upper extremity function for ADL' s. Plan of Care: ADL Retraining, Functional Mobility Treatment Duration: Oct 11, 2018 Frequency: 1 time per week Estimated Hrs Per Day: .25 hour per day Agreement: Yes Rehab Potential: Good Time/GCodes Start Time: 13:50 Stop Time: 14:10 Total Time Billed (hr/min): 20 Billed Treatment Time 1, JOANNE DOMÍNGUEZ OT Oct 10, 2018 15:03
[2018-10-10 16:02] VITALS: BP 101/66
[2018-10-10 19:30] VITALS: BP 120/83
[2018-10-10] MEDS: MONTELUKAST 10 MG (SINGULAIR) TAB PO SCH (21:31)
[2018-10-11 00:41] VITALS: BP 115/59
[2018-10-11 04:00] VITALS: BP 124/73
[2018-10-11] MEDS ORDERED: WATER (STERILE) FOR INJECTION 10 ML ONE (04:18)
[2018-10-11] MEDS ORDERED: cefTRIAXone 1,000 MG IV (ROCEPHIN) VIAL ONE (04:18)
[2018-10-11] MEDS: cefTRIAXone 1,000 MG/SWFI 10 ML IV PUSH IV SCH ×2 (04:27)
[2018-10-11 04:48] LABS: BASOPHILS % (AUTO) 0 % (0-10); EOSINOPHILS % (AUTO) 0 % (0-10); HEMATOCRIT 36 % (35-52); HEMOGLOBIN 11.7 G/DL (11.5-16.0); LYMPHOCYTES # (AUTO) 1.3 X 10^3 (1.0-4.0); LYMPHOCYTES % (AUTO) 11 % (12-44); MEAN CORPUSCULAR HEMOGLOBIN 32 PG (25-34); MEAN CORPUSCULAR HGB CONC 32 G/DL (32-36); MEAN CORPUSCULAR VOLUME 99 FL (80-99); MEAN PLATELET VOLUME 10.5 FL (7.4-10.4); MONOCYTES # (AUTO) 0.8 X 10^3 (0.0-1.0); MONOCYTES % (AUTO) 7 % (0-12); NEUTROPHILS # (AUTO) 9.5 X 10^3 (1.8-7.8); NEUTROPHILS % (AUTO) 82 % (42-75); PLATELET COUNT 196 10^3/uL (130-400); RED CELL DISTRIBUTION WIDTH 14.4 % (10.0-14.5); WHITE BLOOD COUNT 11.6 10^3/uL (4.3-11.0)
[2018-10-11 05:13] LABS: ALBUMIN 3.5 GM/DL (3.2-4.5); BILIRUBIN,TOTAL 0.4 MG/DL (0.1-1.0); CREATININE SERUM 1.19 MG/DL (0.60-1.30); POTASSIUM 3.4 MMOL/L (3.6-5.0); TOTAL PROTEIN 7.6 GM/DL (6.4-8.2)
[2018-10-11] MEDS: FUROSEMIDE 40 MG/4 ML INJ (LASIX) IVP SCH (06:37)
[2018-10-11] MEDS ORDERED: KCL 10 MEQ TAB (MICRO K) PO SCH (07:00)
[2018-10-11] MEDS: RT-ALBUTEROL/IPRATROPIUM 3 ML (DUONEB) VIAL INH SCH ×4 (07:37→19:31)
[2018-10-11 08:00] VITALS: BP 117/64
--- NOTE | 2018-10-11 08:38 | Progress Note-Cardiology ---
Cardiology SOAP Progress Note Subjective: In bed. Family member x 1 at the bedside. She states she feels better today. No c/o CP, palpitations. Feels dyspnea is better today. Objective: I&O/Vital Signs 10/11/18 10/11/18 10/11/18 10/11/18 04:00 07:00 07:37 08:00 Temp 97.8 98.8 Pulse 90 75 94 Resp 18 18 B/P (MAP) 124/73 (90) 117/64 (81) Pulse Ox 95 95 97 O2 Delivery Room Air Room Air Room Air 10/11/18 10/11/18 10/11/18 10/11/18 08:40 11:12 12:00 13:00 Temp 98.2 Pulse 99 117 Resp 20 B/P (MAP) 130/72 (91) Pulse Ox 94 96 O2 Delivery Room Air Room Air Room Air 10/11/18 00:00 Intake Total 1740 ml Output Total 3200 ml Balance -1460 ml Weight (Pounds): 155 Weight (Ounces): 15.7 Weight (Calculated Kilograms): 70.998117 Constitutional: AAO x 3, well-developed, well-nourished Respiratory: No accessory muscle use; other (Fair to good bilat air entry, diminished at the bases) Cardiovascular: irregularly irregular, S1 and S2, systolic murmur (soft JUSTINO at card base) Gastrointestional: No tender; soft; No guarding; audible bowel sounds Extremities: No clubbing, No cyanosis, No significant edema Neurologic/Psychiatric: oriented x 3, grossly intact, power is 5/5 both on sides Skin: No rash on exposed areas, No ulcerations on exposed areas Results/Procedures: Labs Laboratory Tests 10/11/18 04:40: White Blood Count 11.6H, Red Blood Count 3.67L, Hemoglobin 11.7, Hematocrit 36, Mean Corpuscular Volume 99, Mean Corpuscular Hemoglobin 32, Mean Corpuscular Hemoglobin Concent 32, Red Cell Distribution Width 14.4, Platelet Count 196, Mean Platelet Volume 10.5H, Neutrophils (%) (Auto) 82H, Lymphocytes (%) (Auto) 11L, Monocytes (%) (Auto) 7, Eosinophils (%) (Auto) 0, Basophils (%) (Auto) 0, Neutrophils # (Auto) 9.5H, Lymphocytes # (Auto) 1.3, Monocytes # (Auto) 0.8, Eosinophils # (Auto) 0.0, Basophils # (Auto) 0.0, Sodium Level 140, Potassium Level 3.4L, Chloride Level 101, Carbon Dioxide Level 28, Anion Gap 11, Blood Urea Nitrogen 31H, Creatinine 1.19, Estimat Glomerular Filtration Rate 43, BUN/ Creatinine Ratio 26, Glucose Level 145H, Calcium Level 9.0, Corrected Calcium 9.4, Total Bilirubin 0.4, Aspartate Amino Transf (AST/SGOT) 24, Alanine Aminotransferase (ALT/SGPT) 34, Alkaline Phosphatase 92, Total Protein 7.6, Albumin 3.5 10/11/18 11:10: Stool Occult Blood Immunoassay NEGATIVE Microbiology 10/08/18 Blood Culture - Preliminary, Resulted No growth 10/08/18 MRSA Screen - Final, Complete MRSA not isolated 10/08/18 Urine Culture - Final, Complete Escherichia coli A/P: Assessment: Multifactorial shortness of breath (see below) Ac on chronic diastolic CHF, last echo of October 2017 showed ejection fraction 50 -55 percent with moderately to severely dilated left atrium moderate mitral regurgitation, [id number] TR and PASP 40-45 mmHg Chronic persistent atrial fibrillation, rate is controlled, stroke prophylaxis with apixaban Probable acute bronchitis, being managed by Dr Cota Coronary artery disease, Last card cath on 06-21-18: 80% proximal stenosis of the RCA successfully stented with Xience Laverne 3.5 x 16 mm stent. LAD had previously placed patent stents that are known to be Taxus 2.75 x 20, 2.5 x 24, 2.5 x 12, and Xience Laverne 2.5 x 8 mm stents (proximal to distal). LCX had moderate diffuse disease and had a patent stent in its obtuse marginal branch that is known to be Promus 2.5 x 16 mm MPI of November 02, 2017 showed lateral wall myocardial infarction with a small amt of hill-infarct ischemia. Lateral wall akinesis. LVEF 42% Hypertension History of infra-mammary herpes zoster in the past. She is currently not experiencing any symptoms from it. Degenerative joint disease. Hyperlipidemia being treated with simvastatin and followed by her PCP History of urinary incontinence, which has been followed by Dr. Dee Hyperglycemia vs DM II, managed by the Med Svce Plan: * Continue current regimen * Monitor lab * Replace electrolytes Physician Assessment Physician Assessment No new symptoms Shortness of breath better No cp or palp or syncope Lungs: good air entry, diminished at the bases Cor: irreg Ext: no c/c. Mild edema A&R * As documented in our note above that I updated (italics) and as noted below * Change diuretics to oral * D/c iv fluids * Replenish K * Monitor labs JESSICA ONEIL [facility] Oct 11, 2018 08:38 SAHIL HAWLEY MD [facility] Oct 11, 2018 13:40
[2018-10-11] MEDS: AZITHROMYCIN 250 MG TAB (ZITHROMAX) PO SCH (08:40)
[2018-10-11] MEDS: APIXABAN 2.5 MG (ELIQUIS) TABLET PO SCH ×2 (08:40→21:32)
[2018-10-11] MEDS: meTOprolol TARTRATE 50 MG (LOPRESSOR) TAB PO SCH ×2 (08:40→21:32)
[2018-10-11] MEDS: CLOPIDOGREL 75 MG (PLAVIX) TABLET PO SCH (08:40)
[2018-10-11] MEDS: SENNA W/DOCUSATE (SENOKOT S) TABLET PO SCH ×2 (08:41→21:32)
[2018-10-11] MEDS: predniSONE 10 MG TAB PO SCH (08:41)
[2018-10-11] MEDS: LACTULOSE SYRUP 10GM/15ML (ENULOSE) 30ML UDC PO SCH ×2 (08:41→21:32)
[2018-10-11] MEDS ORDERED: KCL 20 MEQ TAB (K-DUR) PO NR (08:45)
--- NOTE | 2018-10-11 09:09 | Physical Therapy Daily Note ---
PT Daily Note-Current Subjective Patient in bed pre tx, agrees to PT, has no complaints of pain. Appearance Patient sitting EOB post tx with nurse call, phone, tray, all needs met, family in the room. Mental Status Patient Orientation: Person, Unable to Assess Attachments: Olmos Catheter, IV Transfers Therapy Code Descriptions/Definitions Functional [place] Measure: 0=Not Assessed/NA 4=Minimal Assistance 1=Total Assistance 5=Supervision or Setup 2=Maximal Assistance 6=Modified [place] 3=Moderate Assistance 7=Complete [place] Therapy Quality Codes: 6 Independent with activity with or without an assistive device 5 Patient requires set up or clean up by helper. Patient completes activity by themselves 4 Supervision or touching assist (CGA). [place] provide cues , steadying assist 3 The helper provides less than half the effort to complete the activity 2 The helper provides more than half the effort to complete the activity 1 Dependent. The helper does all the effort to complete an activity 7 Patient refused to complete or attempt activity 9 The patient did not perform the activity before the current illness or injury 88 Not attempted due to Medical conditions or safety concerns Transfers (B, C, W/C) (FIM): 4 Scootin Rollin Supine to/from Sit: 6 Sit to/from Stand: 5 Bed to/from Chair: 4 cues for safety and direction Gait Training Gait (FIM): 4 Distance: 250' Gait Level of Assist: 4 Gait Persons Needed: 1 Gait Assistive Device: FWW Patient is mostly SBA but needs CGA for moments of unsteadiness. Exercises Seated Therapy Exercises: Ankle pumps, Long arc quads Seated Reps: 20 Treatments bed mobility and transfers, ambulation, functional strengthening Assessment Current Status: Fair Progress improved endurance PT Short Term Goals Short Term Goals Time Frame: Oct 17, 2018 Transfers (B,C,W/C) (FIM): 6 Gait (FIM): 5 Gait Distance Comment: 250' Gait Level of Assist: 5 Gait Assistive Device: FWW PT Plan Problem List Problem List: Activity Tolerance, Functional Strength, Safety, Balance, Gait, Transfer Treatment/Plan Treatment Plan: Continue Plan of Care Treatment Plan: Education, Functional Activity [place], Functional Strength, Gait , Safety, Therapeutic Exercise, Transfers Treatment Duration: Oct 17, 2018 Frequency: 6 times per week Estimated Hrs Per Day: .25 hour per day (15-30') Patient and/or Family Agrees t: Yes Safety Risks/Education Patient Education: Gait Training, Transfer Techniques, Correct Positioning, Safety Issues Teaching Recipient: Patient Teaching Methods: Demonstration, Discussion Response to Teaching: Reinforcement Needed Time/GCodes Time In: 841 Time Out: 857 Total Billed Treatment Time: 16 Total Billed Treatment 1 visit GT 16' YAN BLACKWOOD PT Oct 11, 2018 09:09
--- NOTE | 2018-10-11 10:07 | Progress Note-Hospitalist ---
Subjective HPI/CC On Admission Date Seen by Provider: Oct 11, 2018 Time Seen by Provider: 09:45 Subjective/Events-last exam Has not had a bowel movement and we gave her meds of Lactulose and Senna so ordered suppository and soap suds enema and ordered more medication. PT and OT both working with her. Conferred with cardiology and plan is to transition to oral diuretics today and likely discharge tomorrow. Goes to [facility] pharmacy. Lives with her family and involved with her care. Review of Systems General: Fatigue Gastrointestinal: Constipation Objective Exam Vital Signs Vital Signs Date Time Temp Pulse Resp B/P (MAP) Pulse Ox O2 Delivery O2 Flow Rate FiO2 10/11/18 19:31 97 Room Air 10/11/18 16:00 98.3 92 20 113/56 (75) 10/08/18 20:01 2.00 Capillary Refill : Less Than 3 SecondsLess Than 3 Seconds General Appearance: No Apparent Distress, WD/WN HEENT: PERRL/EOMI, TMs Normal, Normal ENT Inspection, Pharynx Normal Neck: Full Range of Motion, Normal Inspection, Non Tender, Supple, Carotid Bruit Respiratory: Chest Non Tender, Lungs Clear, Normal Breath Sounds, No Accessory Muscle Use, No Respiratory Distress Cardiovascular: No Edema, No Gallop, No JVD, Normal Peripheral Pulses, Systolic Murmur, Irregularly Irregular Gastrointestinal: Normal Bowel Sounds, No Organomegaly, No Pulsatile Mass, Non Tender, Soft Back: Normal Inspection, No CVA Tenderness, No Vertebral Tenderness Extremity: Normal Capillary Refill, Normal Inspection, Normal Range of Motion, Non Tender, No Calf Tenderness, No Pedal Edema Neurologic/Psychiatric: Alert, Oriented x3, No Motor/Sensory Deficits, Normal Mood/Affect Skin: Normal Color, Warm/Dry Lymphatic: No Adenopathy Results/Procedures Lab Laboratory Tests 10/11/18 04:40 Patient resulted labs reviewed. Assessment/Plan Assessment and Plan Assess & Plan/Chief Complaint Assessment: Pneumonia CHF AF Advanced age Constipation Plan: Monitor labs PT/OT BM treatment DC tomorrow on PO diuretics Diagnosis/Problems Diagnosis/Problems (1) Debility Status: Acute (2) CHF (congestive heart failure) Status: Acute Qualifiers: Heart failure type: unspecified Heart failure chronicity: unspecified Qualified Codes: I50.9 - Heart failure, unspecified (3) Chronic atrial fibrillation Status: Chronic (4) Chronic renal insufficiency Status: Chronic Qualifiers: Chronic kidney disease stage: stage 3 (moderate) Qualified Codes: N18.3 - Chronic kidney disease, stage 3 (moderate) (5) UTI (urinary tract infection) Status: Acute Qualifiers: Urinary tract infection type: acute cystitis Hematuria presence: without hematuria Qualified Codes: N30.00 - Acute cystitis without hematuria (6) Hyponatremia Status: Acute (7) Anemia Status: Chronic Qualifiers: Anemia type: unspecified type Qualified Codes: D64.9 - Anemia, unspecified (8) HLD (hyperlipidemia) Status: Chronic Qualifiers: Hyperlipidemia type: mixed hyperlipidemia Qualified Codes: E78.2 - Mixed hyperlipidemia (9) HTN (hypertension) Status: Chronic Qualifiers: Hypertension type: essential hypertension Qualified Codes: I10 - Essential (primary) hypertension (10) Hyperlipidemia Status: Chronic Qualifiers: Hyperlipidemia type: mixed hyperlipidemia Qualified Codes: E78.2 - Mixed hyperlipidemia (11) Pneumonia Status: Acute Qualifiers: Pneumonia type: due to unspecified organism Laterality: unspecified laterality Lung location: unspecified part of lung Qualified Codes: J18.9 - Pneumonia, unspecified organism Clinical Quality Measures DVT/VTE Risk/Contraindication: Risk Factor Score Per Nursin RFS Level Per Nursing on Admit: 2=Moderate HUSAM JIMÉNEZ DO Oct 11, 2018 10:07
[2018-10-11] MEDS ORDERED: LACTULOSE SYRUP 10GM/15ML (ENULOSE) 30ML UDC PO NR (10:15)
[2018-10-11] MEDS ORDERED: BISACODYL 10 MG SUPP (DULCOLAX) PR NR (10:15)
--- NOTE | 2018-10-11 11:12 | NUR ---
PT FAMILY REFUSES SUPPOSITORY AT THIS TIME AND STATES PT JUST HAD A BM AT THIS TIME.
[2018-10-11 12:00] VITALS: BP 130/72
--- NOTE | 2018-10-11 12:46 | Occupational Ther Daily Note ---
OT Current Status-Daily Note Subjective No pain reported. Appearance Pt. in bed. Pt. has just returned from PT. Mental Status/Objective Therapy Code Descriptions/Definitions Functional [place] Measure: 0=Not Assessed/NA 4=Minimal Assistance 1=Total Assistance 5=Supervision or Setup 2=Maximal Assistance 6=Modified [place] 3=Moderate Assistance 7=Complete [place] ADL-Treatment Transfers (B, C, W/C) (FIM): 6 Other Treatment Pt. had just returned from PT and transferred to bed with Mod I. Granddaughter in room. OT offers to assist pt. with shower. Granddaughter states that pt. showered last night. Pt. states that she doesn't want to right now. Granddaughter and pt. are asked about what concerns they have for home, what needs to be worked on functionally. Granddaughter states that they take care of her and that she does well at home. Pt. is encouraged to don her own socks, but indicates for granddaughter to do it for her. Granddaughter does it for her and states that they can assist with all her needs at home, and that she is independent at home. OT provided theraband and therapy sponge, and instructed pt. on how to use it to increase overall strength and independence. Both pt. and granddaughter verbalize understanding of this. All needs are met. Education OT Patient Education: Exercise program, Home exercise program, Instructions to caregiver Teaching Recipient: Patient, Family Teaching Methods: Demonstration, Discussion Response to Teaching: Verbalize Understanding, Return Demonstration OT Short Term Goals Short Term Goals Transfers (B,C,W/C) (FIM): 6 1=Demonstrate adherence to instructed precautions during ADL tasks. 2=Patient will verbalize/demonstrate understanding of assistive devices/ modifications for ADL. 3=Patient will improve strength/tolerance for activity to enable patient to perform ADL's. OT Senior Living Goals Thread Spinner Goals Time Frame: Oct 11, 2018 Eating (FIM): 6 Grooming(FIM): 6 Bathing(FIM): 5 Upper Body Dressing(FIM): 6 Lower Body Dressing(FIM): 6 Toileting(FIM): 6 Transfers (B,C,W/C) (FIM): 6 Shower Transfer(FIM): 5 Additional Goals: 1-Demonstrate ADL Tasks, 2-Verbalize Understanding, 3- ImproveStrength/[place] 1=Demonstrate adherence to instructed precautions during ADL tasks. 2=Patient will verbalize/demonstrate understanding of assistive devices/ modifications for ADL. 3=Patient will improve strength/tolerance for activity to enable patient to perform ADL's. OT Education/Plan Problem List/Assessment Assessment: Decreased Activ Tolerance Discharge Recommendations Plan/Recommendations: Discharge/Goals Met Therapy D/C Recommendations: Home w/ Family Support Treatment Plan/Plan of Care Treatment,Training & Education: Yes Patient would benefit from OT for education, treatment and training to promote independence in ADL's, mobility, safety and/or upper extremity function for ADL' s. Plan of Care: ADL Retraining, Functional Mobility Treatment Duration: Oct 11, 2018 Frequency: 1 time per week Estimated Hrs Per Day: .25 hour per day Agreement: Yes Rehab Potential: Good Time/GCodes Start Time: 09:10 Stop Time: 09:20 Total Time Billed (hr/min): 10 Billed Treatment Time 1, Ex Discharge pt. from OT services. Pt. has family assistance and they continue to assist her in room. JOANNE CROWELL OT Oct 11, 2018 12:46
--- NOTE | 2018-10-11 13:50 | NUR ---
Dr Flowers here rounding on pt, orders received to DC telemetry and frank. Orders entered.
--- NOTE | 2018-10-11 15:15 | NUR ---
CM DISCHARGE PLANNING: Interviewed patient for any anticipated discharge needs. Patient was receiving a breathing treatment when I entered the room. Family at bedside asked if she needed a nebulizer machine at discharge. They also indicated that she would need a walker. Choice of DME providers explored with them et they have selected [facility] as their provider. They also indicated that the patient would need home health care at discharge for Physical Therapy if doctor deems appropriate. They indicated that Mariannacorisamson's primary care doctor is with [facility] et that she sees King ANNA. Choices reviewed with patient et family et she has selected [facility]. [facility]: FWW et Nebulizer Machine if indicated. [facility]: Physical Therapy if indicated.
[2018-10-11 16:00] VITALS: BP 113/56
[2018-10-11] MEDS: FUROSEMIDE 40 MG (LASIX) TAB PO SCH (16:26)
[2018-10-11] MEDS: MONTELUKAST 10 MG (SINGULAIR) TAB PO SCH (21:32)
[2018-10-12 00:34] VITALS: BP 130/80
[2018-10-12] MEDS ORDERED: cefTRIAXone 1,000 MG IV (ROCEPHIN) VIAL ONE (05:51)
[2018-10-12] MEDS ORDERED: WATER (STERILE) FOR INJECTION 10 ML ONE (05:51)
[2018-10-12] MEDS: cefTRIAXone 1,000 MG/SWFI 10 ML IV PUSH IV SCH ×2 (06:02)
[2018-10-12] MEDS: FUROSEMIDE 40 MG (LASIX) TAB PO SCH (06:02)
[2018-10-12 06:36] LABS: BASOPHILS % (AUTO) 0 % (0-10); EOSINOPHILS # (AUTO) 0.1 10^3/uL (0.0-0.3); EOSINOPHILS % (AUTO) 1 % (0-10); HEMATOCRIT 34 % (35-52); HEMOGLOBIN 10.9 G/DL (11.5-16.0); LYMPHOCYTES % (AUTO) 22 % (12-44); MEAN CORPUSCULAR HEMOGLOBIN 31 PG (25-34); MEAN CORPUSCULAR HGB CONC 32 G/DL (32-36); MEAN CORPUSCULAR VOLUME 98 FL (80-99); MEAN PLATELET VOLUME 10.5 FL (7.4-10.4); MONOCYTES # (AUTO) 0.9 X 10^3 (0.0-1.0); MONOCYTES % (AUTO) 9 % (0-12); NEUTROPHILS # (AUTO) 6.3 X 10^3 (1.8-7.8); NEUTROPHILS % (AUTO) 68 % (42-75); PLATELET COUNT 184 10^3/uL (130-400); RED CELL DISTRIBUTION WIDTH 14.3 % (10.0-14.5); WHITE BLOOD COUNT 9.3 10^3/uL (4.3-11.0)
[2018-10-12 06:56] LABS: ALBUMIN 3.1 GM/DL (3.2-4.5); BILIRUBIN,TOTAL 0.4 MG/DL (0.1-1.0); CALCIUM 8.6 MG/DL (8.5-10.1); CREATININE SERUM 1.22 MG/DL (0.60-1.30); MAGNESIUM 1.7 MG/DL (1.8-2.4); POTASSIUM 3.4 MMOL/L (3.6-5.0); TOTAL PROTEIN 6.3 GM/DL (6.4-8.2)
[2018-10-12] MEDS ORDERED: KCL 20 MEQ TAB (K-DUR) PO SCH (07:00)
[2018-10-12] MEDS: RT-ALBUTEROL/IPRATROPIUM 3 ML (DUONEB) VIAL INH SCH ×2 (07:49→11:53)
[2018-10-12 08:00] VITALS: BP 129/83
[2018-10-12] MEDS: APIXABAN 2.5 MG (ELIQUIS) TABLET PO SCH (08:05)
[2018-10-12] MEDS: predniSONE 10 MG TAB PO SCH (08:05)
[2018-10-12] MEDS: AZITHROMYCIN 250 MG TAB (ZITHROMAX) PO SCH (08:05)
[2018-10-12] MEDS: SENNA W/DOCUSATE (SENOKOT S) TABLET PO SCH (08:05)
[2018-10-12] MEDS: CLOPIDOGREL 75 MG (PLAVIX) TABLET PO SCH (08:05)
[2018-10-12] MEDS: meTOprolol TARTRATE 50 MG (LOPRESSOR) TAB PO SCH (08:05)
[2018-10-12] MEDS: LACTULOSE SYRUP 10GM/15ML (ENULOSE) 30ML UDC PO SCH (08:08)
--- NOTE | 2018-10-12 08:26 | Progress Note-Cardiology ---
Cardiology SOAP Progress Note Subjective: Sitting up in bed. Family x1 at the bedside. She states she feels better. No c/o CP, palpitations, or dyspnea. Objective: I&O/Vital Signs 10/12/18 10/12/18 10/12/18 10/12/18 07:49 08:00 08:13 11:53 Temp 97.9 Pulse 100 Resp 18 B/P (MAP) 129/83 (98) Pulse Ox 95 95 96 O2 Delivery Room Air Room Air Room Air Room Air 10/12/18 12:45 B/P (MAP) 10/12/18 00:00 Intake Total 1640 ml Output Total 1850 ml Balance -210 ml Weight (Pounds): 157 Weight (Ounces): 3.2 Weight (Calculated Kilograms): [id number] Constitutional: AAO x 3, well-developed, well-nourished Respiratory: No accessory muscle use; other (Fair to good bilat air entry, diminished at the bases) Cardiovascular: irregularly irregular, S1 and S2, systolic murmur (soft JUSTINO at card base) Gastrointestional: No tender; soft; No guarding; audible bowel sounds Extremities: No clubbing, No cyanosis, No significant edema Neurologic/Psychiatric: oriented x 3, grossly intact, power is 5/5 both on sides Skin: No rash on exposed areas, No ulcerations on exposed areas Results/Procedures: Labs Laboratory Tests 10/12/18 05:50: White Blood Count 9.3, Red Blood Count 3.51L, Hemoglobin 10.9L, Hematocrit 34L, Mean Corpuscular Volume 98, Mean Corpuscular Hemoglobin 31, Mean Corpuscular Hemoglobin Concent 32, Red Cell Distribution Width 14.3, Platelet Count 184, Mean Platelet Volume 10.5H, Neutrophils (%) (Auto) 68, Lymphocytes (%) (Auto) 22 , Monocytes (%) (Auto) 9, Eosinophils (%) (Auto) 1, Basophils (%) (Auto) 0, Neutrophils # (Auto) 6.3, Lymphocytes # (Auto) 2.0, Monocytes # (Auto) 0.9, Eosinophils # (Auto) 0.1, Basophils # (Auto) 0.0, Sodium Level 137, Potassium Level 3.4L, Chloride Level 98, Carbon Dioxide Level 30, Anion Gap 9, Blood Urea Nitrogen 31H, Creatinine 1.22, Estimat Glomerular Filtration Rate 42, BUN/ Creatinine Ratio 25, Glucose Level 125H, Calcium Level 8.6, Corrected Calcium 9.3, Magnesium Level 1.7L, Total Bilirubin 0.4, Aspartate Amino Transf (AST/SGOT ) 22, Alanine Aminotransferase (ALT/SGPT) 28, Alkaline Phosphatase 84, Total Protein 6.3L, Albumin 3.1L Microbiology 10/08/18 Blood Culture - Preliminary, Resulted No growth 10/08/18 MRSA Screen - Final, Complete MRSA not isolated 10/08/18 Urine Culture - Final, Complete Escherichia coli Laboratory Tests 10/11/18 04:40 10/12/18 05:50 A/P: Assessment: Multifactorial shortness of breath (see below) - improved Ac on chronic diastolic CHF, last echo of October 2017 showed ejection fraction 50 -55 percent with moderately to severely dilated left atrium moderate mitral regurgitation, [id number] TR and PASP 40-45 mmHg Chronic persistent atrial fibrillation, rate is fairly well controlled, stroke prophylaxis with apixaban Probable acute bronchitis, being managed by Dr Cota Coronary artery disease, Last card cath on 06-21-18: 80% proximal stenosis of the RCA successfully stented with Xience Laverne 3.5 x 16 mm stent. LAD had previously placed patent stents that are known to be Taxus 2.75 x 20, 2.5 x 24, 2.5 x 12, and Xience Laverne 2.5 x 8 mm stents (proximal to distal). LCX had moderate diffuse disease and had a patent stent in its obtuse marginal branch that is known to be Promus 2.5 x 16 mm MPI of November 02, 2017 showed lateral wall myocardial infarction with a small amt of hill-infarct ischemia. Lateral wall akinesis. LVEF 42% Hypertension History of infra-mammary herpes zoster in the past. She is currently not experiencing any symptoms from it. Degenerative joint disease. Hyperlipidemia being treated with simvastatin and followed by her PCP History of urinary incontinence, which has been followed by Dr. Dee Hyperglycemia vs DM II, managed by the Med Svce Plan: * Continue current regimen * Monitor lab * Replace electrolytes * OK to discharge home today on current medication regimen * F/U as an out pt in one week Physician Assessment Physician Assessment Gen malaise and tiredness No cp or palp or syncope or shortness of breath at rest Lungs: fair to good air entry, diminished at the bases Cor: irreg Ext: no c/c/e A&R * As documented in our note above that I updated (italics) and as noted below * Close outpt f/u * I had a detailed discussion regarding her CV issues with her and her fam JESSICA ONEIL HEDIS REVIEW NURSE Oct 12, 2018 08:26 SAHIL HAWLEY MD FACP [facility] Oct 12, 2018 13:44
[2018-10-12] MEDS ORDERED: POTA20TA8 PO (08:31)
[2018-10-12] MEDS ORDERED: FURO40TA4 PO (08:31)
[2018-10-12] MEDS ORDERED: METO50TA15 PO (08:31)
[2018-10-12] MEDS ORDERED: MONT10TA24 PO (10:49)
--- NOTE | 2018-10-12 10:52 | Physical Therapy Daily Note ---
PT Daily Note-Current Subjective Patient in bed pre tx, agrees to PT, has no complaints of pain. Appearance Patient in bed post tx with nurse call, phone, tray, family in the room. Mental Status Patient Orientation: Person, Unable to Assess Transfers Therapy Code Descriptions/Definitions Functional [place] Measure: 0=Not Assessed/NA 4=Minimal Assistance 1=Total Assistance 5=Supervision or Setup 2=Maximal Assistance 6=Modified [place] 3=Moderate Assistance 7=Complete [place] Therapy Quality Codes: 6 Independent with activity with or without an assistive device 5 Patient requires set up or clean up by helper. Patient completes activity by themselves 4 Supervision or touching assist (CGA). [place] provide cues , steadying assist 3 The helper provides less than half the effort to complete the activity 2 The helper provides more than half the effort to complete the activity 1 Dependent. The helper does all the effort to complete an activity 7 Patient refused to complete or attempt activity 9 The patient did not perform the activity before the current illness or injury 88 Not attempted due to Medical conditions or safety concerns Transfers (B, C, W/C) (FIM): 6 Scootin Rollin Supine to/from Sit: 6 Sit to/from Stand: 6 Bed to/from Chair: 6 Gait Training Distance: 200' Gait Level of Assist: 5 Gait Persons Needed: 1 Gait Assistive Device: FWW Slow but steady ambulation, needs cues for direction. Treatments bed mobility and transfers, ambulation Assessment Current Status: Fair Progress improved endurance and balance PT Short Term Goals Short Term Goals Time Frame: Oct 17, 2018 Transfers (B,C,W/C) (FIM): 6 Gait (FIM): 5 Gait Distance Comment: 250' Gait Level of Assist: 5 Gait Assistive Device: FWW PT Plan Problem List Problem List: Activity Tolerance, Functional Strength, Safety, Balance, Gait, Transfer Treatment/Plan Treatment Plan: Continue Plan of Care Treatment Plan: Education, Functional Activity [place], Functional Strength, Gait , Safety, Therapeutic Exercise, Transfers Treatment Duration: Oct 17, 2018 Frequency: 6 times per week Estimated Hrs Per Day: .25 hour per day (15-30') Patient and/or Family Agrees t: Yes Safety Risks/Education Patient Education: Gait Training, Transfer Techniques, Correct Positioning, Safety Issues Teaching Recipient: Patient Teaching Methods: Demonstration, Discussion Response to Teaching: Reinforcement Needed Time/GCodes Time In: 1038 Time Out: 1048 Total Billed Treatment Time: 10 Total Billed Treatment 1 visit GT 10' YAN BLACKWOOD PT Oct 12, 2018 10:52
--- NOTE | 2018-10-12 10:52 | D/C HH Face to Face Order ---
D/C Face to Face Orders Instructions for Patient [facility], Patient Instructions/FollowUp: [facility] Susan Gimenez 10/19/18 at 0940 Physician to follow Patient: [facility] Discharge Diet for Home: Cardiac Diet, Low Sodium Diet Patient Problems: CHF AF Weakness Goals for Patient: Independent ADL's Patient Data-Allergies,Ht & Wt Patient Allergies: Coded Allergies: NKANo Known Allergies (Verified Allergy, Unknown, 02/07/07) Height (Feet): 5 Height (Inches): 4.00 Weight (Pounds): 157 Weight (Ounces): 3.2 Home Health Need/Face to Face Date of Face to Face: Oct 12, 2018 Clinical Findings: Generalized weakness and fatigue, Shortness of breath, Unsteady gait I have seen Pt [id number]: Yes Discharged To: Home Diagnosis/Conditions: CHF AF Weakness Patient is Homebound due to: [place] fall risk due to instabilty, Muscle weakness Homebound Status Due to the above stated illness, injury or surgical procedure (medical condition or diagnosis) and associated clinical findings, the patient is homebound because of his/her inability to leave home except with aid of a supportive device and/or person AND leaving the home requires a considerable and taxing effort or is medically contraindicated. Pt req the following assistanc: Walker Home Health Nursing Orders Home Health Services Order: Nursing Services, [employer] History Professor-Evaluate & Treat, Physical Therapy-Evaluate & Treat Home Health Infusion Therapy Line Start Date: Oct 08, 2018 Line Start Time: 0349 Line Type: Saline Lock Site Location: Wrist Certify Stmt I certify that this patient is under my care and that I, a nurse practitioner or a physician; a administrative sales assistant working with me, had a face to face encounter that - meets the physician face to face encounter requirements with this patient as dated. HUSAM JIMÉNEZ DO Oct 12, 2018 10:52
--- NOTE | 2018-10-12 10:53 | Discharge Summary-Hospitalist ---
Diagnosis/Chief Complaint Date of Admission Oct 08, 2018 at 05:15 Date of Discharge Discharge Date: Oct 12, 2018 Discharge Diagnosis (1) Debility Status: Acute (2) CHF (congestive heart failure) Status: Acute (3) Chronic atrial fibrillation Status: Chronic (4) Chronic renal insufficiency Status: Chronic (5) UTI (urinary tract infection) Status: Acute (6) Hyponatremia Status: Acute (7) Anemia Status: Chronic (8) HLD (hyperlipidemia) Status: Chronic (9) HTN (hypertension) Status: Chronic (10) Hyperlipidemia Status: Chronic (11) Pneumonia Status: Acute Discharge Summary Discharge Physical Exam Allergies: Coded Allergies: NKANo Known Allergies (Verified Allergy, Unknown, 02/07/07) Vitals & I&Os Vital Signs Date Time Temp Pulse Resp B/P (MAP) Pulse Ox O2 Delivery O2 Flow Rate FiO2 10/12/18 12:45 10/12/18 11:53 96 Room Air 10/12/18 08:00 97.9 100 18 10/08/18 20:01 2.00 General Appearance: No Apparent Distress, WD/WN, Chronically ill Respiratory: Lungs Clear, Normal Breath Sounds, No Accessory Muscle Use, No Respiratory Distress Cardiovascular: No Edema, Irregularly Irregular Neurologic/Psychiatric: Alert, Oriented x3, No Motor/Sensory Deficits, Normal Mood/Affect Hospital Course Was the Problem List Reviewed?: Yes Hospital Course: Pt had a uneventful hospital course for four days after congestive heart failure, early pneumonia, UTI, and atrial fibrillation treated with pulmonology, cardiology, and initiated PT for strengthening. Pt was weaned off oxygen, maintained on nebulizer treatments of which she did not need at [place]. Walker was ordered, home health was ordered along with PT and OT and she lives with a daughter and will have close follow up with Susan Gimenez at [facility]. All medication were reviewed and deemed correct by cardiology. Labs (last 24 hrs) Microbiology 10/08/18 Blood Culture - Preliminary, Resulted No growth 10/08/18 MRSA Screen - Final, Complete MRSA not isolated 10/08/18 Urine Culture - Final, Complete Escherichia coli Patient resulted labs reviewed. Pending Labs Discussion & Recommendations Discharge Planning: <30 minutes discharge planning Discharge Home Medications: Active Scripts Active Montelukast Sodium 10 Mg Tablet 10 Mg PO HS Klor-Con M20 (Potassium Chloride) 20 Meq Tab.er.prt 20 Meq PO DAILY@0700 Furosemide 40 Mg Tablet 40 Mg PO DAILY@07,17 Metoprolol Tartrate 50 Mg Tablet 50 Mg PO BID Reported Tylenol Extra Strength (Acetaminophen) 500 Mg Tablet 500-1,000 Mg PO Q6H PRN Eliquis (Apixaban) 2.5 Mg Tablet 2.5 Mg PO BID Plavix (Clopidogrel Bisulfate) 75 Mg Tablet 75 Mg PO DAILY Atorvastatin Calcium 40 Mg Tablet 40 Mg PO HS Instructions to patient/family Please see electronic discharge instructions given to patient. Clinical Quality Measures DVT/VTE Risk/Contraindication: Risk Factor Score Per Nursin RFS Level Per Nursing on Admit: 2=Moderate Problem Qualifiers (1) CHF (congestive heart failure): Heart failure type: unspecified Heart failure chronicity: unspecified Qualified Codes: I50.9 - Heart failure, unspecified (2) Chronic renal insufficiency: Chronic kidney disease stage: stage 3 (moderate) Qualified Codes: N18.3 - Chronic kidney disease, stage 3 (moderate) (3) UTI (urinary tract infection): Urinary tract infection type: acute cystitis Hematuria presence: without hematuria Qualified Codes: N30.00 - Acute cystitis without hematuria (4) Anemia: Anemia type: unspecified type Qualified Codes: D64.9 - Anemia, unspecified (5) HLD (hyperlipidemia): Hyperlipidemia type: mixed hyperlipidemia Qualified Codes: E78.2 - Mixed hyperlipidemia (6) HTN (hypertension): Hypertension type: essential hypertension Qualified Codes: I10 - Essential ( primary) hypertension (7) Hyperlipidemia: Hyperlipidemia type: mixed hyperlipidemia Qualified Codes: E78.2 - Mixed hyperlipidemia (8) Pneumonia: Pneumonia type: due to unspecified organism Laterality: unspecified laterality Lung location: unspecified part of lung Qualified Codes: J18.9 - Pneumonia, unspecified organism HUSAM JIMÉNEZ DO Oct 12, 2018 10:53
--- NOTE | 2018-10-12 12:04 | NUR ---
CM DISCHARGE PLANNING: Discharge to home with home health care today. [facility] notified on new referral for Physical Therapy they have been in contact with the patient et family to set up a date et time for the referral. [facility] been [facility] et patient et family will pick that up on their way home from the hospital. Updated primary care nurse [place], patient, et family with above information all deny any further needs at this time.
== END 2018-10-12 13:00 | disposition home health service (06) | DRG 291 ==
LOC: EDUNIT# 02:47 → ER 02:52 → ICU 05:15 → 4TH 23:09
PROVIDERS: ADMIT Family Medicine; ATTEND Family Medicine
DX: I13.0 Hypertensive heart and chronic kidney disease with heart failure and stage 1 through stage 4 chronic kidney disease, or unspecified chronic kidney disease (principal); I50.23 Acute on chronic systolic (congestive) heart failure; N18.3 Chronic kidney disease, stage 3 (moderate); N17.9 Acute kidney failure, unspecified; J18.9 Pneumonia, unspecified organism; I48.1 Persistent atrial fibrillation; E87.1 Hypo-osmolality and hyponatremia; N39.0 Urinary tract infection, site not specified; I08.1 Rheumatic disorders of both mitral and tricuspid valves; I27.20 Pulmonary hypertension, unspecified; I25.10 Atherosclerotic heart disease of native coronary artery without angina pectoris; D64.9 Anemia, unspecified; E78.5 Hyperlipidemia, unspecified; E88.81 Metabolic syndrome and other insulin resistance; M54.9 Dorsalgia, unspecified; G62.9 Polyneuropathy, unspecified; R32 Unspecified urinary incontinence; M19.91 Primary osteoarthritis, unspecified site; K59.00 Constipation, unspecified; R53.81 Other malaise; Z95.5 Presence of coronary angioplasty implant and graft; Z79.01 Long term (current) use of anticoagulants; Z79.02 Long term (current) use of antithrombotics/antiplatelets; Z86.718 Personal history of other venous thrombosis and embolism
CPT/HCPCS: 36415; 51701; 51702; 71045; 80048; 80053; 81000; 82274; 83605; 83735; 83880; 84484; 85025; 85027; 85610; 85730; 87040; 87077; 87081; 87088; 87186; 87804; 90471; 90686; 93005; 93041; 93306; 94640; 94760; 96374; 96375

== ENCOUNTER 2019-01-03 13:23 | Day surgery (SDC) | payer MEDICAID ==
[2019-01-03] VITALS (10 sets, daily range): BP systolic 107–126; BP diastolic 68–92
[~2019-01-03] VITALS: Ht 152.4 cm; Wt 72.6 kg
[~2019-01-03 13:23] MED LIST changes: +ACET-2267 PO; +ATOR40TA70 PO; +CLOP75TA69 PO; +METO50TA15 PO; +MONT10TA24 PO; +POTA20TA8 PO
[2019-01-03] MEDS ORDERED: NS IV 1000 ML 1,000 ML ONE (13:25)
[2019-01-03] MEDS ORDERED: HEParin (CATH LAB) 2,000 ML IV ONE (13:25)
[2019-01-03] MEDS ORDERED: LIDOCAINE 1% INJ 20 ML 20 ML VIAL ONE (13:25)
[2019-01-03] MEDS ORDERED: NS IV 1000 ML 1,000 ML IV SCH ×2 (13:31→17:09)
[2019-01-03 14:04] LABS: HEMOGLOBIN 11.3 G/DL (11.5-16.0); MEAN PLATELET VOLUME 10.1 FL (7.4-10.4); RED CELL DISTRIBUTION WIDTH 13.6 % (10.0-14.5); WHITE BLOOD COUNT 6.9 10^3/uL (4.3-11.0)
[2019-01-03 14:19] LABS: PROTHROMBIN TIME PATIENT 13.7 SEC (12.2-14.7)
[2019-01-03] MEDS ORDERED: MULT1CAP27 PO (14:22)
[2019-01-03 14:31] LABS: ALBUMIN 3.7 GM/DL (3.2-4.5); BILIRUBIN,TOTAL 0.6 MG/DL (0.1-1.0); CALCIUM 9.3 MG/DL (8.5-10.1); CREATININE SERUM 1.36 MG/DL (0.60-1.30); TOTAL PROTEIN 7.3 GM/DL (6.4-8.2)
[2019-01-03] MEDS ORDERED: MIDAZOLAM 5 MG/5 ML (VERSED) VIAL ONE (15:44)
[2019-01-03] MEDS ORDERED: fentaNYL INJECTION 100 MCG/2 ML AMP ONE (15:45)
--- NOTE | 2019-01-03 17:12 | Discharge Inst-Cardiology ---
Discharge Inst-Cardiac Discharge Medications Continued Medications: Acetaminophen (Tylenol Extra Strength) 500 Mg Tablet 500-1000 MG PO Q6H PRN for PAIN-MILD, TAB Apixaban (Eliquis) 2.5 Mg Tablet 2.5 MG PO BID, TAB Atorvastatin Calcium (Atorvastatin Calcium) 40 Mg Tablet 40 MG PO HS, TAB Clopidogrel Bisulfate (Plavix) 75 Mg Tablet 75 MG PO DAILY, TAB Furosemide (Furosemide) 40 Mg Tablet 40 MG PO DAILY@07,17, #60 TAB 5 Refills Metoprolol Tartrate (Metoprolol Tartrate) 50 Mg Tablet 50 MG PO BID, #60 TAB 5 Refills Multivitamin (Multivitamins) 1 Each Capsule 1 EACH PO DAILY, CAP Potassium Chloride (Klor-Con M20) 20 Meq Tab.er.prt 20 MEQ PO DAILY@0700, #30 TAB 5 Refills Orders-Post D/C & Referrals Pneu Vac Indicated: Yes SAHIL HAWLEY MD FACP [facility]ACC [facility] Jan 03, 2019 17:12
--- NOTE | 2019-01-03 17:13 | Discharge Inst-Post CATH ---
Discharge Inst-CATH/EP Post Cardiac Cath/EP D/C Inst Follow Up/Plan F/u with Dr Flowers in one week ACTIVITY * Go Home directly and rest. * Limit activity of the leg (or wrist if it was used) for 7 days including aerobics, swimming, jogging, bicycling, etc. * Restrict stair-climbing for 7 days if possible, if not, climb up with your non-cath leg, then bring together on the same step. * Avoid lifting, pushing, pulling or excessive movement of the affected e xtremity for 7 days. * Customary sexual activity may be resumed after 2 days-use caution not to use a position that strains or causes pain to the affected extremity. * No driving for 24 hours. * NO SMOKING. * Avoid straining for bowel movements for 7 days. * Gentle walking on level ground is allowed. * Returning to work will depend on the type of procedure and the results. Your doctor will discuss this with you. CALL YOUR DOCTOR FOR ANY OF THE FOLLOWING: *If bleeding from the puncture site occurs- Apply gentle pressure to site with clean cloth and call your doctor or EMS. * If a knot or lump forms under the skin, increases in size, or causes pain. * If bruising appears to be worsening or moving further down your leg instead of disappearing. * Temperature above 101 F. CARE OF YOUR GROIN INCISION; * Bruising or purple discoloration of the skin near the puncture site is common. * You may shower only, no bathtub bathing for 5 days. Be careful to avoid slipping as your leg may feel stiff. * If a closure device was used on your femoral artery, please see the attached guide regarding care of the device and your leg. * Leave dressing on FOR 24 hours. CARE OF YOUR WRIST INCISION; * Bruising or purple discoloration of the skin near the puncture site is common. * You may shower. * DO NOT submerge wrist. * Leave dressing on FOR 24 hours. SAHIL FLOWERS MD FACP FAC [facility] Jan 03, 2019 17:13
[2019-01-03] MEDS ORDERED: PATIENT MAY USE OWN MEDS, ALL PO SCH (17:15)
--- NOTE | 2019-01-03 17:25 | NUR ---
INDY TORRES admitted to room CU3-1, with an admitting diagnosis of s/p heart cath, on 01/03/19 from rn cardiac cath via bed, accompanied by staff/family.INDY TORRES introduced to surroundings, call light, bed controls, phone, TV, temperature control, lights, meal times, smoking policy, visitor policy, side rail policy, bathrooms and showers. Patient Rights given to patient in the handbook. INDY TORRES verbalizes understanding that [facility] is not responsible for the loss or damage to any personal effects or valuables that are kept in the patients posession during their hospitalization. The following Patient Care Plans were discussed with the pt/family: Discharge Planning, pain,high risk bleeding, and fluid volume deficit. INDY TORRES verbalizes understanding of Interdisciplinary Patient Education. Patient and family were informed about the Rapid Response Team and its purpose.
--- NOTE | 2019-01-03 19:31 | CARDIAC CATHETERIZATION ---
DATE OF SERVICE: 01/03/2019 INDICATIONS: The patient is an 83-year-old lady, who is known to have coronary artery disease. She has been experiencing increasing exertional shortness of breath. Some features were suggestive of an angina equivalent. Cardiac catheterization was carried out today after having obtained an informed consent. She was brought to the cardiac catheterization laboratory in a fasting state. Vigorous perioperative hydration was carried out because of her chronic kidney disease. She was made aware of her additional risk of contrast nephropathy, given her chronic kidney disease. She provided informed consent. DESCRIPTION OF PROCEDURE: She was brought to the cardiac catheterization laboratory in a fasting state. Right groin was prepared and draped in usual sterile fashion. Lidocaine 1% was used for local anesthesia. Modified Seldinger technique was used to advance a 5-[place] sheath in right femoral artery, 5-[place] JL4 catheter for left coronary angiography, 5-[place]rugu[place] JR4 catheter for right coronary angiography, and 5-[place] pigtail catheter was used for left heart catheterization and left ventricular angiography. At the end of the procedure, manual pressure was used to achieve hemostasis following sheath removal. She tolerated the procedure well. HEMODYNAMICS: Left ventricular end-diastolic pressure following coronary angiography was 15 mmHg. There is no significant pressure gradient on pullback across the aortic valve. Ascending aortic pressure was 104/64 with a mean of 80 mmHg. CORONARY ANGIOGRAPHY: Diffuse coronary calcification and coronary plaque are present. Left main coronary artery does not exhibit significant obstructive disease. Left anterior descending artery has a patent stent that are known to be Taxus 2.75 x 20, 2.5 x 24, 2.5 x 12 and Xience Laverne 2.5 x 8 mm stents (proximal to distal). The left circumflex artery has moderate diffuse disease and there is a patent stent in its first obtuse marginal branch that is known to be Promus 2.5 x 16 mm. The right coronary artery is dominant. It has diffuse moderate disease. There is a patent stent in its proximal portion that is known to be Xience Laverne 3.5 x 16 mm. This exhibits approximately 50% in-stent restenosis. Throughout all coronary vessels, there are multiple 50% stenoses. There is also diffuse coronary calcification. LEFT VENTRICULAR ANGIOGRAPHY: Left ventricular angiography was carried out in right anterior oblique projection. Global left ventricular systolic function is well preserved. Left ventricular ejection fraction is approximately 50%. CONCLUSIONS: 1. Coronary artery disease, diffuse, moderate. Left anterior descending artery has patent stents that are known to be Taxus 2.75 x 20, 2.5 x 24, 2.5 x 12 and Xience Laverne 2.5 x 8 (proximal to distal). 2. Left circumflex artery has a patent stent in its first obtuse marginal that is known to be Promus 2.5 x 16. 3. Right coronary artery has a patent stent with 50% in-stent restenosis. This is known to be Xience Laverne 3.5 x 16. All coronary arteries have diffuse stenoses with a focal stenoses of up to 50% at several spots. 4. Well preserved global left ventricular systolic function with ejection fraction approximately 50%. 5. Mild to moderate elevation of left ventricular end-diastolic pressure. DISCUSSION AND RECOMMENDATIONS: Based on results of the study, it appears reasonable to continue a conservative approach. Risk factor modification has been advised. Close outpatient followup is advised to titrate her medications. Job ID: [id number] DocumentID: [id number] Dictated Date: 01/03/2019 17:04:09 Doctor Of Dental Surgery Date: 01/03/2019 19:31:01 Dictated By: SAHIL HAWLEY MD, MA, FACP, FACC, MTDD
--- NOTE | 2019-01-03 20:40 | NUR ---
PT AMBULATED IN HALLS. DENIED ANY DIZZINESS, CHEST PAIN. RIGHT GROIN SITE DRESSING CLEAN, DRY AND INTACT. NO EVIDENCE OF HEMATOMA. PT DOES NOT SPEAK AZERI. DAUGHTER IN ROOM TO TRANSLATE.
== END 2019-01-03 21:30 | disposition home or self-care (01) ==
LOC: CATH 13:23 → ICU 17:25 → CATH 21:30
PROVIDERS: ATTEND Internal Medicine Cardiovascular Disease
DX: I25.10 Atherosclerotic heart disease of native coronary artery without angina pectoris (principal); T82.855A Stenosis of coronary artery stent, initial encounter; I13.0 Hypertensive heart and chronic kidney disease with heart failure and stage 1 through stage 4 chronic kidney disease, or unspecified chronic kidney disease; I50.43 Acute on chronic combined systolic (congestive) and diastolic (congestive) heart failure; N18.9 Chronic kidney disease, unspecified; I48.0 Paroxysmal atrial fibrillation; E66.9 Obesity, unspecified; Z68.31 Body mass index [BMI] 31.0-31.9, adult; Z91.14 Patient's other noncompliance with medication regimen; Z79.01 Long term (current) use of anticoagulants; Z79.02 Long term (current) use of antithrombotics/antiplatelets; Z79.899 Other long term (current) drug therapy
CPT/HCPCS: 36415; 80053; 80061; 85027; 85610; 85730; 87081; 93458

== ENCOUNTER 2019-05-15 13:55 | Emergency (ER) | payer MEDICAID ==
[~2019-05-15] VITALS: Ht 152.4 cm; Wt 68.2 kg
[~2019-05-15 13:55] MED LIST changes: +MULT1CAP27 PO
[2019-05-15 15:03] LABS: BASOPHILS % (AUTO) 1 % (0-10); EOSINOPHILS # (AUTO) 0.1 10^3/uL (0.0-0.3); EOSINOPHILS % (AUTO) 2 % (0-10); HEMATOCRIT 36 % (35-52); HEMOGLOBIN 11.3 G/DL (11.5-16.0); LYMPHOCYTES % (AUTO) 17 % (12-44); MEAN CORPUSCULAR HEMOGLOBIN 31 PG (25-34); MEAN CORPUSCULAR HGB CONC 31 G/DL (32-36); MEAN CORPUSCULAR VOLUME 100 FL (80-99); MEAN PLATELET VOLUME 10.2 FL (7.4-10.4); MONOCYTES # (AUTO) 0.4 X 10^3 (0.0-1.0); MONOCYTES % (AUTO) 6 % (0-12); NEUTROPHILS # (AUTO) 4.4 X 10^3 (1.8-7.8); NEUTROPHILS % (AUTO) 74 % (42-75); PLATELET COUNT 145 10^3/uL (130-400); WHITE BLOOD COUNT 5.9 10^3/uL (4.3-11.0)
[2019-05-15 15:18] LABS: ALANINE AMINOTRANSFERASE 41 U/L (0-55); ALBUMIN 3.6 GM/DL (3.2-4.5); ALKALINE PHOSPHATASE 87 U/L (40-136); BILIRUBIN,TOTAL 0.9 MG/DL (0.1-1.0); BUN/CREATININE RATIO 22; CALCIUM 9.2 MG/DL (8.5-10.1); CARBON DIOXIDE 24 MMOL/L (21-32); CHLORIDE 106 MMOL/L (98-107); CREATININE SERUM 1.34 MG/DL (0.60-1.30); GFR ESTIMATED 38; GLUCOSE 119 MG/DL (70-105); POTASSIUM 4.4 MMOL/L (3.6-5.0); SODIUM 138 MMOL/L (135-145); TOTAL PROTEIN 7.1 GM/DL (6.4-8.2)
--- NOTE | 2019-05-15 15:20 | Diagnostic Imaging Report ---
INDICATION: Chest pain and shortness of air. COMPARISON: 10/08/2018. FINDINGS: Enlargement of the heart redemonstrated. There is borderline prominence of the upper lobe pulmonary veins. No definite pleural fluid in the lateral radiograph. No convincing evidence for edema. IMPRESSION: Similar degrees of mild vascular congestion and enlargement of the heart. No definite pleural fluid or edema. Dictated by: Dictated on workstation # [id number]
--- NOTE | 2019-05-15 15:27 | ED Respiratory ---
General Chief Complaint: Respiratory Problems Stated Complaint: CP;SOA Nursing Triage Note: Pt to triage via ED w/c by family with c/o SOA and discomfort to medial neck and bilat shoulders. Pt reports discomfort upon movement of arms. Pt reports SOA began on 05/14/19. Reports intermittent dry cough. Denies fever or chills. Denies chest pain or discomfort. Family @ side translating for pt. History of Present Illness Date Seen by Provider: May 15, 2019 Time Seen by Provider: 14:00 Initial Comments 83-year-old female presents for shortness of air. She has a significant cardiac history with done in May 2018, history of atrial fibrillation on Eliquis, and heart failure. She reports a nonproductive cough. She did not get flu shot this year. She denies any fevers or chills. She is not using inhalers. Son and daughter are in room, translating. They report she last saw Dr. Hawley about 2 months ago. She hasn't followed up with Dr. Cisneros. She has a bottle for Lasix 40 mg BID that was filled with 6 tablets on 05/08/19 as a Loan with no provider listed on the bottle, the family reports the pharmacy has been contacting Dr. Hawley to get this refilled. They have not been in contact for follow up with Dr. Hawley. She reports less SOA when taking her Lasix. There is a language barrier with the patient and her Bel[place]an speaking adult children do not seem to understand the significance of her health problems and need to be taking her medications and keeping her follow up appointments. This has been noted on previous ED visits. Timing/Duration: intermittent Prior Episodes/Possible Cause: frequent episodes Associated Symptoms: denies symptoms; No chest pain/soreness, No cough, No dizziness, No earache, No facial pain, No fever/chills, No headache, No lightheadedness, No muscle aches, No nasal congestion, No nasal drainage; shortness of breath; No sinus infection, No sore throat, No wheezing, No other Allergies and Home Medications Allergies Coded Allergies: NKANo Known Allergies (Verified Allergy, Unknown, 02/07/07) Home Medications Acetaminophen 500 Mg Tablet, 500-1,000 MG PO Q6H PRN for PAIN-MILD, (Reported) Apixaban 2.5 Mg Tablet, 2.5 MG PO BID, (Reported) Atorvastatin Calcium 40 Mg Tablet, 40 MG PO HS, (Reported) Clopidogrel Bisulfate 75 Mg Tablet, 75 MG PO DAILY, (Reported) Furosemide 40 Mg Tablet, 40 MG PO DAILY@07,17 Prescribed by: JESSICA ONEIL on 10/12/18 0831 Furosemide 40 Mg Tablet, 40 MG PO BID Prescribed by: SOFI WEIR on 05/15/19 1639 Metoprolol Tartrate 50 Mg Tablet, 50 MG PO BID Prescribed by: JESSICA ONEIL on 10/12/18 08 Multivitamin 1 Each Capsule, 1 EACH PO DAILY, (Reported) Potassium Chloride 20 Meq Tab.er.prt, 20 MEQ PO DAILY@0700 Prescribed by: JESSICA ONEIL on 10/12/18 08 Patient Home Medication List Home Medication List Reviewed: Yes Review of Systems Review of Systems Constitutional: no symptoms reported, see HPI Respiratory: see HPI, dyspnea on exertion, short of breath All Other Systems Reviewed Negative Unless Noted: Yes Past Ksxmile-Namaay-Vjfcqk Hx Patient Social History Alcohol Use: Denies Use Recreational Drug Use: No Smoking Status: Never a Smoker 2nd Hand Smoke Exposure: No Recent Foreign Travel: No Contact w/Someone Who Travel: No Recent Infectious Disease Expo: No Recent Hopitalizations: No Immunizations Up To Date Date of Influenza Vaccine: May 18, 2018 Seasonal Allergies Seasonal Allergies: No Past Medical History Surgeries: Yes Bladder Surgery, Cardiac, Coronary Stent, Eye Surgery, Gallbladder, Orthopedic Respiratory: No (CHRONIC DYSPNEA ON EXERTION) Cardiac: Yes Atrial Fibrillation, Coronary Artery Disease, Deep Vein Thrombosis, High Cholesterol, Hypertension Neurological: Yes (NEUROPATHY RIGHT FOOT POST ANKLE SURGERY) Neuropathy Reproductive Disorders: 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 No Pertinent Family Hx Physical Exam Vital Signs - First Documented 05/15/19 13:56 Temp 36.5 Pulse 86 Resp 18 B/P (MAP) 111/77 (88) Pulse Ox 98 O2 Delivery Room Air Capillary Refill : Less Than 3 Seconds Height: 5'0.00" Weight: 160lbs. 0.0oz. [id number]; 29.00 BMI Method:Stated General Appearance: WD/WN, no apparent distress HEENT: PERRL/EOMI, normal ENT inspection, TMs normal, pharynx normal Neck: non-tender, full range of motion, supple, normal inspection Respiratory: chest non-tender, lungs clear, normal breath sounds Cardiovascular: normal peripheral pulses, regular rate, rhythm Gastrointestinal: normal bowel sounds, non tender, soft Extremities: normal range of motion, non-tender, no pedal edema, normal capillary refill Neurologic/Psychiatric: no motor/sensory deficits, alert, normal mood/affect, oriented x 3 Skin: normal color, warm/dry Progress/Results/Core Measures Suspected Sepsis Recent Fever Within 48 Hours: No Infection Criteria Present: Suspected New Infection New/Unexplained Altered Menta: No Sepsis Screen: No Definite Risk SIRS Temperature: Pulse: 86 Respiratory Rate: 18 Laboratory Tests 05/15/19 14:50: White Blood Count 5.9 Blood Pressure 111 /77 Mean: 88 Laboratory Tests 05/15/19 14:50: Creatinine 1.34H, Platelet Count 145, Total Bilirubin 0.9 Results/Orders Lab Results Laboratory Tests Test 05/15/19 14:50 05/15/19 15:00 Range/Units White Blood Count 5.9 4.3-11.0 10^3/uL Red Blood Count 3.63 L 4.35-5.85 10^6/uL Hemoglobin 11.3 L 11.5-16.0 G/DL Hematocrit 36 35-52 % Mean Corpuscular Volume 100 H 80-99 FL Mean Corpuscular Hemoglobin 31 25-34 PG Mean Corpuscular Hemoglobin Concent 31 L 32-36 G/DL Red Cell Distribution Width 14.0 10.0-14.5 % Platelet Count 145 130-400 10^3/uL Mean Platelet Volume 10.2 7.4-10.4 FL Neutrophils (%) (Auto) 74 42-75 % Lymphocytes (%) (Auto) 17 12-44 % Monocytes (%) (Auto) 6 0-12 % Eosinophils (%) (Auto) 2 0-10 % Basophils (%) (Auto) 1 0-10 % Neutrophils # (Auto) 4.4 1.8-7.8 X 10^3 Lymphocytes # (Auto) 1.0 1.0-4.0 X 10^3 Monocytes # (Auto) 0.4 0.0-1.0 X 10^3 Eosinophils # (Auto) 0.1 0.0-0.3 10^3/uL Basophils # (Auto) 0.0 0.0-0.1 10^3/uL Sodium Level 138 135-145 MMOL/L Potassium Level 4.4 3.6-5.0 MMOL/L Chloride Level 106 98-107 MMOL/L Carbon Dioxide Level 24 21-32 MMOL/L Anion Gap 8 5-14 MMOL/L Blood Urea Nitrogen 29 H 7-18 MG/DL Creatinine 1.34 H 0.60-1.30 MG/DL Estimat Glomerular Filtration Rate 38 BUN/Creatinine Ratio 22 Glucose Level 119 H 70-105 MG/DL Calcium Level 9.2 8.5-10.1 MG/DL Corrected Calcium 9.5 8.5-10.1 MG/DL Total Bilirubin 0.9 0.1-1.0 MG/DL Aspartate Amino Transf (AST/SGOT) 64 H 5-34 U/L Alanine Aminotransferase (ALT/SGPT) 41 0-55 U/L Alkaline Phosphatase 87 40-136 U/L Troponin I < 0.028 <0.028 NG/ML Total Protein 7.1 6.4-8.2 GM/DL Albumin 3.6 3.2-4.5 GM/DL B-Type Natriuretic Peptide 1162.2 H <100.0 PG/ML Micro Results Microbiology 05/15/19 Influenza Types A,B Antigen (LETICIA) - Final, Complete My Orders Orders - SOFI WEIR Chest Pa/Lat (2 View) (05/15/19 14:56) Cbc With Automated Diff (05/15/19 14:56) Comprehensive Metabolic Panel (05/15/19 14:56) Troponin I (05/15/19 14:56) Influenza A And B Antigens (05/15/19 14:56) Ekg Tracing (05/15/19 15:25) Albuterol/Ipra Inhalation Soln (Duoneb I (05/15/19 15:45) Svn Small Volume Nebulizer (05/15/19 15:35) BNP (05/15/19 16:37) Furosemide Injection (Lasix Injection) (05/15/19 17:30) Medications Given in ED Current Medications Medications Dose Ordered Sig/Phan Route Start Time Stop Time Status Last Admin Dose Admin Albuterol/ Ipratropium 3 ml ONCE ONCE INH 05/15/19 15:45 05/15/19 15:46 DC 05/15/19 15:44 3 ML Furosemide 20 mg ONCE ONCE IVP 05/15/19 17:30 05/15/19 17:31 DC 05/15/19 17:43 20 MG Vital Signs/I&O 05/15/19 05/15/19 05/15/19 13:56 15:44 17:55 Temp 36.5 Pulse 86 95 Resp 18 20 B/P (MAP) 111/77 (88) 125/86 Pulse Ox 98 98 96 O2 Delivery Room Air Room Air Room Air Capillary Refill : Less Than 3 Seconds Blood Pressure Mean: 88 POS Progress Note : Time: 14:00 Progress Note Patient seen and evaluated, SaO2 90%. No dyspnea noted. Will obtain chest x-ray EKG and labs. 1445 labs all essentially normal and no new changes on chest x-ray. We'll have RT see patient for DuoNeb. 1530 patient reports some improvement after the DuoNeb treatment. Will give Lasix 20 mg IV. 1615 patient's lungs continue to be clear to auscultation bilaterally. Patient denies any further complaints. 1640 patient has been up to the bathroom 2 times. She reports improvement in her symptoms. Discharge instructions and return precautions reviewed with the patient and her children. Stressed the importance of getting her prescription but more importantly that she keep her scheduled follow-up appointment with her primary care provider and her specialist. ECG Initial ECG Impression Date: May 15, 2019 Initial ECG Impression Time: 14:54 Initial ECG Rate: 83 Initial ECG Rhythm: A Fib/Flutter Initial ECG Intervals: Normal Initial ECG Intervals QRSD 82, QT 392, QTC 461. [place] QRS 56, T 77 Initial ECG Comparisson: Unchanged Comment Reviewed with Dr. Yadav, concurred with interpretation. Diagnostic Imaging Diagonstic Imaging: Xray Plain Films/CT/US/NM/MRI: chest Comments NAME: [facility] REC#: [id number] PT STATUS: REG ER : 1935 PHYSICIAN: SOFI WEIR ADMIT DATE: 05/15/19/ER Draft POSDate of Exam:05/15/19 CHEST PA/LAT (2 VIEW) INDICATION: Chest pain and shortness of air. COMPARISON: 10/08/2018. FINDINGS: Enlargement of the heart redemonstrated. There is borderline prominence of the upper lobe pulmonary veins. No definite pleural fluid in the lateral radiograph. No convincing evidence for edema. IMPRESSION: Similar degrees of mild vascular congestion and enlargement of the heart. No definite pleural fluid or edema. Dictated on workstation # [id number] Dict: 05/15/19 1514 Trans: 05/15/19 1520 [id number] Interpreted by: ESTHER MÉNDEZ Electronically signed by: Reviewed: Reviewed by Me Departure Impression Primary Impression: SOB (shortness of breath) Additional Impression: Afib Qualified Codes: I48.91 - Unspecified atrial fibrillation Disposition: HOME, SELF-CARE Condition: Improved Departure-Patient Inst. Decision time for Depature: 16:40 Referrals: [facility] [place] Primary Care Physician CHARO MULLIGAN APRN (Family) Primary Care Physician Patient Instructions: Cough, Adult (DC), Heart Failure, Adult (DC) Add. Discharge Instructions: You need to follow up with Dr. Hawley to get your Lasix Prescription. Take the Lasix that I have prescribed, until you follow up with Dr. Hawley. Take all of your medication as prescribed and follow up with your Health Care Providers, before you run out of medication. Return to the emergency department for new, urgent health care needs. All discharge instructions reviewed with patient and/or family. Voiced understanding. Scripts Furosemide (Lasix) 40 Mg Tablet 40 MG PO BID, #6 TAB 0 Refills Prov: SOFI WEIR 05/15/19 Copy Copies To 1: RONNA MUNOZ MD Copies To 2: SAHIL HAWLEY MD [facility] SOFI WEIR May 15, 2019 15:27 POS
[2019-05-15] MEDS ORDERED: RT-ALBUTEROL/IPRATROPIUM 3 ML (DUONEB) VIAL INH ONE (15:45)
[2019-05-15] MEDS ORDERED: FURO-124 PO (16:39)
[2019-05-15] MEDS ORDERED: FUROSEMIDE 40 MG/4 ML INJ (LASIX) IVP ONE (17:30)
[2019-05-15 17:55] VITALS: BP 125/86
[2019-05-16] MEDS ORDERED: FUROSEMIDE 40 MG/4 ML INJ (LASIX) IVP SCH (09:00)
== END 2019-05-15 17:55 | disposition home or self-care (01) ==
LOC: ER 13:55 → EDUNIT# 13:55 → ER 17:55
DX: I48.91 Unspecified atrial fibrillation (principal); I11.0 Hypertensive heart disease with heart failure; I50.9 Heart failure, unspecified; I25.10 Atherosclerotic heart disease of native coronary artery without angina pectoris; E78.00 Pure hypercholesterolemia, unspecified; G62.9 Polyneuropathy, unspecified; E66.9 Obesity, unspecified; D64.9 Anemia, unspecified; Z86.718 Personal history of other venous thrombosis and embolism; Z68.29 Body mass index [BMI] 29.0-29.9, adult; Z79.01 Long term (current) use of anticoagulants; Z79.02 Long term (current) use of antithrombotics/antiplatelets; Z95.5 Presence of coronary angioplasty implant and graft
CPT/HCPCS: 36415; 71046; 80053; 83880; 84484; 85025; 87804; 93005; 94640; 96374

== ENCOUNTER → 2019-06-26 | Outpatient (CLI) | payer MEDICAID ==
[~2019-06-26] MED LIST changes: +FURO-124 PO; +RT-ALBUTEROL SULF 2.5 MG/3 ML PRE-MIX VIAL INH ONE; +SIMV40TA25 PO; +TRM50T PO
== END ==
LOC: RT 08:50
PROVIDERS: ATTEND Nurse Practitioner Family
DX: I50.43 Acute on chronic combined systolic (congestive) and diastolic (congestive) heart failure (principal)
CPT/HCPCS: 93225; 93226; 94060; 94729

== ENCOUNTER 2021-01-03 16:25 | Inpatient (IN) | payer MEDICAID ==
[~2021-01-03] VITALS: Ht 152.4 cm; Wt 72.6 kg
[~2021-01-03 16:25] MED LIST changes: +ASPI-1238 PO; -ASPI-983 PO; -CALC-6 PO; +CALC1TAB84 PO; -LISI10TA2 PO; +LISI10TA25 PO; -MONT10TA24 PO; +MONT10TA32 PO; -RT-ALBUTEROL SULF 2.5 MG/3 ML PRE-MIX VIAL INH ONE
[2021-01-03 17:14] LABS: BASOPHILS % (AUTO) 0 % (0-10); EOSINOPHILS % (AUTO) 0 % (0-10); HEMOGLOBIN 13.3 g/dL (11.5-16.0)
[2021-01-03 17:15] LABS: ALBUMIN 3.3 GM/DL (3.2-4.5); POTASSIUM 3.7 MMOL/L (3.6-5.0)
[2021-01-03 17:16] LABS: CALCIUM 9.3 MG/DL (8.5-10.1); HEMATOCRIT 40 % (35-52); LYMPHOCYTES % (AUTO) 17 % (12-44); MEAN CORPUSCULAR HEMOGLOBIN 31 pg (25-34); MEAN CORPUSCULAR HGB CONC 34 g/dL (32-36); MEAN CORPUSCULAR VOLUME 94 fL (80-99); MEAN PLATELET VOLUME 11.1 fL (9.0-12.2); MONOCYTES # (AUTO) 0.3 10^3/uL (0.0-1.0); MONOCYTES % (AUTO) 6 % (0-12); NEUTROPHILS # (AUTO) 4.3 10^3/uL (1.8-7.8); NEUTROPHILS % (AUTO) 76 % (42-75); PLATELET COUNT 123 10^3/uL (130-400); WHITE BLOOD COUNT 5.7 10^3/uL (4.3-11.0)
[2021-01-03 17:18] LABS: TOTAL PROTEIN 7.6 GM/DL (6.4-8.2)
[2021-01-03 17:19] LABS: BILIRUBIN,TOTAL 0.8 MG/DL (0.1-1.0)
[2021-01-03 17:21] LABS: CREATININE SERUM 1.32 MG/DL (0.60-1.30)
[2021-01-03 17:24] LABS: SMEAR SCAN COMMENT YES
--- NOTE | 2021-01-03 18:29 | Diagnostic Imaging Report ---
INDICATION: Cough and hypoxia. COMPARISON: Comparison made with a prior study from May 15, 2019. FINDINGS: There is enlargement of the cardiac silhouette. There are abnormal interstitial opacities present within the lungs with more focal pulmonary opacities demonstrated at the lateral right base. There is no large effusion. There are no findings of a pneumothorax. There appears to be central pulmonary vascular congestion. IMPRESSION: Enlarged cardiac silhouette with central pulmonary vascular congestion. There is abnormal prominence of the interstitial markings, particularly at the right lung base. In the setting of COVID positivity, this may reflect developing interstitial pneumonia. Dictated by: Dictated on workstation # [id number]
--- NOTE | 2021-01-03 19:29 | ED General ---
General Chief Complaint: Respiratory Problems Stated Complaint: LOSS OF APPETITE/SOA/COUGH Nursing Triage Note: Pt brought to ER via private vehicle by daughter with complaint of periods of shortness of breath for the last month and worsening SOB today. Pt has also had a decline in appetite. Daughter states that patient lives at home with her and rarely leaves the house and denies being around anyone with covid. Pt denies being vaccinated. Pt denies chest pain or other complaints. Nursing Sepsis Screen: No Definite Risk Source of Information: Patient, Family, [employer] Exam Limitations: No Limitations, Language Barrier History of Present Illness Date Seen by Provider: Jan 03, 2021 Time Seen by Provider: 17:00 Initial Comments This 85-year-old woman presents to the emergency room accompanied by her daughter by private vehicle with complaints of shortness of breath, loss of appetite, and cough. She has been ill for about a month and worsening today. Oxygen saturation is 80% on room air during triage. Patient has not been vaccinated for COVID-19. Patient is [place] and speaks very little Hebrew. She has history of atrial fibrillation and is anticoagulated on Eliquis. 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 Alvarez is her primary care provider. Allergies and Home Medications Allergies Coded Allergies: YENANo Known Allergies (Verified Allergy, Unknown, 02/07/07) Home Medications Acetaminophen 500 Mg Tablet, 500-1,000 MG PO Q6H PRN for PAIN-MILD, (Reported) Apixaban 2.5 Mg Tablet, 2.5 MG PO BID, (Reported) Atorvastatin Calcium 40 Mg Tablet, 40 MG PO HS, (Reported) Clopidogrel Bisulfate 75 Mg Tablet, 75 MG PO DAILY, (Reported) Furosemide 40 Mg Tablet, 40 MG PO DAILY@17 Prescribed by: JESSICA ONEIL on 10/12/18830 Furosemide 40 Mg Tablet, 40 MG PO BID Prescribed by: SOFI WEIR on 05/15/19 1639 Metoprolol Tartrate 50 Mg Tablet, 50 MG PO BID Prescribed by: JESSICA ONEIL on 10/12/18830 Multivitamin 1 Each Capsule, 1 EACH PO DAILY, (Reported) Potassium Chloride 20 Meq Tab.er.prt, 20 MEQ PO DAILY@0700 Prescribed by: JESSICA ONEIL on 10/12/18 08 Patient Home Medication List Home Medication List Reviewed: Yes Review of Systems Review of Systems Constitutional: weakness EENTM: no symptoms reported Respiratory: see HPI Cardiovascular: no symptoms reported; No chest pain Gastrointestinal: see HPI Genitourinary: no symptoms reported : No Musculoskeletal: no symptoms reported Skin: no symptoms reported Psychiatric/Neurological: No Symptoms Reported Hematologic/Lymphatic: No Symptoms Reported Immunological/Allergic: no symptoms reported Past Rpkinre-Unbunr-Kqtgtp Hx Past Med/Social Hx: Reviewed and Corrections made Patient Social History Alcohol Use: Denies Use 2nd Hand Smoke Exposure: No Recent Infectious Disease Expo: No Recent Hopitalizations: No Immunizations Up To Date Date of Influenza Vaccine: May 18, 2018 Seasonal Allergies Seasonal Allergies: No Past Medical History Surgeries: Yes Bladder Surgery, Cardiac, Coronary Stent, Eye Surgery, Gallbladder, Orthopedic Respiratory: No (CHRONIC DYSPNEA ON EXERTION) Cardiac: Yes Atrial Fibrillation, Coronary Artery Disease, Deep Vein Thrombosis, High Cho lesterol, Hypertension Neurological: Yes (NEUROPATHY RIGHT FOOT POST ANKLE SURGERY) Neuropathy 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 No Pertinent Family Hx Physical Exam Vital Signs Vital Signs - First Documented 01/03/21 16:51 Temp 36.6 Pulse 90 Resp 24 B/P (MAP) 101/69 (80) Pulse Ox 79 O2 Delivery Room Air Capillary Refill : Less Than 3 Seconds Height, Weight, BMI Height: 5'0.00" Weight: 160lbs. 0.0oz. 72.722109ny; 26.00 BMI Method:Stated General Appearance: No Apparent Distress, WD/WN, Other (Ill-appearing) HEENT: PERRL/EOMI, Normal ENT Inspection Neck: Normal Inspection Respiratory: No Accessory Muscle Use, No Respiratory Distress, Crackles (Scattered crackles throughout), Decreased Breath Sounds, Other (Coarse cough noted) Cardiovascular: Regular Rate, Rhythm, No Edema, No JVD, No Murmur, Normal Peripheral Pulses Gastrointestinal: Normal Bowel Sounds, Non Tender, Soft Extremity: Normal Inspection, Non Tender, No Calf Tenderness, No Pedal Edema Neurologic/Psychiatric: Alert, No Motor/Sensory Deficits, Normal Mood/Affect, paralegal specialist II-XII Norm as Tested, Other (Generalized weakness) Skin: Normal Color, Warm/Dry Progress/Results/Core Measures Suspected Sepsis Recent Fever Within 48 Hours: No Infection Criteria Present: None New/Unexplained Altered Menta: No Sepsis Screen: No Definite Risk SIRS Temperature: Pulse: 90 Respiratory Rate: 24 Laboratory Tests 01/03/21 16:54: White Blood Count 5.7 Blood Pressure 101 /69 Mean: 80 Laboratory Tests 01/03/21 16:54: Creatinine 1.32H, Platelet Count 123L, Total Bilirubin 0.8 Results/Orders Lab Results Laboratory Tests Test 01/03/21 16:54 01/03/21 17:10 Range/Units White Blood Count 5.7 4.3-11.0 10^3/uL Red Blood Count 4.24 3.80-5.11 10^6/uL Hemoglobin 13.3 11.5-16.0 g/dL Hematocrit 40 35-52 % Mean Corpuscular Volume 94 80-99 fL Mean Corpuscular Hemoglobin 31 25-34 pg Mean Corpuscular Hemoglobin Concent 34 32-36 g/dL Red Cell Distribution Width 13.2 10.0-14.5 % Platelet Count 123 L 130-400 10^3/uL Mean Platelet Volume 11.1 9.0-12.2 fL Immature Granulocyte % (Auto) 1 % Neutrophils (%) (Auto) 76 H 42-75 % Lymphocytes (%) (Auto) 17 12-44 % Monocytes (%) (Auto) 6 0-12 % Eosinophils (%) (Auto) 0 0-10 % Basophils (%) (Auto) 0 0-10 % Neutrophils # (Auto) 4.3 1.8-7.8 10^3/uL Lymphocytes # (Auto) 1.0 1.0-4.0 10^3/uL Monocytes # (Auto) 0.3 0.0-1.0 10^3/uL Eosinophils # (Auto) 0.0 0.0-0.3 10^3/uL Basophils # (Auto) 0.0 0.0-0.1 10^3/uL Immature Granulocyte # (Auto) 0.0 0.0-0.1 10^3/uL Percent Immature Platelet Fraction 7.9 H 0.0-7.6 % Sodium Level 130 L 135-145 MMOL/L Potassium Level 3.7 3.6-5.0 MMOL/L Chloride Level 89 L 98-107 MMOL/L Carbon Dioxide Level 28 21-32 MMOL/L Anion Gap 13 5-14 MMOL/L Blood Urea Nitrogen 29 H 7-18 MG/DL Creatinine 1.32 H 0.60-1.30 MG/DL Estimat Glomerular Filtration Rate 38 BUN/Creatinine Ratio 22 Glucose Level 153 H 70-105 MG/DL Calcium Level 9.3 8.5-10.1 MG/DL Corrected Calcium 9.9 8.5-10.1 MG/DL Total Bilirubin 0.8 0.1-1.0 MG/DL Aspartate Amino Transf (AST/SGOT) 109 H 5-34 U/L Alanine Aminotransferase (ALT/SGPT) 45 0-55 U/L Alkaline Phosphatase 101 40-136 U/L C-Reactive Protein High Sensitivity 8.83 H 0.00-0.50 MG/DL B-Type Natriuretic Peptide 271.7 H <100.0 PG/ML Total Protein 7.6 6.4-8.2 GM/DL Albumin 3.3 3.2-4.5 GM/DL Smear Scan YES Influenza Type A (RT-PCR) Not Detected Not Detecte Influenza Type B (RT-PCR) Not Detected Not Detecte SARS-CoV-2 RNA (RT-PCR) Detected H Not Detecte My Orders Orders - BRITTA OBREGON MD Cbc With Automated Diff (01/03/21 17:01) Comprehensive Metabolic Panel (01/03/21 17:01) Hs C Reactive Protein (01/03/21 17:01) Covid 19 Inhouse Test (01/03/21 17:01) Influenza A And B By Pcr (01/03/21 17:01) Chest 1 View, Ap/Pa Only (01/03/21 17:52) BNP (01/03/21 17:53) Procalcitonin (Pct) (01/03/21 19:03) Dexamethasone Injection (Decadron Inje (01/03/21 19:15) Vital Signs/I&O 01/03/21 16:51 Temp 36.6 Pulse 90 Resp 24 B/P (MAP) 101/69 (80) Pulse Ox 79 O2 Delivery Room Air Capillary Refill : Less Than 3 Seconds Blood Pressure Mean: 80 Progress Note : Progress Note History was obtained from patient and family. Work-up revealed positive Covid 19 status. Patient was treated with dexamethasone. Because of patient's hypoxic status, admission was necessary. Oxygen saturation was 95% on 4 L nasal cannula and patient had comfortable breathing. I had very long conversations with this family, nearly 1 hour in total obtaining history, reviewing plan, and determining CODE STATUS and other treatment decisions with the language line science interpreter. Patient appeared to have some degree of heart failure. Therefore IV fluids were not administered. I discussed convalescent plasma treatment. At first patient and family wish to defer the decision until research could be performed on their part. They later requested to receive the convalescent plas ma. After lengthy discussion with patient and family via science interpreter, they elected full CODE STATUS. Diagnostic Imaging Diagonstic Imaging: Xray Plain Films/CT/US/NM/MRI: chest Comments NAME: INDY TORRES [facility] REC#: [id number] PT STATUS: REG ER : 1935 PHYSICIAN: BRITTA OBREGON MD ADMIT DATE: 01/03/21/ER Signed Date of Exam:01/03/21 CHEST 1 VIEW, AP/PA ONLY INDICATION: Cough and hypoxia. COMPARISON: Comparison made with a prior study from May 15, 2019. FINDINGS: There is enlargement of the cardiac silhouette. There are abnormal interstitial opacities present within the lungs with more focal pulmonary opacities demonstrated at the lateral right base. There is no large effusion. There are no findings of a pneumothorax. There appears to be central pulmonary vascular congestion. IMPRESSION: Enlarged cardiac silhouette with central pulmonary vascular congestion. There is abnormal prominence of the interstitial markings, particularly at the right lung base. In the setting of COVID positivity, this may reflect developing interstitial pneumonia. Dictated by: Dictated on workstation # [id number] Dict: 01/03/21 1825 Trans: 01/03/211925 [id number] [id number] Interpreted by: SAIRA MEADE MD Electronically signed by: SAIRA MEADE MD 01/03/211925 Departure Communication (Admissions) Time/Spoke to Admitting Phy: 17:55 Dr. Dee Impression Primary Impression: COVID-19 Additional Impressions: Hypoxia Atrial fibrillation Qualified Codes: I48.91 - Unspecified atrial fibrillation Renal insufficiency Disposition: ADMITTED INPATIENT Condition: Improved Admissions Decision to Admit Reason: Admit from ER (General) Decision to Admit/Date: Jan 03, 2021 Time/Decision to Admit Time: 17:05 Departure-Patient Inst. Referrals: RONNA ALVAREZ MD (PCP/Family) Primary Care Physician Copy Copies To 1: RONNA ALVAREZ MD Copies To 2: SAHIL FLOWERS MD FACP [facility] BRITTA OBREGON MD Jan 03, 2021 19:29
[2021-01-03 20:30] VITALS: BP 127/65
[2021-01-03] MEDS ORDERED: ONDANSETRON 4 MG/2 ML (SDV) Z0FRAN IV PRN (21:45)
[2021-01-03] MEDS ORDERED: ACETAMINOPHEN 650 MG SUPP (TYLENOL) PR PRN (21:45)
[2021-01-03] MEDS ORDERED: guaiFENesin SYRUP 100 MG/5 ML 10 ML (ROBITUSSIN SF) PO PRN (21:45)
[2021-01-03] MEDS ORDERED: RT-ALBUTEROL INHALER HFA (VENTOLIN HFA) 18 GM IH PRN (22:00)
[2021-01-03 23:56] VITALS: BP 127/82
[2021-01-04] MEDS ORDERED: RT-ALBUTEROL INHALER HFA (VENTOLIN HFA) 18 GM IH PRN (00:15)
[2021-01-04] MEDS ORDERED: ASPI-999 PO (02:06)
[2021-01-04] MEDS ORDERED: IPRA4AER IH (02:08)
[2021-01-04] MEDS: RT-ALBUTEROL INHALER HFA (VENTOLIN HFA) 18 GM IH SCH ×4 (02:33→21:16)
[2021-01-04 04:59] VITALS: BP 142/89
[2021-01-04 05:48] LABS: EOSINOPHILS % (AUTO) 0 % (0-10); HEMOGLOBIN 12.9 g/dL (11.5-16.0); LYMPHOCYTES # (AUTO) 0.7 10^3/uL (1.0-4.0); MEAN CORPUSCULAR VOLUME 94 fL (80-99); MONOCYTES # (AUTO) 0.1 10^3/uL (0.0-1.0); MONOCYTES % (AUTO) 2 % (0-12)
[2021-01-04 05:49] LABS: BASOPHILS % (AUTO) 0 % (0-10); HEMATOCRIT 39 % (35-52); LYMPHOCYTES % (AUTO) 21 % (12-44); MEAN CORPUSCULAR HEMOGLOBIN 31 pg (25-34); MEAN CORPUSCULAR HGB CONC 33 g/dL (32-36); MEAN PLATELET VOLUME 10.7 fL (9.0-12.2); NEUTROPHILS # (AUTO) 2.6 10^3/uL (1.8-7.8); NEUTROPHILS % (AUTO) 77 % (42-75); PLATELET COUNT 124 10^3/uL (130-400); WHITE BLOOD COUNT 3.4 10^3/uL (4.3-11.0)
[2021-01-04 06:04] LABS: ALBUMIN 3.3 GM/DL (3.2-4.5); POTASSIUM 3.7 MMOL/L (3.6-5.0)
[2021-01-04 06:05] LABS: CALCIUM 9.2 MG/DL (8.5-10.1)
[2021-01-04 06:07] LABS: TOTAL PROTEIN 7.4 GM/DL (6.4-8.2)
[2021-01-04 06:08] LABS: BILIRUBIN,TOTAL 0.9 MG/DL (0.1-1.0)
[2021-01-04 06:10] LABS: CREATININE SERUM 1.32 MG/DL (0.60-1.30)
[2021-01-04] MEDS: FUROSEMIDE 40 MG (LASIX) TAB PO SCH ×2 (06:21→17:16)
[2021-01-04 07:31] VITALS: BP 135/62
[2021-01-04 07:38] VITALS: BP 132/76
[2021-01-04] MEDS: ASPIRIN E.C. 81 MG (ECOTRIN) TAB PO SCH (09:43)
[2021-01-04] MEDS: meTOprolol TARTRATE 50 MG (LOPRESSOR) TAB PO SCH ×2 (09:43→20:10)
[2021-01-04] MEDS: APIXABAN 2.5 MG (ELIQUIS) TABLET PO SCH ×2 (09:43→20:10)
[2021-01-04 11:35] VITALS: BP 115/66
[2021-01-04] MEDS ORDERED: ACETAMINOPHEN 500 MG TAB (TYLENOL) PO PRN (12:45)
--- NOTE | 2021-01-04 12:57 | History & Physical-Hospitalist ---
History of Present Illness HPI/Chief Complaint Pt is a n 85yOCF with a PMH of a fib, HLD, HTN who presented to the ER due to a couple of weeks of shortness of breath. She has not been well for roughly one month with poor appetite and cough though. She worsened yesterday prompting evaluation in the ER. She was found to be satting 79% on room air on arrival and COVID swab was obtained and she was found to be positive. She has not been vaccinated. She was admitted for further care. She has no complaints today and feels she is breathing well. She was satting around 94% while I was in the room on 5lpm NC. Source: patient, family Exam Limitations: language barrier (offered language line intrepretor, patient declined) Date Seen 01/04/21 Time Seen by a Provider: 12:53 Attending Physician Ignacia Dee MD PCP Ligia Alvarez MD Referring Physician Date of Admission Jan 03, 2021 at 19:11 Home Medications & Allergies Home Medications Reviewed patient Home Medication Reconciliation performed by pharmacy medication reconciliations body shop technician and/or nursing. Patients Allergies have been reviewed. Allergies Allergies Coded Allergies NKANo Known Allergies (Verified Allergy, Unknown, 02/07/07) Past Nygkeyt-Hpsyzt-Gsqhwe Hx Patient Social History Employed/Student: retired Tobacco Use?: No Smoking Status: Never a Smoker Smokeless Tobacco Frequency: Never a User Use of E-Cig and/or Vaping dev: No Substance use?: No Alcohol Use?: No Pt feels they are or have been: No Immunizations Up To Date Date of Influenza Vaccine: May 18, 2018 Seasonal Allergies Seasonal Allergies: No Current Status status: No status: No Advance Directives: Unable to obtain Communicates: Gestures, Verbally Primary Language: Preferred Spoken Language: LAO Is interpretation needed?: Yes Past Medical History Surgeries: Bladder Surgery, Cardiac, Coronary Stent, Eye Surgery, Gallbladder, Orthopedic Atrial Fibrillation, Coronary Artery Disease, Deep Vein Thrombosis, High Cholesterol, Hypertension Neuropathy 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 No Pertinent Family Hx Review of Systems Constitutional: No chills, No fever; malaise, weakness EENTM: no symptoms reported Respiratory: cough, short of breath Cardiovascular: no symptoms reported Gastrointestinal: loss of appetite Genitourinary: no symptoms reported Musculoskeletal: no symptoms reported Skin: no symptoms reported Psychiatric/Neurological: No Symptoms Reported Physical Exam Physical Exam Vital Signs Vital Signs - First Documented 01/03/21 16:51 Temp 36.6 Pulse 90 Resp 24 B/P (MAP) 101/69 (80) Pulse Ox 79 O2 Delivery Room Air Capillary Refill : Less Than 3 Seconds Height, Weight, BMI Height: 5'0.00" Weight: 160lbs. 0.0oz. 72.161757dl; 26.66 BMI Method:Stated General Appearance: No Apparent Distress, WD/WN HEENT: PERRL/EOMI, Moist Mucous Membranes; No Scleral Icterus (L), No Scleral Icterus (R) Neck: Normal Inspection, Supple Respiratory: No Accessory Muscle Use, Decreased Breath Sounds, Other (on 5lpm NC) Cardiovascular: No JVD, No Murmur, Irregularly Irregular Gastrointestinal: Normal Bowel Sounds, Non Tender, Soft Extremity: Normal Capillary Refill, No Calf Tenderness, No Pedal Edema Neurologic/Psychiatric: Alert, Oriented x3, Normal Mood/Affect Skin: Normal Color, Warm/Dry Results Results/Procedures Labs Laboratory Tests 01/03/21 16:54 01/04/21 05:28 Patient resulted labs reviewed. Imaging: Reviewed Imaging Report Imaging [facility], [place] NAME: [facility] REC#: [id number] PT STATUS: REG ER : 1935 PHYSICIAN: BRITTA OBREGON MD ADMIT DATE: 01/03/21/ER Signed Date of Exam:01/03/21 CHEST 1 VIEW, AP/PA ONLY INDICATION: Cough and hypoxia. COMPARISON: Comparison made with a prior study from May 15, 2019. FINDINGS: There is enlargement of the cardiac silhouette. There are abnormal interstitial opacities present within the lungs with more focal pulmonary opacities demonstrated at the lateral right base. There is no large effusion. There are no findings of a pneumothorax. There appears to be central pulmonary vascular congestion. IMPRESSION: Enlarged cardiac silhouette with central pulmonary vascular congestion. There is abnormal prominence of the interstitial markings, particularly at the right lung base. In the setting of COVID positivity, this may reflect developing interstitial pneumonia. Dictated by: Dictated on workstation # [id number] Dict: 01/03/211824 Trans: 01/03/211925 [id number] [id number] Interpreted by: SAIRA MEADE MD Electronically signed by: SAIRA MEADE MD 01/03/211925 Assessment/Plan Admission Diagnosis Acute hypoxic respiratory failure due to COVID19 Admission Status: Inpatient Order (span 2 midnights) Reason for Inpatient Admission: see below Assessment and Plan Acute hypoxic respiratory failure due to COVID19 Continue Decadron Consented to convalescent plasma Wean oxygen to keep sats >90 Updated daughter today IS Will repeat procal and CXR in AM Unclear onset date but weeks to 1 month ago so outside of window for remdesivir Leukopenia Likely COVID induced, trend a-fib HTN HLD Continue home meds DVt ppx; On eliquis already Diagnosis/Problems Diagnosis/Problems (1) Acute respiratory failure (2) Atrial fibrillation Status: Acute Qualifiers: Atrial fibrillation type: unspecified Qualified Codes: I48.91 - Un specified atrial fibrillation (3) HLD (hyperlipidemia) Status: Chronic (4) Debility Status: Acute (5) CAD (coronary artery disease) (6) CKD (chronic kidney disease) Status: Chronic (7) History of DVT (deep vein thrombosis) (8) Loss of appetite Status: Acute (9) HTN (hypertension) Status: Chronic (10) COVID-19 Status: Acute IGNACIA DEE MD Jan 04, 2021 12:57
--- NOTE | 2021-01-04 13:48 | Occupational Therapy Eval ---
OT Evaluation-General/PLF Medical Diagnosis Admission Date Jan 03, 2021 at 19:11 Medical Diagnosis: covid-19 with hypoxic resp failure. A fib, renal insuff Onset Date: Jan 03, 2021 Therapy Diagnosis Therapy Diagnosis: decr self care, weakness, decr funct mob, decr act ariadne Height/Weight Height (Feet): 5 Height (Inches): 0.00 Weight (Pounds): 160 Weight (Ounces): 0.0 Precautions Precautions/Isolations: Contact Isolation, Droplet Isolation, Fall Prevention Referral Physician: Luiz Referral Reason: Evaluation/Treatment Medical History Pertinent Medical History: Atrial Fib, Arthritis, CAD, DM, HTN, Neuropathy (R foot), Renal Insufficiency Additional Medical History Chronic dyspnea. DVT, coronary stent. Neuropathy R foot.Incontinence. Bilat total knee replacements. Degen disc disease, chronic back pain. Obesity. Cataract. Anemia Current History Admitted through ED with couple weeks of SOB. Respiratory problems, cough. Reviewed History: Yes Social History Current Living Status: Children (daughter) ADL-Prior Level of Function SCALE: Activities may be completed with or without assistive devices. 9-Hmmiffdsqk-nktfncw completes the activity by him/herself with no assistance from a helper. 5-Set-up or Clean-up Assistance-helper sets up or cleans up; patient completes activity. [place] assists only prior to or following the activity. 4-Supervision or Touching Assistance-helper provides verbal cues and/or touching/steadying and/or contact guard assistance as patient completes activity. Assistance may be provided throughout the activity or intermittently. 3-Partial/Moderate Assistance-helper does LESS THAN HALF the effort. [place] lifts, holds or supports trunk or limbs, but provides less than half the effort. 2-Substantial/Maximal Assistance-helper does MORE THAN HALF the effort. [place] lifts or holds trunk or limbs and provides more than half the effort. 8-Ewdxpajnb-cmwdve does ALL the effort. Patient does none of the effort to complete the activity. Or, the assistance of 2 or more helpers is required for the patient to complete the activity. If activity was not attempted, code reason: 7-Patient Refused. 9-Not Applicable-not attempted and the patient did not perform the activity before the current illness, exacerbation or injury. 10-Not Attempted due to Environmental Limitations-(lack of equipment, weather restraints, etc.). 88-Not Attempted due to Medical Conditions or Safety Concerns. ADL PLOF Comments Pt speaks Croatian but understands Nigerian. OT Current Status Subjective Pt seen in room, up in bed, agreeable to OT. No pain behaviors observed. Appearance Alert, cooperative Mental Status/Objective Attachments: IV, Telemetry, Other-See Comments (pulse oximetry on R ear) Current Upper Extremity ROM Grossly WFL bilat Upper Extremity Strength Grossly 4/5 bilat ADL-Treatment ADL-Current Pt was able to feed herself with setup (difficulty opening packages). She transitioned without help to sit EOB and transferred SPT to bedside commode with CGA, managing her pants and hygiene. She was also able to get a drink independently. Pt left up at EOB, eating, all needs met. Pulse oximetry measurements were in the 82-85 range and nursing notified, who indicated he would adjust the location of the device. Eating (QC): 5 (setup) Toileting Hygiene (QC): 4 (CGA) Education OT Patient Education: Purpose of tx/functional activities, Rehab process Teaching Recipient: Patient Teaching Methods: Discussion Response to Teaching: Verbalize Understanding OT Group Home Goals Group Home Goals Time Frame: Jan 11, 2021 Eating (QC): 6 Oral Hygiene (QC): 5 Toileting Hygiene (QC): 5 Shower/Bathe Self (QC): 5 Upper Body Dressing (QC): 5 Lower Body Dressing (QC): 5 On/Off Footwear (QC): 5 Additional Goals: 1-Demonstrate ADL Tasks, 2-Verbalize Understanding, 3- ImproveStrength/Rosana 1=Demonstrate adherence to instructed precautions during ADL tasks. 2=Patient will verbalize/demonstrate understanding of assistive devices/modifications for ADL. 3=Patient will improve strength/tolerance for activity to enable patient to perform ADL's. OT Education/Plan Problem List/Assessment Assessment: Decreased Activ Tolerance, Decreased UE Strength, Dependent Transfers, Impaired Self-Care Skills Pt would benefit from skilled OT to increase her independence in basic self care Discharge Recommendations Plan/Recommendations: Continue POC Treatment Plan/Plan of Care Treatment,Training & Education: Yes Patient would benefit from OT for education, treatment and training to promote independence in ADL's, mobility, safety and/or upper extremity function for ADL's. Plan of Care: ADL Retraining, Functional Mobility, UE Funct Exercise/Act Treatment Duration: Jan 11, 2021 Frequency: 5 times per week Estimated Hrs Per Day: .25 hour per day (.25 to .5) Agreement: Yes Rehab Potential: Fair Time/GCodes Start Time: 13:23 Stop Time: 13:37 Total Time Billed (hr/min): 14 Billed Treatment Time visit, 14 minutes evaluation moderate intensity HAVEN CHILDERS OT Jan 04, 2021 13:48
[2021-01-04 16:00] VITALS: BP 122/61
--- NOTE | 2021-01-04 16:33 | Physical Therapy Evaluation ---
PT Evaluation-General Medical Diagnosis Admission Date Jan 03, 2021 at 19:11 Medical Diagnosis: covid-19 with hypoxic resp failure. A fib, renal insuff Onset Date: Jan 03, 2021 Therapy Diagnosis Therapy Diagnosis: Decline in function, gait deficit Height/Weight Height (Feet): 5 Height (Inches): 0.00 Weight (Pounds): 160 Weight (Ounces): 0.0 Precautions Precautions/Isolations: Contact Isolation, Droplet Isolation, Fall Prevention Patient in COVID precautions. Referral Physician: Luiz Reason for Referral: Evaluation/Treatment Medical History Pertinent Medical History: Atrial Fib, Arthritis, CAD, DM, HTN, Neuropathy (R foot), Renal Insufficiency Reviewed History: Yes Social History Home: Single Level Current Living Status: Children (daughter) Entry Into Home: Stairs Without Railing PT Steps Into Home: 3 PT Steps Inside Home: 0 Prior Prior Level of Function SCALE: Activities may be completed with or without assistive devices. 1-Bnclwcbzig-etrhisf completes the activity by him/herself with no assistance from a helper. 5-Set-up or Clean-up Assistance-helper sets up or cleans up; patient completes activity. [place] assists only prior to or following the activity. 4-Supervision or Touching Assistance-helper provides verbal cues and/or touc juan/steadying and/or contact guard assistance as patient completes activity. Assistance may be provided throughout the activity or intermittently. 3-Partial/Moderate Assistance-helper does LESS THAN HALF the effort. [place] lifts, holds or supports trunk or limbs, but provides less than half the effort. 2-Substantial/Maximal Assistance-helper does MORE THAN HALF the effort. [place] lifts or holds trunk or limbs and provides more than half the effort. 4-Hykqxjlyr-ffbwcq does ALL the effort. Patient does none of the effort to complete the activity. Or, the assistance of 2 or more helpers is required for the patient to complete the activity. If activity was not attempted, code reason: 7-Patient Refused. 9-Not Applicable-not attempted and the patient did not perform the activity before the current illness, exacerbation or injury. 10-Not Attempted due to Environmental Limitations-(lack of equipment, weather restraints, etc.). 88-Not Attempted due to Medical Conditions or Safety Concerns. Bed Mobility: 6 Transfers (B,C,W/C): 6 Gait: 6 Stairs: 6 Wheelchair Mobility: 6 Indoor Mobility (Ambulation): Independent Prior Devices Use: Walker PT Evaluation-Current Pt/Family Goals Return home. Objective Patient Orientation: Person ROM/Strength ROM Lower Extremities WFLs AROM all planes bilaterally Strength Lower Extremities 3+/5 Bilaterally all planes, however patient demonstrates difficultly following commands. Sensory Vision: Functional Hearing: Functional Sensation Right Lower Extremit: Intact Sensation Left Lower Extremity: Intact Transfers Roll Left to Right (QC): 4 Sit to Lying (QC): 4 Lying to Sitting/Side of Bed(Q: 4 Sit to Stand (QC): 4 Chair/Yjp-qh-Ffuul Xfer(QC): 4 Toilet Transfer (QC): 4 Gait Does the Patient Walk?: Yes Mode of Locomotion: Walk Anticipated Mode of Locomotion: Walk Walk 10 feet (QC): 4 Walk 50 ft with 2 Turns(QC): 4 Wheelchair Training Does the Pt Use a Wheelchair?: No Balance Sitting Static: Fair Sitting Dynamic: Fair Standing Static: Fair Standing Dynamic: Fair Assessment/Needs Rehab Potential: Fair PT Short Term Goals Short Term Goals Time Frame: Jan 15, 2021 Roll Left & Right: 5 Sit to lyin Lying to sitting on side of be: 5 Sit to stand: 5 Chair/bag-ow-ikskg transfer: 5 Toilet transfer: 5 Car transfer: 5 Walk 10 feet: 5 Walk 50 feet with two turns: 5 Walk 150 feet: 5 Walking 10ft on uneven surface: 5 1 step (curb): 4 4 steps: 4 12 steps: 4 Picking up objects: 5 Does pt use a wc or scooter: No Wheel 50ft w/2 turns: 88 Wheel 150 feet: 88 Type: N/A PT Chcf Goals Chcf Goals PT News Production Assistant Goals Time Frame: Jan 25, 2021 Roll Left & Right (QC): 6 Sit to Lying (QC): 6 Lying-Sitting on Side/Bed(QC): 6 Sit to Stand (QC): 6 Chair/Aav-ry-Johqp Xfer(QC): 6 Toilet Transfer (QC): 6 Car Transfer (QC): 6 Does the Patient Walk: Yes Walk 10 feet (QC): 6 Walk 50ft with 2 Turns (QC): 6 Walk 150 ft (QC): 6 Walking 10ft on Uneven Surface: 6 1 Step (curb) (QC): 5 4 Steps (QC): 5 12 Steps (QC): 5 Picking up an Object (QC): 6 Does the Pt use WC or Scooter?: No Wheel 50 feet with 2 turns (QC: 88 Type: N/A Wheel 150 feet: 88 Type: N/A PT Plan Problem List Problem List: Activity Tolerance, Functional Strength, Safety, Balance, Gait, Transfer, Bed Mobility Treatment/Plan Treatment Plan: Continue Plan of Care Treatment Plan: Bed Mobility, Education, Functional Activity Rosana, Functional Strength, Gait, Safety, Therapeutic Exercise, Transfers Treatment Duration: Feb 01, 2021 Frequency: At least 5 of 7 days/Wk (IRF) Estimated Hrs Per Day: .25 hour per day Safety Risks/Education Patient Education: Gait Training Teaching Recipient: Patient Teaching Methods: Demonstration, Discussion Response to Teaching: Unable to Return Demonstration, Reinforcement Needed Language barrier an issue. Discharge Recommendations Barriers to Progress Language Time/GCodes Time In: 1442 Time Out: 1515 Total Billed Treatment Time: 33 Total Billed Treatment Visit, Delano Rutledge JOHN A PT Jan 04, 2021 16:33
[2021-01-04 19:34] VITALS: BP 165/72
[2021-01-05] VITALS (10 sets, daily range): BP systolic 101–131; BP diastolic 55–80
[2021-01-05] MEDS: RT-ALBUTEROL INHALER HFA (VENTOLIN HFA) 18 GM IH SCH ×4 (04:18→20:33)
[2021-01-05 05:23] LABS: HEMATOCRIT 39 % (35-52); HEMOGLOBIN 12.8 g/dL (11.5-16.0); MEAN CORPUSCULAR HEMOGLOBIN 31 pg (25-34); MEAN CORPUSCULAR HGB CONC 33 g/dL (32-36); MEAN CORPUSCULAR VOLUME 94 fL (80-99); PLATELET COUNT 166 10^3/uL (130-400)
[2021-01-05 05:34] LABS: POTASSIUM 3.9 MMOL/L (3.6-5.0)
[2021-01-05 05:36] LABS: CALCIUM 8.9 MG/DL (8.5-10.1)
[2021-01-05 05:40] LABS: CREATININE SERUM 1.51 MG/DL (0.60-1.30)
[2021-01-05] MEDS: FUROSEMIDE 40 MG (LASIX) TAB PO SCH ×2 (06:40→17:26)
--- NOTE | 2021-01-05 07:28 | Diagnostic Imaging Report ---
Clinical indications: Followup COVID positive. Exam: Portable chest x-ray upright view. Comparisons: Chest x-ray dated 01/03/2021. Findings: There are mild patchy airspace opacities involving both lungs with improved aeration compared to the prior study. There is no definite pleural effusion or pneumothorax. Stable cardiomegaly. Pulmonary vasculature is within normal limits. There are degenerative spurs involving the thoracic spine. Impression: 1: There are mild bilateral lung infiltrates which has improved in the interim. 2: There is cardiomegaly with no significant pulmonary vascular congestion. Dictated by: Dictated on workstation # [id number]
[2021-01-05] MEDS: APIXABAN 2.5 MG (ELIQUIS) TABLET PO SCH ×2 (08:56→21:24)
[2021-01-05] MEDS: meTOprolol TARTRATE 50 MG (LOPRESSOR) TAB PO SCH ×2 (08:56→21:24)
[2021-01-05] MEDS: ACETAMINOPHEN 325 MG TABLET PO PRN ×2 (08:56→09:26)
[2021-01-05] MEDS: ASPIRIN E.C. 81 MG (ECOTRIN) TAB PO SCH (08:56)
[2021-01-05] MEDS ORDERED: NS IV 500 ML 500 ML ONE (13:32)
--- NOTE | 2021-01-05 13:32 | Progress Note - Hospitalist ---
Subjective HPI/CC On Admission Date Seen by Provider: Jan 05, 2021 Time Seen by Provider: 13:30 Pt is a n 85yOCF with a PMH of a fib, HLD, HTN who presented to the ER due to a couple of weeks of shortness of breath. She has not been well for roughly one month with poor appetite and cough though. She worsened yesterday prompting noe luation in the ER. She was found to be satting 79% on room air on arrival and COVID swab was obtained and she was found to be positive. She has not been vaccinated. She was admitted for further care. She has no complaints today and feels she is breathing well. She was satting around 94% while I was in the room on 5lpm NC. Subjective/Events-last exam Pt reports feeling well today. Was sleeping when I entered room. Still on 4lpm NC. No complaints. Objective Exam Vital Signs Vital Signs Date Time Temp Pulse Resp B/P (MAP) Pulse Ox O2 Delivery O2 Flow Rate FiO2 01/05/21 12:53 80 01/05/21 12:00 34.9 20 101/67 (78) 95 Nasal Cannula 5.00 Capillary Refill : Less Than 3 Seconds General Appearance: No Apparent Distress, WD/WN Respiratory: Lungs Clear, No Accessory Muscle Use, Other (on 4lpm) Cardiovascular: Regular Rate, Rhythm, No Murmur Gastrointestinal: Normal Bowel Sounds, Soft Neurologic/Psychiatric: Alert, Oriented x3 Results/Procedures Lab Laboratory Tests 01/05/21 05:12 Patient resulted labs reviewed. Imaging: Reviewed Imaging Report Assessment/Plan Assessment and Plan Assess & Plan/Chief Complaint Acute hypoxic respiratory failure due to COVID19 Continue Decadron Consented to convalescent plasma, ready and to be given today Wean oxygen to keep sats >90 IS Improving procal and CXR Unclear onset date but weeks to 1 month ago so outside of window for remdesivir Leukopenia Likely COVID induced, trend a-fib HTN HLD Continue home meds DVt ppx; On eliquis already Diagnosis/Problems Diagnosis/Problems (1) Acute respiratory failure (2) Atrial fibrillation Status: Acute Qualifiers: Atrial fibrillation type: unspecified Qualified Codes: I48.91 - Un specified atrial fibrillation (3) HLD (hyperlipidemia) Status: Chronic (4) Debility Status: Acute (5) CAD (coronary artery disease) (6) CKD (chronic kidney disease) Status: Chronic (7) History of DVT (deep vein thrombosis) (8) Loss of appetite Status: Acute (9) HTN (hypertension) Status: Chronic (10) COVID-19 Status: Acute IGNACIA BOYCE MD Jan 05, 2021 13:32
[2021-01-06 03:36] VITALS: BP 122/80
[2021-01-06] MEDS: RT-ALBUTEROL INHALER HFA (VENTOLIN HFA) 18 GM IH SCH ×4 (03:48→20:43)
[2021-01-06 05:18] LABS: BASOPHILS % (AUTO) 0 % (0-10); EOSINOPHILS % (AUTO) 0 % (0-10); HEMATOCRIT 39 % (35-52); HEMOGLOBIN 12.9 g/dL (11.5-16.0); LYMPHOCYTES # (AUTO) 0.7 10^3/uL (1.0-4.0); LYMPHOCYTES % (AUTO) 5 % (12-44); MEAN CORPUSCULAR HEMOGLOBIN 32 pg (25-34); MEAN CORPUSCULAR HGB CONC 34 g/dL (32-36); MEAN CORPUSCULAR VOLUME 95 fL (80-99); MEAN PLATELET VOLUME 10.1 fL (9.0-12.2); MONOCYTES # (AUTO) 0.5 10^3/uL (0.0-1.0); MONOCYTES % (AUTO) 4 % (0-12); NEUTROPHILS # (AUTO) 11.4 10^3/uL (1.8-7.8); NEUTROPHILS % (AUTO) 90 % (42-75); PLATELET COUNT 221 10^3/uL (130-400); WHITE BLOOD COUNT 12.6 10^3/uL (4.3-11.0)
[2021-01-06 05:26] LABS: ALBUMIN 3.4 GM/DL (3.2-4.5); POTASSIUM 4.1 MMOL/L (3.6-5.0)
[2021-01-06 05:27] LABS: CALCIUM 8.9 MG/DL (8.5-10.1)
[2021-01-06 05:29] LABS: TOTAL PROTEIN 7.5 GM/DL (6.4-8.2)
[2021-01-06 05:30] LABS: BILIRUBIN,TOTAL 1.1 MG/DL (0.1-1.0)
[2021-01-06 05:32] LABS: CREATININE SERUM 1.56 MG/DL (0.60-1.30)
[2021-01-06 05:44] LABS: LYMPHOCYTES % (MANUAL) 5 %; MONOCYTES % (MANUAL) 6 %; NEUTROPHILS % (MANUAL) 89 %; RBC MORPH NORMAL
[2021-01-06] MEDS: FUROSEMIDE 40 MG (LASIX) TAB PO SCH ×2 (06:28→16:34)
[2021-01-06 08:06] VITALS: BP 113/66
[2021-01-06] MEDS: ASPIRIN E.C. 81 MG (ECOTRIN) TAB PO SCH (09:19)
[2021-01-06] MEDS: APIXABAN 2.5 MG (ELIQUIS) TABLET PO SCH ×2 (09:19→20:00)
[2021-01-06] MEDS: meTOprolol TARTRATE 50 MG (LOPRESSOR) TAB PO SCH ×2 (09:19→20:00)
[2021-01-06 12:48] VITALS: BP 116/67
--- NOTE | 2021-01-06 14:25 | Physical Therapy Daily Note ---
PT Daily Note-Current Subjective Patient agrees to PT/OT. Transfers SCALE: Activities may be completed with or without assistive devices. 7-Kbbrshembm-stpvhjy completes the activity by him/herself with no assistance from a helper. 5-Set-up or Clean-up Assistance-helper sets up or cleans up; patient completes activity. [place] assists only prior to or following the activity. 4-Supervision or Touching Assistance-helper provides verbal cues and/or touching/steadying and/or contact guard assistance as patient completes activity. Assistance may be provided throughout the activity or intermittently. 3-Partial/Moderate Assistance-helper does LESS THAN HALF the effort. [place] lifts, holds or supports trunk or limbs, but provides less than half the effort. 2-Substantial/Maximal Assistance-helper does MORE THAN HALF the effort. [place] lifts or holds trunk or limbs and provides more than half the effort. 7-Scpgkofst-jlkiue does ALL the effort. Patient does none of the effort to complete the activity. Or, the assistance of 2 or more helpers is required for the patient to complete the activity. If activity was not attempted, code reason: 7-Patient Refused. 9-Not Applicable-not attempted and the patient did not perform the activity before the current illness, exacerbation or injury. 10-Not Attempted due to Environmental Limitations-(lack of equipment, weather restraints, etc.). 88-Not Attempted due to Medical Conditions or Safety Concerns. Sit to Lying (QC): 4 Lying to Sitting/Side of Bed(Q: 4 Sit to Stand (QC): 4 Chair/Czp-tw-Cldlm Xfer(QC): 4 Toilet Transfer (QC): 4 Gait Training Does the Patient Walk?: Yes Distance: 50' Walk 10 feet (QC): 4 Walk 50 ft with 2 Turns(QC): 4 Gait Assistive Device: FWW safe and functional with no deviation Assessment Patient up in recliner with chair alarm activated. Patient lunch set up for her to eat on tray. PT Short Term Goals Short Term Goals Time Frame: Jan 15, 2021 Roll Left & Right: 5 Sit to lyin Lying to sitting on side of be: 5 Sit to stand: 5 Chair/puv-vs-trmhm transfer: 5 Toilet transfer: 5 Car transfer: 5 Walk 10 feet: 5 Walk 50 feet with two turns: 5 Walk 150 feet: 5 Walking 10ft on uneven surface: 5 1 step (curb): 4 4 steps: 4 12 steps: 4 Picking up objects: 5 Does pt use a wc or scooter: No Wheel 50ft w/2 turns: 88 Wheel 150 feet: 88 Type: N/A PT Assistant Brand Manager Goals Assistant Brand Manager Goals PT Mcc Goals Time Frame: Jan 25, 2021 Roll Left & Right (QC): 6 Sit to Lying (QC): 6 Lying-Sitting on Side/Bed(QC): 6 Sit to Stand (QC): 6 Chair/Qec-fa-Yyezg Xfer(QC): 6 Toilet Transfer (QC): 6 Car Transfer (QC): 6 Does the Patient Walk: Yes Walk 10 feet (QC): 6 Walk 50ft with 2 Turns (QC): 6 Walk 150 ft (QC): 6 Walking 10ft on Uneven Surface: 6 1 Step (curb) (QC): 5 4 Steps (QC): 5 12 Steps (QC): 5 Picking up an Object (QC): 6 Does the Pt use WC or Scooter?: No Wheel 50 feet with 2 turns (QC: 88 Type: N/A Wheel 150 feet: 88 Type: N/A PT Plan Treatment/Plan Treatment Plan: Continue Plan of Care Treatment Plan: Bed Mobility, Education, Functional Activity Rosana, Functional Strength, Gait, Safety, Therapeutic Exercise, Transfers Treatment Duration: Feb 01, 2021 Frequency: At least 5 of 7 days/Wk (IRF) Estimated Hrs Per Day: .25 hour per day Time/GCodes Time In: 1331 Time Out: 1345 Total Billed Treatment Time: 14 Total Billed Treatment 1 visit FA 14 min CLEO ABAD PT Jan 06, 2021 14:25
--- NOTE | 2021-01-06 14:42 | Occupational Ther Daily Note ---
OT Current Status-Daily Note Subjective No pain reported. Mental Status/Objective Patient Orientation: Person, Place ADL-Treatment Therapy Code Descriptions/Definitions Functional [place] Measure: 0=Not Assessed/NA 4=Minimal Assistance 1=Total Assistance 5=Supervision or Setup 2=Maximal Assistance 6=Modified [place] 3=Moderate Assistance 7=Complete IndependenceSCALE: Activities may be completed with or without assistive devices. 6-Bsodzcsdbp-lmheigi completes the activity by him/herself with no assistance from a helper. 5-Set-up or Clean-up Assistance-helper sets up or cleans up; patient completes activity. [place] assists only prior to or following the activity. 4-Supervision or Touching Assistance-helper provides verbal cues and/or touching/steadying and/or contact guard assistance as patient completes activity. Assistance may be provided throughout the activity or intermittently. 3-Partial/Moderate Assistance-helper does LESS THAN HALF the effort. [place] lifts, holds or supports trunk or limbs, but provides less than half the effort. 2-Substantial/Maximal Assistance-helper does MORE THAN HALF the effort. [place] lifts or holds trunk or limbs and provides more than half the effort. 7-Dzoidyynd-iwbspm does ALL the effort. Patient does none of the effort to complete the activity. Or, the assistance of 2 or more helpers is required for the patient to complete the activity. If activity was not attempted, code reason: 7-Patient Refused. 9-Not Applicable-not attempted and the patient did not perform the activity before the current illness, exacerbation or injury. 10-Not Attempted due to Environmental Limitations-(lack of equipment, weather restraints, etc.). 88-Not Attempted due to Medical Conditions or Safety Concerns. Eating (QC): 5 Toileting Hygiene (QC): 4 Toilet Transfer (QC): 3 (Min assist) Other Treatment Pt. seen for co-treatment with OT/PT due to need of skilled assistance x 2 therapists for decreased endurance, decreased ADL skills. PT focused on transfers, activity tolerance while OT focused on ADL skills. Pt. transferred supine-sit with SBA, and sit-stand with CGA. Transferred to BS with CGA. Pt. able to stand at BSC and cleanse self after urinating. Monitored oxygen saturations throughout. Saturations waivered between 90%-83% on 5. Pt. transferred to reclining chair with walker. Pt. encouraged to take deep breaths and sit upright. Chair alarm set. Food placed in front of pt. All needs met. Education OT Patient Education: Correct positioning, Modified ADL techniques, Progress toward Goal/Update tx plan, Purpose of tx/functional activities, Reviewed precautions, Rehab process, Transfer techniques Teaching Recipient: Patient Teaching Methods: Demonstration, Discussion Response to Teaching: Verbalize Understanding, Return Demonstration OT I&C Technician Goals Longterm Goals Time Frame: Jan 11, 2021 Eating (QC): 6 Oral Hygiene (QC): 5 Toileting Hygiene (QC): 5 Shower/Bathe Self (QC): 5 Upper Body Dressing (QC): 5 Lower Body Dressing (QC): 5 On/Off Footwear (QC): 5 Additional Goals: 1-Demonstrate ADL Tasks, 2-Verbalize Understanding, 3- ImproveStrength/Rosana 1=Demonstrate adherence to instructed precautions during ADL tasks. 2=Patient will verbalize/demonstrate understanding of assistive devices/modifications for ADL. 3=Patient will improve strength/tolerance for activity to enable patient to perform ADL's. OT Education/Plan Problem List/Assessment Assessment: Decreased Activ Tolerance, Impaired I ADL's, Impaired Self-Care Skills Pt would benefit from skilled OT to increase her independence in basic self care Discharge Recommendations Plan/Recommendations: Continue POC Treatment Plan/Plan of Care Treatment,Training & Education: Yes Patient would benefit from OT for education, treatment and training to promote independence in ADL's, mobility, safety and/or upper extremity function for ADL's. Plan of Care: ADL Retraining, Functional Mobility, UE Funct Exercise/Act Treatment Duration: Jan 11, 2021 Frequency: 5 times per week Estimated Hrs Per Day: .25 hour per day (.25 to .5) Agreement: Yes Rehab Potential: Fair Time/GCodes Start Time: 13:30 Stop Time: 13:50 Total Time Billed (hr/min): 20 Billed Treatment Time 1, ADL JOANNE CROWELL OT Jan 06, 2021 14:42
[2021-01-06 15:50] VITALS: BP 117/66
--- NOTE | 2021-01-06 19:04 | Progress Note - Hospitalist ---
Subjective HPI/CC On Admission Date Seen by Provider: Jan 06, 2021 Time Seen by Provider: 10:55 Pt is a n 85yOCF with a PMH of a fib, HLD, HTN who presented to the ER due to a couple of weeks of shortness of breath. She has not been well for roughly one month with poor appetite and cough though. She worsened yesterday prompting noe luation in the ER. She was found to be satting 79% on room air on arrival and COVID swab was obtained and she was found to be positive. She has not been vaccinated. She was admitted for further care. She has no complaints today and feels she is breathing well. She was satting around 94% while I was in the room on 5lpm NC. Subjective/Events-last exam She is feeling better. She has no complaints. Objective Exam Vital Signs Vital Signs Date Time Temp Pulse Resp B/P (MAP) Pulse Ox O2 Delivery O2 Flow Rate FiO2 01/06/21 15:50 36.0 88 20 117/66 (83) 96 Nasal Cannula 4.00 Capillary Refill : Less Than 3 Seconds General Appearance: No Apparent Distress, Chronically ill Respiratory: Lungs Clear, Normal Breath Sounds, No Respiratory Distress Cardiovascular: Regular Rate, Rhythm, No Edema, No Murmur Gastrointestinal: Normal Bowel Sounds, Non Tender, Soft Extremity: Normal Inspection, Non Tender, No Pedal Edema Neurologic/Psychiatric: Alert, Oriented x3, No Motor/Sensory Deficits, Normal Mood/Affect Skin: Normal Color, Warm/Dry Results/Procedures Lab Laboratory Tests 01/06/21 05:06 Patient resulted labs reviewed. Imaging: Reviewed Imaging Report Assessment/Plan Assessment and Plan Assess & Plan/Chief Complaint Acute respiratory failure due to COVID-19 Continue Decadron Outside window for Remdesivir s/p convalescent plasma Wean oxygen to keep sats >90 IS Repeat procal tomorrow Lymphopenia due to COVID-19 Likely COVID induced, trend Leukocytosis Likely reactive due to steroids A-fib HTN HLD Continue home meds DVt ppx; already receiving therapeutic anticoagulation Diagnosis/Problems Diagnosis/Problems (1) Acute respiratory failure due to COVID-19 Status: Acute (2) Lymphopenia due to COVID-19 virus Status: Acute (3) Leukocytosis Status: Acute (4) HTN (hypertension) Status: Chronic (5) HLD (hyperlipidemia) Status: Chronic (6) Afib Status: Chronic (7) History of DVT (deep vein thrombosis) Status: Chronic (8) Advanced age Status: Chronic HUSAM GIBSON MD Jan 06, 2021 19:04
[2021-01-06 19:58] VITALS: BP 114/72
[2021-01-06 23:50] VITALS: BP 113/65
[2021-01-07] MEDS: RT-ALBUTEROL INHALER HFA (VENTOLIN HFA) 18 GM IH SCH ×4 (03:03→21:40)
[2021-01-07 03:36] VITALS: BP 133/82
[2021-01-07 08:00] VITALS: BP 125/73
[2021-01-07 08:14] LABS: POTASSIUM 4.2 MMOL/L (3.6-5.0)
[2021-01-07 08:19] LABS: CREATININE SERUM 1.42 MG/DL (0.60-1.30)
[2021-01-07] MEDS: ASPIRIN E.C. 81 MG (ECOTRIN) TAB PO SCH (08:59)
[2021-01-07] MEDS: meTOprolol TARTRATE 50 MG (LOPRESSOR) TAB PO SCH ×2 (08:59→20:33)
[2021-01-07] MEDS: APIXABAN 2.5 MG (ELIQUIS) TABLET PO SCH ×2 (08:59→20:34)
[2021-01-07 12:00] VITALS: BP 107/72
--- NOTE | 2021-01-07 13:15 | Occ Therapy Progress Note ---
Therapy Progress Note Pt. declines all attempts at treatment this date with OT. She is asleep in bed. Does wake up but declines OOB activity. Will attempt back as time allows. 1, visit 1210 JOANNE CROWELL OT Jan 07, 2021 13:15
--- NOTE | 2021-01-07 14:42 | Physical Therapy Daily Note ---
PT Daily Note-Current Subjective Patient reluctantly agrees to PT. Mental Status Patient Orientation: Normal For Age Attachments: Oxygen Transfers SCALE: Activities may be completed with or without assistive devices. 0-Bujcqzylom-rqviaos completes the activity by him/herself with no assistance from a helper. 5-Set-up or Clean-up Assistance-helper sets up or cleans up; patient completes activity. [place] assists only prior to or following the activity. 4-Supervision or Touching Assistance-helper provides verbal cues and/or touching/steadying and/or contact guard assistance as patient completes activity. Assistance may be provided throughout the activity or intermittently. 3-Partial/Moderate Assistance-helper does LESS THAN HALF the effort. [place] lifts, holds or supports trunk or limbs, but provides less than half the effort. 2-Substantial/Maximal Assistance-helper does MORE THAN HALF the effort. [place] lifts or holds trunk or limbs and provides more than half the effort. 2-Ewnxbaxav-fpaidt does ALL the effort. Patient does none of the effort to complete the activity. Or, the assistance of 2 or more helpers is required for the patient to complete the activity. If activity was not attempted, code reason: 7-Patient Refused. 9-Not Applicable-not attempted and the patient did not perform the activity before the current illness, exacerbation or injury. 10-Not Attempted due to Environmental Limitations-(lack of equipment, weather restraints, etc.). 88-Not Attempted due to Medical Conditions or Safety Concerns. Lying to Sitting/Side of Bed(Q: 6 Sit to Stand (QC): 6 Chair/Mjl-yb-Tiedj Xfer(QC): 6 Gait Training Does the Patient Walk?: Yes Distance: 100' Walk 10 feet (QC): 4 (SBA) Walk 50 ft with 2 Turns(QC): 4 (SBA) Gait Assistive Device: FWW safe and functional with no deviation Assessment Patient did agree to remain up for lunch. Increase activity as tolerated by patient. PT Short Term Goals Short Term Goals Time Frame: Jan 15, 2021 Roll Left & Right: 5 Sit to lyin Lying to sitting on side of be: 5 Sit to stand: 5 Chair/bau-ap-efwoo transfer: 5 Toilet transfer: 5 Car transfer: 5 Walk 10 feet: 5 Walk 50 feet with two turns: 5 Walk 150 feet: 5 Walking 10ft on uneven surface: 5 1 step (curb): 4 4 steps: 4 12 steps: 4 Picking up objects: 5 Does pt use a wc or scooter: No Wheel 50ft w/2 turns: 88 Wheel 150 feet: 88 Type: N/A PT Emissions Engineer Goals Skilled Nursing Goals PT Skilled Nursing Goals Time Frame: Jan 25, 2021 Roll Left & Right (QC): 6 Sit to Lying (QC): 6 Lying-Sitting on Side/Bed(QC): 6 Sit to Stand (QC): 6 Chair/Egf-sw-Kpzxr Xfer(QC): 6 Toilet Transfer (QC): 6 Car Transfer (QC): 6 Does the Patient Walk: Yes Walk 10 feet (QC): 6 Walk 50ft with 2 Turns (QC): 6 Walk 150 ft (QC): 6 Walking 10ft on Uneven Surface: 6 1 Step (curb) (QC): 5 4 Steps (QC): 5 12 Steps (QC): 5 Picking up an Object (QC): 6 Does the Pt use WC or Scooter?: No Wheel 50 feet with 2 turns (QC: 88 Type: N/A Wheel 150 feet: 88 Type: N/A PT Plan Treatment/Plan Treatment Plan: Continue Plan of Care Treatment Plan: Bed Mobility, Education, Functional Activity Rosnaa, Functional Strength, Gait, Safety, Therapeutic Exercise, Transfers Treatment Duration: Feb 01, 2021 Frequency: At least 5 of 7 days/Wk (IRF) Estimated Hrs Per Day: .25 hour per day Time/GCodes Time In: 1315 Time Out: 1332 Total Billed Treatment Time: 17 Total Billed Treatment 1 visit FA 17 min CLEO ABAD PT Jan 07, 2021 14:42
[2021-01-07 16:35] VITALS: BP 111/69
--- NOTE | 2021-01-07 18:15 | Progress Note - Hospitalist ---
Subjective HPI/CC On Admission Date Seen by Provider: Jan 07, 2021 Time Seen by Provider: 11:15 Pt is a n 85yOCF with a PMH of a fib, HLD, HTN who presented to the ER due to a couple of weeks of shortness of breath. She has not been well for roughly one month with poor appetite and cough though. She worsened yesterday prompting noe luation in the ER. She was found to be satting 79% on room air on arrival and COVID swab was obtained and she was found to be positive. She has not been vaccinated. She was admitted for further care. She has no complaints today and feels she is breathing well. She was satting around 94% while I was in the room on 5lpm NC. Subjective/Events-last exam She feels ok. She has no complaints. Objective Exam Vital Signs Vital Signs Date Time Temp Pulse Resp B/P (MAP) Pulse Ox O2 Delivery O2 Flow Rate FiO2 01/07/21 16:35 36.2 75 18 111/69 (83) 95 Nasal Cannula 4.00 Capillary Refill : Less Than 3 Seconds General Appearance: No Apparent Distress, WD/WN Respiratory: Lungs Clear, Normal Breath Sounds, No Respiratory Distress Cardiovascular: Regular Rate, Rhythm, No Edema, No Murmur Gastrointestinal: Normal Bowel Sounds, Non Tender, Soft Extremity: Normal Inspection, Non Tender, No Pedal Edema Neurologic/Psychiatric: Alert, No Motor/Sensory Deficits, Normal Mood/Affect Skin: Normal Color, Warm/Dry Results/Procedures Lab Laboratory Tests 01/07/21 05:18 Patient resulted labs reviewed. Imaging: Reviewed Imaging Report Assessment/Plan Assessment and Plan Assess & Plan/Chief Complaint Acute respiratory failure due to COVID-19 Continue Decadron Outside window for Remdesivir s/p convalescent plasma Wean oxygen to keep sats >90 IS Procal normal Lymphopenia due to COVID-19 Likely COVID induced Leukocytosis Likely reactive due to steroids BENJAMIN on CKD BUN/Cr trending up Begin normal saline Monitor A-fib HTN HLD Continue home meds DVt ppx; already receiving therapeutic anticoagulation Diagnosis/Problems Diagnosis/Problems (1) Acute respiratory failure due to COVID-19 Status: Acute (2) Lymphopenia due to COVID-19 virus Status: Acute (3) Leukocytosis Status: Acute (4) HTN (hypertension) Status: Chronic (5) HLD (hyperlipidemia) Status: Chronic (6) Afib Status: Chronic (7) History of DVT (deep vein thrombosis) Status: Chronic (8) Advanced age Status: Chronic (9) Acute kidney injury superimposed on chronic kidney disease Status: Acute HUSAM GIBSON MD Jan 07, 2021 18:15
[2021-01-07 19:07] VITALS: BP 129/76
[2021-01-07] MEDS: NS IV 1000 ML 1,000 ML IV SCH (20:34)
[2021-01-07 23:58] VITALS: BP 128/65
[2021-01-08] MEDS: RT-ALBUTEROL INHALER HFA (VENTOLIN HFA) 18 GM IH SCH ×4 (02:41→20:38)
[2021-01-08 04:50] VITALS: BP 112/66
[2021-01-08 06:02] LABS: BASOPHILS % (AUTO) 0 % (0-10); EOSINOPHILS % (AUTO) 0 % (0-10); HEMATOCRIT 38 % (35-52); HEMOGLOBIN 12.8 g/dL (11.5-16.0); LYMPHOCYTES # (AUTO) 0.7 X 10^3 (1.0-4.0); LYMPHOCYTES % (AUTO) 7 % (12-44); MEAN CORPUSCULAR HEMOGLOBIN 32 pg (25-34); MEAN CORPUSCULAR HGB CONC 34 g/dL (32-36); MEAN CORPUSCULAR VOLUME 94 fL (80-99); MEAN PLATELET VOLUME 10.1 fL (9.0-12.2); MONOCYTES # (AUTO) 0.8 X 10^3 (0.0-1.0); MONOCYTES % (AUTO) 8 % (0-12); NEUTROPHILS % (AUTO) 85 % (42-75); PLATELET COUNT 257 10^3/uL (130-400); WHITE BLOOD COUNT 10.5 10^3/uL (4.3-11.0)
[2021-01-08] MEDS: NS IV 1000 ML 1,000 ML IV SCH ×2 (06:21→14:51)
[2021-01-08 06:31] LABS: ALBUMIN 3.1 GM/DL (3.2-4.5); CALCIUM 8.9 MG/DL (8.5-10.1); CREATININE SERUM 1.19 MG/DL (0.60-1.30); TOTAL PROTEIN 6.8 GM/DL (6.4-8.2)
[2021-01-08 08:08] VITALS: BP 118/75
[2021-01-08] MEDS: meTOprolol TARTRATE 50 MG (LOPRESSOR) TAB PO SCH ×2 (08:52→21:06)
[2021-01-08] MEDS: APIXABAN 2.5 MG (ELIQUIS) TABLET PO SCH ×2 (08:52→21:06)
[2021-01-08] MEDS: ASPIRIN E.C. 81 MG (ECOTRIN) TAB PO SCH (08:52)
--- NOTE | 2021-01-08 11:29 | Physical Therapy Daily Note ---
PT Daily Note-Current Subjective Patient in bed pre tx, agrees to PT, has no complaints of pain. Appearance Patient in recliner post tx, OT to continue to work with patient on toileting Mental Status Patient Orientation: Person, Unable to Assess (spainish speaking) Attachments: Oxygen, IV Transfers SCALE: Activities may be completed with or without assistive devices. 9-Bkduqgpgiu-jwgbjsy completes the activity by him/herself with no assistance from a helper. 5-Set-up or Clean-up Assistance-helper sets up or cleans up; patient completes activity. [place] assists only prior to or following the activity. 4-Supervision or Touching Assistance-helper provides verbal cues and/or touching/steadying and/or contact guard assistance as patient completes activity. Assistance may be provided throughout the activity or intermittently. 3-Partial/Moderate Assistance-helper does LESS THAN HALF the effort. [place] lifts, holds or supports trunk or limbs, but provides less than half the effort. 2-Substantial/Maximal Assistance-helper does MORE THAN HALF the effort. [place] lifts or holds trunk or limbs and provides more than half the effort. 8-Itaucxsfu-djosqy does ALL the effort. Patient does none of the effort to complete the activity. Or, the assistance of 2 or more helpers is required for the patient to complete the activity. If activity was not attempted, code reason: 7-Patient Refused. 9-Not Applicable-not attempted and the patient did not perform the activity before the current illness, exacerbation or injury. 10-Not Attempted due to Environmental Limitations-(lack of equipment, weather restraints, etc.). 88-Not Attempted due to Medical Conditions or Safety Concerns. Roll Left & Right (QC): 6 Lying to Sitting/Side of Bed(Q: 4 Sit to Stand (QC): 4 Chair/Pkg-gr-Xauqb Xfer(QC): 4 SBA for sit to stand, CGA for transfers Gait Training Distance: 80' Walk 10 feet (QC): 4 Walk 50 ft with 2 Turns(QC): 4 Gait Persons Needed: 1 Gait Assistive Device: FWW Patient ambulates back and forth in her room, she did have one moment of fairly significant unsteadiness but no ray LOB Exercises Seated Therapy Exercises: Ankle pumps, Long arc quads Seated Reps: 20 Treatments bed mobility and transfers, ambulation, LE strengthening Assessment Current Status: Fair Progress Patient had a little unsteadiness with ambulation PT Short Term Goals Short Term Goals Time Frame: Jan 15, 2021 Roll Left & Right: 5 Sit to lyin Lying to sitting on side of be: 5 Sit to stand: 5 Chair/zef-ds-xfkon transfer: 5 Toilet transfer: 5 Car transfer: 5 Walk 10 feet: 5 Walk 50 feet with two turns: 5 Walk 150 feet: 5 Walking 10ft on uneven surface: 5 1 step (curb): 4 4 steps: 4 12 steps: 4 Picking up objects: 5 Does pt use a wc or scooter: No Wheel 50ft w/2 turns: 88 Wheel 150 feet: 88 Type: N/A PT Assisted Goals Retail Custodial Associate Goals PT Assisted Goals Time Frame: Jan 25, 2021 Roll Left & Right (QC): 6 Sit to Lying (QC): 6 Lying-Sitting on Side/Bed(QC): 6 Sit to Stand (QC): 6 Chair/Utt-vf-Bzpev Xfer(QC): 6 Toilet Transfer (QC): 6 Car Transfer (QC): 6 Does the Patient Walk: Yes Walk 10 feet (QC): 6 Walk 50ft with 2 Turns (QC): 6 Walk 150 ft (QC): 6 Walking 10ft on Uneven Surface: 6 1 Step (curb) (QC): 5 4 Steps (QC): 5 12 Steps (QC): 5 Picking up an Object (QC): 6 Does the Pt use WC or Scooter?: No Wheel 50 feet with 2 turns (QC: 88 Type: N/A Wheel 150 feet: 88 Type: N/A PT Plan Problem List Problem List: Activity Tolerance, Functional Strength, Safety, Balance, Gait, Transfer Treatment/Plan Treatment Plan: Continue Plan of Care Treatment Plan: Bed Mobility, Education, Functional Activity Rosana, Functional Strength, Gait, Safety, Therapeutic Exercise, Transfers Treatment Duration: Feb 01, 2021 Frequency: At least 5 of 7 days/Wk (IRF) Estimated Hrs Per Day: .25 hour per day Safety Risks/Education Patient Education: Gait Training, Transfer Techniques, Correct Positioning, Safety Issues Teaching Recipient: Patient Teaching Methods: Demonstration, Discussion Response to Teaching: Reinforcement Needed Time/GCodes Time In: 1106 Time Out: 1116 Total Billed Treatment Time: 10 Total Billed Treatment 1 visit GT YAN QUIROS PT Jan 08, 2021 11:29
[2021-01-08 12:28] VITALS: BP 124/78
--- NOTE | 2021-01-08 12:42 | Occupational Ther Daily Note ---
OT Current Status-Daily Note Subjective Pt dozing in bed, woke to name. Limited communication due to language barrier. Using gestures and one word communication, pt agrees to participate in therapy. PT in room during treatment. Mental Status/Objective Patient Orientation: Person, Place, Time, Situation ADL-Treatment Therapy Code Descriptions/Definitions Functional [place] Measure: 0=Not Assessed/NA 4=Minimal Assistance 1=Total Assistance 5=Supervision or Setup 2=Maximal Assistance 6=Modified [place] 3=Moderate Assistance 7=Complete IndependenceSCALE: Activities may be completed with or without assistive devices. 2-Cgzugkyywj-ckwyefp completes the activity by him/herself with no assistance from a helper. 5-Set-up or Clean-up Assistance-helper sets up or cleans up; patient completes activity. [place] assists only prior to or following the activity. 4-Supervision or Touching Assistance-helper provides verbal cues and/or touching/steadying and/or contact guard assistance as patient completes activity. Assistance may be provided throughout the activity or intermittently. 3-Partial/Moderate Assistance-helper does LESS THAN HALF the effort. [place] lifts, holds or supports trunk or limbs, but provides less than half the effort. 2-Substantial/Maximal Assistance-helper does MORE THAN HALF the effort. [place] lifts or holds trunk or limbs and provides more than half the effort. 7-Cxafgygzc-eketos does ALL the effort. Patient does none of the effort to complete the activity. Or, the assistance of 2 or more helpers is required for the patient to complete the activity. If activity was not attempted, code reason: 7-Patient Refused. 9-Not Applicable-not attempted and the patient did not perform the activity before the current illness, exacerbation or injury. 10-Not Attempted due to Environmental Limitations-(lack of equipment, weather restraints, etc.). 88-Not Attempted due to Medical Conditions or Safety Concerns. Toileting Hygiene (QC): 6 Toilet Transfer (QC): 6 Other Treatment Supine <--> EOB independently. Initially, pt using FWW to transfer from EOB to recliner and assist with tubing. Pt then requested to use BSC. Pt able to tr ansfer to BSC independently and complete clothing manipulation and hygiene by self. Pt ambulated back to bed without AD, no LOB noted. After therapy, pt lying in bed with call light/phone in reach. All needs met in room. OT Welder Apprentice Combination Goals [facility] Goals Time Frame: Jan 11, 2021 Eating (QC): 6 Oral Hygiene (QC): 5 Toileting Hygiene (QC): 5 Shower/Bathe Self (QC): 5 Upper Body Dressing (QC): 5 Lower Body Dressing (QC): 5 On/Off Footwear (QC): 5 Additional Goals: 1-Demonstrate ADL Tasks, 2-Verbalize Understanding, 3- ImproveStrength/Rosana 1=Demonstrate adherence to instructed precautions during ADL tasks. 2=Patient will verbalize/demonstrate understanding of assistive devices/modifications for ADL. 3=Patient will improve strength/tolerance for activity to enable patient to perform ADL's. OT Education/Plan Problem List/Assessment Assessment: Decreased Activ Tolerance Pt would benefit from skilled OT to increase her independence in basic self care Discharge Recommendations Plan/Recommendations: Continue POC Treatment Plan/Plan of Care Patient would benefit from OT for education, treatment and training to promote independence in ADL's, mobility, safety and/or upper extremity function for ADL's. Plan of Care: ADL Retraining, Functional Mobility, UE Funct Exercise/Act Treatment Duration: Jan 11, 2021 Frequency: 5 times per week Estimated Hrs Per Day: .25 hour per day (.25 to .5) Agreement: Yes Rehab Potential: Fair Time/GCodes Start Time: 11:05 Stop Time: 11:28 Total Time Billed (hr/min): 23 Billed Treatment Time 1 visit-FA 2 (23 min) STEWART CAASNOVA Jan 08, 2021 12:42
[2021-01-08] MEDS ORDERED: FURO40TA4 PO (15:58)
[2021-01-08 16:00] VITALS: BP 136/78
--- NOTE | 2021-01-08 16:06 | Progress Note - Hospitalist ---
Subjective HPI/CC On Admission Date Seen by Provider: Jan 08, 2021 Time Seen by Provider: 11:20 Pt is a n 85yOCF with a PMH of a fib, HLD, HTN who presented to the ER due to a couple of weeks of shortness of breath. She has not been well for roughly one month with poor appetite and cough though. She worsened yesterday prompting noe luation in the ER. She was found to be satting 79% on room air on arrival and COVID swab was obtained and she was found to be positive. She has not been vaccinated. She was admitted for further care. She has no complaints today and feels she is breathing well. She was satting around 94% while I was in the room on 5lpm NC. Subjective/Events-last exam She is feeling well. She does not feel short of breath. She has no complaints or concerns. Objective Exam Vital Signs Vital Signs Date Time Temp Pulse Resp B/P (MAP) Pulse Ox O2 Delivery O2 Flow Rate FiO2 01/08/21 15:35 91 3.00 86 01/08/21 15:28 Nasal Cannula 01/08/21 12:28 35.8 84 20 124/78 (93) Capillary Refill : Less Than 3 Seconds General Appearance: No Apparent Distress, Chronically ill Respiratory: No Respiratory Distress, Decreased Breath Sounds Cardiovascular: Regular Rate, Rhythm, No Edema, No Murmur Gastrointestinal: Normal Bowel Sounds, Non Tender, Soft Extremity: Normal Inspection, Non Tender, No Pedal Edema Neurologic/Psychiatric: Alert, Normal Mood/Affect, Motor Weakness Skin: Normal Color, Warm/Dry Results/Procedures Lab Laboratory Tests 01/08/21 05:43 Patient resulted labs reviewed. Imaging: Reviewed Imaging Report Assessment/Plan Assessment and Plan Assess & Plan/Chief Complaint Acute respiratory failure due to COVID-19 Continue Decadron Outside window for Remdesivir s/p convalescent plasma Wean oxygen to keep sats >90 IS Procal normal Debility Social work consulted, appreciate assistance Setting up home health on discharge, likely tomorrow Lymphopenia due to COVID-19 Likely COVID induced Leukocytosis Likely reactive due to steroids BENJAMIN on CKD BUN/Cr improving Continue IV fluids Monitor A-fib HTN HLD Continue home meds DVt ppx; already receiving therapeutic anticoagulation Diagnosis/Problems Diagnosis/Problems (1) Acute respiratory failure due to COVID-19 Status: Acute (2) Lymphopenia due to COVID-19 virus Status: Acute (3) Leukocytosis Status: Acute (4) HTN (hypertension) Status: Chronic (5) HLD (hyperlipidemia) Status: Chronic (6) Afib Status: Chronic (7) History of DVT (deep vein thrombosis) Status: Chronic (8) Advanced age Status: Chronic (9) Acute kidney injury superimposed on chronic kidney disease Status: Acute HUSAM GIBSON MD Jan 08, 2021 16:06
[2021-01-08 20:00] VITALS: BP 116/86
[2021-01-09 00:09] VITALS: BP_SYST 136; BP_SYST 146; BP_DIAS 70; BP_DIAS 82
[2021-01-09] MEDS: NS IV 1000 ML 1,000 ML IV SCH ×2 (00:41→10:56)
[2021-01-09] MEDS: RT-ALBUTEROL INHALER HFA (VENTOLIN HFA) 18 GM IH SCH ×3 (02:40→14:23)
[2021-01-09 03:45] VITALS: BP 132/72
[2021-01-09 08:00] VITALS: BP 156/88
[2021-01-09 09:18] LABS: CREATININE SERUM 1.12 MG/DL (0.60-1.30); POTASSIUM 4.9 MMOL/L (3.6-5.0)
[2021-01-09] MEDS: meTOprolol TARTRATE 50 MG (LOPRESSOR) TAB PO SCH (09:41)
[2021-01-09] MEDS: APIXABAN 2.5 MG (ELIQUIS) TABLET PO SCH (09:41)
[2021-01-09] MEDS: ASPIRIN E.C. 81 MG (ECOTRIN) TAB PO SCH (09:41)
--- NOTE | 2021-01-09 10:47 | Discharge Summary ---
Discharge Summary Reconcile Patient Problems Problems Reviewed?: Yes Instructions for Patient Via [facility], Assessment/Instructions Take medications as prescribed. You are being set up with home health care. You are being set up with home oxygen. You should follow-up with Dr. Alvarez. Return with worsening shortness of breath or if you feel like you are getting worse. Physician to follow Patient: Antonio Discharge Diet for Home: No Restrictions Hospital Course Date of Admission: Jan 03, 2021 at 19:11 Admission Diagnosis : Acute respiratory failure due to COVID-19 Family Physician/Provider: Ligia Alvarez MD Date of Discharge: 01/09/21 Discharge Diagnosis: Acute respiratory failure due to COVID-19 Hospital Course: Devorah Vega is an 85-year-old female who was admitted with acute respiratory failure due to COVID-19. She was treated with Decadron. She was outside of the treatment window for remdesivir. She was given convalescent plasma. She required supplemental oxygen throughout her hospital stay. Her oxygen requirement remained stable. An oxygen study was performed at the time of discharge and she was deemed eligible for home oxygen therapy. Her course was complicated by an acute kidney injury which resolved with IV fluids. She was set up with home health care on discharge for ongoing therapies. She should follow-up with Dr. Alvarez. She was discharged home in stable condition. Labs and Pending Lab Test: Laboratory Tests 01/09/21 08:55: Sodium Level 134L, Potassium Level 4.9, Chloride Level 99, Carbon Dioxide Level 25, Anion Gap 10, Blood Urea Nitrogen 38H, Creatinine 1.12, Estimat Glomerular Filtration Rate 46, BUN/Creatinine Ratio 34, Glucose Level 218H, Calcium Level 9.0 Home Meds Active Furosemide 40 Mg Tablet 40 Mg PO DAILY 30 Days Metoprolol Tartrate 50 Mg Tablet 50 Mg PO BID Reported Combivent Respimat Inhal [place] (Albuterol/Ipratropium) 4 Gm Aero 2 Puff IH BID Aspirin 81 Mg Tab.chew 81 Mg PO DAILY Multivitamins (Multivitamin) 1 Each Capsule 1 Each PO DAILY Tylenol Extra Strength (Acetaminophen) 500 Mg Tablet 500-1,000 Mg PO Q6H PRN Eliquis (Apixaban) 2.5 Mg Tablet 2.5 Mg PO BID Atorvastatin Calcium 40 Mg Tablet 40 Mg PO HS Patient Allergies: Coded Allergies: NKANo Known Allergies (Verified Allergy, Unknown, 02/07/07) Height (Feet): 5 Height (Inches): 0.00 Weight (Pounds): 160 Weight (Ounces): 0.0 Home Health Need/Face to Face Date of Face to Face: Jan 09, 2021 Clinical Findings: Generalized weakness and fatigue, Muscle weakness, Shortness of breath, Unsteady gait I have seen Pt pbda-gx-[id number]: Yes Discharged To: Home Diagnosis/Conditions: Acute respiratory failure due to COVID-19 Debility Problems/Diagnosis/Condition: (1) Acute respiratory failure due to COVID-19 (2) Debility Patient is Homebound due to: [place] fall risk due to instabilty, Muscle weakness, Shortness of breath/distress Homebound Status Due to the above stated illness, injury or surgical procedure (medical condition or diagnosis) and associated clinical findings, the patient is homebound because of his/her inability to leave home except with aid of a busby pportive device and/or person AND leaving the home requires a considerable and taxing effort or is medically contraindicated. Pt req the following assistanc: Aid of another person Home Health Nursing Orders Home Health Services Order: Nursing Services, Physical Therapy-Evaluate & Treat Therapy Orders Therapy Orders: Physical Therapy, PT to assess for OT Therapy Specific Orders: Eval assistive deivces, Teach enviro modifications/safety, Gait training, Increase strength/endurance Certify Stmt I certify that this patient is under my care and that I, a nurse practitioner or a physician; a assistant front end manager working with me, had a face to face encounter that - meets the physician face to face encounter requirements with this patient as dated. Discharge Physical Exam General: Alert, Cooperative, No Acute Distress HEENT: Atraumatic, EOMI, Mucous Memb Moist/[place] Lungs: Clear to Auscultation, Normal Air Movement Heart: Regular Rate, Normal S1, Normal S2, No Murmurs Abdomen: Normal Bowel Sounds, Soft, No Tenderness Extremities: No Tenderness/Swelling Skin: No Rashes, No Significant Lesion Neuro: Normal Speech Psych/Mental Status: Mental Status NL, Mood NL HUSAM GIBSON MD Jan 09, 2021 10:46
[2021-01-09 12:00] VITALS: BP 118/69
== END 2021-01-09 15:30 | disposition home health service (06) | DRG 177 ==
LOC: EDUNIT# 16:25 → ER 16:29 → 4TH 19:11 → ER 20:02
PROVIDERS: ADMIT Family Medicine; ATTEND Internal Medicine
PROC: XW13325 Transfusion of Convalescent Plasma (Nonautologous) into Peripheral Vein, Percutaneous Approach, New Technology Group 5 (ICD-10-PCS; principal; 2021-01-05)
DX: U07.1 COVID-19 (principal); J96.01 Acute respiratory failure with hypoxia; N17.9 Acute kidney failure, unspecified; I48.91 Unspecified atrial fibrillation; I12.9 Hypertensive chronic kidney disease with stage 1 through stage 4 chronic kidney disease, or unspecified chronic kidney disease; N18.9 Chronic kidney disease, unspecified; D72.810 Lymphocytopenia; D72.829 Elevated white blood cell count, unspecified; T38.0X5A Adverse effect of glucocorticoids and synthetic analogues, initial encounter; Z86.718 Personal history of other venous thrombosis and embolism; Z95.5 Presence of coronary angioplasty implant and graft; I25.10 Atherosclerotic heart disease of native coronary artery without angina pectoris; E78.00 Pure hypercholesterolemia, unspecified; M19.90 Unspecified osteoarthritis, unspecified site; G89.29 Other chronic pain; M54.9 Dorsalgia, unspecified
CPT/HCPCS: 36415; 71045; 80048; 80053; 83880; 84145; 85007; 85025; 85027; 86141; 86900; 86901; 87636; 94640; 94664; 94760; 94761; 96374

== ENCOUNTER 2021-04-07 12:38 | Inpatient (IN) | payer MEDICAID ==
[~2021-04-07] VITALS: Ht 152.4 cm; Wt 83.0 kg
[~2021-04-07 12:38] MED LIST changes: +ASPI-999 PO; +IPRA4AER IH
[2021-04-07 12:57] LABS: BASOPHILS # (AUTO) 0.1 10^3/uL (0.0-0.1); BASOPHILS % (AUTO) 1 % (0-10); EOSINOPHILS # (AUTO) 0.2 10^3/uL (0.0-0.3); EOSINOPHILS % (AUTO) 3 % (0-10); HEMATOCRIT 33 % (35-52); HEMOGLOBIN 10.6 g/dL (11.5-16.0); LYMPHOCYTES # (AUTO) 0.9 10^3/uL (1.0-4.0); LYMPHOCYTES % (AUTO) 15 % (12-44); MEAN CORPUSCULAR HEMOGLOBIN 34 pg (25-34); MEAN CORPUSCULAR HGB CONC 32 g/dL (32-36); MEAN CORPUSCULAR VOLUME 105 fL (80-99); MONOCYTES # (AUTO) 0.4 10^3/uL (0.0-1.0); MONOCYTES % (AUTO) 7 % (0-12); NEUTROPHILS # (AUTO) 4.3 10^3/uL (1.8-7.8); NEUTROPHILS % (AUTO) 73 % (42-75); PLATELET COUNT 142 10^3/uL (130-400); WHITE BLOOD COUNT 5.9 10^3/uL (4.3-11.0)
[2021-04-07 13:13] LABS: ALBUMIN 3.7 GM/DL (3.2-4.5); POTASSIUM 4.4 MMOL/L (3.6-5.0)
[2021-04-07 13:14] LABS: CALCIUM 9.4 MG/DL (8.5-10.1)
--- NOTE | 2021-04-07 13:15 | ED Respiratory ---
General Chief Complaint: Respiratory Problems Stated Complaint: SOB,SWELLING Source: patient, family (Daughter) Exam Limitations: language barrier (Daughter gives interpretation) History of Present Illness Date Seen by Provider: Apr 07, 2021 Time Seen by Provider: 12:40 Initial Comments Patient to the ER by private conveyance from home with daughter and chief complaint of progressively worsening x 1 week and shortness of air, swelling in hands and feet, orthopnea. Does not use oxygen at baseline. Has a history of atrial fibrillation. Cardiac catheterization [address] Flowers demonstrates EF of 50% and diffuse, moderate coronary artery disease with multiple stents in the LAD, left circumflex and 50% in-stent restenosis of the right coronary artery. Moderate elevation of left ventricular end-diastolic pressure. She is known to Dr. Alvarez and Dr. Liu. She has taken diuretics in the past was not on them right now. No Cough, CP. This happened 2 years ago and had to have two stents placed. She is on a blood thinner for atrial fibrillation, Eliquis. Allergies and Home Medications Allergies Coded Allergies: Van Known Allergies (Verified Allergy, Unknown, 02/07/07) Patient Home Medication List Home Medication List Reviewed: Yes Acetaminophen (Tylenol Extra Strength) 500 Mg Tablet, 500-1,000 MG PO Q6H PRN for PAIN-MILD, (Reported) Entered as Reported by: PACO MARINO on 10/10/18 1449 Albuterol/Ipratropium (Combivent Respimat Inhal [place]) 4 Gm Aero, 2 PUFF IH BID, (Reported) Entered as Reported by: YUE BUTTS on 01/04/21 0208 Apixaban (Eliquis) 2.5 Mg Tablet, 2.5 MG PO BID, (Reported) Entered as Reported by: PACO MARINO on 10/10/18 1156 Aspirin (Aspirin) 81 Mg Tab.chew, 81 MG PO DAILY, (Reported) Entered as Reported by: YUE BUTTS on 01/04/21 0206 Atorvastatin Calcium (Atorvastatin Calcium) 40 Mg Tablet, 40 MG PO HS, (Reported ) Entered as Reported by: PACO MARINO on 10/10/18 1156 Furosemide (Furosemide) 40 Mg Tablet, 40 MG PO DAILY Prescribed by: HUSAM GIBSON on 01/08/21 1558 Metoprolol Tartrate (Metoprolol Tartrate) 50 Mg Tablet, 50 MG PO BID Prescribed by: JESSICA ONEIL on 10/12/18 0831 Multivitamin (Multivitamins) 1 Each Capsule, 1 EACH PO DAILY, (Reported) Entered as Reported by: KASH BALDERAS on 01/03/19 1422 Review of Systems Review of Systems Constitutional: No chills, No diaphoresis EENTM: No ear discharge, No ear pain Respiratory: No cough, No short of breath Cardiovascular: No chest pain, No palpitations Gastrointestinal: No abdominal pain, No nausea Genitourinary: No discharge, No dysuria Musculoskeletal: No back pain, No joint pain Skin: No pruritus, No rash Psychiatric/Neurological: Denies Headache, Denies Numbness All Other Systems Reviewed Negative Unless Noted: Yes Past Acjgwrd-Mkbhxy-Hgvljv Hx Patient Social History Tobacco Use?: No Use of E-Cig and/or Vaping dev: No Substance use?: No Seasonal Allergies Seasonal Allergies: No Past Medical History Surgeries: Yes Bladder Surgery, Cardiac, Coronary Stent, Eye Surgery, Gallbladder, Orthopedic Respiratory: No (CHRONIC DYSPNEA ON EXERTION) Cardiac: Yes Atrial Fibrillation, Coronary Artery Disease, Deep Vein Thrombosis, High Cholesterol, Hypertension Neurological: Yes (NEUROPATHY RIGHT FOOT POST ANKLE SURGERY) Neuropathy Reproductive Disorders: No 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 No Pertinent Family Hx Physical Exam Vital Signs - First Documented Capillary Refill : Height: 5'0.00" Weight: 160lbs. 0.0oz. [id number]; 26.66 BMI Method:Stated General Appearance: WD/WN, no apparent distress Eyes: Bilateral Eye Normal Inspection, Bilateral Eye PERRL, Bilateral Eye EOMI HEENT: PERRL/EOMI, pharynx normal Neck: full range of motion, normal inspection Respiratory: lungs clear, normal breath sounds, no respiratory distress, no accessory muscle use Cardiovascular: normal peripheral pulses, regular rate, rhythm Gastrointestinal: normal bowel sounds, non tender, soft Extremities: pedal edema (Bilateral symmetric) Neurologic/Psychiatric: alert, normal mood/affect, oriented x 3 Skin: normal color, warm/dry Progress/Results/Core Measures Suspected Sepsis SIRS Temperature: Pulse: Respiratory Rate: Laboratory Tests 04/07/21 12:47: White Blood Count 5.9 Blood Pressure / Mean: Laboratory Tests 04/07/21 12:47: Creatinine 1.46H, Platelet Count 142, Total Bilirubin 1.6H Results/Orders Lab Results Laboratory Tests Test 04/07/21 12:47 04/07/21 13:24 04/07/21 13:40 Range/Units White Blood Count 5.9 4.3-11.0 10^3/uL Red Blood Count 3.13 L 3.80-5.11 10^6/uL Hemoglobin 10.6 L 11.5-16.0 g/dL Hematocrit 33 L 35-52 % Mean Corpuscular Volume 105 H 80-99 fL Mean Corpuscular Hemoglobin 34 25-34 pg Mean Corpuscular Hemoglobin Concent 32 32-36 g/dL Red Cell Distribution Width 15.9 H 10.0-14.5 % Platelet Count 142 130-400 10^3/uL Mean Platelet Volume 10.0 9.0-12.2 fL Immature Granulocyte % (Auto) 0 % Neutrophils (%) (Auto) 73 42-75 % Lymphocytes (%) (Auto) 15 12-44 % Monocytes (%) (Auto) 7 0-12 % Eosinophils (%) (Auto) 3 0-10 % Basophils (%) (Auto) 1 0-10 % Neutrophils # (Auto) 4.3 1.8-7.8 10^3/uL Lymphocytes # (Auto) 0.9 L 1.0-4.0 10^3/uL Monocytes # (Auto) 0.4 0.0-1.0 10^3/uL Eosinophils # (Auto) 0.2 0.0-0.3 10^3/uL Basophils # (Auto) 0.1 0.0-0.1 10^3/uL Immature Granulocyte # (Auto) 0.0 0.0-0.1 10^3/uL Sodium Level 135 135-145 MMOL/L Potassium Level 4.4 3.6-5.0 MMOL/L Chloride Level 101 98-107 MMOL/L Carbon Dioxide Level 22 21-32 MMOL/L Anion Gap 12 5-14 MMOL/L Blood Urea Nitrogen 22 H 7-18 MG/DL Creatinine 1.46 H 0.60-1.30 MG/DL Estimat Glomerular Filtration Rate 34 BUN/Creatinine Ratio 15 Glucose Level 170 H 70-105 MG/DL Calcium Level 9.4 8.5-10.1 MG/DL Corrected Calcium 9.6 8.5-10.1 MG/DL Total Bilirubin 1.6 H 0.1-1.0 MG/DL Aspartate Amino Transf (AST/SGOT) 49 H 5-34 U/L Alanine Aminotransferase (ALT/SGPT) 33 0-55 U/L Alkaline Phosphatase 81 40-136 U/L Troponin I 0.028 <0.028 NG/ML C-Reactive Protein High Sensitivity 0.18 0.00-0.50 MG/DL B-Type Natriuretic Peptide 1728.7 H <100.0 PG/ML Total Protein 7.2 6.4-8.2 GM/DL Albumin 3.7 3.2-4.5 GM/DL Procalcitonin 0.04 <0.10 NG/ML Blood Gas Puncture Site RIGHT RADIAL Blood Gas Patient Temperature 36.9 Arterial Blood pH 7.44 H 7.37-7.43 Arterial Blood Partial Pressure CO2 39 35-45 MMHG Arterial Blood Partial Pressure O2 58 L 79-93 MMHG Arterial Blood HCO3 27 23-27 MMOL/L Arterial Blood Total CO2 27.7 21.0-31.0 MMOL/L Arterial Blood Oxygen Saturation 91 L 94-100 % Arterial Blood Base Excess 2.7 H -2.5-2.5 MMOL/L Mike Test YES-POS Blood Gas Ventilator Setting NO Blood Gas Inspired Oxygen ROOM AIR Urine Color YELLOW Urine Clarity CLEAR Urine pH 7.0 5-9 Urine Specific [place] 1.010 L 1.016-1.022 Urine Protein NEGATIVE NEGATIVE Urine Glucose (UA) NEGATIVE NEGATIVE Urine Ketones NEGATIVE NEGATIVE Urine Nitrite NEGATIVE NEGATIVE Urine Bilirubin NEGATIVE NEGATIVE Urine Urobilinogen 0.2 < = 1.0 MG/DL Urine Leukocyte Esterase 1+ H NEGATIVE Urine RBC (Auto) 1+ H NEGATIVE Urine RBC 0-2 /HPF Urine WBC 2-5 /HPF Urine Squamous Epithelial Cells 0-2 /HPF Urine Crystals NONE /LPF Urine Bacteria MODERATE H /HPF Urine Casts NONE /LPF Urine Mucus NEGATIVE /LPF Urine Culture Indicated YES My Orders Orders - LANIE SANTOS Chest 1 View, Ap/Pa Only (04/07/21 12:41) Cbc With Automated Diff (04/07/21 12:41) Comprehensive Metabolic Panel (04/07/21 12:41) Hs C Reactive Protein (04/07/21 12:41) BNP (04/07/21 12:41) Arterial Blood Gas (04/07/21 13:02) Procalcitonin (Pct) (04/07/21 13:02) Ekg Tracing (04/07/21 13:02) Continuous Ekg Monitoring (04/07/21 13:02) Troponin I (04/07/21 13:02) Ua Culture If Indicated (04/07/21 13:28) Urine Culture (04/07/21 13:40) Vital Signs/I&O 04/07/21 04/07/21 12:39 12:39 Temp 37.0 Pulse 76 Resp 17 B/P (MAP) 113/69 (84) Pulse Ox 93 O2 Delivery Nasal Cannula Nasal Cannula O2 Flow Rate 2.00 2.00 Capillary Refill : Progress Note #1: Time: 13:38 Progress Note Aspirin 325 mg. Suspect CHF exacerbation although she does not have a history of significant CHF on her previous catheterization from 2019. Progress Note #2: Time: 14:35 Progress Note Lasix 40 mg IV ECG Initial ECG Impression Date: Apr 07, 2021 Initial ECG Impression Time: 12:47 Initial ECG Rate: 72 Initial ECG Rhythm: Normal Sinus Initial ECG Intervals: Normal Initial ECG Impression: Normal Comment Atrial fibrillation with no clinically relevant ST changes Diagnostic Imaging Diagonstic Imaging: Xray Plain Films/CT/US/NM/MRI: chest Comments [facility] [place], [place] NAME: INDY TORRES [facility] REC#: [id number] PT STATUS: REG ER : 1935 PHYSICIAN: LANIE SANTOS MD ADMIT DATE: 04/07/21/ER Signed Date of Exam:04/07/21 CHEST 1 VIEW, AP/PA ONLY INDICATION: Shortness of breath. COMPARISON: 01/05/2021. FINDINGS: There is cardiomegaly. There is some minimal venous congestion. There is no pleural effusion or pneumothorax. The mediastinum is unremarkable. IMPRESSION: Cardiomegaly and some minimal central pulmonary venous congestion. Dictated by: Dictated on workstation # [id number] Dict: 04/07/21 1354 Trans: 04/07/21 1401 [id number] Interpreted by: RITESH FERMIN MD Electronically signed by: RITESH FERMIN MD 04/07/21 1401 Reviewed: Reviewed by Me Departure Communication (Admissions) Time/Spoke to Admitting Phy: 14:50 Discussed the case with Dr. Dee and she agrees to admit the patient to the floor on oxygen and Lasix with cardiac consultation. Time/Spoke to Consulting Phy: 15:00 Discussed the case with Dr. Flowers and he agrees to consult on the case per cardiology. Impression Primary Impression: CHF exacerbation Qualified Codes: I50.9 - Heart failure, unspecified Additional Impression: Acute respiratory failure with hypoxemia Disposition: ADMITTED INPATIENT Condition: Stable Admissions Decision to Admit Reason: Admit from ER (General) Decision to Admit/Date: Apr 07, 2021 Time/Decision to Admit Time: 14:36 Departure-Patient Inst. Referrals: RONNA ALVAREZ MD (PCP/Family) Primary Care Physician LANIE SANTOS Apr 07, 2021 13:15
[2021-04-07 13:16] LABS: TOTAL PROTEIN 7.2 GM/DL (6.4-8.2)
[2021-04-07 13:17] LABS: BILIRUBIN,TOTAL 1.6 MG/DL (0.1-1.0)
[2021-04-07 13:19] LABS: CREATININE SERUM 1.46 MG/DL (0.60-1.30)
[2021-04-07 13:32] LABS: ABG BASE EXCESS 2.7 MMOL/L (-2.5-2.5); ABG OXYGEN SATURATION 91 % (94-100); ABG PCO2 39 MMHG (35-45); ABG PH 7.44 (7.37-7.43); ABG PO2 58 MMHG (79-93); ABG TCO2 27.7 MMOL/L (21.0-31.0)
[2021-04-07 13:33] LABS: ALLENS TEST YES-POS; INSPIRED O2 ROOM AIR; PATIENT TEMP 36.9; VENTILATOR NO
--- NOTE | 2021-04-07 13:56 | Diagnostic Imaging Report ---
INDICATION: Shortness of breath. COMPARISON: 01/05/2021. FINDINGS: There is cardiomegaly. There is some minimal venous congestion. There is no pleural effusion or pneumothorax. The mediastinum is unremarkable. IMPRESSION: Cardiomegaly and some minimal central pulmonary venous congestion. Dictated by: Dictated on workstation # [id number]
[2021-04-07 13:58] LABS: BILIRUBIN,URINE NEGATIVE (NEGATIVE); CLARITY,URINE CLEAR; COLOR,URINE YELLOW; GLUCOSE, URINE (UA) NEGATIVE (NEGATIVE); KETONES,URINE NEGATIVE (NEGATIVE); LEUKOCYTE ESTERASE ,URINE 1+ (NEGATIVE); NITRITE,URINE NEGATIVE (NEGATIVE); PROTEIN,URINE NEGATIVE (NEGATIVE)
[2021-04-07 14:13] LABS: BACTERIA,URINE MODERATE /HPF; RBC,URINE 0-2 /HPF; SQUAMOUS EPITHELIAL CELL,UR 0-2 /HPF
[2021-04-07] MEDS ORDERED: FUROSEMIDE 40 MG/4 ML INJ (LASIX) IVP ONE (15:00)
[2021-04-07 16:01] VITALS: BP 116/78
[2021-04-07] MEDS ORDERED: CATHETER FLUSH 10 ML SYR IV PRN (17:00)
[2021-04-07] MEDS: FUROSEMIDE 40 MG/4 ML INJ (LASIX) IVP SCH (17:19)
[2021-04-07] MEDS: CATHETER FLUSH 10 ML SYR IV SCH (17:22)
[2021-04-07] MEDS: APIXABAN 5 MG (ELIQUIS) TABLET PO SCH (20:17)
[2021-04-07] MEDS: KCL 20 MEQ TAB (K-DUR) PO SCH (20:17)
[2021-04-07 20:19] VITALS: BP 126/75
[2021-04-08] VITALS: BP 130/83
[2021-04-08 04:00] VITALS: BP 112/76
[2021-04-08] MEDS: FUROSEMIDE 40 MG/4 ML INJ (LASIX) IVP SCH ×2 (05:55→18:23)
[2021-04-08 05:58] LABS: BASOPHILS # (AUTO) 0.1 10^3/uL (0.0-0.1); BASOPHILS % (AUTO) 1 % (0-10); EOSINOPHILS # (AUTO) 0.3 10^3/uL (0.0-0.3); EOSINOPHILS % (AUTO) 4 % (0-10); HEMATOCRIT 31 % (35-52); HEMOGLOBIN 9.5 g/dL (11.5-16.0); LYMPHOCYTES # (AUTO) 0.9 10^3/uL (1.0-4.0); LYMPHOCYTES % (AUTO) 16 % (12-44); MEAN CORPUSCULAR HEMOGLOBIN 33 pg (25-34); MEAN CORPUSCULAR HGB CONC 31 g/dL (32-36); MEAN CORPUSCULAR VOLUME 105 fL (80-99); MEAN PLATELET VOLUME 10.4 fL (9.0-12.2); MONOCYTES # (AUTO) 0.4 10^3/uL (0.0-1.0); MONOCYTES % (AUTO) 8 % (0-12); NEUTROPHILS % (AUTO) 71 % (42-75); PLATELET COUNT 143 10^3/uL (130-400); WHITE BLOOD COUNT 5.7 10^3/uL (4.3-11.0)
[2021-04-08 06:09] LABS: POTASSIUM 3.8 MMOL/L (3.6-5.0)
[2021-04-08 06:10] LABS: CALCIUM 9.3 MG/DL (8.5-10.1)
[2021-04-08] MEDS: CATHETER FLUSH 10 ML SYR IV SCH ×3 (06:13→22:59)
[2021-04-08 06:15] LABS: CREATININE SERUM 1.41 MG/DL (0.60-1.30)
--- NOTE | 2021-04-08 07:49 | Diagnostic Imaging Report ---
EXAMINATION: Chest 1 view HISTORY: Chest pain. Heart failure. COMPARISON: 04/07/2021. FINDINGS: There is continued cardiomegaly with interval increase in central pulmonary vascular congestion and mixed interstitial and alveolar opacities throughout the lungs. These are greatest in the lung bases. No large pleural effusion or pneumothorax. IMPRESSION: 1. Increasing pulmonary edema with stable cardiomegaly. Dictated by: Dictated on workstation # [id number]
--- NOTE | 2021-04-08 07:57 | Consultation-Cardiology ---
HPI-Cardiology Cardiology Consultation: Date of Consultation 04/08/21 Time Seen by a Provider: 08:30 Date of Admission 04-07-21 Attending Physician Mariely Dee MD Admitting Physician Ligia Alvarez MD Consulting Physician Hubert Flowers MD HPI: Chief Complaint: Progressive SOB Ms. Torres is an 85 yr old female admitted to 421 from the ED with increasing SOB and LE swelling which has been progressive over the last few days. She speaks limited [place]. Her daughter is at the bedside to assist with translation. She does not report any c/o CP or palpitations. No c/of syncope or near syncope. She denies any missed medication doses including diuretics. No c/o n/v/d. No c/o fever or chills. She feels her breathing is much better today. Review of Systems-Cardiology Review of Systems Constitutional: No chills, No fever; malaise Eyes: No vision change Ears/Nose/Throat: No epistaxis, No recent hearing loss Respiratory: As described under HPI Cardiovascular: As described under HPI Gastrointestinal: No diarrhea, No nausea, No vomiting Genitourinary: No dysuria, No hematuria Musculoskeletal: no symptoms reported Skin: No rash on exposed areas, No ulcerations on exposed areas Psychiatric/Neurological: No anxiety, No depression, No seizure, No focal weakness, No syncope Hematologic: No bleeding abnormalities All Other Systems Reviewed Negative Unless Noted: Yes [id number]-Qatvdx-[id number] Hx Patient Social History Smoking Status: Never a Smoker 2nd Hand Smoke Exposure: No Have you traveled recently?: No Alcohol Use?: No Pt feels they are or have been: No Immunizations Up To Date Date of Influenza Vaccine: May 18, 2018 Past Medical History PMH As described under Assessment. Family Medical History Family Medical History: No reported family h/o CAD. Family History: Patient reports no known family medical history. Allergies and Home Medications Allergies Coded Allergies: NKANo Known Allergies (Verified Allergy, Unknown, 02/07/07) Patient Home Medication List Acetaminophen (Tylenol Extra Strength) 500 Mg Tablet, 500-1,000 MG PO Q6H PRN for PAIN-MILD, (Reported) Entered as Reported by: PACO MARINO on 10/10/18 5412 Last Action: Reviewed Apixaban (Eliquis) 2.5 Mg Tablet, 2.5 MG PO BID, (Reported) Entered as Reported by: PACO MARINO on 10/10/181155 Last Action: Reviewed Aspirin (Aspirin) 81 Mg Tab.chew, 81 MG PO DAILY, (Reported) Entered as Reported by: YUE BUTTS on 01/04/21205 Last Action: Reviewed Atorvastatin Calcium (Atorvastatin Calcium) 40 Mg Tablet, 40 MG PO DAILY, (Reported) Entered as Reported by: PACO MARINO on 10/10/181155 Last Action: Reviewed Furosemide (Furosemide) 40 Mg Tablet, 40 MG PO DAILY, (Reported) Entered as Reported by: VIRA SEGAL on 04/08/211508 Last Action: Reviewed Metoprolol Tartrate (Metoprolol Tartrate) 50 Mg Tablet, 50 MG PO BID, (Reported) Entered as Reported by: VIRA SEGAL on 04/08/211508 Last Action: Reviewed Multivitamin (Multivitamin) 1 Each Tablet, 1 EACH PO DAILY, (Reported) Entered as Reported by: VIRA SEGAL on 04/08/211508 Last Action: Reviewed Discontinued Medications Albuterol/Ipratropium (Combivent Respimat Inhal [place]) 4 Gm Aero, 2 PUFF IH BID, (Reported) Discontinued Reason: No Longer Taking Entered as Reported by: YUE BUTTS on 01/04/21207 Last Action: Discontinued Furosemide (Furosemide) 40 Mg Tablet, 40 MG PO DAILY Discontinued Reason: Duplicate Order Prescribed by: HUSAM GIBSON on 01/08/21 6984 Last Action: Discontinued Metoprolol Tartrate (Metoprolol Tartrate) 50 Mg Tablet, 50 MG PO BID Discontinued Reason: Duplicate Order Prescribed by: JESSICA ONEIL on 10/12/18 0832 Last Action: Discontinued Physical Exam-Cardiology Physical Exam Vital Signs/I&O 04/09/21 04/09/21 04/09/21 04/09/21 00:17 01:00 03:27 07:00 Temp 37.0 36.8 Pulse 89 93 92 74 Resp 22 18 B/P (MAP) 104/51 (68) 105/65 (78) Pulse Ox 96 100 O2 Delivery Nasal Cannula Nasal Cannula O2 Flow Rate 2.00 2.00 04/09/21 04/09/21 07:11 07:23 Temp 36.8 Pulse 78 Resp 16 B/P (MAP) 91/55 (67) Pulse Ox 94 O2 Delivery Nasal Cannula Nasal Cannula O2 Flow Rate 2.00 1.00 04/09/21 00:00 Intake Total 1290 ml Output Total 2850 ml Balance -1560 ml Capillary Refill : Constitutional: AAO x 3, well-developed, well-nourished HEENT: PERRL, hearing is well preserved, oral hygience is good Neck: No carotid bruit; carotid pulses are 2 + bilaterally Respiratory: No accessory muscle use, No respiratory distress; chest expansion is symmetric, chest is bilaterally symmetric, other (diminished bases bilat ) Cardiovascular: irregularly irregular; No JVD; S1 and S2 Gastrointestinal: No tender; soft, round, audible bowel sounds Extremities: other (mild bilat LE swelling) Neurologic/Psychiatric: grossly intact (moves all extremities) Skin: No rash on exposed areas, No ulcerations on exposed areas Data Review Labs Radiology NAME: INDY TORRES [facility] REC#: [id number] PT STATUS: REG ER : 1935 PHYSICIAN: LANIE SANTOS MD ADMIT DATE: 04/07/21/ER Signed Date of Exam:04/07/21 CHEST 1 VIEW, AP/PA ONLY INDICATION: Shortness of breath. COMPARISON: 01/05/2021. FINDINGS: There is cardiomegaly. There is some minimal venous congestion. There is no pleural effusion or pneumothorax. The mediastinum is unremarkable. IMPRESSION: Cardiomegaly and some minimal central pulmonary venous congestion. Dictated by: Dictated on workstation # [id number] Dict: 04/07/21 1354 Trans: 04/07/21 1401 [id number] Interpreted by: RITESH FERMIN MD Electronically signed by: RITESH FERMIN MD 04/07/21 1401 ECG Impression ECG Initial ECG Impression: Atrial Fibrillation A/P-Cardiology Assessment/Admission Diagnosis Acute on Chronic diastolic CHF - treat with diuretics - Last echo of October 2017 showed ejection fraction 50-55% with moderately to severely dilated left atrium, moderate mitral regurgitation, [id number] TR and PASP 40-45 mmHg Chronic persistent atrial fibrillation, rate is fairly well controlled - stroke prophylaxis with apixaban - 24 HR Holter of Jun 2019 showed a-fib with av ventricular response of 78 bpm; one 10 beat run of WCT @ 136 bpm; no signif bradycardia CAD - Last card cath on 01/03/19: diffuse, moderate. Left anterior descending artery has patent stents that are known to be Taxus 2.75 x 20, 2.5 x 24, 2.5 x 12 and Xience [place] 2.5 x 8 (proximal to distal). Left circumflex artery has a patent stent in its first obtuse marginal that is known to be Promus 2.5 x 16. Right coronary artery has a patent stent with 50% in-stent restenosis. This is known to be Xience [place] 3.5 x 16. All coronary arteries have diffuse stenoses with a focal stenoses of up to 50% at several spots. Well preserved global left ventricular systolic function with ejection fraction approximately 50%. Mild to moderate elevation of left ventricular end-diastolic pressure Hypertension - controlled Hyperlipidemia - being treated with simvastatin and followed by her PCP PFT of Jun 26, 2019 showed mod obstructive lung defect Chronic neck and shoulder pain, cervical DJD and radiculopathy suspected History of infra-mammary herpes zoster in the past. She is currently not experiencing any symptoms from it. Degenerative joint disease. History of urinary incontinence, which has been followed by Dr. Dee History of non-compliance with medications Discussion and Recomendations Acute on chronic diastolic CHF - treat with diuretics Echocardiogram to eval structure and function Resume BB at home dose for rate and BP control Resume OAC with Eliquis for stroke prophylaxis Resume ASA d/t known h/o CAD Monitor lab closely Replace electrolytes as indicated Further recs will be based on her hospital course We would like to thank medical services for this consult JESSICA ONEIL Apr 08, 2021 07:57
[2021-04-08 08:00] VITALS: BP 118/73
--- NOTE | 2021-04-08 09:11 | History & Physical-Hospitalist ---
JOYCE LARES A MED STUDENT 04/08/21 0911: History of Present Illness HPI/Chief Complaint 85 yo female who presented to ED with daughter d/t SOA and lower extremity swelling for one week. Pt has hx of Afib, HTN, CAD with stent placement. Pt speaks limited Macanese and her granddaughter is present for translation. Pt reports her SOA is still present, but better today. Worse with exertion. Denies use of oxygen at home. Pt denies chest pain or palpitations, N/V/D, dysuria or urinary frequency. Pt states Dr. Alvarez is her PCP and she had an appt with he r on Wednesday and her lasix were increased. Pt reports compliance with medications. Pt can't recall the last time she saw Dr. Flowers, her optometrist owner. Date Seen 04/08/21 Time Seen by a Provider: 08:55 Attending Physician Ignacia Dee MD PCP Ligia Alvarez MD Referring Physician Date of Admission Apr 07, 2021 at 14:59 Home Medications & Allergies Home Medications Reviewed patient Home Medication Reconciliation performed by pharmacy medication reconciliations iv technician and/or nursing. Patients Allergies have been reviewed. Allergies Allergies Coded Allergies NKANo Known Allergies (Verified Allergy, Unknown, 02/07/07) Past Aooannr-Tgfxmh-Vmrvbk Hx Patient Social History Tobacco Use?: No Smoking Status: Never a Smoker Smokeless Tobacco Frequency: Never a User Use of E-Cig and/or Vaping dev: No Substance use?: No Alcohol Use?: No Pt feels they are or have been: No Immunizations Up To Date Date of Influenza Vaccine: May 18, 2018 Tetanus Booster (TDap): Unknown Hepatitis A: Yes Seasonal Allergies Seasonal Allergies: No Current Status status: No Advance Directives: No Communicates: Verbally Primary Language: Macanese Preferred Spoken Language: Macanese Is interpretation needed?: Yes Sensory deficits: Vision impairment Implanted or Applied Medical D: Orthopedic hardware, Stents Past Medical History Surgeries: Bladder Surgery, Cardiac, Coronary Stent, Eye Surgery, Gallbladder, Orthopedic Atrial Fibrillation, Coronary Artery Disease, Deep Vein Thrombosis, High Cholesterol, Hypertension Neuropathy [employer]NER History: Menopausal Sexually Transmitted Disease: No Renal Failure Gall Bladder Disease Degenerate Disk Disease, Arthritis, Chronic Back Pain Cataract Blood Disorders: Yes (ANEMIA) Adverse Reaction/Blood Tranf: No Family Medical History Patient reports no known family medical history. No Pertinent Family Hx Review of Systems EENTM: no symptoms reported Respiratory: No cough; dyspnea on exertion, short of breath Cardiovascular: No chest pain, No palpitations, No syncope Gastrointestinal: no symptoms reported Genitourinary: no symptoms reported Skin: no symptoms reported Physical Exam Physical Exam Vital Signs Vital Signs - First Documented Capillary Refill : Height, Weight, BMI Height: 5'0.00" Weight: 160lbs. 0.0oz. 72.490386ug; 35.73 BMI Method:Stated General Appearance: No Apparent Distress, WD/WN HEENT: PERRL/EOMI Respiratory: Chest Non Tender, Lungs Clear, Normal Breath Sounds, No Accessory Muscle Use, No Respiratory Distress Cardiovascular: Regular Rate, Rhythm, No Edema, No Gallop, No JVD, No Murmur, Normal Peripheral Pulses Gastrointestinal: Normal Bowel Sounds, No Organomegaly, No Pulsatile Mass, Non Tender, Soft Extremity: Normal Capillary Refill, Normal Inspection, Normal Range of Motion, Non Tender, No Calf Tenderness, Pedal Edema (2+ pitting) Neurologic/Psychiatric: Oriented x3, No Motor/Sensory Deficits, Normal Mood/Affect, mail sorter II-XII Norm as Tested, Other (Pt is sleepy, but alert upon awakening) Skin: Normal Color, Warm/Dry, Other (right toe ulcer that appears to be healing) Results Results/Procedures Labs Laboratory Tests 04/07/21 12:47 04/08/21 05:15 Patient resulted labs reviewed. Assessment/Plan Admission Diagnosis CHF exacerbation, Acute renal failure Reason for Inpatient Admission: CHF exacerbation, Acute renal failure Assessment and Plan Acute on chronic diastolic heart failure Acute renal failure Chronic Afib Anemia CAD HTN Hyperlipidemia Acute on chronic diastolic heart failure -Furosemide IV 40mg -Consulted cardiology -Last echo October 2017 showed EF 50-55% Acute renal failure -BUN 23 and Cr 1.41 increased from admission -Likely d/t diuresis -Urine output 1.51 ml/kg/hr -Will continue to monitor Chronic Afib- rate controlled -Apixaban for stroke ppx Anemia -H&H 9.5 and 31, will continue to monitor Coronary artery disease -Managed by cardiology HTN -controlled Hyperlipidemia -Continue Simvastatin from home IGNACIA DEE MD 04/08/21 1420: Past Axpsjju-Hwcntf-Ccndkh Hx Current Status Primary Language: [facility] Preferred Spoken Language: Is interpretation needed?: Patient declined (requests family to interpret) Family Medical History Patient reports no known family medical history. No Pertinent Family Hx Daughter alive and healthy Review of Systems Constitutional: see HPI All Other Systems Reviewed Negative Unless Noted: Yes (Negative excepted noted.) Assessment/Plan Admission Diagnosis Admission Status: Inpatient Order (span 2 midnights) Reason for Inpatient Admission: see below Assessment and Plan Patient is an 85-year-old female admitted to the hospital due to diastolic congestive heart failure. She has a history of noncompliance with Lasix at this time reports she has been compliant with her medications despite this she has had progressive orthopnea, shortness of breath, lower extremity edema. She presented to the emergency department with hypoxia. Her BNP was elevated and chest x-ray was consistent with a CHF exacerbation. She was admitted for IV diuresis and supplemental oxygen. She was mostly sleeping during my exam though did wake up and states she was feeling better. Family at bedside provides most of the history. Dr. Liu has been consulted who is her primary optometrist owner. We will restart her home cardiac meds. Hopeful for discharge home in the next day or 2 if she continues to do well. Diagnosis/Problems Diagnosis/Problems (1) Acute respiratory failure with hypoxemia Status: Acute (2) CHF exacerbation Status: Acute Qualifiers: Heart failure type: diastolic Qualified Codes: I50.33 - Acute on chronic diastolic (congestive) heart failure (3) History of DVT (deep vein thrombosis) Status: Chronic (4) Advanced age Status: Chronic (5) Afib Status: Chronic Qualifiers: Atrial fibrillation type: longstanding persistent Qualified Codes: I48.11 - Longstanding persistent atrial fibrillation (6) CKD (chronic kidney disease) Status: Chronic Qualifiers: Chronic kidney disease stage: stage 3 (moderate) Chronic kidney disease stage 3 subtype: stage 3b (GFR 30-44) Qualified Codes: N18.32 - Chronic kidney disease, stage 3b (7) HLD (hyperlipidemia) Status: Chronic Qualifiers: Hyperlipidemia type: mixed hyperlipidemia Qualified Codes: E78.2 - Mixed hyperlipidemia (8) HTN (hypertension) Status: Chronic Qualifiers: Hypertension type: primary hypertension Qualified Codes: I10 - Essential (primary) hypertension (9) CAD (coronary artery disease) Qualifiers: Coronary Disease-Associated Artery/Lesion type: [place] artery [place] vs. transplanted heart: [place] heart Associated angina: without angina Qualified Codes: I25.10 - Atherosclerotic heart disease of [place] coronary artery without angina pectoris Supervisory-Addendum Brief Verification & Attestation Participated in pt care: history, MDM, physical Personally performed: exam, history, MDM, supervision of care Care discussed with: Medical Student Procedures: n/a Results interpretation: Verified all documentation Verification and Attestation of Medical Student E/M Service A medical student performed and documented this service in my presence. I reviewed and verified all information documented by the medical student and made modifications to such information, when appropriate. I personally performed the physical exam and medical decision making. Ignacia Dee, Apr 08, 2021,14:19 JOYCE LARES MED STUDENT Apr 08, 2021 09:11 IGNACIA DEE MD Apr 08, 2021 14:20
[2021-04-08] MEDS: ASPIRIN 81 MG CHEW (CHILDREN'S ASA) PO SCH (09:14)
[2021-04-08] MEDS: KCL 20 MEQ TAB (K-DUR) PO SCH ×2 (09:14→20:49)
[2021-04-08] MEDS: meTOprolol TARTRATE 50 MG (LOPRESSOR) TAB PO SCH ×2 (09:14→20:49)
[2021-04-08] MEDS: APIXABAN 5 MG (ELIQUIS) TABLET PO SCH ×2 (09:14→20:50)
[2021-04-08 11:58] VITALS: BP 80/41
--- NOTE | 2021-04-08 14:43 | Consultation-Cardiology ---
HPI-Cardiology Cardiology Consultation: Date of Consultation 04/08/21 Time Seen by a Provider: 14:10 Date of Admission Attending Physician Mariely Dee MD Admitting Physician Ligia Alvarez MD Consulting Physician SAHIL HAWLEY MD, MA, FACP, FACC, FSCAI, CCDS HPI: Chief Complaint: Progressive Shortness of Breath Ms. Vega is an 85 yr old female admitted to [facility] from the ED with increasing SOB and LE swelling which has been progressive over the last few days. She speaks limited [place]. Her daughter is at the bedside to assist with translation. She does not report any c/o CP or palpitations. No c/of syncope or near syncope. She denies any missed medication doses including diuretics. No c/o n/v/d. No c/o fever or chills. She feels her breathing is much better today. Review of Systems-Cardiology Review of Systems Constitutional: No chills, No fever; malaise Eyes: No vision change Ears/Nose/Throat: No epistaxis, No recent hearing loss Respiratory: As described under HPI Cardiovascular: As described under HPI Gastrointestinal: No diarrhea, No nausea, No vomiting Genitourinary: No dysuria, No hematuria Musculoskeletal: no symptoms reported Skin: No rash on exposed areas, No ulcerations on exposed areas Psychiatric/Neurological: No anxiety, No depression, No seizure, No focal weakness, No syncope Hematologic: No bleeding abnormalities All Other Systems Reviewed Negative Unless Noted: Yes (Negative excepted noted.) QLQ-Kyurkk-Trlqlg Hx Patient Social History Smoking Status: Never a Smoker 2nd Hand Smoke Exposure: No Have you traveled recently?: No Alcohol Use?: No Pt feels they are or have been: No Immunizations Up To Date Date of Influenza Vaccine: May 18, 2018 Past Medical History PMH As described under Assessment. Family Medical History Family Medical History: No reported family h/o CAD. Family History: Patient reports no known family medical history. Allergies and Home Medications Allergies Coded Allergies: YENANo Known Allergies (Verified Allergy, Unknown, 02/07/07) Patient Home Medication List Home Medication List Reviewed: Yes Acetaminophen (Tylenol Extra Strength) 500 Mg Tablet, 500-1,000 MG PO Q6H PRN for PAIN-MILD, (Reported) Entered as Reported by: PACO MARINO on 10/10/18 0208 Albuterol/Ipratropium (Combivent Respimat Inhal [place]) 4 Gm Aero, 2 PUFF IH BID, (Reported) Entered as Reported by: YUE BUTTS on 01/04/21 0208 Apixaban (Eliquis) 2.5 Mg Tablet, 2.5 MG PO BID, (Reported) Entered as Reported by: PACO MARINO on 10/10/18 1156 Last Action: Last Taken Edited Aspirin (Aspirin) 81 Mg Tab.chew, 81 MG PO DAILY, (Reported) Entered as Reported by: YUE BUTTS on 01/04/21 020 Last Action: Last Taken Edited Atorvastatin Calcium (Atorvastatin Calcium) 40 Mg Tablet, 40 MG PO HS, (Reported) Entered as Reported by: PACO MARINO on 10/10/18 115 Last Action: Last Taken Edited Furosemide (Furosemide) 40 Mg Tablet, 40 MG PO DAILY Prescribed by: HUSAM GIBSON on 01/08/21 1558 Last Action: Last Taken Edited Metoprolol Tartrate (Metoprolol Tartrate) 50 Mg Tablet, 50 MG PO BID Prescribed by: JESSICA ONEIL on 10/12/18 0831 Last Action: Last Taken Edited Multivitamin (Multivitamins) 1 Each Capsule, 1 EACH PO DAILY, (Reported) Entered as Reported by: KASH BALDERAS on 01/03/19 1422 Physical Exam-Cardiology Physical Exam Vital Signs/I&O 04/08/21 04/08/21 04/08/21 04/08/21 04:00 07:28 08:00 08:00 Temp 36.7 34.8 Pulse 99 95 Resp 18 18 B/P (MAP) 112/76 (88) 118/73 (88) Pulse Ox 94 96 98 O2 Delivery Nasal Cannula Nasal Cannula Nasal Cannula Nasal Cannula O2 Flow Rate 2.00 2.00 2.00 2.00 04/08/21 11:58 Temp 35.5 Pulse 73 Resp 19 B/P (MAP) 80/41 (54) Pulse Ox 99 O2 Delivery Nasal Cannula O2 Flow Rate 2.00 04/08/21 00:00 Intake Total 420 ml Output Total 3000 ml Balance -2580 ml Capillary Refill : Constitutional: AAO x 3, well-developed, well-nourished HEENT: PERRL, hearing is well preserved, oral hygience is good Neck: No carotid bruit; carotid pulses are 2 + bilaterally Respiratory: No accessory muscle use, No respiratory distress; chest expansion is symmetric, chest is bilaterally symmetric, other (diminished bases bilat ) Cardiovascular: irregularly irregular; No JVD; S1 and S2 Gastrointestinal: No tender; soft, round, audible bowel sounds Extremities: other (mild bilat LE swelling) Neurologic/Psychiatric: grossly intact (moves all extremities) Skin: No rash on exposed areas, No ulcerations on exposed areas Data Review Labs Laboratory Tests 04/07/21 19:21: Troponin I 0.031H 04/08/21 05:15: White Blood Count 5.7, Red Blood Count 2.92L, Hemoglobin 9.5L, Hematocrit 31L, Mean Corpuscular Volume 105H, Mean Corpuscular Hemoglobin 33, Mean Corpuscular Hemoglobin Concent 31L, Red Cell Distribution Width 15.9H, Platelet Count 143, Mean Platelet Volume 10.4, Immature Granulocyte % (Auto) 0, Neutrophils (%) (Auto) 71, Lymphocytes (%) (Auto) 16, Monocytes (%) (Auto) 8, Eosinophils (%) (Auto) 4, Basophils (%) (Auto) 1, Neutrophils # (Auto) 4.0, Lymphocytes # (Auto) 0.9L, Monocytes # (Auto) 0.4, Eosinophils # (Auto) 0.3, Basophils # (Auto) 0.1, Immature Granulocyte # (Auto) 0.0, Sodium Level 140, Potassium Level 3.8, Chloride Level 101, Carbon Dioxide Level 28, Anion Gap 11, Blood Urea Nitrogen 23H, Creatinine 1.41H, Estimat Glomerular Filtration Rate 35, BUN/Creatinine Ratio 16, Glucose Level 178H, Calcium Level 9.3 A/P-Cardiology Assessment/Admission Diagnosis Acute on Chronic diastolic CHF - treat with diuretics - Last echo of 04/08/21 showed ejection fraction 50-55% with biatrial enlargement, moderate mitral & tricuspid regurgitation, and PASP 40-45 mmHg Chronic persistent atrial fibrillation, rate is fairly well controlled - stroke prophylaxis with apixaban - 24 HR Holter of Jun 2019 showed a-fib with av ventricular response of 78 bpm; one 10 beat run of WCT @ 136 bpm; no signif bradycardia CAD - Last card cath on 01/03/19: diffuse, moderate. Left anterior descending artery has patent stents that are known to be Taxus 2.75 x 20, 2.5 x 24, 2.5 x 12 and Xience Laverne 2.5 x 8 (proximal to distal). Left circumflex artery has a patent stent in its first obtuse marginal that is known to be Promus 2.5 x 16. Right coronary artery has a patent stent with 50% in-stent restenosis. This is known to be Xience Laverne 3.5 x 16. All coronary arteries have diffuse stenoses with a focal stenoses of up to 50% at several spots. Well preserved global left ventricular systolic function with ejection fraction approximately 50%. Mild to moderate elevation of left ventricular end-diastolic pressure Hypertension - controlled Hyperlipidemia - being treated with simvastatin and followed by her PCP PFT of Jun 26, 2019 showed mod obstructive lung defect Chronic neck and shoulder pain, cervical DJD and radiculopathy suspected History of infra-mammary herpes zoster in the past. She is currently not experiencing any symptoms from it. Degenerative joint disease. History of urinary incontinence, which has been followed by Dr. Dee History of non-compliance with medications Discussion and Recomendations Acute on chronic diastolic CHF - treat with diuretics Resume BB at home dose for rate and BP control Resume OAC with Eliquis for stroke prophylaxis Resume ASA d/t known h/o CAD Monitor lab closely Replace electrolytes as indicated Further recs will be based on her hospital course We would like to thank Medical services for this consult SAHIL HAWLEY MD FACP [facility] [place] Apr 08, 2021 14:43
[2021-04-08] MEDS ORDERED: METO50TA15 PO (15:09)
[2021-04-08] MEDS ORDERED: FURO40TA4 PO (15:09)
[2021-04-08] MEDS ORDERED: MULT-1136 PO (15:09)
[2021-04-08 15:30] VITALS: BP 100/61
[2021-04-08 20:46] VITALS: BP 125/82
[2021-04-08] MEDS ORDERED: ACETAMINOPHEN 500 MG TAB (TYLENOL) ONE (21:19)
[2021-04-08] MEDS: ACETAMINOPHEN 500 MG TAB (TYLENOL) PO PRN (21:47)
[2021-04-09 00:17] VITALS: BP 104/51
[2021-04-09 03:27] VITALS: BP 105/65
[2021-04-09] MEDS: ACETAMINOPHEN 500 MG TAB (TYLENOL) PO PRN ×2 (03:32→13:06)
[2021-04-09 07:23] VITALS: BP 91/55
[2021-04-09] MEDS: FUROSEMIDE 40 MG/4 ML INJ (LASIX) IVP SCH ×2 (08:30→17:08)
[2021-04-09] MEDS: APIXABAN 5 MG (ELIQUIS) TABLET PO SCH ×2 (08:30→20:54)
[2021-04-09] MEDS: ASPIRIN 81 MG CHEW (CHILDREN'S ASA) PO SCH (08:30)
[2021-04-09] MEDS: CATHETER FLUSH 10 ML SYR IV SCH ×3 (08:31→20:54)
[2021-04-09] MEDS: meTOprolol TARTRATE 50 MG (LOPRESSOR) TAB PO SCH ×2 (08:31→20:54)
[2021-04-09] MEDS: KCL 20 MEQ TAB (K-DUR) PO SCH ×2 (08:31→20:54)
--- NOTE | 2021-04-09 09:27 | Progress Note - Cardiology ---
Cardiology SOAP Progress Note Subjective: Lying in bed Daughter at the bedside Reports SOB is better today C/O left foot/ankle pain Feels LE swelling has resolved No c/o CP or palpitations Objective: I&O/Vital Signs 04/10/21 04/10/21 00:00 01:00 Temp 37.2 Pulse 87 101 Resp 16 B/P (MAP) 109/74 (86) Pulse Ox 99 O2 Delivery Nasal Cannula O2 Flow Rate 2.00 04/09/21 23:59 Intake Total 2280 ml Output Total 1900 ml Balance 380 ml Weight (Pounds): 160 Weight (Ounces): 0.0 Weight (Calculated Kilograms): [id number] Constitutional: AAO x 3, well-developed, well-nourished Respiratory: No accessory muscle use, No respiratory distress; chest expansion is symmetric, chest is bilaterally symmetric, other (diminished bases bilat ) Cardiovascular: irregularly irregular; No JVD; S1 and S2 Gastrointestional: No tender; soft, round, audible bowel sounds Extremities: no lower extremity edema bilateral Neurologic/Psychiatric: grossly intact (moves all extremities) Skin: No rash on exposed areas, No ulcerations on exposed areas Results/Procedures: Labs Laboratory Tests 04/09/21 10:00: White Blood Count 9.2, Red Blood Count 3.02L, Hemoglobin 10.2L, Hematocrit 32L, Mean Corpuscular Volume 106H, Mean Corpuscular Hemoglobin 34, Mean Corpuscular Hemoglobin Concent 32, Red Cell Distribution Width 15.7H, Platelet Count 135, Mean Platelet Volume 9.7, Percent Immature Platelet Fraction 3.6, Sodium Level 139, Potassium Level 3.7, Chloride Level 98, Carbon Dioxide Level 32, Anion Gap 9, Blood Urea Nitrogen 26H, Creatinine 1.53H, Estimat Glomerular Filtration Rate 32, BUN/Creatinine Ratio 17, Glucose Level 131H, Calcium Level 9.7, Magnesium Level 2.1 04/10/21 05:57: White Blood Count 13.0H, Red Blood Count 2.96L, Hemoglobin 9.6L, Hematocrit 30L, Mean Corpuscular Volume 103H, Mean Corpuscular Hemoglobin 32, Mean Corpuscular Hemoglobin Concent 32, Red Cell Distribution Width 15.3H, Platelet Count 132, Mean Platelet Volume 10.9, Sodium Level 133L, Potassium Level 3.9, Chloride Level 96L, Carbon Dioxide Level 27, Anion Gap 10, Blood Urea Nitrogen 24H, Creatinine 1.37H, Estimat Glomerular Filtration Rate 36, BUN/Creatinine Ratio 18, Glucose Level 119H, Calcium Level 9.4 Microbiology 04/07/21 Urine Culture - Preliminary, Resulted Escherichia coli A/P: Assessment: Acute on Chronic diastolic CHF - treat with diuretics - Last echo of 04/08/21 showed ejection fraction 50-55% with biatrial enlargement, moderate mitral & tricuspid regurgitation, and PASP 40-45 mmHg Chronic persistent atrial fibrillation, rate is fairly well controlled - stroke prophylaxis with apixaban - 24 HR Holter of Jun 2019 showed a-fib with av ventricular response of 78 bpm; one 10 beat run of WCT @ 136 bpm; no signif bradycardia CAD - Last card cath on 01/03/19: diffuse, moderate. Left anterior descending artery has patent stents that are known to be Taxus 2.75 x 20, 2.5 x 24, 2.5 x 12 and Xience Laverne 2.5 x 8 (proximal to distal). Left circumflex artery has a patent stent in its first obtuse marginal that is known to be Promus 2.5 x 16. Right coronary artery has a patent stent with 50% in-stent restenosis. This is known to be Xience [place]ver[place] 3.5 x 16. All coronary arteries have diffuse stenoses with a focal stenoses of up to 50% at several spots. Well preserved global left ventricular systolic function with ejection fraction approximately 50%. Mild to moderate elevation of left ventricular end-diastolic pressure Hypertension - controlled Hyperlipidemia - being treated with simvastatin and followed by her PCP PFT of Jun 26, 2019 showed mod obstructive lung defect Chronic neck and shoulder pain, cervical DJD and radiculopathy suspected History of infra-mammary herpes zoster in the past. She is currently not experiencing any symptoms from it. Degenerative joint disease. History of urinary incontinence, which has been followed by Dr. Dee History of non-compliance with medications Plan: Acute on chronic diastolic CHF - treat with diuretics Continue BB for rate and BP control Continue OAC with Eliquis for stroke prophylaxis Continue ASA d/t known h/o CAD Monitor lab closely - awaiting morning lab results at this time Replace electrolytes as indicated JESSICA ONEIL Apr 09, 2021 09:27
--- NOTE | 2021-04-09 09:41 | Progress Note - Hospitalist ---
JOYCE LARES MED STUDENT 04/09/21 0941: Subjective HPI/CC On Admission Date Seen by Provider: Apr 09, 2021 Time Seen by Provider: 08:35 85 yo female who presented to ED with daughter d/t SOA and lower extremity swelling for one week. Pt has hx of Afib, HTN, CAD with stent placement. Pt speaks limited Persian and her granddaughter is present for translation. Pt reports her SOA is still present, but better today. Worse with exertion. Denies use of oxygen at home. Pt denies chest pain or palpitations, N/V/D, dysuria or urinary frequency. Pt states Dr. Alvarez is her PCP and she had an appt with her on Wednesday and her lasix were increased. Pt reports compliance with medications. Pt can't recall the last time she saw Dr. Flowers, her diesel engine fitter. Subjective/Events-last exam Pt sitting up in bed this morning with daughter at bedside. Pt's daughter translates history and physical for patient. Pt reports SOA has improved and she feels better overall. Pt currently on NC at 1L O2, tolerating this well. Pt does report some bilateral burning foot pain. Denies numbness/tingling. Pt reports having a good appetite. Last BM was prior to arrival at hospital. Pt has no concerns or questions today. Review of Systems General: No Chills, No Fatigue HEENT: No Head Aches Pulmonary: Dyspnea (improving); No Cough Gastrointestinal: Constipation; No: Nausea, Vomiting, Abdominal Pain, Diarrhea Genitourinary: No Dysuria, No Frequency Neurological: No: Weakness, Numbness Objective Exam Vital Signs Vital Signs Date Time Temp Pulse Resp B/P (MAP) Pulse Ox O2 Delivery O2 Flow Rate FiO2 04/09/21 07:23 36.8 78 16 91/55 (67) 94 Nasal Cannula 1.00 Capillary Refill : General Appearance: No Apparent Distress, WD/WN HEENT: PERRL/EOMI Respiratory: Chest Non Tender, Lungs Clear, Normal Breath Sounds, No Accessory Muscle Use, No Respiratory Distress Cardiovascular: Regular Rate, Rhythm, No Gallop, No Murmur, Normal Peripheral Pulses Gastrointestinal: Normal Bowel Sounds, No Organomegaly, No Pulsatile Mass, Non Tender, Soft Extremity: Normal Capillary Refill, Non Tender, No Calf Tenderness, Pedal Edema (1+pitting bilaterally), Other (right foot ulcerative lesion from yesterday, covered with bandage today) Neurologic/Psychiatric: Alert, Oriented x3, No Motor/Sensory Deficits, Normal 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 Assessment/Plan Assessment and Plan Assess & Plan/Chief Complaint Acute on chronic diastolic heart failure Acute renal failure Chronic Afib Anemia CAD HTN Hyperlipidemia Acute on chronic diastolic heart failure -Furosemide IV 40mg -Consulted cardiology -Echo done yesterday Acute renal failure -BUN 26 and Cr 1.53 increased from yesterday -Likely d/t diuresis -Urine output 2.06 ml/kg/hr with fluid deficit of 2710 mL -Will continue to monitor Chronic Afib- rate controlled -Apixaban, renal dose for stroke prevention Anemia -H&H 10.2 and 32 improved from yesterday Coronary artery disease -Managed by cardiology HTN -Currently hypotensive, likely d/t dieresis Hyperlipidemia -Hold simvastatin Asymptomatic Urinary Tract infection -No treatment needed MARIELY DEE MD 04/09/21 1419: Assessment/Plan Assessment and Plan Assess & Plan/Chief Complaint Patient is sleeping when entered room and awakens very easily much more jovial than yesterday. she is more talkative. She states she is feeling better breathing easier. Her daughters at bedside confirm this. She is over 5 L negative for diuresis. She is titrating down off of her oxygen. Her only complaint is some leg pain. She otherwise is feeling well. Discussed potential for discharge tomorrow if she continues to do well. Supervisory-Addendum Brief Verification & Attestation Participated in pt care: history, MDM, physical Personally performed: exam, history, MDM, supervision of care Care discussed with: Medical Student Procedures: n/a Results interpretation: Verified all documentation Verification and Attestation of Medical Student E/M Service A medical student performed and documented this service in my presence. I reviewed and verified all information documented by the medical student and made modifications to such information, when appropriate. I personally performed the physical exam and medical decision making. Mariely Dee, Apr 09, 2021,14:19 JOYCE LARES MED STUDENT Apr 09, 2021 09:41 MARIELY DEE MD Apr 09, 2021 14:19
[2021-04-09 10:07] LABS: HEMOGLOBIN 10.2 g/dL (11.5-16.0)
[2021-04-09 10:09] LABS: MEAN PLATELET VOLUME 9.7 fL (9.0-12.2); WHITE BLOOD COUNT 9.2 10^3/uL (4.3-11.0)
[2021-04-09 10:28] LABS: CALCIUM 9.7 MG/DL (8.5-10.1); CREATININE SERUM 1.53 MG/DL (0.60-1.30); MAGNESIUM 2.1 MG/DL (1.6-2.4); POTASSIUM 3.7 MMOL/L (3.6-5.0)
--- NOTE | 2021-04-09 12:12 | Progress Note - Cardiology ---
Cardiology SOAP Progress Note Subjective: Gen malaise and weakness present Does not report cp or palp or syncope Does not feel short of breath at rest today No n/v/d Objective: I&O/Vital Signs 04/09/21 04/09/21 04/09/21 04/09/21 00:17 01:00 03:27 07:00 Temp 37.0 36.8 Pulse 89 93 92 74 Resp 22 18 B/P (MAP) 104/51 (68) 105/65 (78) Pulse Ox 96 100 O2 Delivery Nasal Cannula Nasal Cannula O2 Flow Rate 2.00 2.00 04/09/21 04/09/21 07:11 07:23 Temp 36.8 Pulse 78 Resp 16 B/P (MAP) 91/55 (67) Pulse Ox 94 O2 Delivery Nasal Cannula Nasal Cannula O2 Flow Rate 2.00 1.00 04/09/21 00:00 Intake Total 1290 ml Output Total 2850 ml Balance -1560 ml Weight (Pounds): 160 Weight (Ounces): 0.0 Weight (Calculated Kilograms): 72.083892 Constitutional: AAO x 3, well-developed, well-nourished Respiratory: No accessory muscle use, No respiratory distress; chest expansion is symmetric, chest is bilaterally symmetric, other (diminished bases bilat ) Cardiovascular: irregularly irregular; No JVD; S1 and S2 Gastrointestional: No tender; soft, round, audible bowel sounds Extremities: no lower extremity edema bilateral Neurologic/Psychiatric: grossly intact (moves all extremities) Skin: No rash on exposed areas, No ulcerations on exposed areas Results/Procedures: Labs Laboratory Tests 04/09/21 10:00: White Blood Count 9.2, Red Blood Count 3.02L, Hemoglobin 10.2L, Hematocrit 32L, Mean Corpuscular Volume 106H, Mean Corpuscular Hemoglobin 34, Mean Corpuscular Hemoglobin Concent 32, Red Cell Distribution Width 15.7H, Platelet Count 135, Mean Platelet Volume 9.7, Percent Immature Platelet Fraction 3.6, Sodium Level 139, Potassium Level 3.7, Chloride Level 98, Carbon Dioxide Level 32, Anion Gap 9, Blood Urea Nitrogen 26H, Creatinine 1.53H, Estimat Glomerular Filtration Rate 32, BUN/Creatinine Ratio 17, Glucose Level 131H, Calcium Level 9.7, Magnesium Level 2.1 Microbiology 04/07/21 Urine Culture - Preliminary, Resulted Gram Negative Nicolas Laboratory Tests 04/07/21 12:47 04/08/21 05:15 04/09/21 10:00 A/P: Assessment: Acute on Chronic diastolic CHF - treat with diuretics - Last echo of 04/08/21 showed ejection fraction 50-55% with biatrial enlargement, moderate mitral & tricuspid regurgitation, and PASP 40-45 mmHg Chronic persistent atrial fibrillation, rate is fairly well controlled - stroke prophylaxis with apixaban - 24 HR Holter of Jun 2019 showed a-fib with av ventricular response of 78 bpm; one 10 beat run of WCT @ 136 bpm; no signif bradycardia CAD - Last card cath on 01/03/19: diffuse, moderate. Left anterior descending artery has patent stents that are known to be Taxus 2.75 x 20, 2.5 x 24, 2.5 x 12 and Xience Laverne 2.5 x 8 (proximal to distal). Left circumflex artery has a patent stent in its first obtuse marginal that is known to be Promus 2.5 x 16. Right coronary artery has a patent stent with 50% in-stent restenosis. This is known to be Xience Laverne 3.5 x 16. All coronary arteries have diffuse stenoses with a focal stenoses of up to 50% at several spots. Well preserved global left ventricular systolic function with ejection fraction approximately 50%. Mild to moderate elevation of left ventricular end-diastolic pressure Hypertension - controlled Hyperlipidemia - being treated with simvastatin and followed by her PCP PFT of Jun 26, 2019 showed mod obstructive lung defect Chronic neck and shoulder pain, cervical DJD and radiculopathy suspected History of infra-mammary herpes zoster in the past. She is currently not experiencing any symptoms from it. Degenerative joint disease. History of urinary incontinence, which has been followed by Dr. Dee History of non-compliance with medications Plan: Diuretics as needed and as tolerated Continue BB for rate and BP control Continue OAC with Eliquis for stroke prophylaxis Continue ASA d/t known h/o CAD Monitor lab closely - awaiting morning lab results at this time Replace electrolytes as indicated SAHIL HAWLEY MD FACP FAC CCDS Apr 09, 2021 12:12
[2021-04-09 15:54] VITALS: BP 111/58
[2021-04-09] MEDS: DICLOFENAC 1% GEL 100 GM (VOLTAREN) TUBE TOP SCH ×2 (17:59→20:54)
[2021-04-10] VITALS: BP 109/74
[2021-04-10] MEDS: CATHETER FLUSH 10 ML SYR IV SCH ×3 (05:56→19:57)
[2021-04-10] MEDS: FUROSEMIDE 40 MG/4 ML INJ (LASIX) IVP SCH (05:56)
[2021-04-10 07:07] LABS: HEMATOCRIT 30 % (35-52); HEMOGLOBIN 9.6 g/dL (11.5-16.0); MEAN CORPUSCULAR HEMOGLOBIN 32 pg (25-34); MEAN CORPUSCULAR HGB CONC 32 g/dL (32-36); MEAN CORPUSCULAR VOLUME 103 fL (80-99); MEAN PLATELET VOLUME 10.9 fL (9.0-12.2); PLATELET COUNT 132 10^3/uL (130-400)
[2021-04-10 07:37] LABS: CALCIUM 9.4 MG/DL (8.5-10.1); CREATININE SERUM 1.37 MG/DL (0.60-1.30); POTASSIUM 3.9 MMOL/L (3.6-5.0)
[2021-04-10 08:00] VITALS: BP 108/61
[2021-04-10] MEDS: APIXABAN 5 MG (ELIQUIS) TABLET PO SCH ×2 (08:17→19:56)
[2021-04-10] MEDS: ASPIRIN 81 MG CHEW (CHILDREN'S ASA) PO SCH (08:17)
[2021-04-10] MEDS: DICLOFENAC 1% GEL 100 GM (VOLTAREN) TUBE TOP SCH ×4 (08:17→19:56)
[2021-04-10] MEDS: meTOprolol TARTRATE 50 MG (LOPRESSOR) TAB PO SCH ×2 (08:18→19:55)
[2021-04-10] MEDS: ACETAMINOPHEN 500 MG TAB (TYLENOL) PO PRN (08:18)
[2021-04-10] MEDS: KCL 20 MEQ TAB (K-DUR) PO SCH ×2 (08:18→19:56)
--- NOTE | 2021-04-10 08:40 | Progress Note - Cardiology ---
Cardiology SOAP Progress Note Subjective: C/O bilat ankle pain, which she states she has had for years, but feels it is much worse the last 2 days No c/o CP Feels SOB is much better today No c/o palpitations Objective: I&O/Vital Signs 04/10/21 04/10/21 04/10/21 04/10/21 01:00 06:40 08:00 08:00 Temp 36.8 Pulse 101 93 100 Resp 16 B/P (MAP) 108/61 (77) Pulse Ox 100 O2 Delivery Nasal Cannula Nasal Cannula O2 Flow Rate 2.00 2.00 04/10/21 00:00 Intake Total 2280 ml Output Total 1900 ml Balance 380 ml Weight (Pounds): 160 Weight (Ounces): 0.0 Weight (Calculated Kilograms): 72.949672 Constitutional: AAO x 3, well-developed, well-nourished Respiratory: No accessory muscle use, No respiratory distress; chest expansion is symmetric, chest is bilaterally symmetric, other (diminished bases bilat ) Cardiovascular: irregularly irregular; No JVD; S1 and S2 Gastrointestional: No tender; soft, round, audible bowel sounds Extremities: no lower extremity edema bilateral Neurologic/Psychiatric: grossly intact (moves all extremities) Skin: No rash on exposed areas, No ulcerations on exposed areas Results/Procedures: Labs Laboratory Tests 04/10/21 05:57: White Blood Count 13.0H, Red Blood Count 2.96L, Hemoglobin 9.6L, Hematocrit 30L, Mean Corpuscular Volume 103H, Mean Corpuscular Hemoglobin 32, Mean Corpuscular Hemoglobin Concent 32, Red Cell Distribution Width 15.3H, Platelet Count 132, Mean Platelet Volume 10.9, Sodium Level 133L, Potassium Level 3.9, Chloride Level 96L, Carbon Dioxide Level 27, Anion Gap 10, Blood Urea Nitrogen 24H, Creatinine 1.37H, Estimat Glomerular Filtration Rate 36, BUN/Creatinine Ratio 18, Glucose Level 119H, Calcium Level 9.4 Microbiology 04/07/21 Urine Culture - Preliminary, Resulted Escherichia coli A/P: Assessment: Suspected UTI - management per medical services Bilat ankle pain - undetermined etiology - management per medical services Acute on Chronic diastolic CHF - treat with diuretics - clinically improved - Last echo of 04/08/21 showed ejection fraction 50-55% with biatrial enlargement, moderate mitral & tricuspid regurgitation, and PASP 40-45 mmHg Chronic persistent atrial fibrillation, rate is fairly well controlled - stroke prophylaxis with apixaban - 24 HR Holter of Jun 2019 showed a-fib with av ventricular response of 78 bpm; one 10 beat run of WCT @ 136 bpm; no signif bradycardia CAD - Last card cath on 01/03/19: diffuse, moderate. Left anterior descending artery has patent stents that are known to be Taxus 2.75 x 20, 2.5 x 24, 2.5 x 12 and Xience Laverne 2.5 x 8 (proximal to distal). Left circumflex artery has a patent stent in its first obtuse marginal that is known to be Promus 2.5 x 16. Right coronary artery has a patent stent with 50% in-stent restenosis. This is known to be Xience Laverne 3.5 x 16. All coronary arteries have diffuse stenoses with a focal stenoses of up to 50% at several spots. Well preserved global left ve ntricular systolic function with ejection fraction approximately 50%. Mild to moderate elevation of left ventricular end-diastolic pressure Hypertension - controlled Hyperlipidemia - being treated with simvastatin and followed by her PCP PFT of Jun 26, 2019 showed mod obstructive lung defect Chronic neck and shoulder pain, cervical DJD and radiculopathy suspected History of infra-mammary herpes zoster in the past. She is currently not experiencing any symptoms from it. Degenerative joint disease. History of urinary incontinence, which has been followed by Dr. Dee History of non-compliance with medications Plan: Change diuretics to oral Continue BB for rate and BP control Continue OAC with Eliquis for stroke prophylaxis Continue ASA d/t known h/o CAD Bilat ankle pain of undetermined etiology - medical services managing Suspected UTI - management per medical services Monitor lab closely Replace electrolytes as indicated JESSICA ONEIL Apr 10, 2021 08:39
--- NOTE | 2021-04-10 09:38 | Progress Note - Cardiology ---
Cardiology SOAP Progress Note Subjective: Notes cramping pain in the ankles and feet No cp or palp or syncope No shortness of breath Some gen malaise No n/v/d Objective: I&O/Vital Signs 04/10/21 04/10/21 04/10/21 04/10/21 00:00 01:00 06:40 08:00 Temp 37.2 Pulse 87 101 93 Resp 16 B/P (MAP) 109/74 (86) Pulse Ox 99 O2 Delivery Nasal Cannula Nasal Cannula O2 Flow Rate 2.00 2.00 04/10/21 00:00 Intake Total 2280 ml Output Total 1900 ml Balance 380 ml Weight (Pounds): 160 Weight (Ounces): 0.0 Weight (Calculated Kilograms): 72.929252 Constitutional: AAO x 3, well-developed, well-nourished Respiratory: No accessory muscle use, No respiratory distress; chest expansion is symmetric, chest is bilaterally symmetric, other (diminished bases bilat ) Cardiovascular: irregularly irregular; No JVD; S1 and S2 Gastrointestional: No tender; soft, round, audible bowel sounds Extremities: no lower extremity edema bilateral Neurologic/Psychiatric: grossly intact (moves all extremities) Skin: No rash on exposed areas, No ulcerations on exposed areas Results/Procedures: Labs Laboratory Tests 04/09/21 10:00: White Blood Count 9.2, Red Blood Count 3.02L, Hemoglobin 10.2L, Hematocrit 32L, Mean Corpuscular Volume 106H, Mean Corpuscular Hemoglobin 34, Mean Corpuscular Hemoglobin Concent 32, Red Cell Distribution Width 15.7H, Platelet Count 135, Mean Platelet Volume 9.7, Percent Immature Platelet Fraction 3.6, Sodium Level 139, Potassium Level 3.7, Chloride Level 98, Carbon Dioxide Level 32, Anion Gap 9, Blood Urea Nitrogen 26H, Creatinine 1.53H, Estimat Glomerular Filtration Rate 32, BUN/Creatinine Ratio 17, Glucose Level 131H, Calcium Level 9.7, Magnesium Level 2.1 04/10/21 05:57: White Blood Count 13.0H, Red Blood Count 2.96L, Hemoglobin 9.6L, Hematocrit 30L, Mean Corpuscular Volume 103H, Mean Corpuscular Hemoglobin 32, Mean Corpuscular Hemoglobin Concent 32, Red Cell Distribution Width 15.3H, Platelet Count 132, Mean Platelet Volume 10.9, Sodium Level 133L, Potassium Level 3.9, Chloride Level 96L, Carbon Dioxide Level 27, Anion Gap 10, Blood Urea Nitrogen 24H, Creatinine 1.37H, Estimat Glomerular Filtration Rate 36, BUN/Creatinine Ratio 18, Glucose Level 119H, Calcium Level 9.4 Microbiology 04/07/21 Urine Culture - Preliminary, Resulted Escherichia coli Laboratory Tests 04/09/21 10:00 04/10/21 05:57 A/P: Assessment: Suspected UTI - management per medical services Bilat ankle pain - undetermined etiology - management per medical services Acute on Chronic diastolic CHF - treat with diuretics - clinically improved - Last echo of 04/08/21 showed ejection fraction 50-55% with biatrial enlargement, moderate mitral & tricuspid regurgitation, and PASP 40-45 mmHg Chronic persistent atrial fibrillation, rate is fairly well controlled - stroke prophylaxis with apixaban - 24 HR Holter of Jun 2019 showed a-fib with av ventricular response of 78 bpm; one 10 beat run of WCT @ 136 bpm; no signif bradycardia CAD - Last card cath on 01/03/19: diffuse, moderate. Left anterior descending artery has patent stents that are known to be Taxus 2.75 x 20, 2.5 x 24, 2.5 x 12 and Xience Laverne 2.5 x 8 (proximal to distal). Left circumflex artery has a patent stent in its first obtuse marginal that is known to be Promus 2.5 x 16. Right coronary artery has a patent stent with 50% in-stent restenosis. This is known to be Xience Laverne 3.5 x 16. All coronary arteries have diffuse stenoses with a focal stenoses of up to 50% at several spots. Well preserved global left ventricular systolic function with ejection fraction approximately 50%. Mild to moderate elevation of left ventricular end-diastolic pressure Hypertension - controlled Hyperlipidemia - being treated with simvastatin and followed by her PCP PFT of Jun 26, 2019 showed mod obstructive lung defect Chronic neck and shoulder pain, cervical DJD and radiculopathy suspected History of infra-mammary herpes zoster in the past. She is currently not experiencing any symptoms from it. Degenerative joint disease. History of urinary incontinence, which has been followed by Dr. Dee History of non-compliance with medications Plan: Change diuretics to oral Continue BB for rate and BP control Continue OAC with Eliquis for stroke prophylaxis Continue ASA d/t known h/o CAD Bilat ankle pain of undetermined etiology - medical services managing Suspected UTI - management per medical services Monitor lab closely Replace electrolytes as indicated SAHIL HAWLEY MD FACP FACC CCDS Apr 10, 2021 09:38
[2021-04-10] MEDS ORDERED: predniSONE 20 MG TAB PO NR (10:30)
--- NOTE | 2021-04-10 11:31 | Progress Note - Hospitalist ---
JOYCE LARES MED STUDENT 04/10/21 1131: Subjective HPI/CC On Admission Date Seen by Provider: Apr 10, 2021 Time Seen by Provider: 08:15 85 yo female who presented to ED with daughter d/t SOA and lower extremity swelling for one week. Pt has hx of Afib, HTN, CAD with stent placement. Pt speaks limited Setswana and her granddaughter is present for translation. Pt reports her SOA is still present, but better today. Worse with exertion. Denies use of oxygen at home. Pt denies chest pain or palpitations, N/V/D, dysuria or urinary frequency. Pt states Dr. Alvarez is her PCP and she had an appt with her on Wednesday and her lasix were increased. Pt reports compliance with medications. Pt can't recall the last time she saw Dr. 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 Subjective/Events-last exam Pt up in bed this morning with concerns of bilateral foot pain that is stabbing in nature. Pt is unable to tolerate the bed sheets on her feet, the pain is so severe. Pt denies any hx of gout or pain like this. Pt reports SOA has improved and she is tolerating NC at 2L well with saturation at 99%. Review of Systems General: No Chills HEENT: No Head Aches Pulmonary: Dyspnea (improving); No Cough Cardiovascular: No: Chest Pain, Palpitations Gastrointestinal: No: Nausea, Vomiting, Abdominal Pain, Diarrhea Genitourinary: No Dysuria, No Frequency Objective Exam Vital Signs Vital Signs Date Time Temp Pulse Resp B/P (MAP) Pulse Ox O2 Delivery O2 Flow Rate FiO2 04/10/21 08:00 36.8 100 16 108/61 (77) 100 Nasal Cannula 2.00 Capillary Refill : General Appearance: No Apparent Distress, WD/WN, Mild Distress (d/t bilateral leg pain) HEENT: PERRL/EOMI Respiratory: Chest Non Tender, Lungs Clear, Normal Breath Sounds, No Accessory Muscle Use, No Respiratory Distress Cardiovascular: Regular Rate, Rhythm, No Gallop, No Murmur, Normal Peripheral Pulses Gastrointestinal: Normal Bowel Sounds, No Organomegaly, No Pulsatile Mass, Non Tender, Soft Extremity: Normal Capillary Refill, Normal Inspection, Pedal Edema (1+ pitting), Other (bilateral leg pain upon palpation) Neurologic/Psychiatric: Alert, Oriented x3, No Motor/Sensory Deficits, Normal 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 Assessment/Plan Assessment and Plan Assess & Plan/Chief Complaint Acute on chronic diastolic heart failure Gout Acute renal failure Chronic Afib Anemia CAD HTN Hyperlipidemia Acute on chronic diastolic heart failure -Furosemide PO 20mg -Consulted cardiology -Home O2 study ordered Gout -Will start prednisone -Will start hydrocodone/acetaminophen 5/325 for pain Acute renal failure -BUN 24 and Cr 1.37 decreased from yesterday -Likely d/t diuresis -Urine output 1.13 ml/kg/hr with fluid retention of 380 mL -Will continue to monitor Chronic Afib- rate controlled -Apixaban, renal dose for stroke prevention Anemia -H&H 9.6 and 30 decreased from yesterday Coronary artery disease -Managed by cardiology HTN -Currently hypotensive, likely d/t dieresis Hyperlipidemia -Hold simvastatin Asymptomatic bacteruria -No treatment needed MARIELY DEE MD 04/10/21 1541: Assessment/Plan Assessment and Plan Assess & Plan/Chief Complaint Patient's only complaint today is her leg pain. Breathing symptoms have improved though, She cannot even place a sheet over the top. Voltaren gel and Tylenol are not helping. Seems consistent with gout so will start prednisone (avoid NSAIDs and Colcichine due to creatinine). Hydrocodone available as well. Switch lasix to oral dose. Hopefully home tomorrow if she does better with pain. Supervisory-Addendum Brief Verification & Attestation Participated in pt care: history, MDM, physical Personally performed: exam, history, MDM, supervision of care Care discussed with: Medical Student Procedures: n/a Results interpretation: Verified all documentation Verification and Attestation of Medical Student E/M Service A medical student performed and documented this service in my presence. I reviewed and verified all information documented by the medical student and made modifications to such information, when appropriate. I personally performed the physical exam and medical decision making. Mariely Dee, Apr 10, 2021,15:19 JOYCE LARES MED STUDENT Apr 10, 2021 11:31 MARIELY DEE MD Apr 10, 2021 15:41
[2021-04-10] MEDS: HYDROcodone/APAP 5 MG/325 MG (LORTAB) TAB PO PRN ×2 (11:34→19:56)
[2021-04-10 16:12] VITALS: BP 96/63
[2021-04-10] MEDS: FUROSEMIDE 40 MG (LASIX) TAB PO SCH (18:17)
[2021-04-10 19:51] VITALS: BP 108/55
[2021-04-11] VITALS: BP 97/53
[2021-04-11] MEDS: HYDROcodone/APAP 5 MG/325 MG (LORTAB) TAB PO PRN (05:49)
[2021-04-11] MEDS: FUROSEMIDE 40 MG (LASIX) TAB PO SCH (05:49)
[2021-04-11] MEDS: CATHETER FLUSH 10 ML SYR IV SCH ×2 (05:49→15:21)
[2021-04-11 06:06] LABS: HEMATOCRIT 33 % (35-52); HEMOGLOBIN 10.7 g/dL (11.5-16.0); MEAN CORPUSCULAR HEMOGLOBIN 33 pg (25-34); MEAN CORPUSCULAR HGB CONC 32 g/dL (32-36); MEAN CORPUSCULAR VOLUME 103 fL (80-99); PLATELET COUNT 144 10^3/uL (130-400); WHITE BLOOD COUNT 14.4 10^3/uL (4.3-11.0)
[2021-04-11 06:19] LABS: POTASSIUM 5.1 MMOL/L (3.6-5.0)
[2021-04-11 06:20] LABS: CALCIUM 10.1 MG/DL (8.5-10.1)
[2021-04-11 06:24] LABS: CREATININE SERUM 1.87 MG/DL (0.60-1.30)
[2021-04-11] MEDS ORDERED: predniSONE 20 MG TAB PO SCH (07:00)
[2021-04-11 07:55] VITALS: BP 100/73
[2021-04-11] MEDS ORDERED: APIXABAN 2.5 MG (ELIQUIS) TABLET PO SCH (09:00)
[2021-04-11] MEDS: ASPIRIN 81 MG CHEW (CHILDREN'S ASA) PO SCH (09:43)
[2021-04-11] MEDS: meTOprolol TARTRATE 50 MG (LOPRESSOR) TAB PO SCH (09:43)
[2021-04-11] MEDS: KCL 20 MEQ TAB (K-DUR) PO SCH (09:43)
[2021-04-11] MEDS: DICLOFENAC 1% GEL 100 GM (VOLTAREN) TUBE TOP SCH ×2 (09:47→13:09)
--- NOTE | 2021-04-11 10:47 | Progress Note - Cardiology ---
Cardiology SOAP Progress Note Subjective: No cp or palp or syncope Some gen malaise and weakness, albeit improving No n/v/d Foot/ankle pain has resolved Objective: I&O/Vital Signs 04/11/21 04/11/21 04/11/21 04/11/21 00:00 01:00 07:41 07:55 Temp 36.1 35.8 Pulse 83 84 82 90 Resp 18 14 B/P (MAP) 97/53 (68) 100/73 (82) Pulse Ox 98 99 O2 Delivery Nasal Cannula Nasal Cannula O2 Flow Rate 2.00 2.00 04/11/21 00:00 Intake Total 940 ml Output Total 800 ml Balance 140 ml Weight (Pounds): 160 Weight (Ounces): 0.0 Weight (Calculated Kilograms): 72.874543 Constitutional: AAO x 3, well-developed, well-nourished Respiratory: No accessory muscle use, No respiratory distress; chest expansion is symmetric, chest is bilaterally symmetric, other (diminished bases bilat ) Cardiovascular: irregularly irregular; No JVD; S1 and S2 Gastrointestional: No tender; soft, round, audible bowel sounds Extremities: no lower extremity edema bilateral Neurologic/Psychiatric: grossly intact (moves all extremities) Skin: No rash on exposed areas, No ulcerations on exposed areas Results/Procedures: Labs Laboratory Tests 04/11/21 05:24: White Blood Count 14.4H, Red Blood Count 3.23L, Hemoglobin 10.7L, Hematocrit 33L , Mean Corpuscular Volume 103H, Mean Corpuscular Hemoglobin 33, Mean Corpuscular Hemoglobin Concent 32, Red Cell Distribution Width 14.8H, Platelet Count 144, Mean Platelet Volume 11.0, Sodium Level 132L, Potassium Level 5.1H, Chloride Level 95L, Carbon Dioxide Level 25, Anion Gap 12, Blood Urea Nitrogen 38H, Creatinine 1.87H, Estimat Glomerular Filtration Rate 25, BUN/Creatinine Ratio 20, Glucose Level 147H, Calcium Level 10.1 Microbiology 04/07/21 Urine Culture - Final, Complete Escherichia coli Laboratory Tests 04/10/21 05:57 04/11/21 05:24 A/P: Assessment: Suspected UTI - management per medical services Bilat ankle pain - undetermined etiology - management per medical services Qpygh-[id number] diastolic CHF - treat with diuretics - clinically improved - Last echo of 04/08/21 showed ejection fraction 50-55% with biatrial enlargement, moderate mitral & tricuspid regurgitation, and PASP 40-45 mmHg Chronic persistent atrial fibrillation, rate is fairly well controlled - stroke prophylaxis with apixaban - 24 HR Holter of Jun 2019 showed a-fib with av ventricular response of 78 bpm; one 10 beat run of WCT @ 136 bpm; no signif bradycardia CAD - Last card cath on 01/03/19: diffuse, moderate. Left anterior descending artery has patent stents that are known to be Taxus 2.75 x 20, 2.5 x 24, 2.5 x 12 and Xience Laverne 2.5 x 8 (proximal to distal). Left circumflex artery has a patent stent in its first obtuse marginal that is known to be Promus 2.5 x 16. Right coronary artery has a patent stent with 50% in-stent restenosis. This is known to be Xience Laverne 3.5 x 16. All coronary arteries have diffuse stenoses with a focal stenoses of up to 50% at several spots. Well preserved global left ventricular systolic function with ejection fraction approximately 50%. Mild to moderate elevation of left ventricular end-diastolic pressure Hypertension - controlled Hyperlipidemia - being treated with simvastatin and followed by her PCP PFT of Jun 26, 2019 showed mod obstructive lung defect Chronic neck and shoulder pain, cervical DJD and radiculopathy suspected History of infra-mammary herpes zoster in the past. She is currently not experiencing any symptoms from it. Degenerative joint disease. History of urinary incontinence, which has been followed by Dr. Dee History of non-compliance with medications Plan: Change diuretics to oral, change home dose from 40 to 60 mg daily Continue BB for rate and BP control Continue OAC with Eliquis for stroke prophylaxis Continue ASA d/t known h/o CAD I discussed her case with Dr Dee on the phone today Close outpt f/u advised. He has an apptt with us next week SAHIL HAWLEY MD FACP FAC CCDS Apr 11, 2021 10:47
--- NOTE | 2021-04-11 10:58 | Discharge Summary ---
JOYCE LARES MED STUDENT 04/11/21 1058: Diagnosis/Chief Complaint Date of Admission Apr 07, 2021 at 14:59 Date of Discharge Discharge Date: Apr 11, 2021 Admission Diagnosis CHF exacerbation, Acute renal failure Primary Care Ligia Alvarez MD Discharge Diagnosis Acute on chronic diastolic heart failure, Acute respiratory failure with hypoxemia (1) Acute respiratory failure with hypoxemia Status: Acute Assessment & Plan: Pt did not qualify for Home Oxygen. Pt does have oxygen concentrator and CPAP at home. Encourage pt to use these. (2) CHF exacerbation Status: Acute Assessment & Plan: Pt has f/u appt with Dr. Flowers Will d/c on Furosemide 60mg once daily (3) History of DVT (deep vein thrombosis) Status: Chronic Assessment & Plan: Currently on Eliquis 5mg BID, continue this (4) Advanced age Status: Chronic (5) Afib Status: Chronic Assessment & Plan: Currently on Eliquis 5mg BID, continue this. (6) CKD (chronic kidney disease) Status: Chronic (7) HLD (hyperlipidemia) Status: Chronic (8) HTN (hypertension) Status: Chronic (9) CAD (coronary artery disease) Discharge Summary Discharge Physical Exam Allergies: Coded Allergies: NKANo Known Allergies (Verified Allergy, Unknown, 02/07/07) Vitals & I&Os Vital Signs Date Time Temp Pulse Resp B/P (MAP) Pulse Ox O2 Delivery O2 Flow Rate FiO2 04/11/21 07:55 35.8 90 14 100/73 (82) 99 Nasal Cannula 2.00 General Appearance: No Apparent Distress, WD/WN HEENT: PERRL/EOMI Respiratory: Chest Non Tender, Lungs Clear, Normal Breath Sounds, No Accessory Muscle Use, No Respiratory Distress Cardiovascular: Regular Rate, Rhythm, No Gallop, No Murmur, Normal Peripheral Pulses Gastrointestinal: Normal Bowel Sounds, No Organomegaly, No Pulsatile Mass, Non Tender, Soft Extremity: Normal Capillary Refill, Normal Inspection, Normal Range of Motion, Non Tender, No Calf Tenderness, Pedal Edema (1+pitting) Skin: Normal Color Neurologic/Psychiatric: Alert, Oriented x3, No Motor/Sensory Deficits, Normal Mood/Affect, 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 PT has hx of CHF, Afib, HTN, and renal failure. Pt was admitted to 4th floor on vapotherm and was decreased to NC 2L over the course of her hospital stay. Pt was given Lasix for fluid overload and has had appropriate urine output since admission. Pts SOA has decreased since admission. Pt developed bilateral stabbing foot pains. This was determined to be gout secondary to lasix, so prednisone and hydrocodone/acetaminophen were started, which resulted in pain relief. Pt is feeling better today and is on Room Air with no SOA. Home oxygen study was done and pt did not qualify. Pt reports having oxygen concentrator and CPAP at home. Will d/c with prednisone and pain medication for gout and lasix 60mg once daily for CHF. Pt has f/u appt with Dr. Flowers, indigo mixer. Will make appt with Dr. Alvarez, PCP. Will d/c with home health services. Labs (last 24 hrs) Laboratory Tests 04/11/21 05:24: White Blood Count 14.4H, Red Blood Count 3.23L, Hemoglobin 10.7L, Hematocrit 33L , Mean Corpuscular Volume 103H, Mean Corpuscular Hemoglobin 33, Mean Corpuscular Hemoglobin Concent 32, Red Cell Distribution Width 14.8H, Platelet Count 144, Mean Platelet Volume 11.0, Sodium Level 132L, Potassium Level 5.1H, Chloride Level 95L, Carbon Dioxide Level 25, Anion Gap 12, Blood Urea Nitrogen 38H, Creatinine 1.87H, Estimat Glomerular Filtration Rate 25, BUN/Creatinine Ratio 20, Glucose Level 147H, Calcium Level 10.1 Microbiology 04/07/21 Urine Culture - Final, Complete Escherichia coli Patient resulted labs reviewed. Pending Labs Laboratory Tests 04/11/21 05:24: White Blood Count 14.4, Red Blood Count 3.23, Hemoglobin 10.7, Hematocrit 33, Mean Corpuscular Volume 103, Mean Corpuscular Hemoglobin 33, Mean Corpuscular Hemoglobin Concent 32, Red Cell Distribution Width 14.8, Platelet Count 144, Mean Platelet Volume 11.0, Sodium Level 132, Potassium Level 5.1, Chloride Level 95, Carbon Dioxide Level 25, Anion Gap 12, Blood Urea Nitrogen 38, Creatinine 1.87, Estimat Glomerular Filtration Rate 25, BUN/Creatinine Ratio 20, Glucose Level 147, Calcium Level 10.1 Discharge Home Medications: Active Scripts Active Reported Furosemide 40 Mg Tablet 40 Mg PO DAILY Metoprolol Tartrate 50 Mg Tablet 50 Mg PO BID Multivitamin 1 Each Tablet 1 Each PO DAILY Aspirin 81 Mg Tab.chew 81 Mg PO DAILY Tylenol Extra Strength (Acetaminophen) 500 Mg Tablet 500-1,000 Mg PO Q6H PRN Eliquis (Apixaban) 2.5 Mg Tablet 2.5 Mg PO BID Atorvastatin Calcium 40 Mg Tablet 40 Mg PO DAILY Instructions to patient/family Please see electronic discharge instructions given to patient. MARIELY DEE MD 04/11/21 1634: Discharge Summary Discharge Physical Exam Allergies: Coded Allergies: NKANo Known Allergies (Verified Allergy, Unknown, 02/07/07) Discussion & Recommendations Discharge Planning: >30 minutes discharge planning Supervisory-Addendum Brief Verification & Attestation Participated in pt care: history, MDM, physical Personally performed: exam, history, MDM, supervision of care Care discussed with: Medical Student Procedures: n/a Results interpretation: Verified all documentation Verification and Attestation of Medical Student E/M Service A medical student performed and documented this service in my presence. I reviewed and verified all information documented by the medical student and made modifications to such information, when appropriate. I personally performed the physical exam and medical decision making. Mariely Dee, Apr 11, 2021,16:33 Problem Qualifiers (1) CHF exacerbation: Heart failure type: diastolic Qualified Codes: I50.33 - Acute on chronic diastolic (congestive) heart failure (2) Afib: Atrial fibrillation type: longstanding persistent Qualified Codes: I48.11 - Longstanding persistent atrial fibrillation (3) CKD (chronic kidney disease): Chronic kidney disease stage: stage 3 (moderate) Chronic kidney disease stage 3 subtype: stage 3b (GFR 30-44) Qualified Codes: N18.32 - Chronic kidney disease, stage 3b (4) HLD (hyperlipidemia): Hyperlipidemia type: mixed hyperlipidemia Qualified Codes: E78.2 - Mixed hyperlipidemia (5) HTN (hypertension): Hypertension type: primary hypertension Qualified Codes: I10 - Essential (primary) hypertension (6) CAD (coronary artery disease): Coronary Disease-Associated Artery/Lesion type: [place] artery [place] vs. transplanted heart: [place] heart Associated angina: without angina Qualified Codes: I25.10 - Atherosclerotic heart disease of [place] coronary artery without angina pectoris JOYCE LARES MED STUDENT Apr 11, 2021 10:58 MARIELY DEE MD Apr 11, 2021 16:34
--- NOTE | 2021-04-11 11:28 | D/C HH Face to Face Order ---
D/C Face to Face Orders Instructions for Patient Via [facility], Patient Instructions/FollowUp: Please continue to take your medications as written. Please follow up with your primary care doctor and Dr Flowers. Physician to follow Patient: Dr Alvarez Discharge Diet for Home: Low Sodium Diet Patient Data-Allergies,Ht & Wt Patient Allergies: Coded Allergies: NKANo Known Allergies (Verified Allergy, Unknown, 02/07/07) Height (Feet): 5 Height (Inches): 0.00 Weight (Pounds): 160 Weight (Ounces): 0.0 Home Health Need/Face to Face Date of Face to Face: Apr 11, 2021 Clinical Findings: Generalized weakness and fatigue I have seen Pt [id number]: Yes Discharged To: Home Diagnosis/Conditions: CHF Patient is Homebound due to: Shortness of breath/distress Homebound Status Due to the above stated illness, injury or surgical procedure (medical condition or diagnosis) and associated clinical findings, the patient is homebound because of his/her inability to leave home except with aid of a supportive device and/or person AND leaving the home requires a considerable and taxing effort or is medically contraindicated. Pt req the following assistanc: Aid of another person, Cane Home Health Nursing Orders Home Health Services Order: Nursing Services, Technical Operator-Evaluate & Treat, Physical Therapy-Evaluate & Treat Therapy Orders Therapy Orders: OT (must have SN or PT order), Physical Therapy Therapy Specific Orders: Eval assistive deivces, Teach enviro modifications/safety, Gait training, Increase strength/endurance Certify Stmt I certify that this patient is under my care and that I, a nurse practitioner or a physician; a home care assistant working with me, had a face to face encounter that - meets the physician face to face encounter requirements with this patient as dated. IGNACIA BOYCE MD Apr 11, 2021 11:28
[2021-04-11] MEDS ORDERED: FURO40TA4 PO (11:31)
[2021-04-11] MEDS ORDERED: ACHD5005 PO (11:31)
[2021-04-11] MEDS ORDERED: PRD20T PO (11:31)
[2021-04-11 16:00] VITALS: BP 97/53
== END 2021-04-11 16:54 | disposition home health service (06) | DRG 291 ==
LOC: EDUNIT# 12:38 → ER 12:40 → 4TH 14:59
PROVIDERS: ADMIT Family Medicine; ATTEND Family Medicine
DX: I11.0 Hypertensive heart disease with heart failure (principal); J96.01 Acute respiratory failure with hypoxia; I48.19 Other persistent atrial fibrillation; N17.9 Acute kidney failure, unspecified; I50.33 Acute on chronic diastolic (congestive) heart failure; Z79.01 Long term (current) use of anticoagulants; M10.9 Gout, unspecified; D64.9 Anemia, unspecified; E78.00 Pure hypercholesterolemia, unspecified; G57.91 Unspecified mononeuropathy of right lower limb; E88.81 Metabolic syndrome and other insulin resistance; E66.9 Obesity, unspecified; Z68.35 Body mass index [BMI] 35.0-35.9, adult; E78.5 Hyperlipidemia, unspecified; I25.10 Atherosclerotic heart disease of native coronary artery without angina pectoris; Z95.5 Presence of coronary angioplasty implant and graft; Z86.718 Personal history of other venous thrombosis and embolism
CPT/HCPCS: 36415; 51702; 71045; 80048; 80053; 81000; 82805; 83735; 83880; 84145; 84484; 85025; 85027; 86141; 87077; 87088; 87186; 93005; 93306; 94760; 94761; 96374

== ENCOUNTER 2021-09-21 14:18 | Observation (INO) | payer MEDICAID ==
[~2021-09-21] VITALS: Ht 162.5 cm; Wt 76.8 kg
[~2021-09-21 14:18] MED LIST changes: +MONT-40 PO; -MONT10TA32 PO; +MULT-1136 PO; +POTA-169 PO; -POTA20TA8 PO; +PRD20T PO
--- NOTE | 2021-09-21 14:49 | ED General ---
General Stated Complaint: RIGHT HIP/LEG PAIN Source of Information: Patient Exam Limitations: No Limitations (VENITA ZARATE) History of Present Illness Date Seen by Provider: Sep 21, 2021 Time Seen by Provider: 14:45 Initial Comments Patient is a 86-year-old female with history A. fib, CHF, coronary artery disease who presents ED with multiple complaints. Increased weakness over the past 2 to 3 days. Intermittent shortness of breath specially with walking effor ts been ongoing since diagnosed with Covid last year. Currently on 2 L of oxygen at home. She is currently on Lasix for CHF. Denies of any specific swelling. Denies of any chest pain. Reports a mild cough with sputum production. She states she was nauseous today felt like she was going to vomit. Normal bowel movements. Frequent urination secondary to late the six. She reports shaking over the past two or 3 days. Currently being managed by Dr. Flowers cardiology and Dr. Alvarez her primary care physician. Change in sleeping over the past two or 3 days. Followed up with her primary care physician 2 weeks ago who is associated with her sleeping difficulties and not wanting to eat. She also reports right lateral hip pain with radiation to right leg described as numbness and tingling. Denies any falls or trauma. No lower back pain. Denies any swelling or bruising. Reports a mild rash to the right buttock. She does lay on that side at home. Patient has difficulty speaking Croatian. Foundry Engineer is used by family at bedside. Family denies increased confusion. Currently at her baseline. Patient was able to ambulate from the wheelchair to the bed. Denies any fever, dizziness, visual changes, unilateral muscle weakness or sensory changes. (VENITA ZARATE) Allergies and Home Medications Allergies Coded Allergies: NKANo Known Allergies (Verified Allergy, Unknown, 02/07/07) Patient Home Medication List Home Medication List Reviewed: Yes (VENITA ZARATE) Acetaminophen (Tylenol Extra Strength) 500 Mg Tablet, 500-1,000 MG PO Q6H PRN for PAIN-MILD, (Reported) Entered as Reported by: PACO MARINO on 10/10/18 1449 Last Action: Reviewed Apixaban (Eliquis) 2.5 Mg Tablet, 2.5 MG PO BID, (Reported) Entered as Reported by: PACO MARINO on 10/10/18 1156 Last Action: Reviewed Aspirin (Aspirin) 81 Mg Tab.chew, 81 MG PO DAILY, (Reported) Entered as Reported by: YUE BUTTS on 01/04/21 0206 Last Action: Reviewed Atorvastatin Calcium (Atorvastatin Calcium) 40 Mg Tablet, 40 MG PO DAILY, (Reported) Entered as Reported by: PACO MARINO on 10/10/18 1156 Last Action: Reviewed Furosemide (Furosemide) 40 Mg Tablet, 60 MG PO DAILY Prescribed by: IGNACIA BOYCE on 04/11/21 1131 Last Action: Reviewed Hydrocodone Bit/Acetaminophen (HYDROcodone/APAP 5 MG/325 MG TAB) 1 Tab Tab, 1 EA PO Q4H PRN for PAIN-MODERATE (5-7) Prescribed by: IGNACIA BOYCE on 04/11/21 1131 Metoprolol Tartrate (Metoprolol Tartrate) 50 Mg Tablet, 50 MG PO BID, (Reported) Entered as Reported by: VIRA SEGAL on 04/08/21 1509 Last Action: Reviewed Multivitamin (Multivitamin) 1 Each Tablet, 1 EACH PO DAILY, (Reported) Entered as Reported by: VIRA SEGAL on 04/08/21 1509 Last Action: Reviewed Discontinued Medications Prednisone (Prednisone) 20 Mg Tab, 40 MG PO DAILY@0700 Discontinued Reason: No Longer Taking Prescribed by: IGNACIA BOYCE on 04/11/21 1131 Last Action: Discontinued Review of Systems Review of Systems Constitutional: No chills; malaise, weakness EENTM: No blurred vision, No mouth swelling, No throat pain, No throat swelling Respiratory: cough, short of breath; No wheezing Cardiovascular: No chest pain Gastrointestinal: No abdominal pain, No diarrhea; nausea; No vomiting Genitourinary: No decreased output, No discharge; frequency Musculoskeletal: No back pain, No joint pain; muscle pain Skin: change in color (VENITA ZARATE) All Other Systems Reviewed Negative Unless Noted: Yes (VENITA ZARATE) Past Rtmquia-Pgohlp-Sfzfwz Hx Seasonal Allergies Seasonal Allergies: No (VENITA ZARATE) Past Medical History Surgeries: Yes Bladder Surgery, Cardiac, Coronary Stent, Eye Surgery, Gallbladder, Orthopedic Respiratory: No (CHRONIC DYSPNEA ON EXERTION) Cardiac: Yes Atrial Fibrillation, Coronary Artery Disease, Deep Vein Thrombosis, High Cholesterol, Hypertension Neurological: Yes (NEUROPATHY RIGHT FOOT POST ANKLE SURGERY) Neuropathy Reproductive Disorders: No 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 No Pertinent Family Hx Daughter alive and healthy (VENITA ZARATE) Physical Exam Vital Signs Vital Signs - First Documented 09/21/21 14:25 Temp 35.3 Pulse 84 Resp 18 B/P (MAP) 127/88 (101) Pulse Ox 92 (BRITTA OBREGON MD) Vital Signs Capillary Refill : (VENITA ZARATE) Height, Weight, BMI Height: 5'0.00" Weight: 160lbs. 0.0oz. [id number]; 35.73 BMI Method:Stated General Appearance: No Apparent Distress, WD/WN Eyes: Bilateral Eye Normal Inspection, Bilateral Eye PERRL, Bilateral Eye EOMI HEENT: PERRL/EOMI, TMs Normal, Normal ENT Inspection, Pharynx Normal Respiratory: No Chest Non Tender, No Lungs Clear, No Normal Breath Sounds, No No Accessory Muscle Use, No No Respiratory Distress Cardiovascular: No No Edema, No No Gallop, No No JVD; Irregularly Irregular Gastrointestinal: No Normal Bowel Sounds, No No Organomegaly, No No Pulsatile Mass, No Non Tender, No Soft Extremity: No Normal Capillary Refill, No Normal Inspection (VENITA ZARATE) Progress/Results/Core Measures Suspected Sepsis SIRS Temperature: Pulse: Respiratory Rate: Laboratory Tests 09/21/21 14:45: White Blood Count 7.2 Blood Pressure / Mean: Laboratory Tests 09/21/21 14:45: Creatinine 1.53H, INR Comment 1.3, Platelet Count 201, Total Bilirubin 1.1H (VENITA ZARATE) Results/Orders Lab Results Laboratory Tests Test 09/21/21 14:45 09/21/21 15:03 09/21/21 15:23 Range/Units White Blood Count 7.2 4.3-11.0 10^3/uL Red Blood Count 3.05 L 3.80-5.11 10^6/uL Hemoglobin 10.3 L 11.5-16.0 g/dL Hematocrit 31 L 35-52 % Mean Corpuscular Volume 103 H 80-99 fL Mean Corpuscular Hemoglobin 34 25-34 pg Mean Corpuscular Hemoglobin Concent 33 32-36 g/dL Red Cell Distribution Width 17.0 H 10.0-14.5 % Platelet Count 201 130-400 10^3/uL Mean Platelet Volume 9.5 9.0-12.2 fL Immature Granulocyte % (Auto) 0 % Neutrophils (%) (Auto) 78 H 42-75 % Lymphocytes (%) (Auto) 13 12-44 % Monocytes (%) (Auto) 6 0-12 % Eosinophils (%) (Auto) 2 0-10 % Basophils (%) (Auto) 1 0-10 % Neutrophils # (Auto) 5.6 1.8-7.8 X 10^3 Lymphocytes # (Auto) 0.9 L 1.0-4.0 X 10^3 Monocytes # (Auto) 0.5 0.0-1.0 X 10^3 Eosinophils # (Auto) 0.1 0.0-0.3 10^3/uL Basophils # (Auto) 0.0 0.0-0.1 10^3/uL Immature Granulocyte # (Auto) 0.0 0.0-0.1 10^3/uL Prothrombin Time 17.0 H 12.2-14.7 SEC INR Comment 1.3 0.8-1.4 Activated Partial Thromboplast Time 41 H 24-35 SEC Sodium Level 124 *L 135-145 MMOL/L Potassium Level 3.4 L 3.6-5.0 MMOL/L Chloride Level 87 L 98-107 MMOL/L Carbon Dioxide Level 22 21-32 MMOL/L Anion Gap 15 H 5-14 MMOL/L Blood Urea Nitrogen 20 H 7-18 MG/DL Creatinine 1.53 H 0.60-1.30 MG/DL Estimat Glomerular Filtration Rate 33 BUN/Creatinine Ratio 13 Glucose Level 159 H 70-105 MG/DL Calcium Level 9.7 8.5-10.1 MG/DL Corrected Calcium 10.0 8.5-10.1 MG/DL Total Bilirubin 1.1 H 0.1-1.0 MG/DL Aspartate Amino Transf (AST/SGOT) 29 5-34 U/L Alanine Aminotransferase (ALT/SGPT) 14 0-55 U/L Alkaline Phosphatase 81 40-136 U/L Troponin I < 0.028 <0.028 NG/ML B-Type Natriuretic Peptide 1813.8 H <100.0 PG/ML Total Protein 7.5 6.4-8.2 GM/DL Albumin 3.6 3.2-4.5 GM/DL Influenza Type A (RT-PCR) Not Detected Not Detecte Influenza Type B (RT-PCR) Not Detected Not Detecte SARS-CoV-2 RNA (RT-PCR) Not Detected Not Detecte Urine Color YELLOW Urine Clarity CLEAR Urine pH 6.0 5-9 Urine Specific [place] 1.010 L 1.016-1.022 Urine Protein NEGATIVE NEGATIVE Urine Glucose (UA) NEGATIVE NEGATIVE Urine Ketones NEGATIVE NEGATIVE Urine Nitrite NEGATIVE NEGATIVE Urine Bilirubin NEGATIVE NEGATIVE Urine Urobilinogen 0.2 < = 1.0 MG/DL Urine Leukocyte Esterase TRACE H NEGATIVE Urine RBC (Auto) 2+ H NEGATIVE Urine RBC 5-10 H /HPF Urine WBC NONE /HPF Urine Squamous Epithelial Cells 5-10 /HPF Urine Crystals NONE /LPF Urine Bacteria TRACE /HPF Urine Casts NONE /LPF Urine Mucus NEGATIVE /LPF Urine Culture Indicated NO (BRITTA OBREGON MD) Vital Signs/I&O 09/21/21 14:25 Temp 35.3 Pulse 84 Resp 18 B/P (MAP) 127/88 (101) Pulse Ox 92 (BRITTA OBREGON MD) Vital Signs/I&O Capillary Refill : (VENITA ZARATE) ECG Comment Atrial fibrillation, 79 bpm, QRS duration 92 MS, QTc 479 MS. (VENITA ZARATE) Departure Communication (Admissions) Time/Spoke to Admitting Phy: 16:51 According to daughter patient had a large amount of lower ext swelling last week. She states swelling much improved. No increased work of breathing or cu rrent chest pain. Does not require more oxygen here. Oxygen 2 L at this time. She is supposed to be on oxygen at home. Currently on Lasix 60 mg daily. Ejection fraction in March 2021 showed 50 to 55%. History of mild to moderate coronary artery disease. Normal troponin. Stable BNP 1800 with similiar results from last visit in Mar 2021. Creatinine 1.53 much improved fr om last visit on April 11 of a creatinine of 1.86. She does not appear fluid overload. Her vital signs stable. EKG AFIB rate control. Chest x-ray without strong evidence of large effusion. Mild interstitial edema. Sodium 124, chloride 87. Potassium 3.4. Concerned that she is slightly dry secondary Lasix not eating or drinking. She reports feeling more weak. Patient was started on IV fluids. Discussed patient with hospitalist Dr. Weiner accepts patient at this time admit for observation with telemetry (VENITA ZARATE) Impression Primary Impression: Dehydration Disposition: ADMITTED INPATIENT Condition: Stable Admissions Decision to Admit Reason: Admit from ER (General) Decision to Admit/Date: Sep 21, 2021 Time/Decision to Admit Time: 16:51 (VENITA ZARATE) Departure-Patient Inst. Decision time for Depature: 16:51 (VENITA ZARATE) Referrals: RONNA ALVAREZ MD (PCP/Family) Primary Care Physician ATTENDING PHYSICIAN NOTE: I was physically present as attending physician in the emergency department during the care of this patient, but I was not directly involved in the decision making or delivery of care for this patient. (BRITTA OBREGON MD) VENITA ZARATE Sep 21, 2021 14:49 BRITTA OBREGON MD Sep 22, 2021 07:46
[2021-09-21 14:56] LABS: BASOPHILS % (AUTO) 1 % (0-10); EOSINOPHILS # (AUTO) 0.1 10^3/uL (0.0-0.3); EOSINOPHILS % (AUTO) 2 % (0-10); HEMATOCRIT 31 % (35-52); HEMOGLOBIN 10.3 g/dL (11.5-16.0); LYMPHOCYTES # (AUTO) 0.9 X 10^3 (1.0-4.0); LYMPHOCYTES % (AUTO) 13 % (12-44); MEAN CORPUSCULAR HEMOGLOBIN 34 pg (25-34); MEAN CORPUSCULAR HGB CONC 33 g/dL (32-36); MEAN CORPUSCULAR VOLUME 103 fL (80-99); MEAN PLATELET VOLUME 9.5 fL (9.0-12.2); MONOCYTES # (AUTO) 0.5 X 10^3 (0.0-1.0); MONOCYTES % (AUTO) 6 % (0-12); NEUTROPHILS # (AUTO) 5.6 X 10^3 (1.8-7.8); NEUTROPHILS % (AUTO) 78 % (42-75); PLATELET COUNT 201 10^3/uL (130-400); WHITE BLOOD COUNT 7.2 10^3/uL (4.3-11.0)
[2021-09-21 15:03] LABS: ALBUMIN 3.6 GM/DL (3.2-4.5); CHLORIDE 87 MMOL/L (98-107); POTASSIUM 3.4 MMOL/L (3.6-5.0)
[2021-09-21 15:04] LABS: CALCIUM 9.7 MG/DL (8.5-10.1)
[2021-09-21 15:05] LABS: GLUCOSE 159 MG/DL (70-105); INR 1.3 (0.8-1.4)
[2021-09-21 15:06] LABS: TOTAL PROTEIN 7.5 GM/DL (6.4-8.2)
[2021-09-21 15:07] LABS: BILIRUBIN,TOTAL 1.1 MG/DL (0.1-1.0); CARBON DIOXIDE 22 MMOL/L (21-32)
[2021-09-21 15:09] LABS: ALKALINE PHOSPHATASE 81 U/L (40-136); CREATININE SERUM 1.53 MG/DL (0.60-1.30); GFR ESTIMATED 33
[2021-09-21 15:10] LABS: BUN/CREATININE RATIO 13
[2021-09-21 15:12] LABS: ALANINE AMINOTRANSFERASE 14 U/L (0-55)
[2021-09-21 15:39] LABS: BILIRUBIN,URINE NEGATIVE (NEGATIVE); CLARITY,URINE CLEAR; COLOR,URINE YELLOW; GLUCOSE, URINE (UA) NEGATIVE (NEGATIVE); KETONES,URINE NEGATIVE (NEGATIVE); LEUKOCYTE ESTERASE ,URINE TRACE (NEGATIVE); NITRITE,URINE NEGATIVE (NEGATIVE); PROTEIN,URINE NEGATIVE (NEGATIVE)
[2021-09-21 15:57] LABS: SODIUM 124 MMOL/L (135-145)
[2021-09-21 15:59] LABS: BACTERIA,URINE TRACE /HPF
[2021-09-21] MEDS ORDERED: NS IV 1000 ML 1,000 ML IV STA (16:20)
--- NOTE | 2021-09-21 16:26 | Diagnostic Imaging Report ---
INDICATION: Right hip pain. COMPARISON: None. EXAMINATION: Two views of the right hip. FINDINGS: Mild degenerative joint disease. Atherosclerotic changes are present. There is no acute fracture or dislocation. No osseous lesion. IMPRESSION: No fracture identified. Dictated by: Dictated on workstation # [id number]
--- NOTE | 2021-09-21 16:27 | Diagnostic Imaging Report ---
INDICATION: Shortness of breath. Hip pain. COMPARISON: 04/08/2021. EXAMINATION: Single view of the chest. FINDINGS: Cardiac enlargement with mild interstitial edema. There is no pneumothorax or large effusion. Osseous structures are age-appropriate. 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 Dictated by: Dictated on workstation # [id number]
[2021-09-21 17:45] VITALS: BP 112/79
[2021-09-21 19:34] VITALS: BP 119/82
[2021-09-21 23:49] VITALS: BP 128/84
[2021-09-22] VITALS (7 sets, daily range): BP systolic 100–131; BP diastolic 66–90
[2021-09-22] MEDS ORDERED: ACETAMINOPHEN 325 MG TABLET PO PRN
[2021-09-22] MEDS: oxyCODONE/APAP 5/325MG (PERCOCET 5) TABLET PO PRN (00:13)
[2021-09-22 06:29] LABS: BASOPHILS # (AUTO) 0.1 10^3/uL (0.0-0.1); BASOPHILS % (AUTO) 1 % (0-10); EOSINOPHILS # (AUTO) 0.2 10^3/uL (0.0-0.3); EOSINOPHILS % (AUTO) 3 % (0-10); HEMATOCRIT 31 % (35-52); HEMOGLOBIN 10.1 g/dL (11.5-16.0); LYMPHOCYTES # (AUTO) 0.9 10^3/uL (1.0-4.0); LYMPHOCYTES % (AUTO) 15 % (12-44); MEAN CORPUSCULAR HEMOGLOBIN 33 pg (25-34); MEAN CORPUSCULAR HGB CONC 33 g/dL (32-36); MEAN CORPUSCULAR VOLUME 101 fL (80-99); MEAN PLATELET VOLUME 10.4 fL (9.0-12.2); MONOCYTES # (AUTO) 0.6 10^3/uL (0.0-1.0); MONOCYTES % (AUTO) 10 % (0-12); NEUTROPHILS # (AUTO) 4.2 10^3/uL (1.8-7.8); NEUTROPHILS % (AUTO) 72 % (42-75); PLATELET COUNT 177 10^3/uL (130-400); WHITE BLOOD COUNT 5.9 10^3/uL (4.3-11.0)
[2021-09-22 06:41] LABS: POTASSIUM 3.5 MMOL/L (3.6-5.0)
[2021-09-22 06:42] LABS: CALCIUM 9.5 MG/DL (8.5-10.1)
[2021-09-22 06:46] LABS: CREATININE SERUM 1.24 MG/DL (0.60-1.30)
--- NOTE | 2021-09-22 08:41 | History & Physical-Hospitalist ---
History of Present Illness HPI/Chief Complaint Pt is an 86yoF with hx of Afib, HTN, CAD with stent placement who presented to the ER due to weakness. She speaks very limited Ukrainian but requests her daughter who is at bedside to interpret. She has been feeling poorly for the past 2-3 days with increasing weakness. She has a baseline oxygen requirement of 2lpm since she has covid roughly 6 months ago but she is not currently wearing oxygen. Daughter states she has had a poor appetite as well. She follow with Dr Flowers and has a history of diastolic heart failure. She is currently on Lasix as well. Her creatinine was slightly elevated at 1.5 yesterday and she was admitted for dehydration. She was also quite hyponatremic. She reports feeling somewhat better today and is requesting Ensure Chocolate with her meals. Source: patient Date Seen 09/22/21 Time Seen by a Provider: 08:00 Attending Physician Loretta Weiner MD PCP Ligia Alvarez MD Referring Physician Date of Admission Sep 21, 2021 at 16:49 Home Medications & Allergies Home Medications Reviewed patient Home Medication Reconciliation performed by pharmacy medication reconciliations breeder service technician and/or nursing. Patients Allergies have been reviewed. Allergies Allergies Coded Allergies NKANo Known Allergies (Verified Allergy, Unknown, 02/07/07) Past Rsbkumf-Ejladq-Gxabme Hx Patient Social History Tobacco Use?: No Use of E-Cig and/or Vaping dev: No Substance use?: No Alcohol Use?: No Pt feels they are or have been: No Immunizations Up To Date Date of Influenza Vaccine: May 18, 2018 Tetanus Booster (TDap): Unknown Hepatitis A: No Hepatitis B: No Seasonal Allergies Seasonal Allergies: No Current Status status: No status: No Advance Directives: No Primary Language: marshallise Preferred Spoken Language: marshallise Is interpretation needed?: Yes Implanted or Applied Medical D: None Past Medical History Surgeries: Bladder Surgery, Cardiac, Coronary Stent, Eye Surgery, Gallbladder, Orthopedic Atrial Fibrillation, Coronary Artery Disease, Deep Vein Thrombosis, High Cholesterol, Hypertension Neuropathy 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 No Pertinent Family Hx Daughter alive and healthy Review of Systems ROS-Unable to Obtain: limited by language barrier Constitutional: malaise, weakness EENTM: no symptoms reported Respiratory: No cough; short of breath (chronic since COVID in March) Gastrointestinal: No abdominal pain; loss of appetite; No nausea Genitourinary: no symptoms reported Musculoskeletal: no symptoms reported Skin: no symptoms reported Psychiatric/Neurological: No Symptoms Reported Physical Exam Physical Exam Vital Signs Vital Signs - First Documented 09/21/21 09/21/21 09/21/21 14:25 17:17 17:45 Temp 35.3 Pulse 84 Resp 18 B/P (MAP) 127/88 (101) Pulse Ox 92 O2 Delivery Nasal Cannula O2 Flow Rate 2.00 Capillary Refill : Less Than 3 Seconds Height, Weight, BMI Height: 5'0.00" Weight: 160lbs. 0.0oz. 72.635116sw; 29.27 BMI Method:Stated General Appearance: No Apparent Distress, Chronically ill HEENT: PERRL/EOMI, Moist Mucous Membranes Neck: Normal Inspection, Supple Respiratory: Lungs Clear, No Accessory Muscle Use, No Respiratory Distress Cardiovascular: Regular Rate, Rhythm, No Murmur Gastrointestinal: Normal Bowel Sounds, Non Tender, Soft Extremity: No Calf Tenderness, No Pedal Edema Neurologic/Psychiatric: Alert, Oriented x3, Normal Mood/Affect Skin: Normal Color Results Results/Procedures Labs Laboratory Tests 09/21/21 14:45 09/22/21 05:45 Patient resulted labs reviewed. Imaging [facility], [place] NAME: INDY TORRES [employer] REC#: [id number] PT STATUS: REG ER : 1935 PHYSICIAN: VENITA ZARATE ADMIT DATE: 09/21/21/ER Signed Date of Exam:09/21/21 CHEST 1 VIEW, AP/PA ONLY INDICATION: Shortness of breath. Hip pain. COMPARISON: 04/08/2021. EXAMINATION: Single view of the chest. FINDINGS: Cardiac enlargement with mild interstitial edema. There is no pneumothorax or large effusion. Osseous structures are age-appropriate. 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 Dictated by: Dictated on workstation # [id number] Dict: 09/21/21 1625 Trans: 09/21/21 1641 [facility] [id number] Interpreted by: RODNEY RYAN Electronically signed by: RODNEY RYAN 09/21/21 1641 [facility], [place] NAME: INDY TORRES [employer] REC#: [id number] PT STATUS: REG ER : 1935 PHYSICIAN: VENITA ZARATE ADMIT DATE: 09/21/21/ER Signed Date of Exam:09/21/21 HIP, RIGHT, 2 VIEWS INDICATION: Right hip pain. COMPARISON: None. EXAMINATION: Two views of the right hip. FINDINGS: Mild degenerative joint disease. Atherosclerotic changes are present. There is no acute fracture or dislocation. No osseous lesion. IMPRESSION: No fracture identified. Dictated by: Dictated on workstation # [id number] Dict: 09/21/21 1625 Trans: 09/21/21 1626 [facility] [id number] Interpreted by: RODNEY RYAN Electronically signed by: RODNEY RYAN 09/21/21 1626 Assessment/Plan Admission Diagnosis Dehydration Admission Status: Observation Assessment and Plan Dehydration BENJAMIN Hyponatremia Baseline Na around 132 from March and Manager Pe 1.37 Creatinine improved from 1.53 from to 1.24 today Continue gentle fluids and hold Lasix PT Chronic diastolic heart failure Last echo October 2017 showed EF 50-55% CXR concerning for CHF but clinically appears dry and no crackles on exam Cardiology consulted, appreciate recs- Discussed with Dr Flowers Chronic Afib- rate controlled Coronary artery disease HTN HLD -Apixaban for stroke ppx, resume home meds -Managed by cardiology - Continue home meds DVT ppx: Eliquis Diagnosis/Problems Diagnosis/Problems (1) Dehydration Status: Acute (2) Afib Status: Chronic (3) HTN (hypertension) Status: Chronic (4) CAD (coronary artery disease) (5) History of DVT (deep vein thrombosis) Status: Chronic (6) Advanced age Status: Chronic (7) CKD (chronic kidney disease) Status: Chronic IGNACIA BOYCE MD Sep 22, 2021 08:41
[2021-09-22] MEDS: NS IV 1000 ML 1,000 ML IV SCH ×3 (10:52→22:52)
--- NOTE | 2021-09-22 11:11 | Consultation-Cardiology ---
HPI-Cardiology Cardiology Consultation: Date of Consultation 09/22/21 Time Seen by a Provider: 11:00 Date of Admission 09-21-21 Attending Physician Loretta Weiner MD Admitting Physician Ligia Alvarez MD Consulting Physician Hubert Flowers MD HPI: Chief Complaint: Acute on chronic diasstolic CHF Progressive dyspnea Ms. Torres is an 86 yr old female admitted to [facility] from the ED with increasing SOB and right hip pain. Daughter is at the bedside to help communicate d/t pt language barrier. She reports that over the last several days she has had progressive PRYOR at home. She also reports she has had right hip and leg pain. No c/o CP, palpitations, syncope, near syncope or LE swelling. She reports she has been compliant with her medications. Review of Systems-Cardiology Review of Systems Constitutional: No chills, No fever; malaise Eyes: No vision change Ears/Nose/Throat: No epistaxis Respiratory: As described under HPI Cardiovascular: As described under HPI Gastrointestinal: No constipation, No diarrhea, No nausea, No vomiting Genitourinary: No dysuria, No hematuria Musculoskeletal: As describe under HPI Skin: No rash on exposed areas, No ulcerations on exposed areas Psychiatric/Neurological: No anxiety, No depression, No seizure, No focal weakness, No syncope Hematologic: No bleeding abnormalities All Other Systems Reviewed Negative Unless Noted: Yes IUC-Khrtkp-Silexx Hx Patient Social History 2nd Hand Smoke Exposure: No Have you traveled recently?: No Alcohol Use?: No Pt feels they are or have been: No Immunizations Up To Date Date of Influenza Vaccine: May 18, 2018 Past Medical History PMH As described under Assessment. Family Medical History Family Medical History: No reported family h/o CAD. Family History: Patient reports no known family medical history. Allergies and Home Medications Allergies Coded Allergies: NKANo Known Allergies (Verified Allergy, Unknown, 02/07/07) Patient Home Medication List Acetaminophen (Tylenol Extra Strength) 500 Mg Tablet, 500-1,000 MG PO Q6H PRN for PAIN-MILD, (Reported) Entered as Reported by: PACO MARINO on 10/10/18 9484 Last Action: Reviewed Apixaban (Eliquis) 2.5 Mg Tablet, 2.5 MG PO BID, (Reported) Entered as Reported by: PACO MARINO on 10/10/18 1156 Last Action: Reviewed Aspirin (Aspirin) 81 Mg Tab.chew, 81 MG PO DAILY, (Reported) Entered as Reported by: YUE BUTTS on 01/04/21 0206 Last Action: Reviewed Atorvastatin Calcium (Atorvastatin Calcium) 40 Mg Tablet, 40 MG PO DAILY, (Reported) Entered as Reported by: PACO MARINO on 10/10/18 1156 Last Action: Reviewed Furosemide (Furosemide) 40 Mg Tablet, 60 MG PO DAILY, (Reported) Entered as Reported by: THERESA GAMBLE on 09/22/21 1141 Last Action: Reviewed Metoprolol Tartrate (Metoprolol Tartrate) 50 Mg Tablet, 50 MG PO BID, (Reported) Entered as Reported by: VIRA SEGAL on 04/08/21 1509 Last Action: Reviewed Multivitamin (Multi-Vitamin Daily) 1 Each Tablet, 1 EACH PO DAILY, (Reported) Entered as Reported by: THERESA GAMBLE on 09/22/21 1142 Last Action: Reviewed Discontinued Medications Prednisone (Prednisone) 20 Mg Tab, 40 MG PO DAILY@0700 Discontinued Reason: No Longer Taking Prescribed by: IGNACIA BOYCE on 04/11/21 1131 Last Action: Discontinued Physical Exam-Cardiology Physical Exam Vital Signs/I&O 09/22/21 09/22/21 09/22/21 09/22/21 07:25 08:00 08:16 10:55 Temp 35.4 Pulse 76 85 Resp 18 B/P (MAP) 131/90 (104) Pulse Ox 97 O2 Delivery Nasal Cannula Nasal Cannula Nasal Cannula O2 Flow Rate 1.00 2.00 2.00 09/22/21 09/22/21 09/22/21 11:42 13:00 16:19 Temp 35.5 36.4 Pulse 84 76 75 Resp 20 18 B/P (MAP) 128/85 (99) 107/69 (82) Pulse Ox 100 98 O2 Delivery Nasal Cannula Nasal Cannula O2 Flow Rate 1.50 1.50 09/22/21 00:00 Intake Total 100 ml Output Total 800 ml Balance -700 ml Capillary Refill : Less Than 3 Seconds Constitutional: AAO x 3, well-developed, well-nourished HEENT: PERRL, hearing is well preserved Neck: No carotid bruit; carotid pulses are 2 + bilaterally Respiratory: No accessory muscle use, No respiratory distress; chest expansion is symmetric, chest is bilaterally symmetric, other (diminished bases bilat) Cardiovascular: irregularly irregular; No JVD; S1 and S2 Gastrointestinal: No tender; soft, audible bowel sounds Extremities: no lower extremity edema bilateral Neurologic/Psychiatric: other (moves all extremities) Skin: No rash on exposed areas, No ulcerations on exposed areas Data Review Labs Laboratory Tests 09/22/21 05:45: White Blood Count 5.9, Red Blood Count 3.07L, Hemoglobin 10.1L, Hematocrit 31L, Mean Corpuscular Volume 101H, Mean Corpuscular Hemoglobin 33, Mean Corpuscular Hemoglobin Concent 33, Red Cell Distribution Width 16.2H, Platelet Count 177, Mean Platelet Volume 10.4, Immature Granulocyte % (Auto) 0, Neutrophils (%) (Auto) 72, Lymphocytes (%) (Auto) 15, Monocytes (%) (Auto) 10, Eosinophils (%) (Auto) 3, Basophils (%) (Auto) 1, Neutrophils # (Auto) 4.2, Lymphocytes # (Auto) 0.9L, Monocytes # (Auto) 0.6, Eosinophils # (Auto) 0.2, Basophils # (Auto) 0.1, Immature Granulocyte # (Auto) 0.0, Sodium Level 123*L, Potassium Level 3.5L, Chloride Level 89L, Carbon Dioxide Level 22, Anion Gap 12, Blood Urea Nitrogen 18, Creatinine 1.24, Estimat Glomerular Filtration Rate 42, BUN/Creatinine Ratio 15, Glucose Level 127H, Calcium Level 9.5 Radiology NAME: INDY TORRES [facility] REC#: [id number] PT STATUS: REG ER : 1935 PHYSICIAN: VENITA ZARATE ADMIT DATE: 09/21/21/ER Signed Date of Exam:09/21/21 CHEST 1 VIEW, AP/PA ONLY INDICATION: Shortness of breath. Hip pain. COMPARISON: 04/08/2021. EXAMINATION: Single view of the chest. FINDINGS: Cardiac enlargement with mild interstitial edema. There is no pneumothorax or large effusion. Osseous structures are age-appropriate. 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 Dictated by: Dictated on workstation # [id number] Dict: 09/21/21 1625 Trans: 09/21/21 0501 [facility] [id number] Interpreted by: RODNEY RYAN Electronically signed by: RODNEY RYAN 09/21/21 1641 ECG Impression ECG Initial ECG Impression: Atrial Fibrillation A/P-Cardiology Assessment/Admission Diagnosis Acute on chronic diastolic CHF - Last echo of 04/08/21 showed ejection fraction 50-55% with biatrial enlargement, moderate mitral & tricuspid regurgitation, and PASP 40-45 mmHg Hyponatremia - undetermined etiology, possilbly secondary to vol overload d/t decomp CHF Right hip pain - undetermined etiology Acute on chronic renal insufficiency Chronic persistent atrial fibrillation - rate is fairly well controlled - stroke prophylaxis with apixaban - 24 HR Holter of Jun 2019 showed a-fib with av ventricular response of 78 bpm; one 10 beat run of WCT @ 136 bpm; no signif bradycardia CAD - Last card cath on 01/03/19: diffuse, moderate. Left anterior descending artery has patent stents that are known to be Taxus 2.75 x 20, 2.5 x 24, 2.5 x 12 and Xience Laverne 2.5 x 8 (proximal to distal). Left circumflex artery has a patent stent in its first obtuse marginal that is known to be Promus 2.5 x 16. Right coronary artery has a patent stent with 50% in-stent restenosis. This is known to be Xience Laverne 3.5 x 16. All coronary arteries have diffuse stenoses with a focal stenoses of up to 50% at several spots. Well preserved global left ventricular systolic function with ejection fraction approximately 50%. Mild to moderate elevation of left ventricular end-diastolic pressure Hypertension - controlled Hyperlipidemia - being treated with simvastatin and followed by her PCP Chronic PRYOR - PFT of Jun 26, 2019 showed mod obstructive lung defect Ortho - Chronic neck and shoulder pain, cervical DJD and radiculopathy suspected History of non-compliance with medications and f/u Discussion and Recomendations Acute on chronic diastolic CHF - Echocardiogram today - treat with diuretics Hyponatremia - dilutional d/t decompensated CHF Montior lab Chronic a-fib - continue OAC for stroke prophylaxis Right hip pain of undetermined etiology - management per medical services We would like to thank medical services for this consult Further recs will be based on her hospital course JESSICA ONEIL Sep 22, 2021 11:11
--- NOTE | 2021-09-22 11:19 | Physical Therapy Evaluation ---
PT Evaluation-General Medical Diagnosis Admission Date Sep 21, 2021 at 16:49 Medical Diagnosis: dehydration Onset Date: Sep 21, 2021 Therapy Diagnosis Therapy Diagnosis: debility/weakness Height/Weight Height (Feet): 5 Height (Inches): 0.00 Weight (Pounds): 160 Weight (Ounces): 0.0 Precautions Precautions/Isolations: Fall Prevention, Standard Precautions Referral Physician: Luiz Reason for Referral: Evaluation/Treatment Medical History Pertinent Medical History: Atrial Fib, Arthritis, CAD, DM, HTN, Neuropathy, Renal Insufficiency Current History ER secondary to SOA/dehydration (patient had Covid last year per report) Reviewed History: Yes Social History Home: Single Level Current Living Status: Other Family Prior Prior Level of Function SCALE: Activities may be completed with or without assistive devices. 0-Genmvfqglr-jqurvxw completes the activity by him/herself with no assistance from a helper. 5-Set-up or Clean-up Assistance-helper sets up or cleans up; patient completes activity. [place] assists only prior to or following the activity. 4-Supervision or Touching Assistance-helper provides verbal cues and/or touching/steadying and/or contact guard assistance as patient completes activity. Assistance may be provided throughout the activity or intermittently. 3-Partial/Moderate Assistance-helper does LESS THAN HALF the effort. [place] lifts, holds or supports trunk or limbs, but provides less than half the effort. 2-Substantial/Maximal Assistance-helper does MORE THAN HALF the effort. [place] lifts or holds trunk or limbs and provides more than half the effort. 6-Uabeqegnr-xxeksj does ALL the effort. Patient does none of the effort to complete the activity. Or, the assistance of 2 or more helpers is required for the patient to complete the activity. If activity was not attempted, code reason: 7-Patient Refused. 9-Not Applicable-not attempted and the patient did not perform the activity before the current illness, exacerbation or injury. 10-Not Attempted due to Environmental Limitations-(lack of equipment, weather restraints, etc.). 88-Not Attempted due to Medical Conditions or Safety Concerns. Bed Mobility: 4 Transfers (B,C,W/C): 4 Gait: 4 Stairs: 9 Indoor Mobility (Ambulation): Needed Some Help Stairs: Not Applicalbe Prior Devices Use: Walker per family, patient ambulates short distances only in home PLOF PT Evaluation-Current Subjective Patient agrees to PT. Family present. Objective Attachments: Oxygen ROM/Strength ROM Lower Extremities bilateral LE WFL Strength Lower Extremities 4-/5 grossly bilateral LE all planes Integumentary/Posture Bowel Incontinence: No Bladder Incontinence: No Posture WFL Neuromuscular (Tone, Coordination, Reflexes) grossly intact Sensory Vision: Functional Hearing: Functional Transfers Sit to Lying (QC): 3 Lying to Sitting/Side of Bed(Q: 4 Sit to Stand (QC): 4 Gait Does the Patient Walk?: Yes Mode of Locomotion: Walk Anticipated Mode of Locomotion: Walk Walk 10 feet (QC): 4 Walk 50 ft with 2 Turns(QC): 4 Walk 150 ft (QC): 88 Distance: 75' Gait Assistive Device: FWW Comments/Gait Description slow, steady, functional gait sequence Balance Sitting Static: Normal Sitting Dynamic: Normal Standing Static: Good Standing Dynamic: Good Assessment/Needs 86 y.o. female, will be seen short term by skilled PT to address functional strength and mobility to ensure safe return to home with family at maximum LOF. Patient does wear O2 in home prior to this hospital and family assist with all mobility. Rehab Potential: Fair PT Popcorn Candy Maker Goals Popcorn Candy Maker Goals PT Popcorn Candy Maker Goals Time Frame: Sep 27, 2021 Roll Left & Right (QC): 4 Sit to Lying (QC): 4 Lying-Sitting on Side/Bed(QC): 4 Sit to Stand (QC): 4 Chair/Jpy-ji-Qufav Xfer(QC): 4 Toilet Transfer (QC): 4 Walk 10 feet (QC): 4 Walk 50ft with 2 Turns (QC): 4 Walk 150 ft (QC): 4 PT Plan Problem List Problem List: Activity Tolerance, Functional Strength, Gait, Transfer, Bed Mobility Treatment/Plan Treatment Plan: Continue Plan of Care Treatment Plan: Bed Mobility, Education, Functional Activity Rosana, Functional Strength, Gait, Safety, Therapeutic Exercise, Transfers Treatment Duration: Sep 27, 2021 Frequency: 6 times per week Estimated Hrs Per Day: .25 hour per day Patient and/or Family Agrees t: Yes Time/GCodes Time In: 1041 Time Out: 1051 Total Billed Treatment Time: 10 Total Billed Treatment 1 visit EVModC 10 min CLEO ABAD PT Sep 22, 2021 11:19
[2021-09-22] MEDS ORDERED: FURO40TA4 PO (11:41)
[2021-09-22] MEDS ORDERED: MULT-974 PO (11:42)
--- NOTE | 2021-09-22 14:38 | Consultation-Cardiology ---
HPI-Cardiology Cardiology Consultation: Date of Consultation 09/22/21 Time Seen by a Provider: 12:50 Date of Admission Attending Physician Loretta Weiner MD Admitting Physician Ligia Alvarez MD Consulting Physician SAHIL HAWLEY MD, MA, FACP, FACC, FSCAI, CCDS HPI: Chief Complaint: Progressive dyspnea and gen weakness Ms. Vega is an 86 yr old female admitted to [facility] from the ED with increasing SOB and right hip pain. Daughter is at the bedside to help communicate d/t pt language barrier. She reports that over the last several days she has had progressive PRYOR at home. She also reports she has had right hip and leg pain. No c/o CP, palpitations, syncope, near syncope or LE swelling. She reports she has been compliant with her medications. Review of Systems-Cardiology Review of Systems Constitutional: No chills, No fever; malaise Eyes: No vision change Ears/Nose/Throat: No epistaxis Respiratory: As described under HPI Cardiovascular: As described under HPI Gastrointestinal: No constipation, No diarrhea, No nausea, No vomiting Genitourinary: No dysuria, No hematuria Musculoskeletal: As describe under HPI Skin: No rash on exposed areas, No ulcerations on exposed areas Psychiatric/Neurological: No anxiety, No depression, No seizure, No focal weakness, No syncope Hematologic: No bleeding abnormalities All Other Systems Reviewed Negative Unless Noted: Yes AHE-Hmiqor-Cnbtxh Hx Patient Social History 2nd Hand Smoke Exposure: No Have you traveled recently?: No Alcohol Use?: No Pt feels they are or have been: No Immunizations Up To Date Date of Influenza Vaccine: May 18, 2018 Past Medical History PMH As described under Assessment. Family Medical History Family Medical History: No reported family h/o CAD. Family History: Patient reports no known family medical history. Allergies and Home Medications Allergies Coded Allergies: NKANo Known Allergies (Verified Allergy, Unknown, 02/07/07) Patient Home Medication List Home Medication List Reviewed: Yes Acetaminophen (Tylenol Extra Strength) 500 Mg Tablet, 500-1,000 MG PO Q6H PRN for PAIN-MILD, (Reported) Entered as Reported by: PACO MARINO on 10/10/18 9535 Last Action: Reviewed Apixaban (Eliquis) 2.5 Mg Tablet, 2.5 MG PO BID, (Reported) Entered as Reported by: PACO MARINO on 10/10/18 1156 Last Action: Reviewed Aspirin (Aspirin) 81 Mg Tab.chew, 81 MG PO DAILY, (Reported) Entered as Reported by: YUE BUTTS on 01/04/21 0206 Last Action: Reviewed Atorvastatin Calcium (Atorvastatin Calcium) 40 Mg Tablet, 40 MG PO DAILY, (Reported) Entered as Reported by: PACO MARINO on 10/10/18 1156 Last Action: Reviewed Furosemide (Furosemide) 40 Mg Tablet, 60 MG PO DAILY, (Reported) Entered as Reported by: THERESA GAMBLE on 09/22/21 1141 Last Action: Reviewed Metoprolol Tartrate (Metoprolol Tartrate) 50 Mg Tablet, 50 MG PO BID, (Reported) Entered as Reported by: VIRA SEGAL on 04/08/21 1509 Last Action: Reviewed Multivitamin (Multi-Vitamin Daily) 1 Each Tablet, 1 EACH PO DAILY, (Reported) Entered as Reported by: THERESA GAMBLE on 09/22/21 1142 Last Action: Reviewed Discontinued Medications Prednisone (Prednisone) 20 Mg Tab, 40 MG PO DAILY@0700 Discontinued Reason: No Longer Taking Prescribed by: IGNACIA BOYCE on 04/11/21 1131 Last Action: Discontinued Physical Exam-Cardiology Physical Exam Vital Signs/I&O 09/22/21 09/22/21 09/22/21 09/22/21 04:03 07:25 08:00 08:16 Temp 36.0 35.4 Pulse 84 76 85 Resp 18 18 B/P (MAP) 123/85 (98) 131/90 (104) Pulse Ox 99 97 O2 Delivery Nasal Cannula Nasal Cannula Nasal Cannula O2 Flow Rate 2.00 1.00 2.00 09/22/21 09/22/21 09/22/21 10:55 11:42 13:00 Temp 35.5 Pulse 84 76 Resp 20 B/P (MAP) 128/85 (99) Pulse Ox 100 O2 Delivery Nasal Cannula Nasal Cannula O2 Flow Rate 2.00 1.50 09/22/21 00:00 Intake Total 100 ml Output Total 800 ml Balance -700 ml Capillary Refill : Less Than 3 Seconds Constitutional: AAO x 3, well-developed, well-nourished HEENT: PERRL, hearing is well preserved Neck: No carotid bruit; carotid pulses are 2 + bilaterally Respiratory: No accessory muscle use, No respiratory distress; chest expansion is symmetric, chest is bilaterally symmetric, other (diminished bases bilat) Cardiovascular: irregularly irregular; No JVD; S1 and S2 Gastrointestinal: No tender; soft, audible bowel sounds Extremities: no lower extremity edema bilateral Neurologic/Psychiatric: other (moves all extremities) Skin: No rash on exposed areas, No ulcerations on exposed areas Data Review Labs Laboratory Tests 09/21/21 14:45: White Blood Count 7.2, Red Blood Count 3.05L, Hemoglobin 10.3L, Hematocrit 31L, Mean Corpuscular Volume 103H, Mean Corpuscular Hemoglobin 34, Mean Corpuscular Hemoglobin Concent 33, Red Cell Distribution Width 17.0H, Platelet Count 201, Mean Platelet Volume 9.5, Immature Granulocyte % (Auto) 0, Neutrophils (%) (Auto) 78H, Lymphocytes (%) (Auto) 13, Monocytes (%) (Auto) 6, Eosinophils (%) (Auto) 2, Basophils (%) (Auto) 1, Neutrophils # (Auto) 5.6, Lymphocytes # (Auto) 0.9L, Monocytes # (Auto) 0.5, Eosinophils # (Auto) 0.1, Basophils # (Auto) 0.0, Immature Granulocyte # (Auto) 0.0, Prothrombin Time 17.0H, INR Comment 1.3, Activated Partial Thromboplast Time 41H, Sodium Level 124*L, Potassium Level 3.4L, Chloride Level 87L, Carbon Dioxide Level 22, Anion Gap 15H, Blood Urea Nitrogen 20H, Creatinine 1.53H, Estimat Glomerular Filtration Rate 33, BUN/Creatinine Ratio 13, Glucose Level 159H, Calcium Level 9.7, Corrected Calcium 10.0, Total Bilirubin 1.1H, Aspartate Amino Transf (AST/SGOT) 29, Alanine Aminotransferase (ALT/SGPT) 14, Alkaline Phosphatase 81, Troponin I < 0.028, B-Type Natriuretic Peptide 1813.8H, Total Protein 7.5, Albumin 3.6 09/21/21 15:03: Influenza Type A (RT-PCR) Not Detected, Influenza Type B (RT-PCR) Not Detected, SARS-CoV-2 RNA (RT-PCR) Not Detected 09/21/21 15:23: Urine Color YELLOW, Urine Clarity CLEAR, Urine pH 6.0, Urine Specific [place] 1.010L, Urine Protein NEGATIVE, Urine Glucose (UA) NEGATIVE, Urine Ketones NEGATIVE, Urine Nitrite NEGATIVE, Urine Bilirubin NEGATIVE, Urine Urobilinogen 0.2, Urine Leukocyte Esterase TRACEH, Urine RBC (Auto) 2+H, Urine RBC 5-10H, Urine WBC NONE, Urine Squamous Epithelial Cells 5-10, Urine Crystals NONE, Urine Bacteria TRACE, Urine Casts NONE, Urine Mucus NEGATIVE, Urine Culture Indicated NO 09/22/21 05:45: White Blood Count 5.9, Red Blood Count 3.07L, Hemoglobin 10.1L, Hematocrit 31L, Mean Corpuscular Volume 101H, Mean Corpuscular Hemoglobin 33, Mean Corpuscular Hemoglobin Concent 33, Red Cell Distribution Width 16.2H, Platelet Count 177, Mean Platelet Volume 10.4, Immature Granulocyte % (Auto) 0, Neutrophils (%) (Auto) 72, Lymphocytes (%) (Auto) 15, Monocytes (%) (Auto) 10, Eosinophils (%) (Auto) 3, Basophils (%) (Auto) 1, Neutrophils # (Auto) 4.2, Lymphocytes # (Auto) 0.9L, Monocytes # (Auto) 0.6, Eosinophils # (Auto) 0.2, Basophils # (Auto) 0.1, Immature Granulocyte # (Auto) 0.0, Sodium Level 123*L, Potassium Level 3.5L, Chloride Level 89L, Carbon Dioxide Level 22, Anion Gap 12, Blood Urea Nitrogen 18, Creatinine 1.24, Estimat Glomerular Filtration Rate 42, BUN/Creatinine Ratio 15, Glucose Level 127H, Calcium Level 9.5 A/P-Cardiology Assessment/Admission Diagnosis Gen malaise, weakness, and shortness of breath, likely multifactorial (see below) Acute on chronic diastolic CHF - Last echo of 04/08/21 showed ejection fraction 50-55% with biatrial enlargement, moderate mitral & tricuspid regurgitation, and PASP 40-45 mmHg Hyponatremia - diuretic therapy vs uncompensated CHF Advanced age, multiple medications, and limited ambulation are probably contributing to gen weakness and malaise Right hip pain - undetermined etiology Acute on chronic renal insufficiency Chronic persistent atrial fibrillation - rate is fairly well controlled - stroke prophylaxis with apixaban - 24 HR Holter of Jun 2019 showed a-fib with av ventricular response of 78 bpm; one 10 beat run of WCT @ 136 bpm; no signif bradycardia CAD - Last card cath on 01/03/19: diffuse, moderate. Left anterior descending artery has patent stents that are known to be Taxus 2.75 x 20, 2.5 x 24, 2.5 x 12 and Xience Laveren 2.5 x 8 (proximal to distal). Left circumflex artery has a patent stent in its first obtuse marginal that is known to be Promus 2.5 x 16. Right coronary artery has a patent stent with 50% in-stent restenosis. This is known to be Xience Laverne 3.5 x 16. All coronary arteries have diffuse stenoses with a focal stenoses of up to 50% at several spots. Well preserved global left ventricular systolic function with ejection fraction approximately 50%. 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 Observe response and make treatment changes accordingly - Echocardiogram today - [facility] lab - continue OAC for stroke prophylaxis We would like to thank medical services for this consult Further recs will be based on her hospital course SAHIL HAWLEY MD FACP FAC CCDS Sep 22, 2021 14:38
[2021-09-22] MEDS: FUROSEMIDE 40 MG/4 ML INJ (LASIX) IVP SCH (17:17)
[2021-09-22] MEDS: APIXABAN 2.5 MG (ELIQUIS) TABLET PO SCH (20:03)
[2021-09-22] MEDS ORDERED: meTOprolol TARTRATE 50 MG (LOPRESSOR) TAB PO SCH (21:00)
[2021-09-22] MEDS: meTOprolol TARTRATE 50 MG (LOPRESSOR) TAB PO SCH (21:48)
[2021-09-23 03:33] VITALS: BP 120/72
[2021-09-23 05:41] LABS: POTASSIUM 3.4 MMOL/L (3.6-5.0)
[2021-09-23 05:42] LABS: CALCIUM 9.2 MG/DL (8.5-10.1)
[2021-09-23 05:46] LABS: CREATININE SERUM 1.03 MG/DL (0.60-1.30)
[2021-09-23 05:48] LABS: MAGNESIUM 1.9 MG/DL (1.6-2.4)
[2021-09-23] MEDS: NS IV 1000 ML 1,000 ML IV SCH (06:38)
[2021-09-23] MEDS: FUROSEMIDE 40 MG/4 ML INJ (LASIX) IVP SCH (06:38)
[2021-09-23 08:04] VITALS: BP 126/68
[2021-09-23] MEDS: APIXABAN 2.5 MG (ELIQUIS) TABLET PO SCH (08:36)
[2021-09-23] MEDS: meTOprolol TARTRATE 50 MG (LOPRESSOR) TAB PO SCH (08:37)
[2021-09-23] MEDS: oxyCODONE/APAP 5/325MG (PERCOCET 5) TABLET PO PRN (08:41)
[2021-09-23] MEDS ORDERED: ASPIRIN 81 MG CHEW (CHILDREN'S ASA) PO SCH (09:00)
--- NOTE | 2021-09-23 09:52 | D/C HH Face to Face Order ---
D/C Face to Face Orders Instructions for Patient Via [facility], Patient Instructions/FollowUp: Please continue take your medications as written. Please follow-up with Dr. Alvarez and Dr. Liu as scheduled. Physician to follow Patient: Dr Alvarez Discharge Diet for Home: Cardiac Diet Patient Data-Allergies,Ht & Wt Patient Allergies: Coded Allergies: NKANo Known Allergies (Verified Allergy, Unknown, 02/07/07) Height (Feet): 5 Height (Inches): 0.00 Weight (Pounds): 160 Weight (Ounces): 0.0 Home Health Need/Face to Face Date of Face to Face: Sep 23, 2021 Clinical Findings: Generalized weakness and fatigue I have seen Pt [id number]: Yes Discharged To: Home Diagnosis/Conditions: CHF Patient is Homebound due to: [place] fall risk due to instabilty Homebound Status Due to the above stated illness, injury or surgical procedure (medical condition or diagnosis) and associated clinical findings, the patient is homebound because of his/her inability to leave home except with aid of a supportive device and/or person AND leaving the home requires a considerable and taxing effort or is medically contraindicated. Pt req the following assistanc: Aid of another person, [facility] Home Health Nursing Orders Home Health Services Order: Nursing Services, [employer] Printer-Evaluate & Treat, Physical Therapy-Evaluate & Treat Home Health Infusion Therapy Line Start Date: Sep 21, 2021 Therapy Orders Therapy Orders: OT (must have SN or PT order), Physical Therapy Therapy Specific Orders: Eval assistive deivces, Teach enviro modifications/safety, Gait training, Increase strength/endurance Certify Stmt I certify that this patient is under my care and that I, a nurse practitioner or a physician; a casting assistant working with me, had a face to face encounter that - meets the physician face to face encounter requirements with this patient as dated. IGNACIA BOYCE MD Sep 23, 2021 09:52
--- NOTE | 2021-09-23 09:52 | Discharge Summary ---
Diagnosis/Chief Complaint Date of Admission Sep 21, 2021 at 16:49 Date of Discharge Discharge Date: Sep 23, 2021 Admission Diagnosis Dehydration Primary Care Ligia Alvarez MD Discharge Diagnosis (1) Dehydration Status: Acute (2) Afib Status: Chronic (3) HTN (hypertension) Status: Chronic (4) CAD (coronary artery disease) (5) History of DVT (deep vein thrombosis) Status: Chronic (6) Advanced age Status: Chronic (7) CKD (chronic kidney disease) Status: Chronic Discharge Summary Discharge Physical Exam Allergies: Coded Allergies: NKANo Known Allergies (Verified Allergy, Unknown, 02/07/07) Vitals & I&Os Vital Signs Date Time Temp Pulse Resp B/P (MAP) Pulse Ox O2 Delivery O2 Flow Rate FiO2 09/23/21 13:00 77 09/23/21 12:04 35.7 16 97/64 (75) 100 Nasal Cannula 2.00 General Appearance: No Apparent Distress, Chronically ill Cardiovascular: Regular Rate, Rhythm, No Murmur Gastrointestinal: Normal Bowel Sounds, Soft Neurologic/Psychiatric: Alert, Oriented x3 Hospital Course Patient was admitted to the hospital secondary to dehydration. She was given IV fluids though was slightly short of breath and chest x-ray did show pulmonary vascular congestion. She is likely intravascularly depleted from her Lasix and thus was also given gentle hydration along with IV Lasix. She responded well her creatinine returned to normal. She was able to ambulate with physical therapy and was back to baseline. She was discharged home in stable and improved condition to follow-up with Dr. Alvarez and Dr. Liu. Labs (last 24 hrs) Laboratory Tests 09/23/21 05:10: Sodium Level 130L, Potassium Level 3.4L, Chloride Level 96L, Carbon Dioxide Level 22, Anion Gap 12, Blood Urea Nitrogen 19H, Creatinine 1.03, Estimat Glomerular Filtration Rate 52, BUN/Creatinine Ratio 18, Glucose Level 142H, Calcium Level 9.2, Magnesium Level 1.9 Patient resulted labs reviewed. Pending Labs Discussion & Recommendations Discharge Planning: >30 minutes discharge planning Discharge Home Medications: Active Scripts Active Potassium Chloride 20 Meq Tablet.er 20 Meq PO DAILY Lopressor (Metoprolol Tartrate) 50 Mg Tablet 25 Mg PO BID Furosemide 40 Mg Tablet 40 Mg PO DAILY Reported Multi-Vitamin Daily (Multivitamin) 1 Each Tablet 1 Each PO DAILY Furosemide 40 Mg Tablet 60 Mg PO DAILY TAKES 1 AND /2 (40MG) TAB Metoprolol Tartrate 50 Mg Tablet 50 Mg PO BID Aspirin 81 Mg Tab.chew 81 Mg PO DAILY Tylenol Extra Strength (Acetaminophen) 500 Mg Tablet 500-1,000 Mg PO Q6H PRN Eliquis (Apixaban) 2.5 Mg Tablet 2.5 Mg PO BID Atorvastatin Calcium 40 Mg Tablet 40 Mg PO DAILY Instructions to patient/family Please see electronic discharge instructions given to patient. IGNACIA BOYCE MD Sep 23, 2021 09:52
--- NOTE | 2021-09-23 10:40 | Progress Note - Cardiology ---
Cardiology SOAP Progress Note Subjective: Continues to c/o right hip pain Feels SOB is a little bit better than yesterday No c/o CP or palpitations Family at the bedside to help communicate d/t language barrier Objective: I&O/Vital Signs 09/23/21 09/23/21 09/23/21 09/23/21 03:33 07:00 08:00 08:04 Temp 36.5 35.9 Pulse 101 93 74 Resp 22 18 B/P (MAP) 120/72 (88) 126/68 (87) Pulse Ox 96 100 95 O2 Delivery Nasal Cannula Nasal Cannula Nasal Cannula O2 Flow Rate 1.50 2.00 1.50 09/23/21 09/23/21 09:57 12:04 Temp 35.7 Pulse 83 Resp 16 B/P (MAP) 97/64 (75) Pulse Ox 100 O2 Delivery Nasal Cannula Nasal Cannula O2 Flow Rate 1.50 2.00 09/23/21 00:00 Intake Total 2300 ml Output Total 900 ml Balance 1400 ml Weight (Pounds): 160 Weight (Ounces): 0.0 Weight (Calculated Kilograms): 72.676698 Constitutional: AAO x 3, well-developed, well-nourished Respiratory: No accessory muscle use, No respiratory distress; chest expansion is symmetric, chest is bilaterally symmetric, other (diminished bases bilat) Cardiovascular: irregularly irregular; No JVD; S1 and S2 Gastrointestional: No tender; soft, audible bowel sounds Extremities: no lower extremity edema bilateral Neurologic/Psychiatric: other (moves all extremities) Skin: No rash on exposed areas, No ulcerations on exposed areas Results/Procedures: Labs Laboratory Tests 09/23/21 05:10: Sodium Level 130L, Potassium Level 3.4L, Chloride Level 96L, Carbon Dioxide Level 22, Anion Gap 12, Blood Urea Nitrogen 19H, Creatinine 1.03, Estimat Glomerular Filtration Rate 52, BUN/Creatinine Ratio 18, Glucose Level 142H, Calcium Level 9.2, Magnesium Level 1.9 A/P: Assessment: Gen malaise, weakness, and shortness of breath, likely multifactorial (see below) Acute on chronic diastolic CHF - Last echo of 04/08/21 showed ejection fraction 50-55% with biatrial enlargement, moderate mitral & tricuspid regurgitation, and PASP 40-45 mmHg - improving per pt report Hyponatremia - diuretic therapy vs uncompensated CHF - improved with diuretics and IVF Advanced age, multiple medications, and limited ambulation are probably contributing to gen weakness and malaise Right hip pain - undetermined etiology Acute on chronic renal insufficiency - improved Chronic persistent atrial fibrillation - rate is fairly well controlled - stroke prophylaxis with apixaban - 24 HR Holter of Jun 2019 showed a-fib with av ventricular response of 78 bpm; one 10 beat run of WCT @ 136 bpm; no signif bradycardia CAD - Last card cath on 01/03/19: diffuse, moderate. Left anterior descending artery has patent stents that are known to be Taxus 2.75 x 20, 2.5 x 24, 2.5 x 12 and Xience Laverne 2.5 x 8 (proximal to distal). Left circumflex artery has a patent stent in its first obtuse marginal that is known to be Promus 2.5 x 16. Right coronary artery has a patent stent with 50% in-stent restenosis. This is known to be Xience Laverne 3.5 x 16. All coronary arteries have diffuse stenoses with a focal stenoses of up to 50% at several spots. Well preserved global left ventricular systolic function with ejection fraction approximately 50%. 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
[2021-09-23] MEDS ORDERED: KCL 20 MEQ TAB (K-DUR) PO NR ×2 (11:00→14:00)
[2021-09-23] MEDS ORDERED: METO-451 PO (11:28)
[2021-09-23] MEDS ORDERED: FURO40TA4 PO (11:28)
[2021-09-23] MEDS ORDERED: POTA-51 PO (11:32)
[2021-09-23 12:04] VITALS: BP 97/64
--- NOTE | 2021-09-23 12:57 | Progress Note - Cardiology ---
Cardiology SOAP Progress Note Subjective: Feels better Less short of breath No cp or palp or syncope or swelling Gen weakness and malaise present but better No n/v/d Objective: I&O/Vital Signs 09/23/21 09/23/21 09/23/21 09/23/21 01:00 03:33 07:00 08:00 Temp 36.5 Pulse 103 101 93 Resp 22 B/P (MAP) 120/72 (88) Pulse Ox 96 100 O2 Delivery Nasal Cannula Nasal Cannula O2 Flow Rate 1.50 2.00 09/23/21 09/23/21 09/23/21 08:04 09:57 12:04 Temp 35.9 35.7 Pulse 74 83 Resp 18 16 B/P (MAP) 126/68 (87) 97/64 (75) Pulse Ox 95 100 O2 Delivery Nasal Cannula Nasal Cannula Nasal Cannula O2 Flow Rate 1.50 1.50 2.00 09/22/21 23:59 Intake Total 2300 ml Output Total 900 ml Balance 1400 ml Weight (Pounds): 160 Weight (Ounces): 0.0 Weight (Calculated Kilograms): 72.887137 Constitutional: AAO x 3, well-developed, well-nourished Respiratory: No accessory muscle use, No respiratory distress; chest expansion is symmetric, chest is bilaterally symmetric, other (diminished bases bilat) Cardiovascular: irregularly irregular; No JVD; S1 and S2 Gastrointestional: No tender; soft, audible bowel sounds Extremities: no lower extremity edema bilateral Neurologic/Psychiatric: other (moves all extremities) Skin: No rash on exposed areas, No ulcerations on exposed areas Results/Procedures: Labs Laboratory Tests 09/23/21 05:10: Sodium Level 130L, Potassium Level 3.4L, Chloride Level 96L, Carbon Dioxide Level 22, Anion Gap 12, Blood Urea Nitrogen 19H, Creatinine 1.03, Estimat Glomerular Filtration Rate 52, BUN/Creatinine Ratio 18, Glucose Level 142H, Calcium Level 9.2, Magnesium Level 1.9 Laboratory Tests 09/21/21 14:45 09/22/21 05:45 09/23/21 05:10 A/P: Assessment: Gen malaise, weakness, and shortness of breath, likely multifactorial (see below) Acute on chronic diastolic CHF - Last echo of 04/08/21 showed ejection fraction 50-55% with biatrial enlargement, moderate mitral & tricuspid regurgitation, and PASP 40-45 mmHg - improving per pt report Hyponatremia - diuretic therapy vs uncompensated CHF - improved with diuretics and IVF Advanced age, multiple medications, and limited ambulation are probably contributing to gen weakness and malaise Right hip pain - undetermined etiology Acute on chronic renal insufficiency - improved Chronic persistent atrial fibrillation - rate is fairly well controlled - stroke prophylaxis with apixaban - 24 HR Holter of Jun 2019 showed a-fib with av ventricular response of 78 bpm; one 10 beat run of WCT @ 136 bpm; no signif bradycardia CAD - Last card cath on 01/03/19: diffuse, moderate. Left anterior descending artery has patent stents that are known to be Taxus 2.75 x 20, 2.5 x 24, 2.5 x 12 and Xience Laverne 2.5 x 8 (proximal to distal). Left circumflex artery has a patent stent in its first obtuse marginal that is known to be Promus 2.5 x 16. Right coronary artery has a patent stent with 50% in-stent restenosis. This is known to be Xience Laverne 3.5 x 16. All coronary arteries have diffuse stenoses with a focal stenoses of up to 50% at several spots. Well preserved global left ventricular systolic function with ejection fraction approximately 50%. 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
[2021-09-24] MEDS ORDERED: FUROSEMIDE 40 MG (LASIX) TAB PO SCH (09:00)
== END 2021-09-23 14:40 | disposition home health service (06) ==
LOC: EDUNIT# 14:18 → ER 14:23 → 4TH 16:49
PROVIDERS: ADMIT Internal Medicine; ATTEND Internal Medicine
DX: E86.0 Dehydration (principal); I25.10 Atherosclerotic heart disease of native coronary artery without angina pectoris; R54 Age-related physical debility; N18.9 Chronic kidney disease, unspecified; I13.0 Hypertensive heart and chronic kidney disease with heart failure and stage 1 through stage 4 chronic kidney disease, or unspecified chronic kidney disease; I50.33 Acute on chronic diastolic (congestive) heart failure; I48.19 Other persistent atrial fibrillation; N17.9 Acute kidney failure, unspecified; E87.1 Hypo-osmolality and hyponatremia; E78.5 Hyperlipidemia, unspecified; R06.00 Dyspnea, unspecified; G89.29 Other chronic pain; M54.2 Cervicalgia; M25.519 Pain in unspecified shoulder; Z79.01 Long term (current) use of anticoagulants; Z86.718 Personal history of other venous thrombosis and embolism; Z86.16 Personal history of COVID-19; Z99.81 Dependence on supplemental oxygen; Z79.899 Other long term (current) drug therapy; Z91.14 Patient's other noncompliance with medication regimen; Z79.82 Long term (current) use of aspirin
CPT/HCPCS: 36415; 71045; 73502; 80048; 80053; 81000; 83735; 83880; 84484; 85025; 85610; 85730; 87636; 93005; G0378

== ENCOUNTER 2021-09-29 10:51 | Observation (INO) | payer MEDICAID ==
[~2021-09-29] VITALS: Ht 157.5 cm; Wt 81.6 kg
[~2021-09-29 10:51] MED LIST changes: +METO-451 PO; +MULT-974 PO; +POTA-51 PO
--- NOTE | 2021-09-29 11:19 | ED Dyspnea ---
General Stated Complaint: SOA Source of Information: Patient Exam Limitations: No Limitations History of Present Illness Date Seen by Provider: Sep 29, 2021 Time Seen by Provider: 10:53 Initial Comments Patient presents to the ER by private conveyance with her daughter and chief complaint that she has been feeling short of breath for some time. She endorses orthopnea and increased swelling in bilateral lower extremities. She denies fevers or she denies chills. She has an occasional cough. She has COPD dependent on 2 L by nasal cannula. She is known to Dr. Munoz for primary care. She does not take breathing treatments. She is not on antibiotics. She was recently in the hospital for similar complaint. She is also been having diarrhea for the past day. She does not think she is had vaccination for Covid or flu. Patient is complaining of some body aches. Patient had an echocardiogram March 2021 demonstrating EF of 55% with biatrial enlargement and moderate mitral and tricuspid regurgitation. She has a significant history of uncompensated CHF. She is on Eliquis for her stroke prophylaxis. She does have paroxysmal atrial fibrillation. She had a cardiac catheterization 2018 with stents placed. History of COPD. Allergies and Home Medications Allergies Coded Allergies: Van Known Allergies (Verified Allergy, Unknown, 02/07/07) Patient Home Medication List Home Medication List Reviewed: Yes Acetaminophen (Tylenol Extra Strength) 500 Mg Tablet, 500-1,000 MG PO Q6H PRN for PAIN-MILD, (Reported) Entered as Reported by: PACO MARINO on 10/10/18 1449 Apixaban (Eliquis) 2.5 Mg Tablet, 2.5 MG PO BID, (Reported) Entered as Reported by: PACO MARINO on 10/10/18 1156 Aspirin (Aspirin) 81 Mg Tab.chew, 81 MG PO DAILY, (Reported) Entered as Reported by: YUE BUTTS on 01/04/21 0206 Atorvastatin Calcium (Atorvastatin Calcium) 40 Mg Tablet, 40 MG PO DAILY, (Reported) Entered as Reported by: PACO MARINO on 10/10/18 1156 Furosemide (Furosemide) 40 Mg Tablet, 40 MG PO DAILY Prescribed by: JESSICA ONEIL on 09/23/21 1128 Metoprolol Tartrate (Lopressor) 50 Mg Tablet, 25 MG PO BID Prescribed by: JESSICA ONEIL on 09/23/21 1128 Multivitamin (Multi-Vitamin Daily) 1 Each Tablet, 1 EACH PO DAILY, (Reported) Entered as Reported by: THERESA GAMBLE on 09/22/21 1142 Potassium Chloride (Potassium Chloride) 20 Meq Tablet.er, 20 MEQ PO DAILY Prescribed by: JESSICA ONEIL on 09/23/21 1132 Discontinued Medications Furosemide (Furosemide) 40 Mg Tablet, 60 MG PO DAILY, (Reported) Entered as Reported by: THERESA GAMBLE on 09/22/21 1141 Metoprolol Tartrate (Metoprolol Tartrate) 50 Mg Tablet, 50 MG PO BID, (Reported) Entered as Reported by: VIRA SEGAL on 04/08/21 1509 Review of Systems Review of Systems Constitutional: No chills, No diaphoresis EENTM: No ear discharge, No ear pain Respiratory: cough, short of breath; No wheezing Cardiovascular: No chest pain, No edema Gastrointestinal: No abdominal pain, No constipation; diarrhea; No nausea, No vomiting Genitourinary: No discharge, No dysuria Musculoskeletal: No back pain, No joint pain All Other Systems Reviewed Negative Unless Noted: Yes Past Xllthyc-Uvatwm-Rhhzol Hx Patient Social History Tobacco Use?: No Use of E-Cig and/or Vaping dev: No Substance use?: No Seasonal Allergies Seasonal Allergies: No Past Medical History Surgeries: Yes Bladder Surgery, Cardiac, Coronary Stent, Eye Surgery, Gallbladder, Orthopedic Respiratory: No (CHRONIC DYSPNEA ON EXERTION) Cardiac: Yes Atrial Fibrillation, Coronary Artery Disease, Deep Vein Thrombosis, High Cholesterol, Hypertension Neurological: Yes (NEUROPATHY RIGHT FOOT POST ANKLE SURGERY) Neuropathy Reproductive Disorders: No PRODUCTION DIRECTOR History: Menopausal Sexually Transmitted Disease: No Genitourinary: Yes (INCONTINENCE) Renal Failure Gastrointestinal: Yes (S/P JUSTINE) Gall Bladder Disease Musculoskeletal: Yes (RIGHT ANKLE; BILATERAL KNEE REPLACEMENTS) Degenerate Disk Disease, Arthritis, Chronic Back Pain Endocrine: Yes (INSULIN RESISTANCE; OBESITY) HEENT: Yes (S/P SURGERY) Cataract Cancer: No Psychosocial: No Integumentary: Yes (ABSCESS I&D; CELLULITIS) Blood Disorders: Yes (ANEMIA) Adverse Reaction/Blood Tranf: No Family Medical History Patient reports no known family medical history. No Pertinent Family Hx Daughter alive and healthy Physical Exam Vital Signs Vital Signs - First Documented 09/29/21 12:22 FiO2 30 Capillary Refill : Height, Weight, BMI Height: 5'0.00" Weight: 160lbs. 0.0oz. [id number]; 29.27 BMI Method:Stated General Appearance: Chronically ill, Moderate Distress HEENT: PERRL/EOMI, Pharynx Normal; No Moist Mucous Membranes Neck: Full Range of Motion, Normal Inspection, Non Tender Respiratory: Lungs Clear, Accessory Muscle Use (Mild), Crackles (Few right side), Respiratory Distress (Moderate with pursed lip breathing) Cardiovascular: Normal Peripheral Pulses, Irregularly Irregular (Atrial f ibrillation 80-90) Peripheral Pulses: 2+ Radial Pulses (R), 2+ Radial Pulses (L) Gastrointestinal: Normal Bowel Sounds, No Organomegaly, Non Tender, Soft Neurologic/Psychiatric: Alert, Oriented x3, No Motor/Sensory Deficits, Normal Mood/Affect, schedule manager II-XII Norm as Tested Skin: Normal Color, Warm/Dry Progress/Results/Core Measures Results/Orders Lab Results Laboratory Tests Test 09/29/21 11:11 09/29/21 11:22 Range/Units Influenza Type A (RT-PCR) Not Detected Not Detecte Influenza Type B (RT-PCR) Not Detected Not Detecte SARS-CoV-2 RNA (RT-PCR) Not Detected Not Detecte White Blood Count 8.1 4.3-11.0 10^3/uL Red Blood Count 2.85 L 3.80-5.11 10^6/uL Hemoglobin 9.6 L 11.5-16.0 g/dL Hematocrit 30 L 35-52 % Mean Corpuscular Volume 105 H 80-99 fL Mean Corpuscular Hemoglobin 34 25-34 pg Mean Corpuscular Hemoglobin Concent 32 32-36 g/dL Red Cell Distribution Width 17.0 H 10.0-14.5 % Platelet Count 130 130-400 10^3/uL Mean Platelet Volume 10.3 9.0-12.2 fL Immature Granulocyte % (Auto) 0 % Neutrophils (%) (Auto) 81 H 42-75 % Lymphocytes (%) (Auto) 10 L 12-44 % Monocytes (%) (Auto) 7 0-12 % Eosinophils (%) (Auto) 1 0-10 % Basophils (%) (Auto) 1 0-10 % Neutrophils # (Auto) 6.5 1.8-7.8 10^3/uL Lymphocytes # (Auto) 0.8 L 1.0-4.0 10^3/uL Monocytes # (Auto) 0.6 0.0-1.0 10^3/uL Eosinophils # (Auto) 0.1 0.0-0.3 10^3/uL Basophils # (Auto) 0.1 0.0-0.1 10^3/uL Immature Granulocyte # (Auto) 0.0 0.0-0.1 10^3/uL Percent Immature Platelet Fraction 4.3 0.0-7.6 % Prothrombin Time 20.6 H 12.2-14.7 SEC INR Comment 1.7 H 0.8-1.4 D-Dimer 1.67 H 0.00-0.49 UG/ML Blood Gas Puncture Site LT RADIAL Blood Gas Patient Temperature 37 Arterial Blood pH 7.42 7.37-7.43 Arterial Blood Partial Pressure CO2 30 L 35-45 MMHG Arterial Blood Partial Pressure O2 94 H 79-93 MMHG Arterial Blood HCO3 19 L 23-27 MMOL/L Arterial Blood Total CO2 19.8 L 21.0-31.0 MMOL/L Arterial Blood Oxygen Saturation 98 94-100 % Arterial Blood Base Excess -4.9 L -2.5-2.5 MMOL/L Mike Test YES-POS Blood Gas Ventilator Setting NO Blood Gas Inspired Oxygen 2L NC Sodium Level 122 *L 135-145 MMOL/L Potassium Level 5.0 3.6-5.0 MMOL/L Chloride Level 90 L 98-107 MMOL/L Carbon Dioxide Level 18 L 21-32 MMOL/L Anion Gap 14 5-14 MMOL/L Blood Urea Nitrogen 24 H 7-18 MG/DL Creatinine 1.59 H 0.60-1.30 MG/DL Estimat Glomerular Filtration Rate 31 BUN/Creatinine Ratio 15 Glucose Level 176 H 70-105 MG/DL Calcium Level 8.9 8.5-10.1 MG/DL Corrected Calcium 9.4 8.5-10.1 MG/DL Total Bilirubin 2.2 H 0.1-1.0 MG/DL Aspartate Amino Transf (AST/SGOT) 38 H 5-34 U/L Alanine Aminotransferase (ALT/SGPT) 21 0-55 U/L Alkaline Phosphatase 75 40-136 U/L Total Creatine Kinase 70 29-168 U/L Troponin I < 0.028 <0.028 NG/ML C-Reactive Protein High Sensitivity 0.59 H 0.00-0.50 MG/DL B-Type Natriuretic Peptide 1438.9 H <100.0 PG/ML Total Protein 7.0 6.4-8.2 GM/DL Albumin 3.4 3.2-4.5 GM/DL Procalcitonin 0.05 <0.10 NG/ML My Orders Orders - LANIE SANTOS Arterial Blood Gas (09/29/21 11:08) Cbc With Automated Diff (09/29/21 11:08) Comprehensive Metabolic Panel (09/29/21 11:08) Hs C Reactive Protein (09/29/21 11:08) Procalcitonin (Pct) (09/29/21 11:08) Fibrin Degradation Products (09/29/21 11:08) Chest 1 View, Ap/Pa Only (09/29/21 11:08) Covid 19 Inhouse Test (09/29/21 11:08) Influenza A And B By Pcr (09/29/21 11:08) Protime With Inr (09/29/21 11:08) Blood Culture (09/29/21 11:08) Sputum Culture (09/29/21 11:08) Bnp [place] (09/29/21 11:08) Vapotherm - Admin Rt Rfs (09/29/21 11:08) Creatine Kinase (09/29/21 11:51) Ekg Tracing (09/29/21 12:20) Continuous Ekg Monitoring (09/29/21 12:20) Troponin I Monique (09/29/21 12:20) Morphine Injection (Morphine Injection (09/29/21 12:35) Ct Abdomen/Pelvis Wo (09/29/21 12:35) Potassium Cl 10meq/50ml Ivpb (Kcl 10 Meq (09/29/21 12:45) Ed Iv/Invasive Line Start (09/29/21 12:37) Ns Iv 500 Ml (Sodium Chloride 0.9%) (09/29/21 12:45) Ed Iv/Invasive Line Start (09/29/21 12:52) Ns Iv 1000 Ml (Sodium Chloride 0.9%) (09/29/21 13:00) Medications Given in ED Current Medications Medications Dose Ordered Sig/Phan Route Start Time Stop Time Status Last Admin Dose Admin Potassium Chloride 50 ml @ 50 mls/hr ONCE ONCE IV 09/29/21 12:45 09/29/21 13:44 DC 09/29/21 13:16 50 MLS/HR Vital Signs/I&O 09/29/21 09/29/21 09/29/21 11:26 11:26 12:22 Temp 35.8 Pulse 96 Resp 30 B/P (MAP) 111/74 (86) Pulse Ox 95 99 O2 Delivery Nasal Cannula Nasal Cannula Vapotherm O2 Flow Rate 2.00 2.00 35.00 FiO2 30 Progress Progress Note #1: Time: 11:17 Progress Note ABG labs chest x-ray COVID and influenza swabs. We will get a BNP pro calcitonin and CRP before we initiate fluids. Progress Note #2: Time: 12:26 Progress Note She is oxygenating well on the Vapotherm but it does not seem to be helping her increased work of breathing. Were going to trial a dose of Lasix. Her blood pressure has been soft around 100/80 so we will hold off on nitroglycerin. We will switch her to BiPAP/CPAP and see if that helps with her breathing better. Patient states she is not in any pain just feels very discomfortable especially in her abdomen and in her right leg. She has some bruising on the back of her right leg but denies any falls or trauma. She is on Eliquis and she is rubbing her leg so perhaps this is bruising from the trauma just her pushing on her leg so much. Could be sciatica but she denies that it is pain so much. Certainly some morphine may help if she is having heart failure as well as with her air hunger. Morphine will not harm her diarrhea. We will get a CT of her abdomen pelvis to rule out diverticulitis or other significant colitis. While she endorses orthopnea and has edema and an elevated BNP there is no vascular congestion on chest x-ray her mouth is dry and she has diarrhea with significant hyponatremia and borderline hypokalemia. We will discussed the case with our inpatient partners about some normal saline. Progress Note #3: Time: 14:19 Progress Note Patient is resting comfortably easily aroused from sleep and states she feels better after the first liter of fluids and potassium. We will continue the co urse of rehydration therapy. Initial ECG Impression Date: Sep 29, 2021 Initial ECG Impression Time: 12:35 Initial ECG Rate: 93 Initial ECG Rhythm: Normal Sinus Initial ECG Intervals: QT (462) Initial ECG Impression: Atrial Fibrillation Initial ECG Comparisson: Unchanged Comment Atrial fibrillation without rapid ventricular response or clinically relevant ST changes. Diagnostic Imaging Diagonstic Imaging: Xray Plain Films/CT/US/NM/MRI: chest Comments [facility] [employer] [place] NAME: INDY TORRES [facility] REC#: [id number] PT STATUS: REG ER : 1935 PHYSICIAN: LANIE SANTOS MD ADMIT DATE: 09/29/21/ER Draft Date of Exam:09/29/21 CHEST 1 VIEW, AP/PA ONLY INDICATION: Shortness of breath, respiratory distress Frontal chest obtained at 11:59 a.m. and compared to 09/21/2021. There is prominent cardiomegaly. There is no pneumothorax or pleural fluid. There are chronic appearing increased basilar markings IMPRESSION: Marked cardiomegaly with no acute process in the chest. Dictated on workstation # [id number] Dict: 09/29/21 1212 Trans: 09/29/21 1213 [facility] [id number] Interpreted by: AUDREY MURRAY MD Electronically signed by: Reviewed: Reviewed by Me Diagonstic Imaging: CT Plain Films/CT/US/NM/MRI: abdomen, pelvis Comments [facility] [employer] [place] NAME: INDY TORRES [facility] REC#: [id number] PT STATUS: REG ER : 1935 PHYSICIAN: LANIE SANTOS MD ADMIT DATE: 09/29/21/ER Draft Date of Exam:09/29/21 CT ABDOMEN/PELVIS WO PROCEDURE: CT abdomen and pelvis without contrast. TECHNIQUE: Multiple contiguous axial images were obtained through the abdomen and pelvis without the use of intravenous contrast. Auto Exposure Controls were utilized during the CT exam to meet ALARA standards for radiation dose reduction. INDICATION: Pain and diarrhea COMPARISON: 02/11/2018 FINDINGS: There is continued cardiomegaly. There has been near complete resolution right pleural fluid. Mildly prominent interstitial markings in the lung bases could reflect edema, pneumonitis or scarring. Below the diaphragm, unenhanced limited images of the liver, spleen and pancreas are unremarkable. The gallbladder has been surgically removed. There is no evidence of adrenal gland or focal renal lesion apart from several cysts which are redemonstrated in the right kidney. There is no hydronephrosis. No free fluid is seen. There is an intrauterine device. No organized fluid collection is seen and there is no focal inflammation. IMPRESSION: No definite acute abnormality or significant change when compared to previous study. There is continued cardiomegaly with prominent interstitial markings in lung bases which could be due to edema, pneumonitis or scarring. Dictated on workstation # [id number] Dict: 09/29/21 1354 Trans: 09/29/21 1405 [id number] Interpreted by: ESTHER MARIE MD Electronically signed by: Reviewed: Reviewed by Me Departure Communication (Admissions) Time/Spoke to Admitting Phy: 12:[address] Weiner and he feels that her BNP is down from her last visit a couple weeks ago when she was dehydrated and would like to give her some fluids. If she has diarrhea he wants to check a C. difficile. CT of the abdomen pelvis. Time/Spoke to Consulting Phy: 12:30 Discussed the case with Dr. Albert who agrees with picture of heart failure and wants her on 40 Lasix twice daily. Potassium replacement. Impression Primary Impression: Heart failure Qualified Codes: I50.9 - Heart failure, unspecified Additional Impressions: Diarrhea Qualified Codes: R19.7 - Diarrhea, unspecified Acute hyponatremia Disposition: 01 HOME, SELF-CARE Condition: Stable Admissions Decision to Admit Reason: Admit from ER (General) Decision to Admit/Date: Sep 29, 2021 Time/Decision to Admit Time: 12:25 Departure-Patient Inst. Referrals: RONNA MUNOZ MD (PCP/Family) Primary Care Physician LANIE SANTOS Sep 29, 2021 11:19
[2021-09-29 11:31] LABS: ABG BASE EXCESS -4.9 MMOL/L (-2.5-2.5); ABG OXYGEN SATURATION 98 % (94-100); ABG PCO2 30 MMHG (35-45); ABG PH 7.42 (7.37-7.43); ABG PO2 94 MMHG (79-93); ABG TCO2 19.8 MMOL/L (21.0-31.0)
[2021-09-29 11:32] LABS: BASOPHILS # (AUTO) 0.1 10^3/uL (0.0-0.1); BASOPHILS % (AUTO) 1 % (0-10); EOSINOPHILS # (AUTO) 0.1 10^3/uL (0.0-0.3); EOSINOPHILS % (AUTO) 1 % (0-10); MEAN CORPUSCULAR HGB CONC 32 g/dL (32-36); MEAN PLATELET VOLUME 10.3 fL (9.0-12.2)
[2021-09-29 11:33] LABS: ALLENS TEST YES-POS; INSPIRED O2 2L NC; PATIENT TEMP 37; VENTILATOR NO
[2021-09-29 11:34] LABS: HEMATOCRIT 30 % (35-52); HEMOGLOBIN 9.6 g/dL (11.5-16.0); LYMPHOCYTES # (AUTO) 0.8 10^3/uL (1.0-4.0); LYMPHOCYTES % (AUTO) 10 % (12-44); MEAN CORPUSCULAR HEMOGLOBIN 34 pg (25-34); MEAN CORPUSCULAR VOLUME 105 fL (80-99); MONOCYTES # (AUTO) 0.6 10^3/uL (0.0-1.0); MONOCYTES % (AUTO) 7 % (0-12); NEUTROPHILS # (AUTO) 6.5 10^3/uL (1.8-7.8); NEUTROPHILS % (AUTO) 81 % (42-75); PLATELET COUNT 130 10^3/uL (130-400); WHITE BLOOD COUNT 8.1 10^3/uL (4.3-11.0)
[2021-09-29 11:42] LABS: ALBUMIN 3.4 GM/DL (3.2-4.5)
[2021-09-29 11:43] LABS: CALCIUM 8.9 MG/DL (8.5-10.1)
[2021-09-29 11:46] LABS: BILIRUBIN,TOTAL 2.2 MG/DL (0.1-1.0)
[2021-09-29 11:48] LABS: CREATININE SERUM 1.59 MG/DL (0.60-1.30)
[2021-09-29 11:52] LABS: FIBRIN DEGRADATION PRODUCTS 1.67 UG/ML (0.00-0.49); INR 1.7 (0.8-1.4); PROTHROMBIN TIME PATIENT 20.6 SEC (12.2-14.7)
--- NOTE | 2021-09-29 12:13 | Diagnostic Imaging Report ---
INDICATION: Shortness of breath, respiratory distress Frontal chest obtained at 11:59 a.m. and compared to 09/21/2021. There is prominent cardiomegaly. There is no pneumothorax or pleural fluid. There are chronic appearing increased basilar markings IMPRESSION: Marked cardiomegaly with no acute process in the chest. Dictated by: Dictated on workstation # [id number]
[2021-09-29] MEDS ORDERED: morphine INJ 10 MG/ML 1ML (SYR OR VIAL) IVP STA (12:35)
[2021-09-29] MEDS ORDERED: POTASSIUM CL 10MEQ/50ML IVPB 50 ML IV ONE (12:45)
[2021-09-29] MEDS ORDERED: NS IV 500 ML 500 ML IV ONE (12:45)
[2021-09-29] MEDS ORDERED: NS IV 1000 ML 1,000 ML IV SCH (13:00)
--- NOTE | 2021-09-29 14:06 | Diagnostic Imaging Report ---
PROCEDURE: CT abdomen and pelvis without contrast. TECHNIQUE: Multiple contiguous axial images were obtained through the abdomen and pelvis without the use of intravenous contrast. Auto Exposure Controls were utilized during the CT exam to meet ALARA standards for radiation dose reduction. INDICATION: Pain and diarrhea COMPARISON: 02/11/2018 FINDINGS: There is continued cardiomegaly. There has been near complete resolution right pleural fluid. Mildly prominent interstitial markings in the lung bases could reflect edema, pneumonitis or scarring. Below the diaphragm, unenhanced limited images of the liver, spleen and pancreas are unremarkable. The gallbladder has been surgically removed. There is no evidence of adrenal gland or focal renal lesion apart from several cysts which are redemonstrated in the right kidney. There is no hydronephrosis. No free fluid is seen. There is an intrauterine device. No organized fluid collection is seen and there is no focal inflammation. IMPRESSION: No definite acute abnormality or significant change when compared to previous study. There is continued cardiomegaly with prominent interstitial markings in lung bases which could be due to edema, pneumonitis or scarring. Dictated by: Dictated on workstation # [id number]
[2021-09-29 15:15] VITALS: BP 112/85
[2021-09-29] MEDS ORDERED: NS IV 1000 ML 1,000 ML ONE (15:20)
[2021-09-29] MEDS: NS IV 1000 ML 1,000 ML IV SCH ×2 (15:30→22:25)
[2021-09-29] MEDS ORDERED: morphine INJ 4 MG/ML 1 ML (VIAL/SYRINGE) IV PRN (15:45)
[2021-09-29] MEDS ORDERED: CATHETER FLUSH 10 ML SYR IVP PRN (15:45)
[2021-09-29] MEDS ORDERED: ONDANSETRON 4 MG/2 ML (SDV) Z0FRAN IV PRN (15:45)
[2021-09-29] MEDS ORDERED: ACETAMINOPHEN 325 MG TABLET PO PRN (15:45)
[2021-09-29] MEDS ORDERED: FLU QUAD HIGH DOSE 240 MCG/0.7 ML 2021-22 (FLUZONE) IM ONE (16:30)
[2021-09-29 16:57] VITALS: BP 112/85
[2021-09-29] MEDS ORDERED: RT-ALBUTEROL/IPRATROPIUM 3 ML (DUONEB) VIAL INH PRN (17:15)
--- NOTE | 2021-09-29 17:30 | Consultation-Cardiology ---
HPI-Cardiology Cardiology Consultation Date of Consultation 09/29/21 Date of Admission Time Seen by Provider: 17:22 HPI 86 years old lady with history of congestive heart failure, left ventricular diastolic dysfunction, she was to start recently from the hospital. Returned today for generalized weakness and loss of energy in addition to peripheral edema. She reported that she was having diarrhea over the last week but improved at this time. No fever or chills. No cough or sputum. Patient uses oxygen at home. Has been complaining of hip pain and generalized fatigue. Home Medications & Allergies Allergies: Coded Allergies: NKANo Known Allergies (Verified Allergy, Unknown, 02/07/07) Home Medication List Reviewed: Yes ULS-Ulndfl-Lifbwh Hx Patient Social History Marital Status: Employed/Student: retired Smoking Status: Never a Smoker 2nd Hand Smoke Exposure: No Recent Hopitalizations: No Have you traveled recently?: No Alcohol Use?: No Immunizations Up To Date Date of Influenza Vaccine: May 18, 2018 Past Medical History Discussed below Family Medical History Significant Family History: No Pertinent Family Hx Family Medical Hx Noncontributory Family History: Patient reports no known family medical history. Review of Systems-General Review of Systems Constitutional: No chills, No diaphoresis; malaise, weakness EENTM: see HPI; No ear discharge, No ear pain Respiratory: see HPI, cough, dyspnea on exertion, short of breath; No wheezing Cardiovascular: see HPI; No chest pain; edema; No Hx of Intervention, No palpitations, No syncope, No vascular heart diseas, No other Gastrointestinal: see HPI; No abdominal pain, No constipation; diarrhea; No nausea, No vomiting Genitourinary: see HPI; No discharge, No dysuria Musculoskeletal: see HPI; No back pain; joint pain Skin: no symptoms reported, see HPI Psychiatric/Neurological: No Symptoms Reported, See HPI All Other Systems Reviewed Negative Unless Noted: Yes Reviewed Test Results Reviewed Test Results Lab Laboratory Tests Test 09/29/21 11:11 09/29/21 11:22 Range/Units Influenza Type A (RT-PCR) Not Detected Not Detecte Influenza Type B (RT-PCR) Not Detected Not Detecte SARS-CoV-2 RNA (RT-PCR) Not Detected Not Detecte White Blood Count 8.1 4.3-11.0 10^3/uL Red Blood Count 2.85 L 3.80-5.11 10^6/uL Hemoglobin 9.6 L 11.5-16.0 g/dL Hematocrit 30 L 35-52 % Mean Corpuscular Volume 105 H 80-99 fL Mean Corpuscular Hemoglobin 34 25-34 pg Mean Corpuscular Hemoglobin Concent 32 32-36 g/dL Red Cell Distribution Width 17.0 H 10.0-14.5 % Platelet Count 130 130-400 10^3/uL Mean Platelet Volume 10.3 9.0-12.2 fL Immature Granulocyte % (Auto) 0 % Neutrophils (%) (Auto) 81 H 42-75 % Lymphocytes (%) (Auto) 10 L 12-44 % Monocytes (%) (Auto) 7 0-12 % Eosinophils (%) (Auto) 1 0-10 % Basophils (%) (Auto) 1 0-10 % Neutrophils # (Auto) 6.5 1.8-7.8 10^3/uL Lymphocytes # (Auto) 0.8 L 1.0-4.0 10^3/uL Monocytes # (Auto) 0.6 0.0-1.0 10^3/uL Eosinophils # (Auto) 0.1 0.0-0.3 10^3/uL Basophils # (Auto) 0.1 0.0-0.1 10^3/uL Immature Granulocyte # (Auto) 0.0 0.0-0.1 10^3/uL Percent Immature Platelet Fraction 4.3 0.0-7.6 % Prothrombin Time 20.6 H 12.2-14.7 SEC INR Comment 1.7 H 0.8-1.4 D-Dimer 1.67 H 0.00-0.49 UG/ML Blood Gas Puncture Site LT RADIAL Blood Gas Patient Temperature 37 Arterial Blood pH 7.42 7.37-7.43 Arterial Blood Partial Pressure CO2 30 L 35-45 MMHG Arterial Blood Partial Pressure O2 94 H 79-93 MMHG Arterial Blood HCO3 19 L 23-27 MMOL/L Arterial Blood Total CO2 19.8 L 21.0-31.0 MMOL/L Arterial Blood Oxygen Saturation 98 94-100 % Arterial Blood Base Excess -4.9 L -2.5-2.5 MMOL/L Mike Test YES-POS Blood Gas Ventilator Setting NO Blood Gas Inspired Oxygen 2L NC Sodium Level 122 *L 135-145 MMOL/L Potassium Level 5.0 3.6-5.0 MMOL/L Chloride Level 90 L 98-107 MMOL/L Carbon Dioxide Level 18 L 21-32 MMOL/L Anion Gap 14 5-14 MMOL/L Blood Urea Nitrogen 24 H 7-18 MG/DL Creatinine 1.59 H 0.60-1.30 MG/DL Estimat Glomerular Filtration Rate 31 BUN/Creatinine Ratio 15 Glucose Level 176 H 70-105 MG/DL Calcium Level 8.9 8.5-10.1 MG/DL Corrected Calcium 9.4 8.5-10.1 MG/DL Total Bilirubin 2.2 H 0.1-1.0 MG/DL Aspartate Amino Transf (AST/SGOT) 38 H 5-34 U/L Alanine Aminotransferase (ALT/SGPT) 21 0-55 U/L Alkaline Phosphatase 75 40-136 U/L Total Creatine Kinase 70 29-168 U/L Troponin I < 0.028 <0.028 NG/ML C-Reactive Protein High Sensitivity 0.59 H 0.00-0.50 MG/DL B-Type Natriuretic Peptide 1438.9 H <100.0 PG/ML Total Protein 7.0 6.4-8.2 GM/DL Albumin 3.4 3.2-4.5 GM/DL Procalcitonin 0.05 <0.10 NG/ML Physical Exam Physical Exam Vital Signs Vital Signs - First Documented 09/29/21 12:22 FiO2 30 Capillary Refill : Less Than 3 Seconds Height, Weight, BMI Height: 5'0.00" Weight: 160lbs. 0.0oz. [id number]; 32.89 BMI Method:Stated General Appearance: No Apparent Distress, WD/WN, Chronically ill, Moderate Distress Eyes: Bilateral Eye Normal Inspection, Bilateral Eye PERRL, Bilateral Eye EOMI HEENT: PERRL/EOMI, Pharynx Normal; No Moist Mucous Membranes Neck: Full Range of Motion, Normal Inspection, Non Tender Respiratory: Lungs Clear, Accessory Muscle Use (Mild), Crackles (Few right side), Respiratory Distress (Moderate with pursed lip breathing) Cardiovascular: Normal Peripheral Pulses, Irregularly Irregular (Atrial fibrillation 80-90) Gastrointestinal: Normal Bowel Sounds, No Organomegaly, Non Tender, Soft Back: Normal Inspection, No CVA Tenderness, No Vertebral Tenderness Extremity: Normal Capillary Refill, Normal Inspection, Normal Range of Motion, Non Tender, No Calf Tenderness, No Pedal Edema Neurologic/Psychiatric: Alert, Oriented x3, No Motor/Sensory Deficits, Normal Mood/Affect, armed guard II-XII Norm as Tested Skin: Normal Color, Warm/Dry Lymphatic: No Adenopathy A/P-Cardiology Admission Diagnosis Congestive heart failure, acute left ventricular diastolic dysfunction Hyponatremia Coronary artery disease Hypertension Assessment/Plan Congestive heart failure, acute on chronic left ventricular diastolic dysfunction, normal systolic function. Last 2D echocardiogram done in March 2021 showing ejection fraction 50 to 55%, biatrial enlargement, moderate mitral and tricuspid regurgitation with PA pressure 40 to 45 mmHg. Still having peripheral edema, starting on diuresis and monitor. Generalized weakness and loss of energy, generalized fatigue, multifactorial. Hyponatremia, probably secondary to congestive heart failure. Continue to monitor electrolytes closely with diuresis. Permanent atrial fibrillation, rate controlled. Maintained on oral anticoagulation with Eliquis. Holter monitor done in June 2019 showing atrial fibrillation with controlled ventricular rate, had 1 episode of wide-complex tachycardia of 10 beats. Right hip pain. Management per primary care physician COPD, oxygen dependent, chronic dyspnea. Had pulmonary function test in June 2019 showing moderate obstructive lung defect. Coronary artery disease, cardiac catheterization was done in December 2018 showing diffuse moderate disease, had patent stents in the LAD known to be Taxus 2.75 x 20, 2.5 x 24 and 2.5 x 12. In addition to Laverne 2.5 x 8. Patent stent in the obtuse marginal branch noted to be Promus 2.5 x 16, the right coronary artery has patent stent with 50% in-stent restenosis Laverne 3.5 x 16. Moderate diffuse disease was reported at that time. Hypertension, controlled, monitor blood pressure Hyperlipidemia, monitor lipids Chronic neck pain, shoulder pain, degenerative joint disease, hip pain. History of noncompliant with medications NIMESH BERMUDEZ MD Sep 29, 2021 17:30
[2021-09-29] MEDS: FUROSEMIDE 40 MG/4 ML INJ (LASIX) IVP SCH (18:14)
[2021-09-29 19:17] LABS: SODIUM 126 MMOL/L (135-145)
[2021-09-29 19:50] VITALS: BP 107/79
[2021-09-29 20:00] VITALS: BP 102/81
[2021-09-29] MEDS: APIXABAN 2.5 MG (ELIQUIS) TABLET PO SCH (21:00)
[2021-09-29] MEDS: meTOprolol TARTRATE 50 MG (LOPRESSOR) TAB PO SCH (21:00)
[2021-09-29] MEDS: RT-ALBUTEROL/IPRATROPIUM 3 ML (DUONEB) VIAL INH SCH (21:03)
[2021-09-30] VITALS: BP 108/85
[2021-09-30 03:49] VITALS: BP 117/85
[2021-09-30] MEDS: NS IV 1000 ML 1,000 ML IV SCH ×2 (05:05→13:30)
[2021-09-30 05:25] LABS: HEMOGLOBIN 9.9 g/dL (11.5-16.0); MEAN CORPUSCULAR HEMOGLOBIN 33 pg (25-34)
[2021-09-30 05:28] LABS: BASOPHILS # (AUTO) 0.1 10^3/uL (0.0-0.1); BASOPHILS % (AUTO) 1 % (0-10); EOSINOPHILS # (AUTO) 0.2 10^3/uL (0.0-0.3); EOSINOPHILS % (AUTO) 3 % (0-10); HEMATOCRIT 31 % (35-52); LYMPHOCYTES # (AUTO) 0.7 10^3/uL (1.0-4.0); LYMPHOCYTES % (AUTO) 12 % (12-44); MEAN CORPUSCULAR HGB CONC 32 g/dL (32-36); MEAN CORPUSCULAR VOLUME 105 fL (80-99); MEAN PLATELET VOLUME 10.5 fL (9.0-12.2); MONOCYTES # (AUTO) 0.6 10^3/uL (0.0-1.0); MONOCYTES % (AUTO) 10 % (0-12); NEUTROPHILS # (AUTO) 4.6 10^3/uL (1.8-7.8); NEUTROPHILS % (AUTO) 74 % (42-75); PLATELET COUNT 108 10^3/uL (130-400); WHITE BLOOD COUNT 6.1 10^3/uL (4.3-11.0)
[2021-09-30 05:50] LABS: BUN/CREATININE RATIO 19; CALCIUM 8.5 MG/DL (8.5-10.1); CARBON DIOXIDE 17 MMOL/L (21-32); CHLORIDE 101 MMOL/L (98-107); CREATININE SERUM 1.25 MG/DL (0.60-1.30); GFR ESTIMATED 41; GLUCOSE 117 MG/DL (70-105); POTASSIUM 4.6 MMOL/L (3.6-5.0); SODIUM 131 MMOL/L (135-145)
[2021-09-30] MEDS: FUROSEMIDE 40 MG/4 ML INJ (LASIX) IVP SCH ×2 (06:19→16:48)
[2021-09-30] MEDS: KCL 20 MEQ TAB (K-DUR) PO SCH (06:19)
--- NOTE | 2021-09-30 07:51 | Diagnostic Imaging Report ---
INDICATION: Respiratory failure. TECHNIQUE: Single view chest 5:32 AM. CORRELATION STUDY: 09/29/2021 FINDINGS: Heart size enlarged, mediastinum prominent. Vasculature is increased from prior. Calcification of the aortic arch. Question minimal edema or infiltrate right lung base along with small effusions. IMPRESSION: 1. Findings of congestive failure overall appear adversely increased from prior. Small effusions with questionable atelectasis or infiltrate versus edema of the right lung base. Dictated by: Dictated on workstation # [id number]
[2021-09-30] MEDS: meTOprolol TARTRATE 50 MG (LOPRESSOR) TAB PO SCH ×2 (08:11→21:17)
[2021-09-30] MEDS: APIXABAN 2.5 MG (ELIQUIS) TABLET PO SCH ×2 (08:12→21:17)
[2021-09-30 08:14] VITALS: BP 114/78
--- NOTE | 2021-09-30 08:30 | Cardiology Progress Note ---
Subjective Date Seen by Provider: Sep 30, 2021 Time Seen by Provider: 08:24 Subjective/Events-last exam Patient resting in bed. Appears more comfortable than yesterday. Still has peripheral swelling. Chest X-ray shows findings of congestive failure overall appear adversely increased from prior.Small effusions with questionable atelectasis or infiltrate versus edema of the right lung base. Patients urine output yesterday was 1.65 L total at 0.84 ml/kg/hr. Patient's urine output today so far is 1.4 L. Patient states she is still having some SOB at rest. Review of Systems General: No Chills, No Night Sweats; Fatigue; No Malaise, No Appetite, No Other Pulmonary: Dyspnea, Cough Cardiovascular: Orthopnea, Edema; No: Chest Pain, Palpitations, Lt Headedness Objective-Cardiology Exam Last Set of Vital Signs Vital Signs 09/29/21 09/30/21 09/30/21 16:57 08:14 09:10 Temp 35.4 Pulse 92 Resp 14 B/P (MAP) 114/78 (90) Pulse Ox 100 O2 Delivery Nasal Cannula O2 Flow Rate 2.00 FiO2 28 I&O Intake and Output 09/30/21 00:00 Intake Total 1290 ml Output Total 1650 ml Balance -360 ml Intake Oral 240 ml IV Total 1050 ml Output Urine Total 1650 ml Daily Weight Change Yes, 2-13 lbs General: Alert, Oriented X3, Cooperative, No Acute Distress HEENT: Atraumatic, PERRLA Neck: Supple Lungs: Other (Diminished air movement) Heart: Normal S1, Normal S2, Other (irregularly irregular ) Extremities: No Clubbing, No Cyanosis, Normal Pulses, Other (peripheral edema bilaterally ) Skin: No Rashes, No Breakdown Neuro: Normal Speech Psych/Mental Status: Mental Status NL, Mood NL Results Lab Laboratory Tests 09/29/21 11:22 09/29/21 18:55 09/30/21 05:06 A/P-Cardiology Admission Diagnosis Congestive heart failure, acute left ventricular diastolic dysfunction Hyponatremia Coronary artery disease Hypertension Assessment/Plan Congestive heart failure, acute on chronic left ventricular diastolic d ysfunction, normal systolic function. Last 2D echocardiogram done in March 2021 showing ejection fraction 50 to 55%, biatrial enlargement, moderate mitral and tricuspid regurgitation with PA pressure 40 to 45 mmHg. Still having Dyspnea, continue on diuresis and monitor. Generalized weakness and loss of energy, generalized fatigue, multifactorial. Hyponatremia, probably secondary to congestive heart failure. Improved from yesterday. Continue to monitor electrolytes closely with diuresis. Permanent atrial fibrillation, rate controlled. Maintained on oral anticoagulation with Eliquis. Holter monitor done in June 2019 showing atrial fibrillation with controlled ventricular rate, had 1 episode of wide-complex tachycardia of 10 beats. Right hip pain. Management per primary care physician COPD, oxygen dependent, chronic dyspnea. Had pulmonary function test in June 2019 showing moderate obstructive lung defect. Coronary artery disease, cardiac catheterization was done in December 2018 showing diffuse moderate disease, had patent stents in the LAD known to be Taxus 2.75 x 20, 2.5 x 24 and 2.5 x 12. In addition to Laverne 2.5 x 8. Patent stent in the obtuse marginal branch noted to be Promus 2.5 x 16, the right coronary artery has patent stent with 50% in-stent restenosis Laverne 3.5 x 16. Moderate diffuse disease was reported at that time. Hypertension, controlled, monitor blood pressure Hyperlipidemia, monitor lipids Chronic neck pain, shoulder pain, degenerative joint disease, hip pain. History of noncompliant with medications Supervisory-Addendum Brief Verification & Attestation Participated in pt care: history, MDM, physical Personally performed: exam, history, MDM, supervision of care Care discussed with: Medical Student Procedures: n/a Results interpretation: Verified all documentation Verification and Attestation of Medical Student E/M Service A medical student performed and documented this service in my presence. I reviewed and verified all information documented by the medical student and made modifications to such information, when appropriate. I personally performed the physical exam and medical decision making. Patient was seen at bedside, visited with her, her daughter was translating Reporting fatigue and loss of energy, still having shortness of breath Her peripheral edema has improved and her hyponatremia has improved. Responding well to diuretics. Continuing diuresis and start physical therapy. Nimesh Albert Sep 30, 2021,09:54 FERNANDEZ JASMINE Sep 30, 2021 08:30 NIMESH ALBERT MD Sep 30, 2021 09:55
[2021-09-30] MEDS ORDERED: FURO40TA4 PO (09:31)
[2021-09-30] MEDS ORDERED: POTA-51 PO (09:31)
[2021-09-30] MEDS ORDERED: METO50TA15 PO (09:31)
[2021-09-30] MEDS: RT-ALBUTEROL/IPRATROPIUM 3 ML (DUONEB) VIAL INH SCH ×2 (09:57→19:04)
[2021-09-30 12:00] VITALS: BP 123/96
[2021-09-30 15:53] VITALS: BP 148/80
--- NOTE | 2021-09-30 18:00 | History & Physical-Hospitalist ---
History of Present Illness HPI/Chief Complaint Devorah Vega is an 86 year old female with PMH HTN, HLD, CAD, AFib, HFpEF, obesity, who presented with shortness of breath. She has also had swelling in her legs. She denies chest pain. She has been having diarrhea but this has resolved. She denies abdominal pain, nausea, and vomiting. She reports right hip pain. Source: family, transformer tester (daughter) Exam Limitations: language barrier Date Seen 09/30/21 Time Seen by a Provider: 08:55 Attending Physician Husam Gibson MD PCP Ligia Alvarez MD Referring Physician Date of Admission Sep 29, 2021 at 12:41 Home Medications & Allergies Home Medications Reviewed patient Home Medication Reconciliation performed by pharmacy medication reconciliations medical technician and/or nursing. Patients Allergies have been reviewed. Allergies Allergies Coded Allergies NKANo Known Allergies (Verified Allergy, Unknown, 02/07/07) Past Ouinxba-Mnsxbu-Khojgk Hx Patient Social History Marrital Status: Employed/Student: retired Tobacco Use?: No Smoking Status: Never a Smoker Use of E-Cig and/or Vaping dev: No Substance use?: No Alcohol Use?: No Pt feels they are or have been: Unable to obtain Immunizations Up To Date Date of Influenza Vaccine: May 18, 2018 Tetanus Booster (TDap): Unknown Hepatitis A: No Hepatitis B: No Seasonal Allergies Seasonal Allergies: No Current Status status: No status: No Advance Directives: No Communicates: Verbally Primary Language: [facility] Preferred Spoken Language: [facility] Is interpretation needed?: Yes Implanted or Applied Medical D: None Past Medical History Surgeries: Bladder Surgery, Cardiac, Coronary Stent, Eye Surgery, Gallbladder, Orthopedic Atrial Fibrillation, Coronary Artery Disease, Deep Vein Thrombosis, High Cholesterol, Hypertension Neuropathy 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 No Pertinent Family Hx Daughter alive and healthy Review of Systems Constitutional: weakness EENTM: no symptoms reported Respiratory: dyspnea on exertion, short of breath Cardiovascular: no symptoms reported Gastrointestinal: diarrhea Genitourinary: no symptoms reported Musculoskeletal: joint pain Skin: no symptoms reported Psychiatric/Neurological: No Symptoms Reported Physical Exam Physical Exam Vital Signs Vital Signs - First Documented 3/14/22 12:22 FiO2 30 Capillary Refill : Less Than 3 Seconds Height, Weight, BMI Height: 5'0.00" Weight: 160lbs. 0.0oz. [id number]; 32.89 BMI Method:Stated General Appearance: No Apparent Distress, Obese HEENT: PERRL/EOMI, Pharynx Normal Neck: Normal Inspection, Supple Respiratory: No Respiratory Distress, Decreased Breath Sounds Cardiovascular: Regular Rate, Rhythm, No Murmur Gastrointestinal: Normal Bowel Sounds, Non Tender, Soft Extremity: Non Tender, Pedal Edema, Swelling Neurologic/Psychiatric: Alert, No Motor/Sensory Deficits Skin: Normal Color, Warm/Dry Results Results/Procedures Labs Laboratory Tests 09/29/21 11:22 09/29/21 18:55 09/30/21 05:06 Patient resulted labs reviewed. Imaging: Reviewed Imaging Report Assessment/Plan Admission Diagnosis Acute on chronic heart failure with preserved ejection fraction Admission Status: Observation Assessment and Plan Acute on chronic HFpEF BENJAMIN on CKD Hyponatremia Cardiology following Started on Lasix, continue Stop IV fluids Sodium and renal function improved Diarrhea Resolved Monitor Thrombocytopenia Monitor HTN HLD CAD AFib Continue home meds Obesity Clinically significant, no acute management needs Diagnosis/Problems Diagnosis/Problems (1) Acute on chronic heart failure with preserved ejection fraction (HFpEF) Status: Acute (2) Acute kidney injury superimposed on chronic kidney disease Status: Acute (3) HTN (hypertension) Status: Chronic (4) HLD (hyperlipidemia) Status: Chronic (5) CAD (coronary artery disease) (6) CKD (chronic kidney disease) Status: Chronic Qualifiers: Chronic kidney disease stage: stage 3 (moderate) Chronic kidney disease stage 3 subtype: stage 3b (GFR 30-44) Qualified Codes: N18.32 - Chronic kidney disease, stage 3b (7) Afib Status: Chronic (8) Advanced age Status: Chronic (9) Obesity Status: Chronic HUSAM GIBSON MD Sep 30, 2021 18:00
[2021-09-30 19:49] VITALS: BP 110/64
[2021-09-30] MEDS ORDERED: MELATONIN 3 MG TABLET PO PRN (20:15)
[2021-09-30] MEDS ORDERED: ANTACID SUSP 30 ML UDC (MYLANTA) PO PRN (20:15)
[2021-09-30] MEDS ORDERED: polyethylene glycoL POWDER 17 GM (MIRALAX) PACK PO PRN (20:15)
[2021-10-01] VITALS (7 sets, daily range): BP systolic 99–122; BP diastolic 68–86
[2021-10-01] MEDS ORDERED: FUROSEMIDE 40 MG/4 ML INJ (LASIX) IVP ONE (00:30)
[2021-10-01 06:22] LABS: POTASSIUM 4.7 MMOL/L (3.6-5.0)
[2021-10-01 06:23] LABS: CALCIUM 9.1 MG/DL (8.5-10.1)
[2021-10-01 06:27] LABS: CREATININE SERUM 1.29 MG/DL (0.60-1.30)
[2021-10-01] MEDS: KCL 20 MEQ TAB (K-DUR) PO SCH (07:01)
[2021-10-01] MEDS: FUROSEMIDE 40 MG/4 ML INJ (LASIX) IVP SCH (07:01)
[2021-10-01] MEDS: RT-ALBUTEROL/IPRATROPIUM 3 ML (DUONEB) VIAL INH SCH (07:25)
[2021-10-01] MEDS: meTOprolol TARTRATE 50 MG (LOPRESSOR) TAB PO SCH (08:12)
[2021-10-01] MEDS: APIXABAN 2.5 MG (ELIQUIS) TABLET PO SCH (08:12)
--- NOTE | 2021-10-01 08:57 | Physical Therapy Evaluation ---
PT Evaluation-General Medical Diagnosis Admission Date Sep 29, 2021 at 12:41 Medical Diagnosis: heart failure, SOB Onset Date: Sep 29, 2021 Therapy Diagnosis Therapy Diagnosis: impaired mobility, endurance Height/Weight Height (Feet): 5 Height (Inches): 0.00 Weight (Pounds): 160 Weight (Ounces): 0.0 Precautions Precautions/Isolations: Standard Precautions Referral Physician: Regine Reason for Referral: Evaluation/Treatment Medical History Pertinent Medical History: Atrial Fib, Arthritis, CAD, DM, HTN, Neuropathy, Renal Insufficiency Additional Medical History Past Medical History Surgeries: Bladder Surgery, Cardiac, Coronary Stent, Eye Surgery, Gallbladder, Orthopedic Atrial Fibrillation, Coronary Artery Disease, Deep Vein Thrombosis, High Cholesterol, Hypertension Neuropathy 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 7-Hhqpqaqfij-rukooae completes the activity by him/herself with no assistance from a helper. 5-Set-up or Clean-up Assistance-helper sets up or cleans up; patient completes activity. [place] assists only prior to or following the activity. 4-Supervision or Touching Assistance-helper provides verbal cues and/or touching/steadying and/or contact guard assistance as patient completes activity. Assistance may be provided throughout the activity or intermittently. 3-Partial/Moderate Assistance-helper does LESS THAN HALF the effort. [place] lifts, holds or supports trunk or limbs, but provides less than half the effort. 2-Substantial/Maximal Assistance-helper does MORE THAN HALF the effort. [place] lifts or holds trunk or limbs and provides more than half the effort. 4-Fqclfyrnb-latayq does ALL the effort. Patient does none of the effort to complete the activity. Or, the assistance of 2 or more helpers is required for the patient to complete the activity. If activity was not attempted, code reason: 7-Patient Refused. 9-Not Applicable-not attempted and the patient did not perform the activity before the current illness, exacerbation or injury. 10-Not Attempted due to Environmental Limitations-(lack of equipment, weather restraints, etc.). 88-Not Attempted due to Medical Conditions or Safety Concerns. Bed Mobility: 6 Transfers (B,C,W/C): 6 Gait: 6 Indoor Mobility (Ambulation): Independent Stairs: Independent Prior Devices Use: Walker PT Evaluation-Current Subjective Patient in bed pre tx, agrees to PT, has no complaints of pain. Patient doesn't speak Icelandic but daughter is in room to translate. Pt/Family Goals none stated Objective Patient Orientation: Person, Unable to Assess Attachments: Oxygen ROM/Strength ROM Lower Extremities WNL Sensory Hearing: Functional Transfers Roll Left to Right (QC): 6 Lying to Sitting/Side of Bed(Q: 4 Sit to Stand (QC): 4 Chair/Rxd-tw-Atrfi Xfer(QC): 4 Patient was able to get to the side of the bed without assist, stand with a rolling walker, and take a few steps to a recliner with CGA, her HR meli to about 160bpm and took a couple of minutes to get back down to 130's Balance Sitting Static: Normal Sitting Dynamic: Normal Standing Static: Good Standing Dynamic: Good Treatment BLE seated exercises x20 (AP, LAQ) Assessment/Needs Patient in recliner post tx with nurse call, phone, tray, family in room. Patient has impaired mobility, endurance. Nurse notified of patient's HR during activity. Her O2 also fluctuates when she is up varies from 88% to 91%, nurse notified of this too. 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 Time Frame: Oct 08, 2021 Roll Left & Right (QC): 6 Sit to Lying (QC): 6 Lying-Sitting on Side/Bed(QC): 6 Sit to Stand (QC): 6 Chair/Drf-qk-Nznst Xfer(QC): 6 Walk 10 feet (QC): 6 PT Plan Problem List Problem List: Activity Tolerance, Functional Strength, Safety, Balance, Gait, Transfer, Bed Mobility, ROM Treatment/Plan Treatment Plan: Continue Plan of Care Treatment Plan: Bed Mobility, Education, Functional Activity Rosana, Functional Strength, Gait, Safety, Therapeutic Exercise, Transfers Treatment Duration: Oct 08, 2021 Frequency: 6 times per week Estimated Hrs Per Day: .25 hour per day Patient and/or Family Agrees t: Yes Safety Risks/Education Patient Education: Gait Training, Transfer Techniques, Correct Positioning, Safety Issues Teaching Recipient: Patient Teaching Methods: Demonstration, Discussion Response to Teaching: Reinforcement Needed Discharge Recommendations Plan Patient will perform bed mobility and transfer training, balance and endurance training, functional strengthening, stair training, gait training, and education, to improve functional mobility and independence at home. Therapy Discharge Recommendati: Scheduled Assistance, Home & Family, Post Acute PT Time/GCodes Time In: 809 Time Out: 822 Total Billed Treatment Time: 13 Total Billed Treatment 1 visit YAN MURRIETA PT Oct 01, 2021 08:56
[2021-10-01] MEDS ORDERED: ASPIRIN 81 MG CHEW (CHILDREN'S ASA) PO SCH (09:00)
[2021-10-01] MEDS ORDERED: METO50TA15 PO (09:45)
[2021-10-01] MEDS ORDERED: FURO40TA4 PO (09:45)
[2021-10-01] MEDS ORDERED: meTOprolol TARTRATE 25 MG (LOPRESSOR) TABLET PO NR (10:00)
--- NOTE | 2021-10-01 10:02 | Occupational Therapy Eval ---
OT Evaluation-General/PLF Medical Diagnosis Admission Date Sep 29, 2021 at 12:41 Medical Diagnosis: heart failure, SOB Onset Date: Sep 29, 2021 Therapy Diagnosis Therapy Diagnosis: n/a Height/Weight Height (Feet): 5 Height (Inches): 0.00 Weight (Pounds): 160 Weight (Ounces): 0.0 Precautions Precautions/Isolations: Standard Precautions Referral Physician: Regine Referral Reason: Evaluation/Treatment Medical History Pertinent Medical History: Atrial Fib, Arthritis, CAD, DM, HTN, Neuropathy, Renal Insufficiency Additional Medical History HTN, HLD, Afib, HFpEF, CAD, DVT, neuropathy Current History presents with SOB and swelling in legs. Social History Current Living Status: Children (lives with her daughter) Entry Into Home: Stairs Without Railing Steps Into Home: 2 ADL-Prior Level of Function SCALE: Activities may be completed with or without assistive devices. 2-Brivdtnvgj-zvslxbm completes the activity by him/herself with no assistance from a helper. 5-Set-up or Clean-up Assistance-helper sets up or cleans up; patient completes activity. Kinney assists only prior to or following the activity. 4-Supervision or Touching Assistance-helper provides verbal cues and/or touching/steadying and/or contact guard assistance as patient completes activity. Assistance may be provided throughout the activity or intermittently. 3-Partial/Moderate Assistance-helper does LESS THAN HALF the effort. Kinney lifts, holds or supports trunk or limbs, but provides less than half the effort. 2-Substantial/Maximal Assistance-helper does MORE THAN HALF the effort. Kinney lifts or holds trunk or limbs and provides more than half the effort. 2-Tbqzmsefs-zampgq does ALL the effort. Patient does none of the effort to complete the activity. Or, the assistance of 2 or more helpers is required for the patient to complete the activity. If activity was not attempted, code reason: 7-Patient Refused. 9-Not Applicable-not attempted and the patient did not perform the activity before the current illness, exacerbation or injury. 10-Not Attempted due to Environmental Limitations-(lack of equipment, weather restraints, etc.). 88-Not Attempted due to Medical Conditions or Safety Concerns. ADL PLOF Comments Pt's daughter reports pt requires assistance with all ADLs at baseline. Pt has assistance with toileting and dressing, pt does not like to get into the shower due to SOB, but requires some assistance with showering. Self Care: Needed Some Help Functional Cognition: Needed Some Help OT Current Status Subjective Pt in recliner, daughter present. Pt does not speak Israeli, but daughter translated. Mental Status/Objective Patient Orientation: Person, Place, Situation Attachments: Oxygen Current Upper Extremity ROM WFL Upper Extremity Strength grossly 3/5, unable to formally assess due to language barrier. Other Treatments Pt in recliner, declines need to toilet at this time. Pt's daughter asks for assistance washing pt's hair. OT placed shower cap on pt's hair and encouraged pt to scrub herself, pt's daughter came over and began doing task for pt. Pt's daughter indicates she assists pt with ADLs at baseline. OT assisted with drying pt's hair with towel, then combing pt's hair. Pt's daughter indicates pt is at her baseline, and they have no concerns with pt's ability to complete ADLs upon returning home. Pt's daughter indicates she is hopeful they will be able to discharge today. Post tx, pt in recliner, call light in reach and all needs met. Education OT Patient Education: Correct positioning, Energy conservation, Modified ADL techniques, Progress toward Goal/Update tx plan, Purpose of tx/functional activities, Rehab process Teaching Recipient: Patient, Family Teaching Methods: Discussion Response to Teaching: Verbalize Understanding OT Maple Sugar Maker Goals Halfway Goals 1=Demonstrate adherence to instructed precautions during ADL tasks. 2=Patient will verbalize/demonstrate understanding of assistive devices/modifications for ADL. 3=Patient will improve strength/tolerance for activity to enable patient to perform ADL's. OT Education/Plan Problem List/Assessment Assessment: No Skilled OT Needs ID'd No skilled OT services indicated at this time, pt's daughter (tra nslator/caregiver) reports pt is at PLOF with ADLs and daughter is able to provide assistance. They have no concerns with her ability to complete ADLs at discharge. D/C from OT at this time, if pt has further decline with ADLs, please send new orders and OT can reevaluate pt. Discharge Recommendations Plan/Recommendations: Discharge/Goals Met Treatment Plan/Plan of Care Patient would benefit from OT for education, treatment and training to promote independence in ADL's, mobility, safety and/or upper extremity function for ADL's. Plan of Care: ADL Retraining, Functional Mobility, UE Funct Exercise/Act Treatment Duration: Oct 01, 2021 Frequency: 1 time per week (eval only) Rehab Potential: Fair Time/GCodes Start Time: 09:37 Stop Time: 09:54 Total Time Billed (hr/min): 17 Billed Treatment Time 1, SAMSONL STU COFFEY OT Oct 01, 2021 10:02
--- NOTE | 2021-10-01 17:34 | Cardiology Progress Note ---
Progress Note-Cardiology Events since last exam Date Seen by Provider: Oct 01, 2021 Time Seen by Provider: 17:28 Events since last exam We are following her due to heart failure and permanent atrial fibrillation. Her breathing and peripheral edema are improved. She wants to go home today. She denies chest discomfort, palpitations, or syncope. Certain portions of this document may have been dictated utilizing voice recognition technology. Inherent to this technology, typographical and grammatical errors may exist. As much as I am diligent to identify and correct these mistakes, some errors may remain in the document. Vitals Last set of Vitals Signs Vital Signs 09/29/21 10/01/21 16:57 15:55 Temp 35.8 Pulse 82 Resp 16 B/P (MAP) 101/82 (88) Pulse Ox 100 O2 Delivery Nasal Cannula O2 Flow Rate 2.00 FiO2 28 Labs Labs Laboratory Tests 10/01/21 05:55 Exam Vital Signs Vital Signs Date Time Temp Pulse Resp B/P (MAP) Pulse Ox O2 Delivery O2 Flow Rate FiO2 10/01/21 15:55 35.8 82 16 101/82 (88) 100 Nasal Cannula 2.00 09/29/21 16:57 28 Physical Exam General: Alert. No acute distress. Eye: No xanthelasma. HENT: Normocephalic. Neck: Jugular venous pressure does not appear elevated. Respiratory: Lungs are clear to auscultation. Respirations are non-labored. Breath sounds are equal. Symmetrical chest wall expansion. Cardiovascular: Normal rate. Irregular rhythm. No murmur. No gallop. Trace bilateral pretibial edema with compression stockings. Gastrointestinal: Soft. Normal bowel sounds. Skin: Warm. Dry. Neurologic: Alert and oriented to person, place, time. Cranial nerves 3-11 grossly intact. Psychiatric: Cooperative. Appropriate mood & affect. Labs Laboratory Tests Test 10/01/21 05:55 Range/Units Sodium Level 131 L 135-145 MMOL/L Potassium Level 4.7 3.6-5.0 MMOL/L Chloride Level 102 98-107 MMOL/L Carbon Dioxide Level 16 L 21-32 MMOL/L Anion Gap 13 5-14 MMOL/L Blood Urea Nitrogen 25 H 7-18 MG/DL Creatinine 1.29 0.60-1.30 MG/DL Estimat Glomerular Filtration Rate 40 BUN/Creatinine Ratio 19 Glucose Level 127 H 70-105 MG/DL Calcium Level 9.1 8.5-10.1 MG/DL Diagnosis/Problems Diagnosis/Problems (1) Acute on chronic heart failure with preserved ejection fraction (HFpEF) Status: Acute Assessment & Plan: Symptomatically the patient feels improved. Her lungs are clear on exam today. She has normal ejection fraction on her most recent echocardiogram. Renal function is stable. From a cardiac standpoint it would not be unreasonable to discharge her to home. (2) Permanent atrial fibrillation Assessment & Plan: Heart rates have been reasonably controlled with metoprolol. She is on apixaban for stroke prophylaxis. Although she is over the age of 78, her creatinine is less than 1.5 and weight over 60 kg. She should be on standard dosing but I will leave this up to the discretion of her regular appraiser art. When she presented to the hospital, her creatinine was slightly above 1.5. (3) Coronary artery disease without angina pectoris Assessment & Plan: She is not having any angina at this point in time. Continue beta-naeem and statin medication. (4) Primary hypertension Assessment & Plan: Blood pressure is very well controlled with the present medication. This should be continued at the time of discharge. (5) Mixed hyperlipidemia Assessment & Plan: Continue statin medication. (6) Chronic kidney disease, stage 3a Assessment & Plan: This will need to be followed longitudinally. JAIR ALCARAZ JR, MD Oct 01, 2021 17:34
--- NOTE | 2021-10-01 19:00 | Discharge Summary ---
Discharge Summary Hospital Course Problems/Dx: (1) Acute on chronic heart failure with preserved ejection fraction (HFpEF) Status: Acute (2) Permanent atrial fibrillation (3) Coronary artery disease without angina pectoris (4) Primary hypertension (5) Mixed hyperlipidemia (6) Chronic kidney disease, stage 3a Hospital Course Date of Admission: Sep 29, 2021 at 12:41 Admission Diagnosis : Acute on chronic HFpEF Family Physician/Provider: Ligia Munoz MD Date of Discharge: 10/01/21 Discharge Diagnosis: Acute on chronic HFpEF Hospital Course: Devorah Vega is an 86 year old female who was admitted with acute on chronic HFpEF. She was diuresed and did well. Her shortness of breath improved. Her home dose of Lasix was increased. She also has AFib and her metoprolol dose was increased. The dosing of her Eliquis should be considered for increase to normal dosing. She also had issues with hyponatremia which improved with diuresis. She underwent a home oxygen evaluation and needed 2 L continuously, which she had been on previously, with 4 L during activity. She was discharged home in stable condition. She should resume home health care. She should follow up with her PCP in about a week. Labs and Pending Lab Test: Laboratory Tests 10/01/21 05:55: Sodium Level 131L, Potassium Level 4.7, Chloride Level 102, Carbon Dioxide Level 16L, Anion Gap 13, Blood Urea Nitrogen 25H, Creatinine 1.29, Estimat Glomerular Filtration Rate 40, BUN/Creatinine Ratio 19, Glucose Level 127H, Calcium Level 9.1 Microbiology 09/29/21 Blood Culture - Preliminary, Resulted No growth Home Meds Active Furosemide 40 Mg Tablet 40 Mg PO LASIXBID 30 Days TAKE TWICE DAILY (8 AM AND 2 PM) Metoprolol Tartrate 50 Mg Tablet 75 Mg PO BID 30 Days Reported Potassium Chloride 20 Meq Tablet.er 20 Meq PO DAILY Aspirin 81 Mg Tab.chew 81 Mg PO DAILY Tylenol Extra Strength (Acetaminophen) 500 Mg Tablet 500-1,000 Mg PO Q6H PRN Eliquis (Apixaban) 2.5 Mg Tablet 2.5 Mg PO BID Atorvastatin Calcium 40 Mg Tablet 40 Mg PO DAILY Assessment/Pt Instructions See instructions Discharge Planning: >30 minutes discharge planning Discharge Instructions Discharge Diet: Low Sodium Diet Activity as Tolerated: Yes Consultations Cardiology Discharge Physical Examination Vital Signs Vital Signs Date Time Temp Pulse Resp B/P (MAP) Pulse Ox O2 Delivery O2 Flow Rate FiO2 10/01/21 15:55 35.8 82 16 101/82 (88) 100 Nasal Cannula 2.00 09/29/21 16:57 28 General Appearance: No Apparent Distress, Obese Respiratory: Lungs Clear, No Respiratory Distress Cardiovascular: Regular Rate, Rhythm, No Murmur Gastrointestinal: Normal Bowel Sounds, Soft Extremity: Normal Inspection, No Pedal Edema, Other (wearing compression stockings) Skin: Normal Color, Warm/Dry Neurologic/Psychiatric: Alert, Normal Mood/Affect Allergies: Coded Allergies: NKANo Known Allergies (Verified Allergy, Unknown, 02/07/07) Copy Copies To 1: LIGIA MUNOZ MD Discharge Summary Date of Admission Sep 29, 2021 at 12:41 Date of Discharge Discharge Date: Oct 01, 2021 Discharge Time: 18:59 Admission Diagnosis Acute on chronic heart failure with preserved ejection fraction Discharge Diagnosis Acute on chronic HFpEF BENJAMIN on CKD Hyponatremia (1) Acute on chronic heart failure with preserved ejection fraction (HFpEF) Status: Acute (2) Permanent atrial fibrillation (3) Coronary artery disease without angina pectoris (4) Primary hypertension (5) Mixed hyperlipidemia (6) Chronic kidney disease, stage 3a HUSAM GIBSON MD Oct 01, 2021 18:49
[2021-10-01] MEDS ORDERED: meTOprolol TARTRATE 50 MG (LOPRESSOR) TAB PO SCH (21:00)
== END 2021-10-01 17:34 | disposition home health service (06) ==
LOC: EDUNIT# 10:51 → ER 10:52 → CSD 12:41 → UNDOADMOB 12:41 → CSD 15:30 → UNDODISOB 10-01 18:20
PROVIDERS: ADMIT Internal Medicine; ATTEND Internal Medicine
DX: I50.33 Acute on chronic diastolic (congestive) heart failure (principal); I48.21 Permanent atrial fibrillation; I25.10 Atherosclerotic heart disease of native coronary artery without angina pectoris; I12.9 Hypertensive chronic kidney disease with stage 1 through stage 4 chronic kidney disease, or unspecified chronic kidney disease; I08.1 Rheumatic disorders of both mitral and tricuspid valves; E87.1 Hypo-osmolality and hyponatremia; E78.2 Mixed hyperlipidemia; N17.9 Acute kidney failure, unspecified; J44.9 Chronic obstructive pulmonary disease, unspecified; R19.7 Diarrhea, unspecified; R53.1 Weakness; M54.2 Cervicalgia; G89.29 Other chronic pain; M19.90 Unspecified osteoarthritis, unspecified site; M25.519 Pain in unspecified shoulder; Z99.81 Dependence on supplemental oxygen; Z91.14 Patient's other noncompliance with medication regimen; Z79.01 Long term (current) use of anticoagulants
CPT/HCPCS: 36415; 36600; 71045; 74176; 80048; 80053; 82550; 82805; 83735; 83880; 84145; 84295; 84484; 85025; 85379; 85610; 86141; 87040; 87636; 93005; 94640; 94760; 94761

== ENCOUNTER 2021-10-06 11:30 | Emergency (ER) | payer MEDICAID ==
[~2021-10-06] VITALS: Ht 157.5 cm; Wt 63.5 kg
[2021-10-06] MEDS ORDERED: ASPIRIN 81 MG CHEW (CHILDREN'S ASA) PO ONE (11:45)
[2021-10-06] MEDS ORDERED: FUROSEMIDE 40 MG/4 ML INJ (LASIX) IVP ONE (11:45)
--- NOTE | 2021-10-06 11:52 | ED Dyspnea ---
General Stated Complaint: SOA Source of Information: Family Exam Limitations: No Limitations History of Present Illness Date Seen by Provider: Oct 06, 2021 Time Seen by Provider: 11:46 Initial Comments 86-year-old female [facility] her presents to ER accompanied by her daughter with increasing dyspnea for the past day or 2 and cough onset yesterday. No fevers. She was admitted to the hospital from 09/29/2021 to 10/01/2021. She had a diagnosis of congestive heart failure and was diuresed with improvement in symptoms. She had COVID in December 2020. History of HFpEF, permanent A. fib on eliquis, CAD with stents, HTN, HLD, CKD 3A. Primary advanced manufacturing vice president is Dr. Flowers. Primary care is Dr. Alvarez. She does not speak Malagasy, she speaks Finnish. Severity: Moderate Prior Episodes/Possible Cause: No Prior Episodes Modifying Factors: Improves With Activity Associated Symptoms: Denies Symptoms Allergies and Home Medications Allergies Coded Allergies: NKANo Known Allergies (Verified Allergy, Unknown, 02/07/07) Patient Home Medication List Home Medication List Reviewed: Yes Acetaminophen (Tylenol Extra Strength) 500 Mg Tablet, 500-1,000 MG PO Q6H PRN for PAIN-MILD, (Reported) Entered as Reported by: PACO MARINO on 10/10/18 1449 Apixaban (Eliquis) 2.5 Mg Tablet, 2.5 MG PO BID, (Reported) Entered as Reported by: PACO MARINO on 10/10/18 1156 Aspirin (Aspirin) 81 Mg Tab.chew, 81 MG PO DAILY, (Reported) Entered as Reported by: YUE BUTTS on 01/04/21 0206 Atorvastatin Calcium (Atorvastatin Calcium) 40 Mg Tablet, 40 MG PO DAILY, (Reported) Entered as Reported by: PACO MARINO on 10/10/18 1156 Furosemide (Furosemide) 40 Mg Tablet, 40 MG PO LASIXBID Prescribed by: HUSAM GIBSON on 10/01/21 09 Metoprolol Tartrate (Metoprolol Tartrate) 50 Mg Tablet, 75 MG PO BID Prescribed by: HUSAM GIBSON on 10/01/21 0945 Potassium Chloride (Potassium Chloride) 20 Meq Tablet.er, 20 MEQ PO DAILY, (Reported) Entered as Reported by: VIRA SEGAL on 09/30/21 0931 Discontinued Medications Furosemide (Furosemide) 40 Mg Tablet, 40 MG PO DAILY Discontinued Reason: Duplicate Order Prescribed by: JESSICA ONEIL on 09/23/21 1128 Metoprolol Tartrate (Lopressor) 50 Mg Tablet, 25 MG PO BID Discontinued Reason: Duplicate Order Prescribed by: JESSICA ONEIL on 09/23/21 1128 Multivitamin (Multi-Vitamin Daily) 1 Each Tablet, 1 EACH PO DAILY, (Reported) Discontinued Reason: No Longer Taking Entered as Reported by: THERESA GAMBLE on 09/22/21 1142 Potassium Chloride (Potassium Chloride) 20 Meq Tablet.er, 20 MEQ PO DAILY Discontinued Reason: Duplicate Order Prescribed by: JESSICA ONEIL on 09/23/21 1132 Review of Systems Review of Systems Constitutional: see HPI EENTM: see HPI Respiratory: see HPI, cough, dyspnea on exertion, orthopnea, short of breath Cardiovascular: no symptoms reported Genitourinary: no symptoms reported Musculoskeletal: no symptoms reported Skin: no symptoms reported Psychiatric/Neurological: No Symptoms Reported Endocrine: No Symptoms Reported Hematologic/Lymphatic: No Symptoms Reported Past Ffihlkg-Zxuwtx-Suuulh Hx Seasonal Allergies Seasonal Allergies: No Past Medical History Surgeries: Yes Bladder Surgery, Cardiac, Coronary Stent, Eye Surgery, Gallbladder, Orthopedic Respiratory: No (CHRONIC DYSPNEA ON EXERTION) Cardiac: Yes Atrial Fibrillation, Coronary Artery Disease, Deep Vein Thrombosis, High Cholesterol, Hypertension Neurological: Yes (NEUROPATHY RIGHT FOOT POST ANKLE SURGERY) Neuropathy Reproductive Disorders: No TAKE DOWN INSPECTOR History: Menopausal Sexually Transmitted Disease: No Genitourinary: Yes (INCONTINENCE) Renal Failure Gastrointestinal: Yes (S/P JUSTINE) Gall Bladder Disease Musculoskeletal: Yes (RIGHT ANKLE; BILATERAL KNEE REPLACEMENTS) Degenerate Disk Disease, Arthritis, Chronic Back Pain Endocrine: Yes (INSULIN RESISTANCE; OBESITY) HEENT: Yes (S/P SURGERY) Cataract Cancer: No Psychosocial: No Integumentary: Yes (ABSCESS I&D; CELLULITIS) Blood Disorders: Yes (ANEMIA) Adverse Reaction/Blood Tranf: No Family Medical History Patient reports no known family medical history. No Pertinent Family Hx Daughter alive and healthy Physical Exam Vital Signs Vital Signs - First Documented 10/06/21 11:31 Temp 35.9 Pulse 73 Resp 22 B/P (MAP) 101/75 (84) O2 Delivery Nasal Cannula O2 Flow Rate 2.00 Capillary Refill : Height, Weight, BMI Height: 5'0.00" Weight: 160lbs. 0.0oz. [id number]; 32.89 BMI Method:Stated General Appearance: No Apparent Distress, WD/WN HEENT: Normal ENT Inspection, Pharynx Normal Neck: Full Range of Motion, JVD Respiratory: No Accessory Muscle Use, No Respiratory Distress, Rhonci, Other (94% room air (though she wears o2 at 2L per NC around the clock)) Cardiovascular: Normal Peripheral Pulses, Irregularly Irregular Gastrointestinal: Normal Bowel Sounds, Non Tender, Soft Extremity: Normal Capillary Refill, Swelling (2+BLE), Other Neurologic/Psychiatric: Alert, Oriented x3 Skin: Normal Color, Warm/Dry Progress/Results/Core Measures Results/Orders Lab Results Laboratory Tests Test 10/06/21 11:40 10/06/21 11:59 Range/Units White Blood Count 7.1 4.3-11.0 10^3/uL Red Blood Count 3.05 L 3.80-5.11 10^6/uL Hemoglobin 10.5 L 11.5-16.0 g/dL Hematocrit 32 L 35-52 % Mean Corpuscular Volume 106 H 80-99 fL Mean Corpuscular Hemoglobin 34 25-34 pg Mean Corpuscular Hemoglobin Concent 32 32-36 g/dL Red Cell Distribution Width 18.0 H 10.0-14.5 % Platelet Count 121 L 130-400 10^3/uL Mean Platelet Volume 10.4 9.0-12.2 fL Immature Granulocyte % (Auto) 0 % Neutrophils (%) (Auto) 70 42-75 % Lymphocytes (%) (Auto) 10 L 12-44 % Monocytes (%) (Auto) 8 0-12 % Eosinophils (%) (Auto) 9 0-10 % Basophils (%) (Auto) 1 0-10 % Neutrophils # (Auto) 5.0 1.8-7.8 10^3/uL Lymphocytes # (Auto) 0.7 L 1.0-4.0 10^3/uL Monocytes # (Auto) 0.6 0.0-1.0 10^3/uL Eosinophils # (Auto) 0.7 H 0.0-0.3 10^3/uL Basophils # (Auto) 0.1 0.0-0.1 10^3/uL Immature Granulocyte # (Auto) 0.0 0.0-0.1 10^3/uL Prothrombin Time 15.6 H 12.2-14.7 SEC INR Comment 1.2 0.8-1.4 Activated Partial Thromboplast Time 41 H 24-35 SEC Sodium Level 125 *L 135-145 MMOL/L Potassium Level 4.5 3.6-5.0 MMOL/L Chloride Level 92 L 98-107 MMOL/L Carbon Dioxide Level 23 21-32 MMOL/L Anion Gap 10 5-14 MMOL/L Blood Urea Nitrogen 22 H 7-18 MG/DL Creatinine 1.50 H 0.60-1.30 MG/DL Estimat Glomerular Filtration Rate 33 BUN/Creatinine Ratio 15 Glucose Level 119 H 70-105 MG/DL Calcium Level 9.3 8.5-10.1 MG/DL Corrected Calcium 9.6 8.5-10.1 MG/DL Magnesium Level 2.0 1.6-2.4 MG/DL Total Bilirubin 1.3 H 0.1-1.0 MG/DL Aspartate Amino Transf (AST/SGOT) 32 5-34 U/L Alanine Aminotransferase (ALT/SGPT) 33 0-55 U/L Alkaline Phosphatase 114 40-136 U/L Myoglobin 99.9 H 10.0-92.0 NG/ML Troponin I < 0.028 <0.028 NG/ML B-Type Natriuretic Peptide 1971.6 H <100.0 PG/ML Total Protein 7.2 6.4-8.2 GM/DL Albumin 3.6 3.2-4.5 GM/DL Influenza Type A (RT-PCR) Not Detected Not Detecte Influenza Type B (RT-PCR) Not Detected Not Detecte SARS-CoV-2 RNA (RT-PCR) Not Detected Not Detecte My Orders Orders - CARLOS ALLEN APRN Cbc With Automated Diff (10/06/21 11:43) Magnesium (10/06/21 11:43) Chest 1 View, Ap/Pa Only (10/06/21 11:43) Ekg Tracing (10/06/21 11:43) Comprehensive Metabolic Panel (10/06/21 11:43) Myoglobin Serum (10/06/21 11:43) Protime With Inr (10/06/21 11:43) Partial Thromboplastin Time (10/06/21 11:43) O2 (10/06/21 11:43) Monitor-Rhythm Ecg Trace Only (10/06/21 11:43) Lipid Panel (10/07/21 06:00) Ed Iv/Invasive Line Start (10/06/21 11:43) Bnp Monique (10/06/21 11:43) Troponin I Monique (10/06/21 11:43) Aspirin Chewable Tablet (Baby Aspirin Ch (10/06/21 11:45) Influenza A And B By Pcr (10/06/21 11:43) Covid 19 Inhouse Test (10/06/21 11:43) Furosemide Injection (Lasix Injection) (10/06/21 11:45) Olmos Cath (10/06/21 11:43) Morphine Injection (Morphine Injection (10/06/21 13:21) Medications Given in ED Current Medications Medications Dose Ordered Sig/Phan Route Start Time Stop Time Status Last Admin Dose Admin Aspirin 324 mg ONCE ONCE PO 10/06/21 11:45 10/06/21 11:46 DC 10/06/21 12:12 324 MG Furosemide 80 mg ONCE ONCE IVP 10/06/21 11:45 10/06/21 11:46 DC 10/06/21 12:12 80 MG Vital Signs/I&O 10/06/21 10/06/21 11:31 11:31 Temp 35.9 Pulse 73 Resp 22 B/P (MAP) 101/75 (84) O2 Delivery Nasal Cannula Room Air O2 Flow Rate 2.00 Departure Communication (Admissions) 1310-I spoke to Dr. Dee, also spoke with Dr. Ervin, both in agreement that patient can go home. She is not in distress. She is 96% on room air despite normally wearing 2 L of oxygen. She is got no accessory muscle use. I gave her 80 mg of Lasix, double her daily dose here and I will send her home on an increased dose of Lasix 80 in the morning 40 at night. Her baseline is 40 twice daily. I did mention hospice to the daughter and she states she will discuss it with family. Impression Primary Impression: CHF exacerbation Disposition: HOME, SELF-CARE Condition: Stable Departure-Patient Inst. Decision time for Depature: 13:12 Referrals: RONNA ALVAREZ MD (PCP/Family) Primary Care Physician Patient Instructions: Heart Failure, Adult Add. Discharge Instructions: 1. Increase your Lasix dose from 40 mg twice a day up to 80 mg in the morning and 40 mg in the evening. Return to ER for any worsening. Follow-up with your advanced manufacturing vice president Dr. Flowers. You should also strongly consider hospice because as a Suad ages and time goes on she will have increasing frequency and intensity of these heart failure episodes. This is not a curable condition and unfortunately will only get worse causing Adelma a lot of distress. Copy Copies To 1: RONNA ALVAREZ MD, PETER J APRN Oct 06, 2021 11:52
[2021-10-06 11:53] LABS: BASOPHILS # (AUTO) 0.1 10^3/uL (0.0-0.1); BASOPHILS % (AUTO) 1 % (0-10); EOSINOPHILS # (AUTO) 0.7 10^3/uL (0.0-0.3); EOSINOPHILS % (AUTO) 9 % (0-10); HEMATOCRIT 32 % (35-52); HEMOGLOBIN 10.5 g/dL (11.5-16.0); LYMPHOCYTES # (AUTO) 0.7 10^3/uL (1.0-4.0); LYMPHOCYTES % (AUTO) 10 % (12-44); MEAN CORPUSCULAR HEMOGLOBIN 34 pg (25-34); MEAN CORPUSCULAR HGB CONC 32 g/dL (32-36); MEAN CORPUSCULAR VOLUME 106 fL (80-99); MEAN PLATELET VOLUME 10.4 fL (9.0-12.2); MONOCYTES # (AUTO) 0.6 10^3/uL (0.0-1.0); MONOCYTES % (AUTO) 8 % (0-12); NEUTROPHILS % (AUTO) 70 % (42-75); PLATELET COUNT 121 10^3/uL (130-400); WHITE BLOOD COUNT 7.1 10^3/uL (4.3-11.0)
[2021-10-06 12:04] LABS: ALBUMIN 3.6 GM/DL (3.2-4.5); POTASSIUM 4.5 MMOL/L (3.6-5.0)
[2021-10-06 12:05] LABS: CALCIUM 9.3 MG/DL (8.5-10.1); INR 1.2 (0.8-1.4); PROTHROMBIN TIME PATIENT 15.6 SEC (12.2-14.7)
[2021-10-06 12:06] LABS: TOTAL PROTEIN 7.2 GM/DL (6.4-8.2)
[2021-10-06 12:08] LABS: BILIRUBIN,TOTAL 1.3 MG/DL (0.1-1.0)
[2021-10-06 12:10] LABS: CREATININE SERUM 1.5 MG/DL (0.60-1.30)
--- NOTE | 2021-10-06 12:40 | Diagnostic Imaging Report ---
INDICATION: Chest pain. COMPARISON: 09/30/2021. FINDINGS: AP view of the chest reveals continued cardiomegaly. Pulmonary vascularity is at the upper limits of normal without overt edema. No pneumothorax or significant pleural fluid is seen. IMPRESSION: Cardiomegaly with pulmonary vascularity at the upper limits of normal. Dictated by: Dictated on workstation # [id number]
[2021-10-06] MEDS ORDERED: morphine INJ 10 MG/ML 1ML (SYR OR VIAL) IVP STA (13:21)
[2021-10-06 13:38] VITALS: BP 105/67
== END 2021-10-06 13:38 | disposition home or self-care (01) ==
LOC: EDUNIT# 11:30 → ER 11:30
DX: I50.9 Heart failure, unspecified (principal); I48.91 Unspecified atrial fibrillation; Z20.822 Contact with and (suspected) exposure to COVID-19; Z79.01 Long term (current) use of anticoagulants
CPT/HCPCS: 36415; 51702; 71045; 80053; 83735; 83874; 83880; 84484; 85025; 85610; 85730; 87636; 93005; 93041; 96374; 96375

== ENCOUNTER 2021-10-15 11:28 | Inpatient (IN) | payer MEDICAID ==
[~2021-10-15] VITALS: Ht 157 cm; Wt 77.5 kg
[2021-10-15 12:33] LABS: BASOPHILS % (AUTO) 0 % (0-10); EOSINOPHILS % (AUTO) 0 % (0-10); HEMATOCRIT 31 % (35-52); HEMOGLOBIN 9.8 g/dL (11.5-16.0); LYMPHOCYTES # (AUTO) 0.1 10^3/uL (1.0-4.0); LYMPHOCYTES % (AUTO) 1 % (12-44); MEAN CORPUSCULAR HEMOGLOBIN 34 pg (25-34); MEAN CORPUSCULAR HGB CONC 32 g/dL (32-36); MEAN CORPUSCULAR VOLUME 108 fL (80-99); MEAN PLATELET VOLUME 10.3 fL (9.0-12.2); MONOCYTES % (AUTO) 0 % (0-12); NEUTROPHILS # (AUTO) 9.5 10^3/uL (1.8-7.8); NEUTROPHILS % (AUTO) 97 % (42-75); PLATELET COUNT 138 10^3/uL (130-400); WHITE BLOOD COUNT 9.7 10^3/uL (4.3-11.0)
[2021-10-15 12:34] LABS: ALBUMIN 3.3 GM/DL (3.2-4.5)
[2021-10-15 12:35] LABS: CALCIUM 9.2 MG/DL (8.5-10.1)
[2021-10-15 12:37] LABS: TOTAL PROTEIN 7.6 GM/DL (6.4-8.2)
[2021-10-15 12:38] LABS: BILIRUBIN,TOTAL 1.7 MG/DL (0.1-1.0)
[2021-10-15 12:40] LABS: CREATININE SERUM 1.62 MG/DL (0.60-1.30)
[2021-10-15 12:43] LABS: MAGNESIUM 1.8 MG/DL (1.6-2.4)
[2021-10-15 12:48] LABS: INR 1.5 (0.8-1.4)
[2021-10-15 12:54] LABS: ANISOCYTOSIS MODERATE; BAND NEUTROPHILS 7 %; BASOPHILS % (MANUAL) 0 %; EOSINOPHILS % (MANUAL) 0 %; LYMPHOCYTES % (MANUAL) 0 %; MONOCYTES % (MANUAL) 0 %; NEUTROPHILS % (MANUAL) 93 %
--- NOTE | 2021-10-15 12:54 | Diagnostic Imaging Report ---
INDICATION: Dyspnea Single AP view of chest is obtained with comparison made to study of 10/06/2021. There is continued cardiomegaly. Pulmonary vascularity is at the upper limits normal. No overt edema. No pneumothorax or consolidation is identified. IMPRESSION: Cardiomegaly without overt pulmonary edema or other adverse change. Dictated by: Dictated on workstation # [id number]
[2021-10-15] MEDS ORDERED: RT-ALBUTEROL SULF 2.5 MG/3 ML PRE-MIX VIAL INH STA (14:17)
[2021-10-15] MEDS ORDERED: methylPREDNISolone 125 MG (Solu-MEDROL) VIAL IVP ONE (15:30)
--- NOTE | 2021-10-15 15:40 | ED General ---
General Chief Complaint: Respiratory Problems Stated Complaint: SOA Nursing Triage Note: PT TO RM 10 PER W/C PT CO OF SOA. PT DOES NOT SPEAK CENTRAL AFRICAN, PT'S DAUGHTER AT BEDSIDE. PT WEARS O2 @2L PER N/C DAUGHTER STATES SOA WORSE SINCE LAST PM. 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 She has a significant history of heart failure and coronary artery disease resulting in numerous visits to the ER and admissions to the hospital since the beginning of the year. She denies any chest pain, cough, fever, vomiting or focal pain. She does describe a vague sensation of being slightly chilled and slightly achy. She has had a little bit of diarrhea recently as well. She lives at home with her daughter. She is afebrile at present. The site interpreter language line was used to facilitate interview. Her daughter also helped with translation. She is in atrial fibrillation at this time and is anticoagulated with Eliquis. She reports compliance with her medications. Dr. Flowers is her counterintelligence analyst, and Dr. Alvarez is her primary care provider. Allergies and Home Medications Allergies Coded Allergies: Van Known Allergies (Verified Allergy, Unknown, 02/07/07) Patient Home Medication List Home Medication List Reviewed: Yes Acetaminophen (Tylenol Extra Strength) 500 Mg Tablet, 500-1,000 MG PO Q6H PRN for PAIN-MILD, (Reported) Entered as Reported by: PACO MARINO on 10/10/18 1449 Apixaban (Eliquis) 2.5 Mg Tablet, 2.5 MG PO BID, (Reported) Entered as Reported by: PACO MARINO on 10/10/18 1156 Aspirin (Aspirin) 81 Mg Tab.chew, 81 MG PO DAILY, (Reported) Entered as Reported by: YUE BUTTS on 01/04/21 0206 Atorvastatin Calcium (Atorvastatin Calcium) 40 Mg Tablet, 40 MG PO DAILY, (Reported) Entered as Reported by: PACO MARINO on 10/10/18 1156 Furosemide (Furosemide) 40 Mg Tablet, 40 MG PO LASIXBID Prescribed by: HUSAM GIBSON on 10/01/21944 Metoprolol Tartrate (Metoprolol Tartrate) 50 Mg Tablet, 75 MG PO BID Prescribed by: HUSAM GIBSON on 10/01/21944 Potassium Chloride (Potassium Chloride) 20 Meq Tablet.er, 20 MEQ PO DAILY, (Reported) Entered as Reported by: VIRA SEGAL on 09/30/21930 Review of Systems Review of Systems Constitutional: see HPI EENTM: no symptoms reported Respiratory: see HPI Cardiovascular: no symptoms reported; No chest pain Gastrointestinal: see HPI, diarrhea Genitourinary: no symptoms reported : No Musculoskeletal: see HPI Skin: no symptoms reported Psychiatric/Neurological: No Symptoms Reported Hematologic/Lymphatic: No Symptoms Reported Past Zzcixoy-Obhosd-Irwmel Hx Patient Social History Tobacco Use?: No Substance use?: No Alcohol Use?: No Pt feels they are or have been: No Immunizations Up To Date First/Initial COVID19 Vaccinat: NONE Second COVID19 Vaccination Goran: NONE Third COVID19 Vaccination Date: NONE Seasonal Allergies Seasonal Allergies: No Past Medical History Surgery/Hospitalization HX: CHF Surgeries: Yes Bladder Surgery, Cardiac, Coronary Stent, Eye Surgery, Gallbladder, Orthopedic Respiratory: No (CHRONIC DYSPNEA ON EXERTION) Cardiac: Yes (Congestive heart failure) Atrial Fibrillation, Coronary Artery Disease, Deep Vein Thrombosis, High Cholesterol, Hypertension Neurological: Yes (NEUROPATHY RIGHT FOOT POST ANKLE SURGERY) Neuropathy Reproductive Disorders: 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 No Pertinent Family Hx Daughter alive and healthy Physical Exam Vital Signs Vital Signs - First Documented Capillary Refill : Less Than 3 Seconds Height, Weight, BMI Height: 5'0.00" Weight: 160lbs. 0.0oz. 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 Norm as Tested, Other (Mood appears depressed) Skin: Normal Color, Warm/Dry Progress/Results/Core Measures Suspected Sepsis SIRS Temperature: Pulse: 112 Respiratory Rate: 36 Laboratory Tests 10/15/21 11:55: White Blood Count 9.7 Blood Pressure 114 /69 Mean: 84 Laboratory Tests 10/15/21 11:55: Creatinine 1.62H, INR Comment 1.5H, Platelet Count 138, Total Bilirubin 1.7H Results/Orders Lab Results Laboratory Tests Test 10/15/21 11:55 10/15/21 12:29 10/15/21 14:02 Range/Units White Blood Count 9.7 4.3-11.0 10^3/uL Red Blood Count 2.85 L 3.80-5.11 10^6/uL Hemoglobin 9.8 L 11.5-16.0 g/dL Hematocrit 31 L 35-52 % Mean Corpuscular Volume 108 H 80-99 fL Mean Corpuscular Hemoglobin 34 25-34 pg Mean Corpuscular Hemoglobin Concent 32 32-36 g/dL Red Cell Distribution Width 17.0 H 10.0-14.5 % Platelet Count 138 130-400 10^3/uL Mean Platelet Volume 10.3 9.0-12.2 fL Immature Granulocyte % (Auto) 0 % Neutrophils (%) (Auto) 97 H 42-75 % Lymphocytes (%) (Auto) 1 L 12-44 % Monocytes (%) (Auto) 0 0-12 % Eosinophils (%) (Auto) 0 0-10 % Basophils (%) (Auto) 0 0-10 % Neutrophils # (Auto) 9.5 H 1.8-7.8 10^3/uL Lymphocytes # (Auto) 0.1 L 1.0-4.0 10^3/uL Monocytes # (Auto) 0.0 0.0-1.0 10^3/uL Eosinophils # (Auto) 0.0 0.0-0.3 10^3/uL Basophils # (Auto) 0.0 0.0-0.1 10^3/uL Immature Granulocyte # (Auto) 0.0 0.0-0.1 10^3/uL Neutrophils % (Manual) 93 % Lymphocytes % (Manual) 0 % Monocytes % (Manual) 0 % Eosinophils % (Manual) 0 % Basophils % (Manual) 0 % Band Neutrophils 7 % Anisocytosis MODERATE Prothrombin Time 19.0 H 12.2-14.7 SEC INR Comment 1.5 H 0.8-1.4 Activated Partial Thromboplast Time 36 H 24-35 SEC Sodium Level 130 L 135-145 MMOL/L Potassium Level 5.0 3.6-5.0 MMOL/L Chloride Level 96 L 98-107 MMOL/L Carbon Dioxide Level 19 L 21-32 MMOL/L Anion Gap 15 H 5-14 MMOL/L Blood Urea Nitrogen 28 H 7-18 MG/DL Creatinine 1.62 H 0.60-1.30 MG/DL Estimat Glomerular Filtration Rate 30 BUN/Creatinine Ratio 17 Glucose Level 116 H 70-105 MG/DL Calcium Level 9.2 8.5-10.1 MG/DL Corrected Calcium 9.8 8.5-10.1 MG/DL Magnesium Level 1.8 1.6-2.4 MG/DL Total Bilirubin 1.7 H 0.1-1.0 MG/DL Aspartate Amino Transf (AST/SGOT) 43 H 5-34 U/L Alanine Aminotransferase (ALT/SGPT) 19 0-55 U/L Alkaline Phosphatase 111 40-136 U/L Myoglobin 90.3 10.0-92.0 NG/ML Troponin I 0.029 H 0.033 H <0.028 NG/ML C-Reactive Protein High Sensitivity 1.11 H 0.00-0.50 MG/DL B-Type Natriuretic Peptide 1383.4 H <100.0 PG/ML Total Protein 7.6 6.4-8.2 GM/DL Albumin 3.3 3.2-4.5 GM/DL Influenza Type A (RT-PCR) Not Detected Not Detecte Influenza Type B (RT-PCR) Not Detected Not Detecte SARS-CoV-2 RNA (RT-PCR) Not Detected Not Detecte My Orders Orders - BRITTA OBREGON MD Covid 19 Inhouse Test (10/15/21 12:26) Influenza A And B By Pcr (10/15/21 12:26) Cbc With Automated Diff (10/15/21 12:26) Comprehensive Metabolic Panel (10/15/21 12:26) Hs C Reactive Protein (10/15/21 12:26) Magnesium (10/15/21 12:26) Ekg Tracing (10/15/21 12:31) Myoglobin Serum (10/15/21 12:31) Protime With Inr (10/15/21 12:31) Partial Thromboplastin Time (10/15/21 12:31) O2 (10/15/21 12:31) Monitor-Rhythm Ecg Trace Only (10/15/21 12:31) Lipid Panel (10/16/21 06:00) Chest 1 View, Ap/Pa Only (10/15/21 12:31) Manual Differential (10/15/21 11:55) Troponin I Cowley (10/15/21 11:55) Bnp Cowley (10/15/21 13:20) Troponin I Monique (10/15/21 14:00) Albuterol Pre-Mix Nebs (Rt) (Proventil (10/15/21 14:17) Svn Small Volume Nebulizer (10/15/21 14:17) Methylprednisolone Sod Succ (Solu-Medrol (10/15/21 15:30) Medications Given in ED Current Medications Medications Dose Ordered Sig/Phan Route Start Time Stop Time Status Last Admin Dose Admin Methylprednisolone Sodium Succinate 62.5 mg ONCE ONCE IVP 10/15/21 15:30 10/15/21 15:31 DC 10/15/21 16:07 62.5 MG Vital Signs/I&O 10/15/21 10/15/21 10/15/21 10/15/21 11:35 11:35 11:35 14:31 Temp 37.1 Pulse 112 Resp 36 B/P (MAP) 114/69 (84) Pulse Ox 96 95 96 O2 Delivery Nasal Cannula Nasal Cannula Nasal Cannula Nasal Cannula O2 Flow Rate 2.00 2.00 2.00 2.00 10/15/21 16:57 Pulse 92 Resp 22 B/P (MAP) 133/76 Pulse Ox 98 O2 Delivery Nasal Cannula O2 Flow Rate 3.00 Capillary Refill : Less Than 3 Seconds Blood Pressure Mean: 84 Progress Note : Time: 15:55 Progress Note Work-up did not necessarily suggest exacerbation of CHF. Her creatinine is a bit higher than previous and her BNP is lower. She did have cardiomegaly without overt heart failure on her chest x-ray. Because she had a prolonged expiratory phase and some "belly breathing" on exam, she was given an albuterol treatment. She reported this did improve her status some. I had a long conversation with the patient about her goals and expectations. This was performed with the language line site interpreter and her daughter was also involved. We discussed focusing on comfort and remaining at home versus admitting to the hospital in an effort to further evaluate her exacerbation of shortness of breath. Patient prefers to be in the hospital and further evaluate her situation. I did explain to her and her daughter that it is likely no additional treatments are recommended, at which time hospice care could be considered rather than repeated visits to the ER and hospital. They seem to be open to this idea. I discussed the case with Dr. Gibson who was agreeable to admission with the understanding that we would work toward more definitive goals regarding expectations and end-of-life conversations. I discussed the case with Dr. Flowers as well. From his cardiology perspective, she is currently stable and not experiencing an acute exacerbation of heart failure. He did not expect a hospitalization to significantly improve her cardiac status. Rather, he felt a focus on rehab options, expectations, etc. is a more reasonable approach. Since her creatinine is elevated and BNP is low, he recommended some gentle hydration. Normal saline at 50 mL/h x 1 L was placed on the admission orders. Because of her respiratory function on exam, Dr. Gibson suggested starting steroids and continuing with respiratory treatments. I am consulting social work on the admission orders in the hopes that options will be explored to prevent the repeated visits to the ER and hospital which might include placement in a nursing facility, rehab, and/or hospice. Alternatively, staying at home with more realistic expectations regarding quality of life and functionality may be made clear through this hospitalization. I also had a lengthy conversation with the patient and daughter via the language line regarding CODE STATUS. I explained that a resuscitation effort had great potential for causing her si gnificant harm without much potential for preserving quality of life. She is agreeable to a DNR status at this time. ECG Initial ECG Impression Date: Oct 15, 2021 Initial ECG Impression Time: 13:18 Initial ECG Rate: 115 Initial ECG Rhythm: A Fib/Flutter Initial ECG Intervals: Normal Comment Atrial fibrillation with mild tachycardia. No ST elevation or depression. No abnormal intervals or axis deviation. Diagnostic Imaging Diagonstic Imaging: Xray Plain Films/CT/US/NM/MRI: chest Comments NAME: IN[facility] REC#: [id number] PT STATUS: REG ER : [id number] PHYSICIAN: BRITTA OBREGON MD ADMIT DATE: 10/15/21/ER Signed Date of Exam:10/15/21 CHEST 1 VIEW, AP/PA ONLY INDICATION: Dyspnea Single AP view of chest is obtained with comparison made to study of 10/06/2021. There is continued cardiomegaly. Pulmonary vascularity is at the upper limits normal. No overt edema. No pneumothorax or consolidation is identified. IMPRESSION: Cardiomegaly without overt pulmonary edema or other adverse change. Dictated by: Dictated on workstation # [id number] Dict: 10/15/21 1251 Trans: 10/15/21 1452 CV [id number] Interpreted by: ESTHER MARIE MD Electronically signed by: ESTHER MARIE MD 10/15/21 1452 Departure Communication (Admissions) Time/Spoke to Admitting Phy: 15:25 Dr. Gibson Time/Spoke to Consulting Phy: 15:35 Dr. Flowers Impression Primary Impression: SOB (shortness of breath) Additional Impressions: COPD exacerbation Chronic diastolic heart failure Atrial fibrillation Qualified Codes: I48.91 - Unspecified atrial fibrillation Exacerbation chronic kidney disease Generalized weakness Disposition: ADMITTED INPATIENT Condition: Improved Admissions Decision to Admit Reason: Admit from ER (General) Decision to Admit/Date: Oct 15, 2021 Time/Decision to Admit Time: 15:25 Departure-Patient Inst. Referrals: RONNA ALVAREZ MD (PCP/Family) Primary Care Physician Copy Copies To 1: RONNA ALVAREZ MD, JOSHUA T MD Oct 15, 2021 15:40
[2021-10-15 17:47] VITALS: BP 126/71
[2021-10-15] MEDS ORDERED: FUROSEMIDE 40 MG (LASIX) TAB PO SCH (18:00)
[2021-10-15] MEDS ORDERED: NS IV 1000 ML 1,000 ML IV ONE (18:00)
[2021-10-15 18:11] VITALS: BP 114/69
[2021-10-15] MEDS ORDERED: RT-ALBUTEROL/IPRATROPIUM 3 ML (DUONEB) VIAL INH PRN (18:30)
[2021-10-15 19:51] VITALS: BP 114/59
[2021-10-15] MEDS ORDERED: ONDANSETRON 4 MG (ZOFRAN) ORAL DISSOLVE TAB PO PRN (20:00)
[2021-10-15] MEDS ORDERED: polyethylene glycoL POWDER 17 GM (MIRALAX) PACK PO PRN (20:00)
[2021-10-15] MEDS ORDERED: ACETAMINOPHEN 325 MG TABLET PO PRN (20:00)
[2021-10-15] MEDS ORDERED: ANTACID SUSP 30 ML UDC (MYLANTA) PO PRN (20:00)
[2021-10-15] MEDS ORDERED: ONDANSETRON 4 MG/2 ML (SDV) Z0FRAN IV PRN (20:00)
[2021-10-15] MEDS ORDERED: MELATONIN 3 MG TABLET PO PRN (20:00)
[2021-10-15] MEDS ORDERED: RT-ALBUTEROL/IPRATROPIUM 3 ML (DUONEB) VIAL INH SCH (21:00)
[2021-10-15] MEDS ORDERED: APIXABAN 2.5 MG (ELIQUIS) TABLET PO SCH (21:00)
[2021-10-15] MEDS ORDERED: DOCUSATE SODIUM 100 MG (COLACE) CAP PO SCH (21:00)
[2021-10-15] MEDS ORDERED: meTOprolol TARTRATE 50 MG (LOPRESSOR) TAB PO SCH (21:00)
[2021-10-15] MEDS ORDERED: SENNOSIDES 8.6 MG (SENOKOT) TAB PO SCH (21:00)
[2021-10-16 00:02] VITALS: BP 99/66
[2021-10-16] MEDS ORDERED: ASPIRIN 81 MG CHEW (CHILDREN'S ASA) PO SCH (09:00)
--- NOTE | 2021-10-16 18:43 | Discharge Summary ---
Discharge Summary Hospital Course Problems/Dx: (1) Chronic diastolic heart failure Status: Acute (2) COPD exacerbation Status: Acute (3) Atrial fibrillation Status: Acute Qualifiers: Qualified Codes: I48.91 - Unspecified atrial fibrillation (4) SOB (shortness of breath) (5) Chronic kidney disease, stage 3a (6) Coronary artery disease without angina pectoris (7) Primary hypertension (8) Mixed hyperlipidemia (9) Advanced age Status: Chronic (10) Obesity Status: Chronic Hospital Course Date of Admission: Oct 15, 2021 at 17:00 Admission Diagnosis : Shortness of breath Family Physician/Provider: Ligia Munoz MD Date of Discharge: 10/16/21 Discharge Diagnosis: Chronic respiratory failure with hypoxia, Chronic diastolic heart failure, COPD, AFib, HTN, HLD, obesity, advanced age Hospital Course: Devorah Vega was an 86 year old female with PMH HTN, HLD, CAD, AFib, HFpEF, obesity, who presented with shortness of breath. She was at her baseline oxygen on arrival. Her workup did not reveal any evidence of acute CHF. Her BNP was lower than normal and her chest xray had no signs of acute failure or consolidation. She was not septic. She reportedly had some wheezing and was thought to possibly have a COPD exacerbation. She was started on steroids and breathing treatments. She was on chronic anticoagulation for atrial fibrillation. She had multiple recent hospitalizations with similar presentation. She had a goals of care discussion in the ER and transitioned to DNR status. Her heart rate decreased on telemetry and then went to asystole. She on 10/16/2021 at 0030. Labs and Pending Lab Test: Home Meds Active Furosemide 40 Mg Tablet 40 Mg PO LASIXBID 30 Days TAKE TWICE DAILY (8 AM AND 2 PM) Metoprolol Tartrate 50 Mg Tablet 75 Mg PO BID 30 Days Reported Potassium Chloride 20 Meq Tablet.er 20 Meq PO DAILY Aspirin 81 Mg Tab.chew 81 Mg PO DAILY Tylenol Extra Strength (Acetaminophen) 500 Mg Tablet 500-1,000 Mg PO Q6H PRN Eliquis (Apixaban) 2.5 Mg Tablet 2.5 Mg PO BID Atorvastatin Calcium 40 Mg Tablet 40 Mg PO DAILY Assessment/Pt Instructions Patient Discharge Physical Examination Vital Signs Vital Signs Date Time Temp Pulse Resp B/P (MAP) Pulse Ox O2 Delivery O2 Flow Rate FiO2 10/16/21 00:02 36.5 90 20 99/66 (77) 94 Nasal Cannula 3.00 Allergies: Coded Allergies: NKANo Known Allergies (Verified Allergy, Unknown, 02/07/07) Copy Copies To 1: LIGIA MUNOZ MD Discharge Summary Date of Admission Oct 15, 2021 at 17:00 Date of Discharge Oct 16, 2021 at 00:30 Discharge Date: Oct 16, 2021 Discharge Time: 00:30 Admission Diagnosis Shortness of breath Comfort Measures/ Cardiopulmonary Arrest: Asystole Date of : Oct 16, 2021 Time of : 00:30 Discharge Diagnosis (1) Asystole Status: Acute (2) Chronic diastolic heart failure Status: Acute (3) COPD exacerbation Status: Acute (4) SOB (shortness of breath) (5) Coronary artery disease without angina pectoris (6) Chronic kidney disease, stage 3a (7) Mixed hyperlipidemia (8) Primary hypertension (9) Obesity Status: Chronic (10) Advanced age Status: Chronic HUSAM GIBSON MD Oct 16, 2021 18:41
== END 2021-10-16 00:30 | disposition expired | DRG 191 ==
LOC: EDUNIT# 11:28 → ER 11:29 → 4TH 17:00
PROVIDERS: ADMIT Internal Medicine; ATTEND Internal Medicine
DX: J44.1 Chronic obstructive pulmonary disease with (acute) exacerbation (principal); I13.0 Hypertensive heart and chronic kidney disease with heart failure and stage 1 through stage 4 chronic kidney disease, or unspecified chronic kidney disease; J96.11 Chronic respiratory failure with hypoxia; I50.32 Chronic diastolic (congestive) heart failure; I48.91 Unspecified atrial fibrillation; Z66 Do not resuscitate; Z51.5 Encounter for palliative care; Z79.01 Long term (current) use of anticoagulants; I25.10 Atherosclerotic heart disease of native coronary artery without angina pectoris; Z79.82 Long term (current) use of aspirin; Z79.899 Other long term (current) drug therapy; Z95.5 Presence of coronary angioplasty implant and graft; E78.00 Pure hypercholesterolemia, unspecified; G62.9 Polyneuropathy, unspecified; M19.90 Unspecified osteoarthritis, unspecified site; G89.29 Other chronic pain; M54.9 Dorsalgia, unspecified; Z20.822 Contact with and (suspected) exposure to COVID-19; N18.31 Chronic kidney disease, stage 3a; E78.2 Mixed hyperlipidemia; E66.9 Obesity, unspecified; I46.9 Cardiac arrest, cause unspecified; Z68.31 Body mass index [BMI] 31.0-31.9, adult
CPT/HCPCS: 36415; 71045; 80053; 83735; 83874; 83880; 84145; 84484; 85007; 85027; 85610; 85730; 86141; 87636; 93005; 93041; 94640